=== PATIENT | female | born 1970 | race Caucasian/White ===

== ENCOUNTER 2017-01-14 11:53 | Inpatient (IN) ==
[2017-01-14] MEDS ORDERED: 0.9 % Sodium Chloride 1,000 ML IV ONE (13:17)
--- NOTE | 2017-01-14 13:21 | Emergency Department Note ---
Disposition Clinical Impression: Hyperbilirubinemia, Jaundice, Transaminitis Leukocytosis Qualifiers: Leukocytosis type: unspecified Qualified Code(s): D72.829 - Elevated white blood cell count, unspecified Breast cancer Qualifiers: Breast location: unspecified site of breast Patient sex: female Laterality: left Qualified Code(s): C50.912 - Malignant neoplasm of unspecified site of left female breast Disposition: Admitted As Inpatient Condition: Serious Time of Disposition: 17:51 General Adult HPI - General Chief complaint: ED Abdominal Pain Stated complaint: liver failure, from Dr. Mckinney Time Seen by Provider: 01/14/17 11:55 Source: patient Limitations: no limitations Nursing Notes Reviewed: Yes Vital Signs Reviewed: Yes - History of Present Illness HPI Narrative: 46-year-old female who diagnosis of breast cancer, with positive axillary lymph node for metastatic cancer to the left breast. Presents with yellow skin. Patient states that she has had jaundice and icterus or sclera, for the last few days. She was evaluated in the ED with an abdominal CAT scan that demonstrated a biliary ductal dilation. Had a total bilirubin of 4 at the time on records review. She is supposed to follow up with Dr Rosario, does have a history of Crohn's, and has seen him in the past. Over the weekend for the last 2-3 days she has noticed that her eyes and her skin has been yellow. She denies any pain, denies chest pain abdominal pain dysuria hematuria, but has noticed that her urine has been darker lately as well. Onset (ago): day(s) (5) Radiation: non-radiation Pain Scale: 0 Improves with: nothing Worsens with: nothing Associated symptoms: Reports: weakness. Denies: confusion, chest pain, cough, fever/chills, headaches, nausea/vomiting - Related Data Home Medications Medication Instructions Recorded Confirmed HydrOXYzine Pamoate [Hydroxyzine 25 mg PO TID PRN 01/14/17 01/14/17 Pamoate] InFLIXimab [Remicade] 100 mg IVPB [id number] 01/14/17 01/14/17 PredniSONE [Deltasone] See Taper PO AD 01/14/17 01/14/17 Allergies Allergy/AdvReac Type Severity Reaction Status Date / Time No Known Allergies Allergy Verified 01/14/17 12:57 All systems ED: reviewed and negative except as stated. Constitutional: Reports: weakness. Denies: fever, chills Eyes: Reports: other (eye color change yellowing) ENT ED: Denies: ear pain, throat pain Cardiovascular: Denies: chest pain, palpitations Gastrointestinal: Denies: abdominal pain, nausea, vomiting Genitourinary: Denies: urgency, dysuria Musculoskeletal: Denies: back pain, neck pain Integumentary: Reports: as per HPI, pruritus, other (skin color change) Neurological: Reports: weakness. Denies: headache Hematological/Lymphatic: Denies: easy bleeding Past Medical History - Past Medical History Attestation: Yes The following information was validated with the patient. Source: patient Medical history: Reports: cancer, other Surgical history: Reports: Psychiatric history: Reports: no psych history - Social History Smoking Status: Never smoker Smokeless Tobacco Status: No Alcohol use: Reports: occasionally Drug use: Reports: none Physical Exam Constitutional: Cachectic female appears older than stated age. Vitals within normal limits HEENT: NCAT, sclera icteric Neck: normal inspection, neck is supple, trachea midline Resp: normal chest inspection, CTA bilaterally, no resp distress CV: RRR, no m/g/r GI: normal inspection, Soft, NTND, BS present Back: normal inspection, no tenderness to palpation Neuro: A&O3, no gross motor or sensory deficits bilaterally Skin: Jaundice diffuse - General Limitations: no limitations General appearance: alert, in no apparent distress Course Course Narrative: 46-year-old female with elevated bilirubin, found to be newly jaundiced, we will repeat hepatic panel, reassessed. - Reevaluation(s) Reevaluation #1: Total bilirubin 10, white count elevated, started empirically on Zosyn, consult to Dr. Rosario and Dr. Huber, who will see the patient was counseled, hospitalist admission, concerns for possible metastatic disease, given breast cancer, bili or dilatation, I did also had an ultrasound of the gallbladder for the patient, admitted to hospital service in stable condition at time of ED disposition Time: 17:50 Vital Signs Temperature 97.7 F 01/14/17 12:52 Pulse Rate 59 01/14/17 12:52 Respiratory Rate 16 01/14/17 12:52 Blood Pressure 127/75 01/14/17 12:52 O2 Sat by Pulse Oximetry 99 01/14/17 12:52 Temperature 97.7 F 01/14/17 12:52 Pulse Rate 72 01/14/17 17:00 Respiratory Rate 16 01/14/17 17:39 Blood Pressure 105/48 01/14/17 17:39 O2 Sat by Pulse Oximetry 96 01/14/17 17:00 Oxygen Delivery Oxygen Delivery Room Air Medical Decision Making - MDM Narrative Medical decision making narrative: 46-year-old female with painless jaundice, concern for metastatic disease from the breast, admitted to medicine service with consults with oncology and gastroenterology already called in the emergency department, started empirically on Zosyn IV fluids running, patient stable but serious condition at the time of ED disposition - Medical Records Medical records reviewed: Yes I reviewed the patient's medical records. - Lab Data Lab results reviewed: Yes I reviewed the patient's lab results. Result diagrams: 01/14/17 13:42 01/14/17 13:42 Lab Results 01/14/17 01/14/17 01/14/17 Range/Units 13:08 13:42 13:42 WBC 20.0 H (4.3-11.1) K/mcL RBC 4.40 (3.82-4.97) M/mcL Hgb 12.7 (11.5-15.4) g/dL Hct 37.8 (35.3-44.9) % MCV 85.9 (83.0-100.0) fL MCH 28.9 (28.0-33.3) pg MCHC 33.6 (31.6-35.5) g/dL RDW 16.4 H (11.5-14.5) % Plt Count 251 (140-400) K/mcL MPV 10.9 (9.4-12.4) fL Immature Gran % 1.0 (0-4) % Seg Neutrophils % 83.5 % Lymphocytes % 9.8 % Monocytes % 5.5 % Eosinophils % 0.1 % Basophils % 0.1 % Neutrophils # 16.7 H (1.6-8.9) K/mcL Lymphocytes # 2.0 (0.6-4.6) K/mcL Monocytes # 1.1 (0.0-1.3) K/mcL Eosinophils # 0.0 (0.0-0.6) K/mcL Basophils # 0.0 (0.0-0.2) K/mcL Sodium 138 (136-145) mEq/L Potassium 3.1 L (3.5-4.5) mEq/L Chloride 107 (98-109) mEq/L Carbon Dioxide 24 (19-29) mEq/L BUN 18 (7-20) mg/dL Creatinine 0.75 (0.57-1.11) mg/dL Est GFR ( Amer) > 60 (> 60) Est GFR (Non-Af Amer) > 60 (> 60) BUN/Creatinine Ratio 24 (6-26) Glucose 83 (70-99) mg/dL Calculated Osmolality 287 (280-300) Lactic Acid (0.5-2.2) mmol/L Calcium 9.5 (8.6-10.8) mg/dL Total Bilirubin 10.8 H (0.2-1.2) mg/dL Direct Bilirubin 8.0 H (0.0-0.5) mg/dL Indirect Bilirubin 2.8 H (0.0-1.2) mg/dL AST 278 H (5-34) Units/L ALT 634 H (0-55) Units/L Alkaline Phosphatase 833 H (38-126) Units/L Serum Total Protein 7.2 (6.0-8.3) g/dL Albumin 2.9 L (3.5-5.0) g/dL Globulin 4.3 H (2.4-3.5) g/dL Albumin/Globulin Ratio 0.7 L (1.1-2.2) Lipase 41 (8-78) Units/L Urine Color [place] A (Yellow) Urine Clarity Cloudy A (Clear) Urine pH 6.0 (5.0-8.0) pH Units Ur Specific [place] > 1.030 H (1.010-1.025) Urine Protein 30 H (Neg-Trace) mg/dL Urine Glucose (UA) Normal (Normal) mg/dL Urine Ketones Trace H (Negative) mg/dL Urine Blood Negative (Negative) Urine Nitrite Negative (Negative) Urine Bilirubin Large H (Negative) Urine Urobilinogen Normal (Normal) mg/dL Ur Leukocyte Esterase Small H (Negative) Urine Microscopic RBC 3-5 H (0-3) per hpf Urine Microscopic WBC 0-3 (0-3) per hpf Ur Squamous Epith Cells Moderate H (None-Few) per lpf Urine Bacteria Few (None-Few) per hpf Hyaline Casts None Seen (None-Few) per lpf Ur Culture Indicated? YES A (NO) Acetaminophen (10-30) mcg/mL Hepatitis A IgM Ab (Nonreactive) Hep Bs Antigen (Nonreactive) Hep B Core IgM Ab (Nonreactive) Hepatitis C Ab Screen (Nonreactive) 01/14/17 01/14/17 01/14/17 Range/Units 15:27 15:27 15:27 WBC (4.3-11.1) K/mcL RBC (3.82-4.97) M/mcL Hgb (11.5-15.4) g/dL Hct (35.3-44.9) % MCV (83.0-100.0) fL MCH (28.0-33.3) pg MCHC (31.6-35.5) g/dL RDW (11.5-14.5) % Plt Count (140-400) K/mcL MPV (9.4-12.4) fL Immature Gran % (0-4) % Seg Neutrophils % % Lymphocytes % % Monocytes % % Eosinophils % % Basophils % % Neutrophils # (1.6-8.9) K/mcL Lymphocytes # (0.6-4.6) K/mcL Monocytes # (0.0-1.3) K/mcL Eosinophils # (0.0-0.6) K/mcL Basophils # (0.0-0.2) K/mcL Sodium (136-145) mEq/L Potassium (3.5-4.5) mEq/L Chloride (98-109) mEq/L Carbon Dioxide (19-29) mEq/L BUN (7-20) mg/dL Creatinine (0.57-1.11) mg/dL Est GFR ( Amer) (> 60) Est GFR (Non-Af Amer) (> 60) BUN/Creatinine Ratio (6-26) Glucose (70-99) mg/dL Calculated Osmolality (280-300) Lactic Acid 0.7 (0.5-2.2) mmol/L Calcium (8.6-10.8) mg/dL Total Bilirubin (0.2-1.2) mg/dL Direct Bilirubin (0.0-0.5) mg/dL Indirect Bilirubin (0.0-1.2) mg/dL AST (5-34) Units/L ALT (0-55) Units/L Alkaline Phosphatase (38-126) Units/L Serum Total Protein (6.0-8.3) g/dL Albumin (3.5-5.0) g/dL Globulin (2.4-3.5) g/dL Albumin/Globulin Ratio (1.1-2.2) Lipase (8-78) Units/L Urine Color (Yellow) Urine Clarity (Clear) Urine pH (5.0-8.0) pH Units Ur Specific [place] (1.010-1.025) Urine Protein (Neg-Trace) mg/dL Urine Glucose (UA) (Normal) mg/dL Urine Ketones (Negative) mg/dL Urine Blood (Negative) Urine Nitrite (Negative) Urine Bilirubin (Negative) Urine Urobilinogen (Normal) mg/dL Ur Leukocyte Esterase (Negative) Urine Microscopic RBC (0-3) per hpf Urine Microscopic WBC (0-3) per hpf Ur Squamous Epith Cells (None-Few) per lpf Urine Bacteria (None-Few) per hpf Hyaline Casts (None-Few) per lpf Ur Culture Indicated? (NO) Acetaminophen < 1.0 L (10-30) mcg/mL Hepatitis A IgM Ab Nonreactive (Nonreactive) Hep Bs Antigen Nonreactive (Nonreactive) Hep B Core IgM Ab Nonreactive (Nonreactive) Hepatitis C Ab Screen Nonreactive (Nonreactive) - Radiology Data Radiology results reviewed: Yes I reviewed the patient's radiology results. Chest X-Ray 01/14/17 13:56 IMPRESSION: No acute cardiopulmonary process. D/ / 01/14/2017 15:13:20 Carie Gandhi MD / Ellie De La Garza Interpreting Provider: Carie Gandhi MD Attestation Statement - Attestation Attestation: I examined this patient and my medical decision-making was reviewed with the DIRECTOR OF STUDENT AID/PA/Advanced Practice Nurse/Resident Physician. I agree with the documented findings, disposition and treatment plan as described except to the extent set forth below. Patient emergency department for jaundice. Patient was recently diagnosed with breast cancer and is still awaiting biopsy results. She had elevated LFTs and had an outpatient CT that shows biliary duct dilatation. She was sent in for admission and GI consult. On exam she is jaundiced. Her abdomen is soft. Nontoxic and afebrile. Plan. Admission for GI consultation and oncology consultation. Patient has been discussed with Dr. Rosario and Dr. Mendez's lead setter. Will be admitted to medicine.
[2017-01-14 13:26] LABS: Bilirubin,Urine Large (Negative); Blood,Urine Negative (Negative); Clarity,Urine Cloudy (Clear); Color,Urine Orange (Yellow); Glucose,Urine (UA) Normal (Normal); Ketones,Urine Trace mg/dL (Negative); Leukocyte Esterase,Urine Small (Negative); Nitrite,Urine Negative (Negative); Protein,Urine 30 mg/dL (Neg-Trace); Specific Gravity,Urine > 1.030 (1.010-1.025); Urobilinogen,Urine Normal (Normal)
[2017-01-14 13:29] LABS: Hyaline Casts,Urine None Seen per lpf (None-Few); Squamous Epithelial Cell,Urine Moderate per lpf (None-Few); WBC,Urine 0-3 per hpf (0-3)
[2017-01-14 13:42] LABS: Bacteria,Urine Few per hpf (None-Few)
[2017-01-14 13:48] LABS: Basophils % 0.1 %; Eosinophils % 0.1 %; Hematocrit 37.8 % (35.3-44.9); Hemoglobin 12.7 g/dL (11.5-15.4); Lymphocytes % 9.8 %; Mean Corpuscular HGB Conc 33.6 g/dL (31.6-35.5); Mean Corpuscular Hemoglobin 28.9 pg (28.0-33.3); Mean Corpuscular Volume 85.9 fL (83.0-100.0); Mean Platelet Volume 10.9 fL (9.4-12.4); Monocytes # 1.1 K/mcL (0.0-1.3); Monocytes % 5.5 %; Neutrophils # 16.7 K/mcL (1.6-8.9); Platelet Count 251 K/mcL (140-400); Red Cell Distribution Width 16.4 % (11.5-14.5); Segmented Neutrophils % 83.5 %
[2017-01-14 14:03] LABS: Alanine Aminotransferase 634 Units/L (0-55); Albumin 2.9 g/dL (3.5-5.0); Albumin/Globulin Ratio 0.7 (1.1-2.2); Alkaline Phosphatase 833 Units/L (38-126); Aspartate Amino Transferase 278 Units/L (5-34); BUN/Creatinine Ratio 24 (6-26); Bilirubin,Indirect 2.8 mg/dL (0.0-1.2); Bilirubin,Total 10.8 mg/dL (0.2-1.2); Blood Urea Nitrogen 18 mg/dL (7-20); Calcium 9.5 mg/dL (8.6-10.8); Carbon Dioxide 24 mEq/L (19-29); Chloride 107 mEq/L (98-109); Globulin 4.3 g/dL (2.4-3.5); Glucose 83 mg/dL (70-99); Lipase 41 Units/L (8-78); Osmolality,Calculated 287 (280-300); Potassium 3.1 mEq/L (3.5-4.5); Sodium 138 mEq/L (136-145); Total Protein 7.2 g/dL (6.0-8.3); eGFR For African Americans > 60 (> 60); eGFR For Non-African Americans > 60 (> 60)
[2017-01-14] MEDS ORDERED: Piperacillin/Tazobactam 3.375 GM in D5% in Water (Mini-Bag+) 100 ML IVPB ONE (14:56)
[2017-01-14] MEDS ORDERED: Piperacillin/Tazobactam 3.375 GM in D5% in Water (Mini-Bag+) 100 ML IVPB STA (16:44)
[2017-01-14 17:19] LABS: Hepatitis A Antibody IgM Nonreactive (Nonreactive); Hepatitis B Core IgM Nonreactive (Nonreactive); Hepatitis B Surface Antigen Nonreactive (Nonreactive); Hepatitis C Virus Antibody Nonreactive (Nonreactive)
[2017-01-14] MEDS ORDERED: Naloxone 0.4 MG/ML INJ IVP PRN (18:05)
--- NOTE | 2017-01-14 18:05 | Internal Med History&Physical ---
Date of Encounter: 01/14/17 Time of Encounter: 17:15 Assessment and Plan (1) Cholestasis Current visit: Yes Status: Suspected Observe patient in the hospital overnight. Consult GI for possible ERCP. Patient has possible obstructive jaundice. She is pain-free. There is intrahepatic ductal dilatation as noted from CT done on 01/11/17. Ultrasound of the abdomen done on 01/04/17 did not show any biliary duct dilatation or gallstones. We will repeat ultrasound of the abdomen. (2) Leukocytosis Current visit: Yes Status: Acute Patient has leukocytosis with possible obstructive jaundice. Started on antibiotics. Will continue for now. 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 We will consult oncology for further recommendations. Qualifiers: Breast location: unspecified site of breast Patient sex: female Laterality: left Qualified Code(s): C50.912 - Malignant neoplasm of unspecified site of left female breast (4) Hyperbilirubinemia Current visit: Yes Status: Acute Due to obstructive jaundice. Will check hepatic viral panel. (5) Jaundice Current visit: Yes Status: Acute (6) Transaminitis Current visit: Yes Status: Acute (7) Crohns disease Current visit: Yes Status: Chronic Patient currently not having any flareup symptoms. She was started on a prednisone tapering course as outpatient which we will continue. Qualifiers: Gastrointestinal tract location: unspecified location Digestive disease complication type: without complication Qualified Code(s): K50.90 - Crohn's disease, unspecified, without complications Internal Medicine - H&P: HPI Chief complaint: Jaundice Admitted From: Emergency Dept Plans for Post Hospital Care: Home History of present illness: Ms. Cruz is a 46 year old female With a history of Crohn's disease who presented to the ER today with complaints of worsening jaundice. She had been seen by her primary care provider recently after she first developed these symptoms on of last week. She has been feeling lethargic and fatigued. She had just been diagnosed with breast cancer and was being set up to follow up with [facility]. She underwent a mammogram on Saturday and had return for biopsy on . She was evaluated by her primary care provider and underwent a CT scan of the abdomen and the ultrasound of the abdomen later in the week. These did not show any abnormalities. Patient currently denies any nausea or vomiting diarrhea or hematochezia. She has not had a Crohn's flareup for a few months now. She was previously on Remicade and at that time she was having bad flareups. However in November she did not get her dose of Remicade as she was not feeling good at that time. She has never had any episodes of jaundice like this before. She does not have a history of any hepatitis virus. No other family members are exhibiting similar symptoms. She denies any abdominal pain. She has no previous history of gallbladder disease. She is currently on a prednisone taper. Past Med Surg Social Fam HX - Past Medical History Attestation: Yes The following information was validated with the patient. Medical history: cancer (Left breast invasive ductal carcinoma with lymphatic spread), other Psychiatric history: no psych history - Past Surgical History Surgical History: - Social History Smoking Status: Never smoker Smokeless Tobacco Status: No Alcohol use: occasionally Drug use: none - Additional Family History Additional family history: Reviewed and found to be noncontributory at this time Internal Medicine - H&P: Meds HydrOXYzine Pamoate [Hydroxyzine Pamoate] 25 mg PO TID PRN 01/14/17 [History] InFLIXimab [Remicade] 100 mg IVPB [id number] 01/14/17 [History] PredniSONE [Deltasone] See Taper PO AD 01/14/17 [History] Allergies No Known Allergies Allergy (Verified 01/14/17 12:57) All Systems PM: A 10-system review of systems was performed and is negative for pertinent findings except as documented above in the HPI. - Constitutional Constitutional: no chills, no fever(s), no night sweats - EENT Eyes: no change in vision, no discharge, no pain, no photophobia Ears: no ear discharge, no ear pain, no tinnitus Nose, mouth and throat: no dysphagia, no nasal discharge, no neck pain, no sore throat - Cardiovascular Cardiovascular ROS IM: no chest pain, no diaphoresis, no dyspnea, no lightheadedness, no palpitations, no syncope - Respiratory Respiratory: no cough, no dyspnea, no wheezing, no excessive phlegm production - Gastrointestinal Gastrointestinal: no abdominal pain, no diarrhea, no hematemesis, no hematochezia, no melena, no nausea, no vomiting - Genitourinary Genitourinary: no change in urinary stream, no dysuria, no flank pain, no hematuria - Musculoskeletal Musculoskeletal ROS IM: no numbness, no tingling - Integumentary Integumentary IM: no rash, no unusual bruising - Neurological Neurological ROS: no confusion, no convulsions, no focal weakness, no numbness, no tingling, no tremor(s) - Hematologic/Lymphatic Hematologic/Lymphatic: no easy bruising - Constitutional Vitals: Temp Pulse Resp BP Pulse Ox 97.7 F 72 16 105/48 96 01/14/17 12:52 01/14/17 17:00 01/14/17 17:39 01/14/17 17:39 01/14/17 17:00 General appearance: Present: cooperative, mild distress, A&O X 3, pleasant, answers questions appropriately - Eye Eye exam: Present: EOMI, PERRL, scleral icterus, conjuntiva pink, sclera anicteric - Neck Neck exam general surgery: Present: supple, trachea midline. Absent: lymphadenopathy - Respiratory Respiratory exam: Present: CTAB. Absent: accessory muscle use, rales, rhonchi, wheezes - Cardiovascular Cardiovascular exam: Present: RRR, +S1, +S2. Absent: diastolic murmur, gallop, rubs, systolic murmur - GI/Abdominal GI/Abdominal exam: Present: normal bowel sounds, soft, no peritoneal signs. Absent: distended, tenderness - Extremities Exam Extremities exam: Present: warm, radial pulses palpable and symetrical. Absent : calf tenderness, cyanotic, pedal edema - Neurological Exam Neurological exam: Present: CN II-XII intact, oriented X3, no focal deficits. Absent: facial droop, speech deficit - Skin Skin exam: Present: dry, intact Additional comments: Jaundice present Internal Med - H&P Results - Labs CBC & Chem 7: 01/14/17 13:42 01/14/17 13:42 - Impressions Impressions Chest X-Ray 01/14/17 13:56 IMPRESSION: No acute cardiopulmonary process. D/ / 01/14/2017 15:13:20 Carie Gandhi MD / Ellie De La Garza Interpreting Provider: Carie Gandhi MD - Attending Attestation This document has been at least partially created by [employer] recognition technology by Dr. Allan. Errors in grammar, wording or other phrases may exist. If errors are found after the documentation is signed, they will be addressed individually in the addendum section of this document when appropriate.
[2017-01-14] MEDS ORDERED: hydrOXYzine pamoate 25 MG CAPSULE PO PRN (18:10)
[2017-01-14] MEDS: 0.9 % Sodium Chloride w KCl 20 MEQ/1,000 ML MLS IVC SCH (20:38)
[2017-01-15] MEDS: Ampicillin/Sulbactam 3,000 MG in 0.9 % Sodium Chloride Mini Bag 100 ML IVPB SCH ×5 (00:19→23:51)
[2017-01-15 04:33] LABS: Basophils % 0.3 %; Eosinophils # 0.1 K/mcL (0.0-0.6); Eosinophils % 1.2 %; Hematocrit 33.3 % (35.3-44.9); Hemoglobin 11.3 g/dL (11.5-15.4); Immature Granulocytes % 1.2 % (0-4); Lymphocytes # 2.3 K/mcL (0.6-4.6); Mean Corpuscular HGB Conc 33.9 g/dL (31.6-35.5); Mean Corpuscular Hemoglobin 29.2 pg (28.0-33.3); Mean Platelet Volume 11.8 fL (9.4-12.4); Monocytes # 0.9 K/mcL (0.0-1.3); Monocytes % 7.8 %; Neutrophils # 8.4 K/mcL (1.6-8.9); Platelet Count 222 K/mcL (140-400); Red Blood Count 3.87 M/mcL (3.82-4.97); Red Cell Distribution Width 17.3 % (11.5-14.5); Segmented Neutrophils % 70.5 %
[2017-01-15 04:47] LABS: Alanine Aminotransferase 555 Units/L (0-55); Albumin/Globulin Ratio 0.6 (1.1-2.2); Alkaline Phosphatase 717 Units/L (38-126); Aspartate Amino Transferase 297 Units/L (5-34); BUN/Creatinine Ratio 15 (6-26); Bilirubin,Total 9.3 mg/dL (0.2-1.2); Blood Urea Nitrogen 11 mg/dL (7-20); Carbon Dioxide 19 mEq/L (19-29); Chloride 113 mEq/L (98-109); Globulin 3.6 g/dL (2.4-3.5); Glucose 93 mg/dL (70-99); Osmolality,Calculated 289 (280-300); Potassium 3.6 mEq/L (3.5-4.5); Sodium 140 mEq/L (136-145); Total Protein 5.8 g/dL (6.0-8.3); eGFR For African Americans > 60 (> 60); eGFR For Non-African Americans > 60 (> 60)
[2017-01-15 04:53] LABS: Albumin 2.2 g/dL (3.5-5.0)
[2017-01-15] MEDS: 0.9 % Sodium Chloride w KCl 20 MEQ/1,000 ML MLS IVC SCH ×2 (05:58→20:46)
[2017-01-15] MEDS: *HR* Heparin 5,000 UNIT/ML VIAL SQ SCH ×2 (05:58→17:53)
--- NOTE | 2017-01-15 07:40 | Oncology Inp Consult Note ---
Date of Encounter: 01/15/17 Time of Encounter: 07:40 - Data of Consult Patient: new to practice Consult date: 01/15/17 Requesting Physician: Otoniel Holman DO Primary Care Provider: Chery Mckinney CNP - Consult Narrative Reason for consult: Breast cancer History of present illness: Ms. Cruz is a 46 year old seen in consultation regarding newly diagnosed metastatic breast cancer. She is a patient of Ms. Chery Mckinney CNP. She presented to her PCP with a left-sided breast mass and had a screening mammogram 01/10/17 which confirmed a 3.1 cm central left breast because of that mass with concern about infiltration of the left pectoralis and nipple retraction. Also noted were 2 abnormal-appearing left axillary lymph nodes concerning for involvement with malignancy. She also had areas of punctate microcalcifications in the right breast with notably dense breast and breast MRI was recommended for further evaluation. She had additional imaging of her left breast and ultimately had needle biopsy on 01/11/17 which confirmed a grade 2 invasive ductal carcinoma with additional DCIS component (grade 2, solid pattern). Biopsy of left axillary node also positive for carcinoma. Ancillary studies including hormone receptor and HER-2 testing pending. Patient was scheduled to see my partner Dr. Ramon in the multidisciplinary breast clinic on 01/22/17 but unfortunately has been hospitalized for acute illness after presenting with painless obstructive jaundice. She does have an underlying history of Crohn's disease and has been on treatment with Remicade reportedly for about a year. She is followed by Dr. ramon for her Crohn's disease. On admission, she was noted to have an elevated bilirubin as high as 10.8. She also has markedly elevated transaminases and alkaline phosphatase. Of note is that her bilirubin was 4.4 on 01/10/17 around the time of her breast biopsy. Her recent abdomen CT from 01/11/17 showed moderate intrahepatic biliary dilatation but no definite acute abnormality identified within the abdomen or pelvis. No indication specifically of liver metastasis. Nonspecific sclerotic focus within the left aspect of L3 vertebral body which appears to be stable compared to 2014 and therefore likely benign etiology. Dr. Rosario has been consulted for further evaluation of her abnormal LFT with cholestatic picture. Oncology is consulted re: further evaluation and recommendations regarding her newly diagnosed breast cancer. Patient was seen and examined the bedside. Chart reviewed for details of ongoing care by hospital team which is much appreciated. At time of evaluation, discomfort (is no obvious distress. She is not having any abdominal symptoms and no breast symptoms attributable to her new breast cancer diagnosis. Rest of past medical, surgical, family, social history detailed below and verified with patient today. Review of systems: 12 point review of systems performed with patient and positive findings noted in history of present illness. All other systems are negative: Physical exam: Vital Signs Temp 97.2 F L 01/15/17 07:31 Pulse 76 01/15/17 07:31 Resp 18 01/15/17 07:31 BP 86/65 01/15/17 07:31 Pulse Ox 95 01/15/17 07:31 GENERAL: Alert and oriented, comfortable appearing. Mental Status: Affect appropriate for circumstances HEENT: Sclerae anicteric. No mucositis or thrush. No other oral or pharyngeal lesions or erythema. Skin: No rashes or petechiae. No evidence of skin malignancy Lymph nodes: No cervical, supraclavicular, axillary, or inguinal adenopathy. Breast exam: Skin bruising over her left breast from recent biopsy. Centrally located palpable, nontender lump in left breast. Freely mobile. Right breast unremarkable with no palpable lumps, skin changes or nipple abnormalities. Lungs: Clear to auscultation bilaterally. Clear to percussion bilaterally. Cardiovascular: Regular rate and rhythm. No gallops, murmurs, or rubs. Abdomen: Soft, nontender; No organomegaly or masses palpable. Extremities: No edema. No calf swelling or tenderness. No joint deformity. Neurologic: Alert, normal gait; no focal weakness or sensory abnormalities. Results: Laboratory Last Values WBC 11.9 K/mcL (4.3-11.1) H 01/15/17 04:04 RBC 3.87 M/mcL (3.82-4.97) 01/15/17 04:04 Hgb 11.3 g/dL (11.5-15.4) L 01/15/17 04:04 Hct 33.3 % (35.3-44.9) L 01/15/17 04:04 MCV 86.0 fL (83.0-100.0) 01/15/17 04:04 MCH 29.2 pg (28.0-33.3) 01/15/17 04:04 MCHC 33.9 g/dL (31.6-35.5) 01/15/17 04:04 RDW 17.3 % (11.5-14.5) H 01/15/17 04:04 Plt Count 222 K/mcL (140-400) 01/15/17 04:04 MPV 11.8 fL (9.4-12.4) 01/15/17 04:04 Immature Gran % 1.2 % (0-4) 01/15/17 04:04 Seg Neutrophils % 70.5 % 01/15/17 04:04 Lymphocytes % 19.0 % 01/15/17 04:04 Monocytes % 7.8 % 01/15/17 04:04 Eosinophils % 1.2 % 01/15/17 04:04 Basophils % 0.3 % 01/15/17 04:04 Neutrophils # 8.4 K/mcL (1.6-8.9) 01/15/17 04:04 Lymphocytes # 2.3 K/mcL (0.6-4.6) 01/15/17 04:04 Monocytes # 0.9 K/mcL (0.0-1.3) 01/15/17 04:04 Eosinophils # 0.1 K/mcL (0.0-0.6) 01/15/17 04:04 Basophils # 0.0 K/mcL (0.0-0.2) 01/15/17 04:04 Sodium 140 mEq/L (136-145) 01/15/17 04:04 Potassium 3.6 mEq/L (3.5-4.5) 01/15/17 04:04 Chloride 113 mEq/L (98-109) H 01/15/17 04:04 Carbon Dioxide 19 mEq/L (19-29) 01/15/17 04:04 BUN 11 mg/dL (7-20) 01/15/17 04:04 Creatinine 0.71 mg/dL (0.57-1.11) 01/15/17 04:04 Est GFR ( Amer) > 60 (> 60) 01/15/17 04:04 Est GFR (Non-Af Amer) > 60 (> 60) 01/15/17 04:04 BUN/Creatinine Ratio 15 (6-26) 01/15/17 04:04 Glucose 93 mg/dL (70-99) 01/15/17 04:04 POC Glucose 110 (58-89) H 01/14/17 20:43 Calculated Osmolality 289 (280-300) 01/15/17 04:04 Lactic Acid 0.7 mmol/L (0.5-2.2) 01/14/17 15:27 Calcium 8.0 mg/dL (8.6-10.8) L D 01/15/17 04:04 Total Bilirubin 9.3 mg/dL (0.2-1.2) H 01/15/17 04:04 Direct Bilirubin 8.0 mg/dL (0.0-0.5) H 01/14/17 13:42 Indirect Bilirubin 2.8 mg/dL (0.0-1.2) H 01/14/17 13:42 AST 297 Units/L (5-34) H 01/15/17 04:04 ALT 555 Units/L (0-55) H 01/15/17 04:04 Alkaline Phosphatase 717 Units/L (38-126) H 01/15/17 04:04 Serum Total Protein 5.8 g/dL (6.0-8.3) L 01/15/17 04:04 Albumin 2.2 g/dL (3.5-5.0) L D 01/15/17 04:04 Globulin 3.6 g/dL (2.4-3.5) H 01/15/17 04:04 Albumin/Globulin Ratio 0.6 (1.1-2.2) L 01/15/17 04:04 Lipase 41 Units/L (8-78) 01/14/17 13:42 Urine Color [place] (Yellow) A 01/14/17 13:08 Urine Clarity Cloudy (Clear) A 01/14/17 13:08 Urine pH 6.0 pH Units (5.0-8.0) 01/14/17 13:08 Ur Specific [place] > 1.030 (1.010-1.025) H 01/14/17 13:08 Urine Protein 30 mg/dL (Neg-Trace) H 01/14/17 13:08 Urine Glucose (UA) Normal mg/dL (Normal) 01/14/17 13:08 Urine Ketones Trace mg/dL (Negative) H 01/14/17 13:08 Urine Blood Negative (Negative) 01/14/17 13:08 Urine Nitrite Negative (Negative) 01/14/17 13:08 Urine Bilirubin Large (Negative) H 01/14/17 13:08 Urine Urobilinogen Normal mg/dL (Normal) 01/14/17 13:08 Ur Leukocyte Esterase Small (Negative) H 01/14/17 13:08 Urine Microscopic RBC 3-5 per hpf (0-3) H 01/14/17 13:08 Urine Microscopic WBC 0-3 per hpf (0-3) 01/14/17 13:08 Ur Squamous Epith Cells Moderate per lpf (None-Few) H 01/14/17 13:08 Urine Bacteria Few per hpf (None-Few) 01/14/17 13:08 Hyaline Casts None Seen per lpf (None-Few) 01/14/17 13:08 Ur Culture Indicated? YES (NO) A 01/14/17 13:08 Acetaminophen < 1.0 mcg/mL (10-30) L 01/14/17 15:27 Hepatitis A IgM Ab Nonreactive (Nonreactive) 01/14/17 15:27 Hep Bs Antigen Nonreactive (Nonreactive) 01/14/17 15:27 Hep B Core IgM Ab Nonreactive (Nonreactive) 01/14/17 15:27 Hepatitis C Ab Screen Nonreactive (Nonreactive) 01/14/17 15:27 Radiographic studies: I personally reviewed and interpreted patient's most recent imaging studies dated 01/10-. I discussed the findings with the patient today. Impression/recommendations: Newly diagnosed left-sided breast cancer: Likely T2 N1-stage II breast cancer. She has a potentially curable breast cancer. I had a detailed discussion with the patient today regarding natural history of what appears to be an early-stage breast cancer and we discussed NCCN guidelines for management. There is concern about chest wall involvement and additional areas of suspicious calcification in the right breast and further evaluation with a breast MRI has been recommended. I think this is reasonable and can be completed an outpatient once patient's more pressing, acute issues are address. If prolonged hospitalization is anticipated for whatever reason, we'll recommend to go ahead and obtain breast MRI while in house to expedite her management. Given her positive lymph nodes and consented by multiple lymph node involvement , we will go ahead and obtain a chest CT while in-house for completeness since she really has an abdomen CT that does not show any unequivocal evidence of involvement with breast cancer. She doesn't have any symptoms to suggest bone metastases and no indication for bone scan at this time. May be something to consider on an outpatient basis depending on findings of pending studies. If she is confirmed to have local regionally confined breast cancer, she will be an appropriate candidate for resection. We discussed options for resection including mastectomy versus breast was of a lumpectomy. If she elects for lumpectomy, she will need adjuvant therapy with radiation at a minimum. Depending on operative findings, adjuvant chemotherapy may be indicated. If chemotherapy is indicated, I expect her to tolerate one of several adjuvant chemotherapy regimens for breast cancer recurrence risk reduction. Based on her hormone receptor positive status, she will require adjuvant endocrine therapy with tamoxifen for 5 years at a minimum. She was previously scheduled to see Dr. Ramon in our multidisciplinary breast clinic for evaluation of her newly diagnosed breast cancer. Upon discharge, I'll arrange for a short interval outpatient follow-up for further recommendations regarding her breast cancer. We will also try to get her in separately with surgery and radiation oncology for multidisciplinary evaluation/recommendations. We will also review her case in our multidisciplinary tumor conference for definitive treatment recommendations. Abnormal LFT/cholestasis: I'm not sure if this is related to her underlying Crohn's disease since biliary disease can be long-term sequelae of long-standing Crohn's disease. Fortunately, Dr. Rosario will be evaluating her later today and I look forward to his input. Unless she has intractable hepatobiliary disease/cholestasis, I do not anticipate this to be a major issue for her breast cancer treatment. Anemia: Likely multifactorial and I suspect that maybe contusion from her underlying Crohn's disease. Recommend anemia workup to look for additional contributing factors including hematinic deficiencies etc. Please send a reticulocyte count, ferritin, iron panel, B12, folate, LDH, haptoglobin, thyroid panel including TSH and T4. We'll follow the patient along side you during this hospitalization but please do not hesitate to call regarding interval hematologic questions as they arise. Thank you for your excellent ongoing care for allowing us to see her while in- house. This report was created using voice recognition software and may contain errors. It was signed but not edited to expedite communication. Past Med Surg Social Fam HX - Past Medical History Medical history: cancer, other Psychiatric history: no psych history - Past Surgical History Surgical History: - Social History Smoking Status: Never smoker Smokeless Tobacco Status: No Alcohol use: occasionally Drug use: none - Family History Mother History Unknown: Yes Adopted: [place]: Madie Cruz Family Member Ethnicity: Non- Living Status: Age at : 69 Cause of : Emphysema Hx Family Cardiac Disorders: No Hx Family Respiratory Disorders: Yes Medications and Allergies HydrOXYzine Pamoate [Hydroxyzine Pamoate] 25 mg PO TID PRN 01/14/17 [History] InFLIXimab [Remicade] 100 mg IVPB [id number] 01/14/17 [History] PredniSONE [Deltasone] See Taper PO AD 01/14/17 [History] Allergies No Known Allergies Allergy (Verified 01/14/17 12:57) Oncology - Exam - Constitutional Vitals: Temp Pulse Resp BP Pulse Ox 97.2 F L 76 18 86/65 95 01/15/17 07:31 01/15/17 07:31 01/15/17 07:31 01/15/17 07:31 01/15/17 07:31 Oncology - Results - Labs Labs: Short CBC 01/15/17 Range/Units 04:04 WBC 11.9 H (4.3-11.1) K/mcL Hgb 11.3 L (11.5-15.4) g/dL Hct 33.3 L (35.3-44.9) % Plt Count 222 (140-400) K/mcL Neutrophils # 8.4 (1.6-8.9) K/mcL BMP 01/15/17 04:04 Sodium 140 Potassium 3.6 Chloride 113 H Carbon Dioxide 19 BUN 11 Creatinine 0.71 Glucose 93 Calcium 8.0 L D Liver Function 01/15/17 Range/Units 04:04 Total Bilirubin 9.3 H (0.2-1.2) mg/dL AST 297 H (5-34) Units/L ALT 555 H (0-55) Units/L Alkaline Phosphatase 717 H (38-126) Units/L Albumin 2.2 L D (3.5-5.0) g/dL Consult Discharge Plan - Plan Referrals: Chery Mckinney, INSURANCE RISK SURVEYOR [Primary Care Provider] -
[2017-01-15] MEDS ORDERED: predniSONE 20 MG TABLET PO SCH (09:00)
[2017-01-15] MEDS ORDERED: *HR* Propofol 200 MG/20 ML VIAL IVP ONE (09:17)
[2017-01-15] MEDS ORDERED: *HR* Succinylcholine 200 MG/10 ML VIAL IVP ONE (09:17)
[2017-01-15] MEDS ORDERED: Lidocaine -MPF 2% 5 ML VIAL INFILT ONE (09:17)
[2017-01-15] MEDS ORDERED: Ondansetron 4 MG/2 ML VIAL IVP ONE (09:17)
--- NOTE | 2017-01-15 11:08 | Gastroenterology Consult Note ---
<Ranulfo Almanzar - Last Filed: 01/15/17 11:06> Date of Encounter: 01/15/17 Time of Encounter: 10:00 - Assessment and plan (1) Metastatic breast cancer Current Visit: Yes Status: Acute Assessment and plan: Left breast cancer with mets to left axillary lymph node. (2) Transaminitis Current Visit: Yes Status: Acute Assessment and plan: TB 9.3, AST 297, ALT 555, hepatitis profile negative. CT A/P 01/11/2017 with moderate intrahepatic biliary ductal dilation. Concerned for cholangiocarcinoma. Check Ca 19-9 and CEA. Plan for ERCP with possible stent placement. Will likely need to refer to UC or [facility] for surgical evaluation. (3) Jaundice Current Visit: Yes Status: Acute (4) Crohns disease Current Visit: Yes Status: Chronic Assessment and plan: Pt noncompliant with Crohn's treatment. Last treatment with Remicade was Jul or Aug 2016. Pt cancelled appt in Sep 2016 due to a "sinus infection and fever" . Qualifiers: Gastrointestinal tract location: unspecified location Digestive disease complication type: without complication Qualified Code(s): K50.90 - Crohn's disease, unspecified, without complications - Time Spent With Patient Total time spent is greater than 50% in coordination of care (as documented) at patient's floor/unit and/or counseling patient: GI History of Present Illness - Data of Consult Patient: known to practice within the last 3 years Consult date: 01/15/17 Requesting Physician: Otoniel Holman DO - Consult Narrative Reason for consult: elevated LFT History of present illness: Ms. Cruz is a 46 year old female with PMHx of left breast invasive ductal carcinoma, Crohns disease who presented to the ED with complaints of worsening jaundice. She was seen by her PCP recently when these symptoms developed of last week. CT A/P on 01/11/2017 with moderate intrahepatic biliary ductal dilation. She was recently diagnosed with breast cancer, and is being set up to follow with [facility]. She denies nausea, vomiting, diarrhea , melena, or hematochezia. She has a history of Crohns disease, and did not receive her dose of Remicade in November. Procedures: Colonoscopy 03/01/16 inflammation secondary top Crohn's, biopsies showed chronic active ileitis with ulceration and acute and chronic inflammation in rectum and ascending colon. EGD 03/01/16 mild chronic gastritis, duodenal biopsy showed chronic inflammation. NSAIDs: None Anticoagulation: None Past Med Surg Social Fam HX - Past Medical History Medical history: cancer, other Psychiatric history: no psych history - Past Surgical History Surgical History: - Social History Smoking Status: Never smoker Smokeless Tobacco Status: No Alcohol use: occasionally Drug use: none - Family History Mother History Unknown: Yes Adopted: [place]: Madie Cruz Family Member Ethnicity: Non- Living Status: Age at : 69 Cause of : Emphysema Hx Family Cardiac Disorders: No Hx Family Respiratory Disorders: Yes - Gastrointestinal Gastrointestinal: Present: as per HPI - Constitutional Constitutional: as per HPI - EENT Eyes: as per HPI Ears: Present: as per HPI Nose, mouth and throat: Present: as per HPI - Cardiovascular Cardiovascular ROS: Present: as per HPI - Respiratory Respiratory IM: Present: as per HPI - Genitourinary Genitourinary: Absent: change in color, Urinary frequency - Neurological ROS Neurological GI: Present: as per HPI - Hematologic/Lymphatic Hematologic/Lymphatic pediatric: Present: as per HPI - Musculoskeletal Musculoskeletal ROS GI: Present: as per HPI - Integumentary Integumentary GI: Present: as per HPI - Psychiatric ROS Psychiatric GI: Present: as per HPI - Endocrine Endocrine IM: Present: as per HPI - Constitutional Vitals: Temp Pulse Resp BP Pulse Ox 97.2 F L 76 18 86/65 95 01/15/17 07:31 01/15/17 07:31 01/15/17 07:31 01/15/17 07:31 01/15/17 07:31 General appearance: Present: cooperative, A&O X 3, no acute distress, answers questions appropriately - Head Head exam: Present: atraumatic, normocephalic - Eye Eye exam: Present: scleral icterus - ENT ENT exam: Present: mucous membranes moist - Neck Neck exam general surgery: Present: normal inspection, trachea midline - Respiratory Respiratory exam: Present: CTAB. Absent: rales, rhonchi, wheezes - Cardiovascular Cardiovascular exam: Present: RRR, +S1, +S2 - GI/Abdominal GI/Abdominal exam: Present: soft, no peritoneal signs. Absent: distended, firm , guarding, tenderness - Rectal Rectal exam: Present: deferred - Extremities Exam Extremities exam: Present: warm - Neurological Exam Neurological exam: Present: no focal deficits - Psychiatric Psychiatric exam: Present: normal affect, normal mood - Skin Skin exam: Present: dry, intact, normal color (Jaundiced), warm Results - Labs CBC & Chem 7: 01/15/17 04:04 01/15/17 04:04 Labs: Last Result Calcium 8.0 mg/dL (8.6-10.8) L D 01/15/17 04:04 Entire Visit Hgb 11.3 g/dL (11.5-15.4) L 01/15/17 04:04 Hct 33.3 % (35.3-44.9) L 01/15/17 04:04 Total Bilirubin 9.3 mg/dL (0.2-1.2) H 01/15/17 04:04 AST 297 Units/L (5-34) H 01/15/17 04:04 ALT 555 Units/L (0-55) H 01/15/17 04:04 Lipase 41 Units/L (8-78) 01/14/17 13:42 Acetaminophen < 1.0 mcg/mL (10-30) L 01/14/17 15:27 - Impressions Impressions Gallbladder Ultrasound 01/15/17 09:00 IMPRESSION: Moderate abnormal intrahepatic biliary dilatation with no extrahepatic biliary dilatation. No focal hepatic lesion identified. Moderate biliary sludge. Moderate distension of the gallbladder. No ascites. RECOMMENDATIONS: ERCP with biliary stenting may be of benefit. D/ / Brock Hayden MD / Brock Hayden MD Interpreting Provider: Brock Hayden MD Consult Discharge Plan - Plan Referrals: Chery Mckinney CNP [Primary Care Provider] - Jose Huber MD [Partnered Physician] - 01/24/17 10:10 am ([facility] called 01/15 to set appointment up.) <Monse Rosario - Last Filed: 01/15/17 17:57> Time of Encounter: 12:00 - Time Spent With Patient Total time spent is greater than 50% in coordination of care (as documented) at patient's floor/unit and/or counseling patient: GI History of Present Illness - Data of Consult Requesting Physician: Otoniel Holman DO - Consult Narrative History of present illness: Ms. Cruz is a 46 year old female - Constitutional Vitals: Temp Pulse Resp BP Pulse Ox 98.1 F 64 16 136/84 98 01/15/17 17:39 01/15/17 17:39 01/15/17 17:39 01/15/17 17:39 01/15/17 16:50 Results - Labs CBC & Chem 7: 01/15/17 04:04 01/15/17 04:04 Labs: Last Result Calcium 8.0 mg/dL (8.6-10.8) L D 01/15/17 04:04 Entire Visit Hgb 11.3 g/dL (11.5-15.4) L 01/15/17 04:04 Hct 33.3 % (35.3-44.9) L 01/15/17 04:04 Total Bilirubin 9.3 mg/dL (0.2-1.2) H 01/15/17 04:04 AST 297 Units/L (5-34) H 01/15/17 04:04 ALT 555 Units/L (0-55) H 01/15/17 04:04 Lipase 41 Units/L (8-78) 01/14/17 13:42 Carcinoembryonic Ag 3.7 ng/mL (0-5.0) 01/15/17 09:47 Acetaminophen < 1.0 mcg/mL (10-30) L 01/14/17 15:27 - Impressions Impressions Gallbladder Ultrasound 01/15/17 09:00 IMPRESSION: Moderate abnormal intrahepatic biliary dilatation with no extrahepatic biliary dilatation. No focal hepatic lesion identified. Moderate biliary sludge. Moderate distension of the gallbladder. No ascites. RECOMMENDATIONS: ERCP with biliary stenting may be of benefit. D/ / Brock Hayden MD / Brock Hayden MD Interpreting Provider: Brock Hayden MD - Attending Attestation I examined this patient and my medical decision-making was reviewed with the BABY SITTER/PA/Advanced Practice Nurse/Resident Physician. I agree with the documented findings, disposition and treatment plan as described except to the extent set forth below. Patient's CT scan reviewed with Dr. Vaughan CT scan is concerning for a possible cholangiocarcinoma. He will undergo ERCP with stent placement for her obstructive jaundice and she will then be referred to [facility] to hepatobiliary surgeon for possible resection
--- NOTE | 2017-01-15 14:14 | Anesthesia Evaluation PreOp ---
Date of Encounter: 01/15/17 Time of Encounter: 14:10 - Past History Planned Operation: ERCP Cardiac History: Denies any Significant Hx Pulmonary History: Denies Any Significant HX TANK OFFICER History: Denies Any Significant HX Other Medical History: Other (Crohn's Recently diagnosed Breast Cancer) Anesthesia History: No Prior Anesthetic Complications Alcohol Use: occasionally Drug use: none Medications and Allergies HydrOXYzine Pamoate [Hydroxyzine Pamoate] 25 mg PO TID PRN 01/14/17 [History] InFLIXimab [Remicade] 100 mg IVPB [id number] 01/14/17 [History] PredniSONE [Deltasone] See Taper PO AD 01/14/17 [History] Allergies No Known Allergies Allergy (Verified 01/14/17 12:57) - Meds/Allergy Pre-op Review Medications Reviewed: Yes Allergies Reviewed: Yes Beta Blockers on Current Med List: No Anesthesia Results - Labs 01/15/17 04:04 01/15/17 04:04 Anesthesia Exam O2 Sat Height 1.52 m Weight 47.99 kg Weight 47.99 kg O2 Sat by Pulse Oximetry 97 O2 Sat by Pulse Oximetry 95 O2 Sat by Pulse Oximetry 99 O2 Sat by Pulse Oximetry 98 O2 Sat by Pulse Oximetry 97 O2 Sat by Pulse Oximetry 96 O2 Sat by Pulse Oximetry 98 O2 Sat by Pulse Oximetry 99 O2 Sat by Pulse Oximetry 98 O2 Sat by Pulse Oximetry 99 O2 Sat by Pulse Oximetry 99 Vital Signs Temp Pulse Resp BP Pulse Ox 97.7 F 59 16 127/75 99 01/14/17 12:52 01/14/17 12:52 01/14/17 12:52 01/14/17 12:52 01/14/17 12:52 Height: 5'0 Weight: 105 lbs NPO (# of Hours): MN Pain Scale: 0 - HEENT Pupil (Motor): Pupils equal, EOMI Mallampati: II Teeth: Normal Oral Opening: Greater than 3 - TANK OFFICER LOC: Oriented TANK OFFICER Motor: Normal RUE, Normal LUE, Normal RLE, Normal LLE, Normal Face TANK OFFICER Sensory: Normal: RUE, LUE, RLE, LLE, Face - Cardiac Rhythm: Regular Murmur: None JVD: No Carotid Bruit: No - Pulmonary Breath Sounds: bilateral Clear Respiratory Effort: Symmetrical Anesthesia Assess/Plan ASA Score: 2 Modified [place] Scale for Level of Consciousness: Cooperative, oriented, and tranquil Anesthetic Plan: General Monitoring Plan: Standard Monitors Recovery Plan: PACU (Discussed GA, agrees to proceed)
[2017-01-15] MEDS ORDERED: *HR* FentaNYL (PF) 100 MCG/2 ML VIAL ONE ×2 (14:26→15:28)
[2017-01-15] MEDS ORDERED: *HR* Midazolam HCl 2 MG/2 ML VIAL ONE (14:26)
[2017-01-15] MEDS ORDERED: Indomethacin 50 MG SUPP.RECT RC ONE (16:22)
--- NOTE | 2017-01-15 16:33 | Anesthesia Evaluation Post Op ---
Date of Encounter: 01/15/17 Time of Encounter: 16:40 - Vital Signs Vital Signs: Vital Signs/O2 Sat/Glucose, Most Current Temp Pulse Resp BP Pulse Ox 01/15/17 16:20 97.4 F L 72 18 114/82 98 01/15/17 14:26 61 18 116/75 97 01/15/17 13:51 61 18 116/75 97 - Lungs Lungs: Clear Ascult./Percussion - Airway Airway: Non-obstructed - Cardiovascular Regular Rate - Mental Status Mental Status: Alert & Oriented, Answers Appropriately - Pain Pain Scale: 0 - Nausea Vomiting Nausea Vomiting: Not Present - Hydration Hydration: NPO - Discharge PostOp Status: Transfer Patient to floor
[2017-01-15] MEDS ORDERED: Ketorolac 30 MG/ML VIAL IVP ONE (17:39)
--- NOTE | 2017-01-15 17:40 | Procedure Note ---
Date of procedure: 01/15/17 Pre-op diagnosis: Poss Cholangio CA , PSC Procedure: ERCP; Very tight stricture at bifercation. Duilated, stent placed
--- NOTE | 2017-01-15 19:35 | Internal Med Progress Note ---
Date of Encounter: 01/15/17 Time of Encounter: 17:00 - Assessment and plan (1) Obstructive jaundice Current Visit: Yes Status: Acute Assessment and plan: s/p ERCP today. Stricture was found. Will monitor tonight and recheck labs in AM. (2) Hyperbilirubinemia Current Visit: Yes Status: Acute Assessment and plan: Due to obstruction/stricture. (3) Jaundice Current Visit: Yes Status: Acute Assessment and plan: Due to elevated bilirubin. (4) Transaminitis Current Visit: Yes Status: Acute (5) Metastatic breast cancer Current Visit: Yes Status: Acute Assessment and plan: Per oncology. (6) Crohns disease Current Visit: Yes Status: Chronic Assessment and plan: Chronic disease Qualifiers: Gastrointestinal tract location: unspecified location Digestive disease complication type: without complication Qualified Code(s): K50.90 - Crohn's disease, unspecified, without complications - Subjective Interval history: Ms. Cruz is currently in observation due to obstructive jaundice. She is s/p ERCP today. Ms. Cruz has returned from ERCP. She is still quite somnolent. Denies new issues but has chronic pain. No nausea or vomiting. Received a dose of Toradol with some relief. - Constitutional Vitals: Temp Pulse Resp BP Pulse Ox 98.0 F 64 16 139/80 95 01/15/17 19:12 01/15/17 19:12 01/15/17 19:12 01/15/17 19:12 01/15/17 19:12 General appearance: Present: cooperative, A&O X 3, pleasant, answers questions appropriately - Head Head exam: Present: normocephalic - Eye Eye exam: Present: scleral icterus, conjuntiva pink - ENT ENT exam: Present: mucous membranes dry - Respiratory Respiratory exam: Present: decreased breath sounds. Absent: rhonchi, wheezes - Cardiovascular Cardiovascular exam: Present: RRR, tachycardia - GI/Abdominal GI/Abdominal exam: Present: soft. Absent: mass - Extremities Exam Extremities exam: Present: warm. Absent: pedal edema - Neurological Exam Neurological exam: Present: alert, oriented X3 - Psychiatric Psychiatric exam: Present: normal affect - Skin Additional comments: Jaundiced. Internal Medicine: Result - Labs CBC & Chem 7: 01/15/17 04:04 01/15/17 04:04 Labs: Short CBC 01/15/17 Range/Units 04:04 WBC 11.9 H (4.3-11.1) K/mcL Hgb 11.3 L (11.5-15.4) g/dL Hct 33.3 L (35.3-44.9) % Plt Count 222 (140-400) K/mcL Neutrophils # 8.4 (1.6-8.9) K/mcL BMP 01/15/17 04:04 Sodium 140 Potassium 3.6 Chloride 113 H Carbon Dioxide 19 BUN 11 Creatinine 0.71 Glucose 93 Calcium 8.0 L D Liver Function 01/15/17 Range/Units 04:04 Total Bilirubin 9.3 H (0.2-1.2) mg/dL AST 297 H (5-34) Units/L ALT 555 H (0-55) Units/L Alkaline Phosphatase 717 H (38-126) Units/L Albumin 2.2 L D (3.5-5.0) g/dL - Impressions Impressions Gallbladder Ultrasound 01/15/17 09:00 IMPRESSION: Moderate abnormal intrahepatic biliary dilatation with no extrahepatic biliary dilatation. No focal hepatic lesion identified. Moderate biliary sludge. Moderate distension of the gallbladder. No ascites. RECOMMENDATIONS: ERCP with biliary stenting may be of benefit. D/ / Brock Hayden MD / Brock Hayden MD Interpreting Provider: Brock Hayden MD Consult Discharge Plan - Plan Referrals: Chery Mckinney CNP [Primary Care Provider] - Jose Huber MD [Partnered Physician] - 01/24/17 10:10 am ([facility] called 01/15 to set appointment up.)
[2017-01-15] MEDS: Ondansetron 4 MG/2 ML VIAL IVP PRN (20:33)
[2017-01-16] MEDS: *HR* Heparin 5,000 UNIT/ML VIAL SQ SCH (06:01)
[2017-01-16] MEDS: 0.9 % Sodium Chloride w KCl 20 MEQ/1,000 ML MLS IVC SCH (06:01)
[2017-01-16] MEDS: Ampicillin/Sulbactam 3,000 MG in 0.9 % Sodium Chloride Mini Bag 100 ML IVPB SCH ×3 (06:02→17:04)
[2017-01-16 06:50] LABS: Hematocrit 33.9 % (35.3-44.9); Hemoglobin 11.1 g/dL (11.5-15.4); Mean Corpuscular HGB Conc 32.7 g/dL (31.6-35.5); Mean Corpuscular Hemoglobin 28.1 pg (28.0-33.3); Mean Corpuscular Volume 85.8 fL (83.0-100.0); Mean Platelet Volume 11.8 fL (9.4-12.4); Platelet Count 219 K/mcL (140-400); Red Blood Count 3.95 M/mcL (3.82-4.97)
[2017-01-16 07:10] LABS: Alanine Aminotransferase 575 Units/L (0-55); Albumin 2.2 g/dL (3.5-5.0); Albumin/Globulin Ratio 0.6 (1.1-2.2); Alkaline Phosphatase 744 Units/L (38-126); Aspartate Amino Transferase 279 Units/L (5-34); BUN/Creatinine Ratio 17 (6-26); Bilirubin,Indirect 2.1 mg/dL (0.0-1.2); Bilirubin,Total 8.4 mg/dL (0.2-1.2); Blood Urea Nitrogen 12 mg/dL (7-20); Calcium 7.9 mg/dL (8.6-10.8); Carbon Dioxide 24 mEq/L (19-29); Chloride 106 mEq/L (98-109); Globulin 3.6 g/dL (2.4-3.5); Glucose 140 mg/dL (70-99); Magnesium 1.6 mg/dL (1.6-2.6); Osmolality,Calculated 286 (280-300); Potassium 3.7 mEq/L (3.5-4.5); Sodium 137 mEq/L (136-145); Total Protein 5.8 g/dL (6.0-8.3); eGFR For African Americans > 60 (> 60); eGFR For Non-African Americans > 60 (> 60)
[2017-01-16 07:22] LABS: Bilirubin,Direct 6.3 mg/dL (0.0-0.5)
[2017-01-16] MEDS ORDERED: *HR* OxyCODONE/APAP 5/325 TABLET PO PRN (07:33)
[2017-01-16] MEDS ORDERED: *HR* Morphine 2 MG/ML SYRINGE IVP PRN (11:07)
--- NOTE | 2017-01-16 11:36 | Gastroenterology Progress Note ---
<Ranulfo Almanzar - Last Filed: 01/16/17 11:34> Date of Encounter: 01/16/17 Time of Encounter: 10:15 - Assessment and plan (1) Metastatic breast cancer Current Visit: Yes Status: Acute Assessment and plan: Left breast cancer with mets to left axillary lymph node. (2) Transaminitis Current Visit: Yes Status: Acute Assessment and plan: CT A/P 01/11/2017 with moderate intrahepatic biliary ductal dilation. Concerned for cholangiocarcinoma. Ca 19-9 pending and CEA negative at 3.7. ERCP with very tight stricture at bifercation, dilated and stent placed. Dr. Youssef concerned about free air on fluoroscopy during procedure. Abdominal x-ray this AM shows probable trace pneumoperitoneum under the right hemidiaphragm medially , CBD stent appears in appropriate position, unremarkable bowel gas pattern. TB improved to 8.4 from 9.3, AST 279 from 297, ALT 575 from 555. Continue IV antibiotics and keep NPO. (3) Jaundice Current Visit: Yes Status: Acute (4) Crohns disease Current Visit: Yes Status: Chronic Assessment and plan: Pt noncompliant with Crohn's treatment. Last treatment with Remicade was Jul or Aug 2016. Pt cancelled appt in Sep 2016 due to a "sinus infection and fever" . Qualifiers: Gastrointestinal tract location: unspecified location Digestive disease complication type: without complication Qualified Code(s): K50.90 - Crohn's disease, unspecified, without complications - Time Spent With Patient Total time spent is greater than 50% in coordination of care (as documented) at patient's floor/unit and/or counseling patient: - Subjective Interval history: She is without new complaint at this time. ERCP completed yesterday with stent placement. - Constitutional Vitals: Temp Pulse Resp BP Pulse Ox 97.8 F 63 16 107/67 95 01/16/17 11:03 01/16/17 11:03 01/16/17 11:03 01/16/17 11:03 01/16/17 11:03 General appearance: Present: cooperative, A&O X 3, no acute distress, answers questions appropriately - Head Head exam: Present: atraumatic, normocephalic - Eye Eye exam: Present: normal appearance, sclera anicteric - ENT ENT exam: Present: mucous membranes moist - Neck Neck exam general surgery: Present: normal inspection, trachea midline - Respiratory Respiratory exam: Present: CTAB. Absent: rales, rhonchi - Cardiovascular Cardiovascular exam: Present: RRR, +S1, +S2 - GI/Abdominal GI/Abdominal exam: Present: guarding, soft, tenderness (epigastric), no peritoneal signs. Absent: distended, firm - Rectal Rectal exam: Present: deferred - Extremities Exam Extremities exam: Present: warm - Neurological Exam Neurological exam: Present: no focal deficits - Psychiatric Psychiatric exam: Present: normal affect, normal mood - Skin Skin exam: Present: dry, intact, normal color, warm Results - Labs CBC & Chem 7: 01/16/17 05:35 01/16/17 05:35 Labs: Last Result Calcium 7.9 mg/dL (8.6-10.8) L 01/16/17 05:35 Entire Visit Hgb 11.1 g/dL (11.5-15.4) L 01/16/17 05:35 Hct 33.9 % (35.3-44.9) L 01/16/17 05:35 Total Bilirubin 8.4 mg/dL (0.2-1.2) H 01/16/17 05:35 AST 279 Units/L (5-34) H 01/16/17 05:35 ALT 575 Units/L (0-55) H 01/16/17 05:35 Lipase 41 Units/L (8-78) 01/14/17 13:42 Carcinoembryonic Ag 3.7 ng/mL (0-5.0) 01/15/17 09:47 Acetaminophen < 1.0 mcg/mL (10-30) L 01/14/17 15:27 - Impressions Impressions Cath/Invasive Procedure 01/15/17 00:00 IMPRESSION: There appears to be free air which developed over the course of the procedure. I called and discussed this with Dr. Rosario at 8:32 a.m. on 01/16/2017. A plastic stent is seen placed into the central hepatic duct, extending out into the small bowel. In this region, there is poor filling which could be related to a stricture or mass within the central hepatic duct. D/ / Erwin Youssef MD / Erwin Youssef MD Interpreting Provider: Erwin Youssef MD Chest X-Ray 01/16/17 09:12 IMPRESSION: 1. Probable trace pneumoperitoneum under the right hemidiaphragm medially. 2. Common bile duct stent appears in appropriate position. 3. No acute cardiopulmonary disease. 4. Unremarkable bowel gas pattern. Findings were discussed with GARRET Carrera on 01/16/2017 at 10:20 a.m. D/ / 01/16/2017 10:17:01 Sandy Daniels MD / mahogany Interpreting Provider: Sandy Daniels MD Abdomen X-Ray 01/16/17 09:13 IMPRESSION: 1. Probable trace pneumoperitoneum under the right hemidiaphragm medially. 2. Common bile duct stent appears in appropriate position. 3. No acute cardiopulmonary disease. 4. Unremarkable bowel gas pattern. Findings were discussed with GARRET Carrera on 01/16/2017 at 10:20 a.m. D/ / 01/16/2017 10:17:01 Sandy Daniels MD / mahogany Interpreting Provider: Sandy Daniels MD Consult Discharge Plan - Plan Referrals: Chery Mckinney CNP [Primary Care Provider] - Jose Huber MD [Partnered Physician] - 01/24/17 10:10 am ([facility] called 01/15 to set appointment up.) <Monse Rosario - Last Filed: 01/16/17 14:54> Time of Encounter: 13:00 - Time Spent With Patient Total time spent is greater than 50% in coordination of care (as documented) at patient's floor/unit and/or counseling patient: - Constitutional Vitals: Temp Pulse Resp BP Pulse Ox 97.8 F 63 16 107/67 95 01/16/17 11:03 01/16/17 11:03 01/16/17 11:03 01/16/17 11:03 01/16/17 11:03 Results - Labs CBC & Chem 7: 01/16/17 05:35 01/16/17 05:35 Labs: Last Result Calcium 7.9 mg/dL (8.6-10.8) L 01/16/17 05:35 Entire Visit Hgb 11.1 g/dL (11.5-15.4) L 01/16/17 05:35 Hct 33.9 % (35.3-44.9) L 01/16/17 05:35 Total Bilirubin 8.4 mg/dL (0.2-1.2) H 01/16/17 05:35 AST 279 Units/L (5-34) H 01/16/17 05:35 ALT 575 Units/L (0-55) H 01/16/17 05:35 Lipase 41 Units/L (8-78) 01/14/17 13:42 Carcinoembryonic Ag 3.7 ng/mL (0-5.0) 01/15/17 09:47 Acetaminophen < 1.0 mcg/mL (10-30) L 01/14/17 15:27 - Impressions Impressions Cath/Invasive Procedure 01/15/17 00:00 IMPRESSION: There appears to be free air which developed over the course of the procedure. I called and discussed this with Dr. Rosario at 8:32 a.m. on 01/16/2017. A plastic stent is seen placed into the central hepatic duct, extending out into the small bowel. In this region, there is poor filling which could be related to a stricture or mass within the central hepatic duct. D/ / Erwin Youssef MD / Erwin Youssef MD Interpreting Provider: Erwin Youssef MD Chest X-Ray 01/16/17 09:12 IMPRESSION: 1. Probable trace pneumoperitoneum under the right hemidiaphragm medially. 2. Common bile duct stent appears in appropriate position. 3. No acute cardiopulmonary disease. 4. Unremarkable bowel gas pattern. Findings were discussed with GARRET Carrera on 01/16/2017 at 10:20 a.m. D/ / 01/16/2017 10:17:01 Sandy Daniels MD / mahogany Interpreting Provider: Sandy Daniels MD Abdomen X-Ray 01/16/17 09:13 IMPRESSION: 1. Probable trace pneumoperitoneum under the right hemidiaphragm medially. 2. Common bile duct stent appears in appropriate position. 3. No acute cardiopulmonary disease. 4. Unremarkable bowel gas pattern. Findings were discussed with GARRET Carrera on 01/16/2017 at 10:20 a.m. D/ / 01/16/2017 10:17:01 Sandy Daniels MD / mahogany Interpreting Provider: Sandy Daniels MD - Attending Attestation I examined this patient and my medical decision-making was reviewed with the PROCESS DESIGN CHEMICAL ENGINEER/PA/Advanced Practice Nurse/Resident Physician. I agree with the documented findings, disposition and treatment plan as described except to the extent set forth below. Imaging reviewed with radiology. Imaging from yesterday was concerning for pneumoperitoneum but today imaging are unremarkable. Patient has mild tenderness in the epigastric area. Will continue IV antibiotics and will add IV Flagyl.
[2017-01-16] MEDS: MetroNIDAZOLE 500 MG/100 ML 500 MG/100 ML BAG IVPB SCH (16:26)
--- NOTE | 2017-01-16 16:59 | Internal Med Progress Note ---
<Anthony Pearl - Last Filed: 01/16/17 17:21> Date of Encounter: 01/16/17 Time of Encounter: 16:58 - Assessment and plan (1) Jaundice Current Visit: Yes Status: Acute Assessment and plan: Due to elevated bilirubin. History of primary biliary sclerosis, biliary obstruction. Patient underwent ERCP and stent placement. Total bilirubin 8.4, direct bilirubin 6.3, indirect bilirubin 2.1, AST 279, ALP 575, alkaline phosphatase 744 We will monitor with a.m. CMP (2) Transaminitis Current Visit: Yes Status: Acute Assessment and plan: Total bilirubin 8.4, direct bilirubin 6.3, indirect bilirubin 2.1, AST 279, ALT 575, alkaline phosphatase 744, secondary to very tight stricture at bifurcation of intrahepatic biliary duct. Patient is status post intrahepatic biliary duct dilatation with stent placement. Plan: - Gastroenterology following. - Liver enzymes for trending down. (3) Crohns disease Current Visit: Yes Status: Chronic Assessment and plan: Chronic disease, review of chart demonstrates that patient had been noncompliant with her Crohn's treatment with her last treatment of Remicade in August 2016. -Gastroenterology following. Qualifiers: Gastrointestinal tract location: unspecified location Digestive disease complication type: without complication Qualified Code(s): K50.90 - Crohn's disease, unspecified, without complications (4) Metastatic breast cancer Current Visit: Yes Status: Acute Assessment and plan: Per Oncology documentation: had needle biopsy on 01/11/17 which confirmed a grade 2 invasive ductal carcinoma with additional DCIS component (grade 2, solid pattern). Biopsy of left axillary node also positive for carcinoma. Ancillary studies including hormone receptor and HER-2 testing pending. Oncology following. (5) Biliary stricture Current Visit: Yes Status: Acute Assessment and plan: History of primary biliary sclerosis, biliary obstruction. very tight stricture at bifurcation of intrahepatic biliary duct. Patient is status post intrahepatic biliary duct dilatation with stent placement. There was concerns for postoperative intra-abdominal free air identified on chest x-ray. Repeat abdominal x-ray shows continued suspicion. Plan: - Patient to continue nothing by mouth overnight - Antibiotic coverage includes Unasyn and Flagyl - Continue to monitor patient for symptoms including fever, chills, sweating, abdominal pain, abdominal tenderness or new onset shortness of breath. - Subjective Interval history: Mrs. Cruz 46-year-old female has been seen and evaluated patient bedside this morning. She is alert awake and in no acute distress. She does complain of some right sided rib pain, but says she has had right-sided rib pain that comes and goes for quite some time. This episode is a little more consistent. She denies any nausea, vomiting or diarrhea, abdominal pain, abdominal tenderness, distention, fevers chills or sweating. - Constitutional Vitals: Temp Pulse Resp BP Pulse Ox 97.9 F 70 17 132/80 96 01/16/17 15:06 01/16/17 15:06 01/16/17 15:06 01/16/17 15:06 01/16/17 15:06 General appearance: Present: cooperative, A&O X 3, pleasant, answers questions appropriately - Head Head exam: Present: atraumatic, normocephalic - Eye Eye exam: Present: PERRL, conjuntiva pink, sclera anicteric Pupils: Present: PERRL - ENT ENT exam: Present: mucous membranes moist - Neck Neck exam general surgery: Present: supple, trachea midline. Absent: lymphadenopathy - Respiratory Respiratory exam: Present: CTAB. Absent: accessory muscle use, rales, rhonchi, wheezes - Cardiovascular Cardiovascular exam: Present: RRR, +S1, +S2. Absent: diastolic murmur, gallop, rubs, systolic murmur - GI/Abdominal GI/Abdominal exam: Present: normal bowel sounds, soft, no peritoneal signs. Absent: distended, tenderness - Extremities Exam Extremities exam: Present: warm, radial pulses palpable and symetrical. Absent : calf tenderness, cyanotic, pedal edema - Neurological Exam Neurological exam: Present: alert, CN II-XII intact, oriented X3, no focal deficits. Absent: pronater drift, facial droop, speech deficit - Psychiatric Psychiatric exam: Present: normal affect, normal mood - Skin Skin exam: Present: dry, intact Internal Medicine: Result - Labs CBC & Chem 7: 01/16/17 05:35 01/16/17 05:35 Labs: Short CBC 01/16/17 Range/Units 05:35 WBC 14.9 H (4.3-11.1) K/mcL Hgb 11.1 L (11.5-15.4) g/dL Hct 33.9 L (35.3-44.9) % Plt Count 219 (140-400) K/mcL BMP 01/16/17 05:35 Sodium 137 Potassium 3.7 Chloride 106 Carbon Dioxide 24 BUN 12 Creatinine 0.70 Glucose 140 H Calcium 7.9 L Liver Function 01/16/17 Range/Units 05:35 Total Bilirubin 8.4 H (0.2-1.2) mg/dL Direct Bilirubin 6.3 H (0.0-0.5) mg/dL AST 279 H (5-34) Units/L ALT 575 H (0-55) Units/L Alkaline Phosphatase 744 H (38-126) Units/L Albumin 2.2 L (3.5-5.0) g/dL - Impressions Impressions Cath/Invasive Procedure 01/15/17 00:00 IMPRESSION: There appears to be free air which developed over the course of the procedure. I called and discussed this with Dr. Rosario at 8:32 a.m. on 01/16/2017. A plastic stent is seen placed into the central hepatic duct, extending out into the small bowel. In this region, there is poor filling which could be related to a stricture or mass within the central hepatic duct. D/ / Erwin Youssef MD / Erwin Youssef MD Interpreting Provider: Erwin Youssef MD Chest X-Ray 01/16/17 09:12 IMPRESSION: 1. Probable trace pneumoperitoneum under the right hemidiaphragm medially. 2. Common bile duct stent appears in appropriate position. 3. No acute cardiopulmonary disease. 4. Unremarkable bowel gas pattern. Findings were discussed with GARRET Carrera on 01/16/2017 at 10:20 a.m. D/ / 01/16/2017 10:17:01 Sandy Daniels MD / mahogany Interpreting Provider: Sandy Daniels MD Abdomen X-Ray 01/16/17 09:13 IMPRESSION: 1. Probable trace pneumoperitoneum under the right hemidiaphragm medially. 2. Common bile duct stent appears in appropriate position. 3. No acute cardiopulmonary disease. 4. Unremarkable bowel gas pattern. Findings were discussed with GARRET Carrera on 01/16/2017 at 10:20 a.m. D/ / 01/16/2017 10:17:01 Sandy Daneils MD / mahogany Interpreting Provider: Sandy Daniels MD Consult Discharge Plan - Plan Referrals: Chery Mckinney CNP [Primary Care Provider] - Jose Huber MD [Partnered Physician] - 01/24/17 10:10 am ([facility] called 01/15 to set appointment up.) <Otoniel Holman - Last Filed: 01/16/17 19:18> - Assessment and plan (1) Primary sclerosing cholangitis Current Visit: Yes Status: Acute Assessment and plan: Primary sclerosing cholangitis (2) Obstructive jaundice Current Visit: Yes Status: Acute (3) Hyperbilirubinemia Current Visit: Yes Status: Acute (4) Jaundice Current Visit: Yes Status: Acute (5) Transaminitis Current Visit: Yes Status: Acute (6) Metastatic breast cancer Current Visit: Yes Status: Acute (7) Crohns disease Current Visit: Yes Status: Chronic Qualifiers: Gastrointestinal tract location: unspecified location Digestive disease complication type: without complication Qualified Code(s): K50.90 - Crohn's disease, unspecified, without complications (8) Nausea & vomiting Current Visit: Yes Status: Acute Qualifiers: Vomiting type: bilious vomiting Qualified Code(s): R11.14 - Bilious vomiting - Constitutional Vitals: Temp Pulse Resp BP Pulse Ox 97.9 F 70 17 132/80 96 01/16/17 15:06 01/16/17 15:06 01/16/17 15:06 01/16/17 15:06 01/16/17 15:06 Internal Medicine: Result - Labs CBC & Chem 7: 01/16/17 05:35 01/16/17 05:35 Labs: Short CBC 01/16/17 Range/Units 05:35 WBC 14.9 H (4.3-11.1) K/mcL Hgb 11.1 L (11.5-15.4) g/dL Hct 33.9 L (35.3-44.9) % Plt Count 219 (140-400) K/mcL BMP 01/16/17 05:35 Sodium 137 Potassium 3.7 Chloride 106 Carbon Dioxide 24 BUN 12 Creatinine 0.70 Glucose 140 H Calcium 7.9 L Liver Function 01/16/17 Range/Units 05:35 Total Bilirubin 8.4 H (0.2-1.2) mg/dL Direct Bilirubin 6.3 H (0.0-0.5) mg/dL AST 279 H (5-34) Units/L ALT 575 H (0-55) Units/L Alkaline Phosphatase 744 H (38-126) Units/L Albumin 2.2 L (3.5-5.0) g/dL - Impressions Impressions Cath/Invasive Procedure 01/15/17 00:00 IMPRESSION: There appears to be free air which developed over the course of the procedure. I called and discussed this with Dr. Rosario at 8:32 a.m. on 01/16/2017. A plastic stent is seen placed into the central hepatic duct, extending out into the small bowel. In this region, there is poor filling which could be related to a stricture or mass within the central hepatic duct. D/ / Erwin Youssef MD / Erwin Youssef MD Interpreting Provider: Erwin Youssef MD Chest X-Ray 01/16/17 09:12 IMPRESSION: 1. Probable trace pneumoperitoneum under the right hemidiaphragm medially. 2. Common bile duct stent appears in appropriate position. 3. No acute cardiopulmonary disease. 4. Unremarkable bowel gas pattern. Findings were discussed with GARRET Carrera on 01/16/2017 at 10:20 a.m. D/ / 01/16/2017 10:17:01 Sandy Daniels MD / [email or web address] Interpreting Provider: Sandy Daniels MD Abdomen X-Ray 01/16/17 09:13 IMPRESSION: 1. Probable trace pneumoperitoneum under the right hemidiaphragm medially. 2. Common bile duct stent appears in appropriate position. 3. No acute cardiopulmonary disease. 4. Unremarkable bowel gas pattern. Findings were discussed with GARRET Carrera on 01/16/2017 at 10:20 a.m. D/ / 01/16/2017 10:17:01 Sandy Daniels MD / bcarter Interpreting Provider: Sandy Daniels MD - Attending Attestation I examined this patient and my medical decision-making was reviewed with the Resident Physician on 01/16/17. I agree with the documented findings, disposition and treatment plan as described except to the extent set forth below. Ms. Cruz is currently in observation for acute jaundice due to sclerosing cholangitis. She is s/p stent yesterday by ERCP. Ms Cruz is having some pain and a lot of nausea. There was concern for perforation from ERCP yesterday. She is currently NPO and on IV abx. Exam Alert. Mod distress due to pain Heart reg No wheeze Epigastric discomfort I/P 1. PSC - s/p ERCP and stent 2. Metastatic breast ca 3. Intractable nausea and vomiting Further diagnoses and plan as above.
[2017-01-16] MEDS: Ondansetron 4 MG/2 ML VIAL IVP PRN (17:09)
[2017-01-16] MEDS ORDERED: *HR* Promethazine 25 MG/ML VIAL IVP PRN (18:40)
[2017-01-17] MEDS: MetroNIDAZOLE 500 MG/100 ML 500 MG/100 ML BAG IVPB SCH ×4 (00:27→23:45)
[2017-01-17] MEDS: 0.9 % Sodium Chloride w KCl 20 MEQ/1,000 ML MLS IVC SCH ×2 (00:28→14:37)
[2017-01-17] MEDS: Ampicillin/Sulbactam 3,000 MG in 0.9 % Sodium Chloride Mini Bag 100 ML IVPB SCH ×2 (01:30→05:56)
[2017-01-17] MEDS: *HR* Enoxaparin 40 MG/0.4 ML SYRINGE SQ SCH (05:57)
[2017-01-17 07:32] LABS: Alanine Aminotransferase 364 Units/L (0-55); Albumin 2.1 g/dL (3.5-5.0); Albumin/Globulin Ratio 0.6 (1.1-2.2); Alkaline Phosphatase 671 Units/L (38-126); Aspartate Amino Transferase 78 Units/L (5-34); BUN/Creatinine Ratio 12 (6-26); Bilirubin,Total 7.1 mg/dL (0.2-1.2); Blood Urea Nitrogen 8 mg/dL (7-20); Calcium 8.2 mg/dL (8.6-10.8); Carbon Dioxide 25 mEq/L (19-29); Chloride 103 mEq/L (98-109); Globulin 3.8 g/dL (2.4-3.5); Glucose 130 mg/dL (70-99); Osmolality,Calculated 280 (280-300); Potassium 3.9 mEq/L (3.5-4.5); Sodium 135 mEq/L (136-145); Total Protein 5.9 g/dL (6.0-8.3); eGFR For African Americans > 60 (> 60); eGFR For Non-African Americans > 60 (> 60)
[2017-01-17 07:38] LABS: Basophils % 0.2 %; Eosinophils # 0.2 K/mcL (0.0-0.6); Hematocrit 34.2 % (35.3-44.9); Hemoglobin 11.1 g/dL (11.5-15.4); Immature Granulocytes % 0.8 % (0-4); Lymphocytes # 1.7 K/mcL (0.6-4.6); Lymphocytes % 8.1 %; Mean Corpuscular HGB Conc 32.5 g/dL (31.6-35.5); Mean Corpuscular Hemoglobin 28.6 pg (28.0-33.3); Mean Corpuscular Volume 88.1 fL (83.0-100.0); Monocytes # 0.7 K/mcL (0.0-1.3); Monocytes % 3.3 %; Neutrophils # 18.7 K/mcL (1.6-8.9); Platelet Count 219 K/mcL (140-400); Red Blood Count 3.88 M/mcL (3.82-4.97); Red Cell Distribution Width 17.1 % (11.5-14.5); Segmented Neutrophils % 86.6 %
[2017-01-17] MEDS ORDERED: Magnesium Sulfate 2 GM in D5% in Water 100 ML IVPB ONE (09:28)
[2017-01-17] MEDS ORDERED: Piperacillin/Tazobactam 3.375 GM in D5% in Water (Mini-Bag+) 100 ML IVPB SCH (09:30)
[2017-01-17] MEDS: Piperacillin/Tazobactam 3.375 GM in D5% in Water (Mini-Bag+) 100 ML IVPB SCH ×2 (11:14→17:34)
--- NOTE | 2017-01-17 11:22 | Gastroenterology Progress Note ---
<AlmanzarRanulfo solis Daylin - Last Filed: 01/17/17 11:19> Date of Encounter: 01/17/17 Time of Encounter: 10:00 - Assessment and plan (1) Transaminitis Current Visit: Yes Status: Acute Assessment and plan: CT A/P 01/11/2017 with moderate intrahepatic biliary ductal dilation. Concerned for cholangiocarcinoma. Ca 19-9 pending and CEA negative at 3.7. ERCP with very tight stricture at bifercation, dilated and stent placed. Dr. Youssef concerned about free air on fluoroscopy during procedure. Abdominal x-ray this AM shows probable trace pneumoperitoneum under the right hemidiaphragm medially , CBD stent appears in appropriate position, unremarkable bowel gas pattern. TB improved to 7.1 from 8.4, AST 78 from 279, ALT 364 from 575. WBC increased to 21.6 this AM. Change Unasyn to Zosyn and keep NPO. (2) Crohns disease Current Visit: Yes Status: Chronic Assessment and plan: Pt noncompliant with Crohn's treatment. Last treatment with Remicade was Jul or Aug 2016. Pt cancelled appt in Sep 2016 due to a "sinus infection and fever". Qualifiers: Gastrointestinal tract location: unspecified location Digestive disease complication type: without complication Qualified Code(s): K50.90 - Crohn's disease, unspecified, without complications (3) Metastatic breast cancer Current Visit: Yes Status: Acute Assessment and plan: Left breast cancer with mets to left axillary lymph node. - Time Spent With Patient Total time spent is greater than 50% in coordination of care (as documented) at patient's floor/unit and/or counseling patient: - Subjective Interval history: The patient is resting in bed complaining of nausea. She denies vomiting, diarrhea, abdominal pain, fever, or chills. - Constitutional Vitals: Temp Pulse Resp BP Pulse Ox 98.8 F 73 14 109/72 96 01/17/17 08:21 01/17/17 08:21 01/17/17 08:21 01/17/17 08:21 01/17/17 08:21 General appearance: Present: cooperative, A&O X 3, no acute distress, answers questions appropriately - Head Head exam: Present: atraumatic, normocephalic - Eye Eye exam: Present: normal appearance, sclera anicteric - ENT ENT exam: Present: mucous membranes dry - Neck Neck exam general surgery: Present: normal inspection, trachea midline - Respiratory Respiratory exam: Present: CTAB. Absent: rales, rhonchi - Cardiovascular Cardiovascular exam: Present: RRR, +S1, +S2 - GI/Abdominal GI/Abdominal exam: Present: guarding, soft, tenderness (epigastric), no peritoneal signs. Absent: distended, firm - Rectal Rectal exam: Present: deferred - Extremities Exam Extremities exam: Present: warm - Neurological Exam Neurological exam: Present: no focal deficits - Psychiatric Psychiatric exam: Present: normal affect, normal mood - Skin Skin exam: Present: dry, intact, normal color, warm Results - Labs CBC & Chem 7: 01/17/17 06:39 01/17/17 06:39 Labs: Last Result Calcium 8.2 mg/dL (8.6-10.8) L 01/17/17 06:39 Entire Visit Hgb 11.1 g/dL (11.5-15.4) L 01/17/17 06:39 Hct 34.2 % (35.3-44.9) L 01/17/17 06:39 Total Bilirubin 7.1 mg/dL (0.2-1.2) H 01/17/17 06:39 AST 78 Units/L (5-34) H 01/17/17 06:39 ALT 364 Units/L (0-55) H 01/17/17 06:39 Lipase 41 Units/L (8-78) 01/14/17 13:42 Carcinoembryonic Ag 3.7 ng/mL (0-5.0) 01/15/17 09:47 CA 19-9 Antigen 1726 U/mL (0-37) H 01/15/17 09:47 Acetaminophen < 1.0 mcg/mL (10-30) L 01/14/17 15:27 Consult Discharge Plan - Plan Referrals: Chery Mckinney CNP [Primary Care Provider] - Jose Huber MD [Partnered Physician] - 01/24/17 10:10 am ([facility] called 01/15 to set appointment up.) <Monse Rosario - Last Filed: 01/17/17 17:52> Time of Encounter: 13:00 - Time Spent With Patient Total time spent is greater than 50% in coordination of care (as documented) at patient's floor/unit and/or counseling patient: - Constitutional Vitals: Temp Pulse Resp BP Pulse Ox 99.4 F 86 14 98/65 96 01/17/17 17:02 01/17/17 17:02 01/17/17 17:02 01/17/17 17:02 01/17/17 17:02 Results - Labs CBC & Chem 7: 01/17/17 06:39 01/17/17 06:39 Labs: Last Result Calcium 8.2 mg/dL (8.6-10.8) L 01/17/17 06:39 Entire Visit Hgb 11.1 g/dL (11.5-15.4) L 01/17/17 06:39 Hct 34.2 % (35.3-44.9) L 01/17/17 06:39 Total Bilirubin 7.1 mg/dL (0.2-1.2) H 01/17/17 06:39 AST 78 Units/L (5-34) H 01/17/17 06:39 ALT 364 Units/L (0-55) H 01/17/17 06:39 Lipase 41 Units/L (8-78) 01/14/17 13:42 Carcinoembryonic Ag 3.7 ng/mL (0-5.0) 01/15/17 09:47 CA 19-9 Antigen 1726 U/mL (0-37) H 01/15/17 09:47 Acetaminophen < 1.0 mcg/mL (10-30) L 01/14/17 15:27 - Attending Attestation I examined this patient and my medical decision-making was reviewed with the [employer]/PA/Advanced Practice Nurse/Resident Physician. I agree with the documented findings, disposition and treatment plan as described except to the extent set forth below. Abd pain better. No tanderness. WBC high will cahnge unasyn to zosyn.
[2017-01-17] MEDS ORDERED: D10% in Water 500 ML IVC PRN (11:55)
[2017-01-17] MEDS ORDERED: Lidocaine -MPF 1% 5 ML AMPUL INFILT ONE (12:17)
--- NOTE | 2017-01-17 14:51 | Internal Med Progress Note ---
<Anthony Pearl - Last Filed: 01/17/17 14:49> Date of Encounter: 01/17/17 Time of Encounter: 10:00 - Assessment and plan (1) Jaundice Current Visit: Yes Status: Acute Assessment and plan: Due to elevated bilirubin. History of primary biliary sclerosis, biliary obstruction. Patient underwent ERCP and stent placement. Labs today: Total bilirubin 7.1, AST 78 ALT 364 alk phosphatase 671; labs have slightly improved compared to yesterday. We will monitor with a.m. CMP (2) Transaminitis Current Visit: Yes Status: Acute Assessment and plan: Slight improvement from yesterday, likely secondary to biliary stenting and primary biliary sclerosis. Concern for cholangiocarcinoma. Plan: - Gastroenterology following. - Liver enzymes for trending down. (3) Crohns disease Current Visit: Yes Status: Chronic Assessment and plan: Chronic disease, review of chart demonstrates that patient had been noncompliant with her Crohn's treatment with her last treatment of Remicade in August 2016. -Gastroenterology following. Qualifiers: Gastrointestinal tract location: unspecified location Digestive disease complication type: without complication Qualified Code(s): K50.90 - Crohn's disease, unspecified, without complications (4) Metastatic breast cancer Current Visit: Yes Status: Acute Assessment and plan: Per Oncology documentation: had needle biopsy on 01/11/17 which confirmed a grade 2 invasive ductal carcinoma with additional DCIS component (grade 2, solid pattern). Biopsy of left axillary node also positive for carcinoma. Ancillary studies including hormone receptor and HER-2 testing pending. Oncology following. (5) Biliary stricture Current Visit: Yes Status: Acute Assessment and plan: History of primary biliary sclerosis, biliary obstruction. very tight stricture at bifurcation of intrahepatic biliary duct. Patient is status post intrahepatic biliary duct dilatation with stent placement. There was concerns for postoperative intra-abdominal free air identified on chest x-ray. Repeat abdominal x-ray shows continued suspicion. CA 19: 1726, this is concerning for cholangiocarcinoma. Biopsies taken with pathology pending. 01/17/2017: Vitals stable, Elevated WBC which is concerning with recent intraabdominal free air. Antibiotics adjusted by GI team. Plan: - Patient to continue nothing by mouth overnight - Antibiotic coverage includes Zosyn and Flagyl - Continue to monitor patient for symptoms including fever, chills, sweating, abdominal pain, abdominal tenderness or new onset shortness of breath. - Subjective Interval history: Mrs. Cruz 46-year-old female has been seen and evaluated patient bedside this morning. She is alert awake and in no acute distress. She has subjective fever , tiredness, abdominal tenderness. She denies any nausea, vomiting or diarrhea, abdominal tenderness, distention, chills or sweating. - Constitutional Vitals: Temp Pulse Resp BP Pulse Ox 98.8 F 73 14 109/72 96 01/17/17 08:21 01/17/17 08:21 01/17/17 08:21 01/17/17 08:21 01/17/17 08:21 General appearance: Present: cooperative, A&O X 3, pleasant, answers questions appropriately - Head Head exam: Present: atraumatic, normocephalic - Eye Eye exam: Present: PERRL, conjuntiva pink, sclera anicteric Pupils: Present: PERRL - ENT ENT exam: Present: mucous membranes moist - Neck Neck exam general surgery: Present: supple, trachea midline. Absent: lymphadenopathy - Respiratory Respiratory exam: Present: CTAB. Absent: accessory muscle use, rales, rhonchi, wheezes - Cardiovascular Cardiovascular exam: Present: RRR, +S1, +S2. Absent: diastolic murmur, gallop, rubs, systolic murmur Additional comments: Grade 2/6 systolic ejection murmur. - GI/Abdominal GI/Abdominal exam: Present: normal bowel sounds, soft, no peritoneal signs. Absent: distended, tenderness - Extremities Exam Extremities exam: Present: warm, radial pulses palpable and symetrical. Absent : calf tenderness, cyanotic, pedal edema - Neurological Exam Neurological exam: Present: alert, CN II-XII intact, oriented X3, no focal deficits. Absent: pronater drift, facial droop, speech deficit - Skin Skin exam: Present: dry, intact Internal Medicine: Result - Labs CBC & Chem 7: 01/17/17 06:39 01/17/17 06:39 Labs: Short CBC 01/17/17 Range/Units 06:39 WBC 21.6 H (4.3-11.1) K/mcL Hgb 11.1 L (11.5-15.4) g/dL Hct 34.2 L (35.3-44.9) % Plt Count 219 (140-400) K/mcL Neutrophils # 18.7 H (1.6-8.9) K/mcL BMP 01/17/17 06:39 Sodium 135 L Potassium 3.9 Chloride 103 Carbon Dioxide 25 BUN 8 Creatinine 0.66 Glucose 130 H Calcium 8.2 L Liver Function 01/17/17 Range/Units 06:39 Total Bilirubin 7.1 H (0.2-1.2) mg/dL AST 78 H (5-34) Units/L ALT 364 H (0-55) Units/L Alkaline Phosphatase 671 H (38-126) Units/L Albumin 2.1 L (3.5-5.0) g/dL Consult Discharge Plan - Plan Referrals: Chery Mckinney CNP [Primary Care Provider] - Jose Huber MD [Partnered Physician] - 01/24/17 10:10 am ([facility] Center called 01/15 to set appointment up.) <Otoniel Holman - Last Filed: 01/17/17 17:44> - Assessment and plan (1) Nausea & vomiting Current Visit: Yes Status: Acute Qualifiers: Vomiting type: bilious vomiting Qualified Code(s): R11.14 - Bilious vomiting (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 Current Visit: Yes Status: Acute Assessment and plan: Primary sclerosing cholangitis (4) Obstructive jaundice Current Visit: Yes Status: Acute (5) Hyperbilirubinemia Current Visit: Yes Status: Acute (6) Jaundice Current Visit: Yes Status: Acute (7) Transaminitis Current Visit: Yes Status: Acute (8) Metastatic breast cancer Current Visit: Yes Status: Acute (9) Crohns disease Current Visit: Yes Status: Chronic Qualifiers: Gastrointestinal tract location: unspecified location Digestive disease complication type: without complication Qualified Code(s): K50.90 - Crohn's disease, unspecified, without complications - Constitutional Vitals: Temp Pulse Resp BP Pulse Ox 99.4 F 86 14 98/65 96 01/17/17 17:02 01/17/17 17:02 01/17/17 17:02 01/17/17 17:02 01/17/17 17:02 Internal Medicine: Result - Labs CBC & Chem 7: 01/17/17 06:39 01/17/17 06:39 - Attending Attestation I examined this patient and my medical decision-making was reviewed with the Resident Physician on 01/17/17. I agree with the documented findings, disposition and treatment plan as described except to the extent set forth below. Ms. Cruz is currently admitted for acute cholestatis/jaundice due to sclerosing cholangitis. She is moderate to high risk due to potential for worsening liver disease and infection. Ms. Cruz is resting comfortably at this time (had Phenergan). I spoke at length with her daughter about her current situation and need for PICC and nutrition. We spoke about the probable cholangiocarcinoma and breast cancer ( just told of diagnosis last ). WBC elevated - currently receiving abx for perforation. Exam Arousable Heart reg Lungs clear Abd soft - not tender now I/P 1. PSC s/p stent 2. Breast cancer 3. N/V - discussed with daughter - will get palliative involved Further diagnoses and plan as above.
[2017-01-17] MEDS ORDERED: Clinimix E 5%-15% SOLUTION 2,000 ML with MVI, adult with vitamin K 10 ML IVC SCH (17:00)
[2017-01-17] MEDS: Ondansetron 4 MG/2 ML VIAL IVP PRN (17:45)
[2017-01-17] MEDS ORDERED: Ibuprofen 400 MG TABLET PO ONE (23:16)
[2017-01-18] MEDS: Piperacillin/Tazobactam 3.375 GM in D5% in Water (Mini-Bag+) 100 ML IVPB SCH ×3 (02:31→19:25)
[2017-01-18 03:16] LABS: Basophils % 0.2 %; Eosinophils # 0.3 K/mcL (0.0-0.6); Eosinophils % 1.7 %; Hematocrit 31.5 % (35.3-44.9); Hemoglobin 10.3 g/dL (11.5-15.4); Immature Granulocytes % 0.9 % (0-4); Lymphocytes # 1.6 K/mcL (0.6-4.6); Lymphocytes % 8.6 %; Mean Corpuscular HGB Conc 32.7 g/dL (31.6-35.5); Mean Corpuscular Hemoglobin 29.9 pg (28.0-33.3); Mean Corpuscular Volume 91.6 fL (83.0-100.0); Mean Platelet Volume 11.8 fL (9.4-12.4); Monocytes # 0.9 K/mcL (0.0-1.3); Monocytes % 4.9 %; Neutrophils # 15.7 K/mcL (1.6-8.9); Platelet Count 201 K/mcL (140-400); Red Blood Count 3.44 M/mcL (3.82-4.97); Red Cell Distribution Width 16.2 % (11.5-14.5); Segmented Neutrophils % 83.7 %
[2017-01-18 03:21] LABS: Magnesium 1.9 mg/dL (1.6-2.6)
[2017-01-18 03:23] LABS: Alanine Aminotransferase 261 Units/L (0-55); Albumin 2.1 g/dL (3.5-5.0); Albumin/Globulin Ratio 0.5 (1.1-2.2); Alkaline Phosphatase 600 Units/L (38-126); Aspartate Amino Transferase 45 Units/L (5-34); BUN/Creatinine Ratio 15 (6-26); Bilirubin,Total 6.3 mg/dL (0.2-1.2); Blood Urea Nitrogen 11 mg/dL (7-20); Calcium 8.6 mg/dL (8.6-10.8); Carbon Dioxide 26 mEq/L (19-29); Chloride 104 mEq/L (98-109); Globulin 3.9 g/dL (2.4-3.5); Glucose 130 mg/dL (70-99); Osmolality,Calculated 281 (280-300); Potassium 3.8 mEq/L (3.5-4.5); Sodium 135 mEq/L (136-145); eGFR For African Americans > 60 (> 60); eGFR For Non-African Americans > 60 (> 60)
[2017-01-18] MEDS: *HR* Enoxaparin 40 MG/0.4 ML SYRINGE SQ SCH (06:35)
[2017-01-18] MEDS: MetroNIDAZOLE 500 MG/100 ML 500 MG/100 ML BAG IVPB SCH ×3 (08:10→23:25)
--- NOTE | 2017-01-18 08:51 | Internal Med Progress Note ---
<Anthony Pearl - Last Filed: 01/18/17 13:46> Date of Encounter: 01/18/17 Time of Encounter: 08:50 - Assessment and plan (1) Jaundice Current Visit: Yes Status: Acute Assessment and plan: Due to elevated bilirubin. History of primary biliary sclerosis, biliary obstruction. Patient underwent ERCP and stent placement. Labs today: Total bilirubin 6.3, AST 45, ALT 261, alk phosphatase 600 We will monitor with a.m. CMP (2) Transaminitis Current Visit: Yes Status: Acute Assessment and plan: Slow improvements, likely secondary to biliary stenting and primary biliary sclerosis. Concern for cholangiocarcinoma. Plan: - Gastroenterology following. - Liver enzymes for trending down. (3) Crohns disease Current Visit: Yes Status: Chronic Assessment and plan: Chronic disease, review of chart demonstrates that patient had been noncompliant with her Crohn's treatment with her last treatment of Remicade in August 2016. -Gastroenterology following. Qualifiers: Gastrointestinal tract location: unspecified location Digestive disease complication type: without complication Qualified Code(s): K50.90 - Crohn's disease, unspecified, without complications (4) Metastatic breast cancer Current Visit: Yes Status: Acute Assessment and plan: Per Oncology documentation: had needle biopsy on 01/11/17 which confirmed a grade 2 invasive ductal carcinoma with additional DCIS component (grade 2, solid pattern). Biopsy of left axillary node also positive for carcinoma. Ancillary studies including hormone receptor and HER-2 testing pending. Oncology following. Patient undergo breast MRI with contrast for evaluation (5) Biliary stricture Current Visit: Yes Status: Acute Assessment and plan: History of primary biliary sclerosis, biliary obstruction. very tight stricture at bifurcation of intrahepatic biliary duct. Patient is status post intrahepatic biliary duct dilatation with stent placement. There was concerns for postoperative intra-abdominal free air identified on chest x-ray. Repeat abdominal x-ray shows continued suspicion. CA 19: 1726, this is concerning for cholangiocarcinoma. Biopsies taken with pathology pending. 01/17/2017: Vitals stable, Elevated WBC which is concerning with recent intraabdominal free air. Antibiotics adjusted by GI team. 01/18/2017: Transaminitis continues to be slowly improving but not by much. Patient likely not a candidate for liver transplant given her current medical status. Patient was met with palliative care this morning. Plan: - Patient starting transitional diet with clear liquids. - Antibiotic coverage includes Zosyn and Flagyl - Continue to monitor patient for symptoms including fever, chills, sweating, abdominal pain, abdominal tenderness or new onset shortness of breath. - Subjective Interval history: Mrs. Cruz 46-year-old female has been seen and evaluated patient bedside this morning. She is alert awake and in no acute distress. She denies any nausea, vomiting or diarrhea, abdominal tenderness, distention, chills or sweating. She was just told that she may not be a candidate for liver transplant given her current medical state. She does appear to be depressed which is understandable. She has family at bedside. - Constitutional Vitals: Temp Pulse Resp BP Pulse Ox 98.6 F 62 16 114/70 97 01/18/17 07:55 01/18/17 07:55 01/18/17 07:55 01/18/17 07:55 01/18/17 07:55 General appearance: Present: cooperative, A&O X 3, pleasant, answers questions appropriately - Head Head exam: Present: atraumatic, normocephalic - Eye Eye exam: Present: PERRL, scleral icterus, conjuntiva pink Pupils: Present: PERRL - ENT ENT exam: Present: mucous membranes moist - Neck Neck exam general surgery: Present: supple, trachea midline. Absent: lymphadenopathy - Respiratory Respiratory exam: Present: CTAB. Absent: accessory muscle use, rales, rhonchi, wheezes - Cardiovascular Cardiovascular exam: Present: RRR, +S1, +S2. Absent: diastolic murmur, gallop, rubs, systolic murmur Additional comments: grade 2-6 systolic ejection murmur. - GI/Abdominal GI/Abdominal exam: Present: normal bowel sounds, soft, no peritoneal signs. Absent: distended, tenderness - Extremities Exam Extremities exam: Present: warm, radial pulses palpable and symetrical. Absent : calf tenderness, cyanotic, pedal edema - Neurological Exam Neurological exam: Present: CN II-XII intact, oriented X3, no focal deficits. Absent: pronater drift, facial droop, speech deficit - Skin Skin exam: Present: dry, intact Internal Medicine: Result - Labs CBC & Chem 7: 01/18/17 02:46 01/18/17 02:46 Labs: Short CBC 01/18/17 Range/Units 02:46 WBC 18.7 H (4.3-11.1) K/mcL Hgb 10.3 L (11.5-15.4) g/dL Hct 31.5 L (35.3-44.9) % Plt Count 201 (140-400) K/mcL Neutrophils # 15.7 H (1.6-8.9) K/mcL BMP 01/18/17 02:46 Sodium 135 L Potassium 3.8 Chloride 104 Carbon Dioxide 26 BUN 11 Creatinine 0.71 Glucose 130 H Calcium 8.6 Liver Function 01/18/17 Range/Units 02:46 Total Bilirubin 6.3 H (0.2-1.2) mg/dL AST 45 H (5-34) Units/L ALT 261 H (0-55) Units/L Alkaline Phosphatase 600 H (38-126) Units/L Albumin 2.1 L (3.5-5.0) g/dL Consult Discharge Plan - Plan Referrals: Chery Mckinney CNP [Primary Care Provider] - 01/29/17 1:15 pm Jose Huber MD [Partnered Physician] - 01/24/17 10:10 am ([facility] Center called 01/15 to set appointment up.) <Otoniel Holman A - Last Filed: 01/18/17 16:26> - Assessment and plan (1) Nausea & vomiting Current Visit: Yes Status: Acute Qualifiers: Vomiting type: bilious vomiting Qualified Code(s): R11.14 - Bilious vomiting (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 Current Visit: Yes Status: Acute (4) Obstructive jaundice Current Visit: Yes Status: Acute (5) Hyperbilirubinemia Current Visit: Yes Status: Acute (6) Jaundice Current Visit: Yes Status: Acute (7) Transaminitis Current Visit: Yes Status: Acute (8) Metastatic breast cancer Current Visit: Yes Status: Acute (9) Crohns disease Current Visit: Yes Status: Chronic Qualifiers: Gastrointestinal tract location: unspecified location Digestive disease complication type: without complication Qualified Code(s): K50.90 - Crohn's disease, unspecified, without complications - Constitutional Vitals: Temp Pulse Resp BP Pulse Ox 98.1 F 71 16 115/74 100 01/18/17 15:48 01/18/17 15:48 01/18/17 15:48 01/18/17 15:48 01/18/17 15:48 Internal Medicine: Result - Labs CBC & Chem 7: 01/18/17 02:46 01/18/17 02:46 Labs: Short CBC 01/18/17 Range/Units 02:46 WBC 18.7 H (4.3-11.1) K/mcL Hgb 10.3 L (11.5-15.4) g/dL Hct 31.5 L (35.3-44.9) % Plt Count 201 (140-400) K/mcL Neutrophils # 15.7 H (1.6-8.9) K/mcL BMP 01/18/17 02:46 Sodium 135 L Potassium 3.8 Chloride 104 Carbon Dioxide 26 BUN 11 Creatinine 0.71 Glucose 130 H Calcium 8.6 Liver Function 01/18/17 Range/Units 02:46 Total Bilirubin 6.3 H (0.2-1.2) mg/dL AST 45 H (5-34) Units/L ALT 261 H (0-55) Units/L Alkaline Phosphatase 600 H (38-126) Units/L Albumin 2.1 L (3.5-5.0) g/dL - Attending Attestation I examined this patient and my medical decision-making was reviewed with the Resident Physician on 01/18/17. I agree with the documented findings, disposition and treatment plan as described except to the extent set forth below. Ms. Cruz is currently admitted for jaundice related to primary sclerosing cholangitis. She remains moderate to high risk due to potential for worsening overall clinical status. Ms. Cruz is very sad due to hearing about her situation - cannot have liver transplant due to breast cancer. Ultimately will need to go to [facility] for opinion. WBC improving. Pain up and down. Nausea OK. Diet started along with TPN. Exam Alert. Comfortable Heart not tachy No wheeze Abd soft I/P 1. Jaundice 2. PSC Further diagnoses and plan as above.
--- NOTE | 2017-01-18 10:54 | Palliative - Consult Note ---
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 Patient is status post biliary stent. May utilize morphine 2 mg IV every 4 hours as needed. Caution with oral pain medications as the patient has nausea, and does not tolerate medications on an empty stomach. Diet is advancing to clear liquids as tolerated. Continue to monitor. Once able to tolerate advanced diet and oral medications, recommend transitioning to oral pain control with [place] 5/325mg every 6-8 hours as needed. Adjust accordingly. Qualifiers: Abdominal location: generalized Qualified Code(s): R10.84 - Generalized abdominal pain (2) Breast cancer Current Visit: Yes Status: Acute Assessment and plan: Oncology following. Qualifiers: Breast location: unspecified site of breast Patient sex: female Laterality: left Qualified Code(s): C50.912 - Malignant neoplasm of unspecified site of left female breast (3) Jaundice Current Visit: Yes Status: Acute Assessment and plan: May utilize hydroxyzine pamoate as needed for itching. Patient reports improvement in symptoms since admission. (4) Primary sclerosing cholangitis Current Visit: Yes Status: Acute Assessment and plan: Management per gastroenterology (5) Nausea & vomiting Current Visit: Yes Status: Acute Assessment and plan: May utilize Zofran 4 mg every 8 hours as needed for nausea, with Phenergan be used if symptoms do not improve with Zofran. Will avoid scheduling antiemetics at this time due to liver impairment. The patient reports resolution of symptoms, and is now taking in ice chips. Diet was advanced as tolerated. Nausea has improved from yesterday. She used one dose of Zofran and one dose of phenergan yesterday. This morning, she was tolerating sips of water and ice chips. Continue to monitor. Qualifiers: Vomiting type: bilious vomiting Qualified Code(s): R11.14 - Bilious vomiting (6) Goals of care, counseling/discussion Current Visit: Yes Status: Acute Assessment and plan: Goals of care discussion with the patient in the presence of her daughter, Pham. Ms. Cruz did complete a healthcare power of family law attorney naming her friend, Sonia Veras as her primary agent, and her friend Umm Rivera [phone] as her first alternate. Ms. Cruz is interested in seeking further evaluation from her oncologist and hepatic specialists. I was present during the conversation with gatroenterology. Support provided to the patient and her daughter. Curriculum Counselor support in room. The palliative care team will continue to follow. Palliative-CN HPI - Data of Consult Requesting Physician: Otoniel Holman DO Primary Care Provider: Chery Mckinney CNP - Consult Narrative Palliative Care/Comfort Measures: Palliative care Reason for consult: Symptom management History of present illness: Ms. Cruz is a 46 year old female presenting to [facility] with worsening jaundice. Ms. Cruz initially presented to her primary care provider with symptoms of itching. Initial workup revealed elevated liver enzymes and bilirubin. Ms. Cruz became progressively more jaundiced and further care in the emergency department. She was admitted from the emergency department for cholestasis and obstructive jaundice. Gastroenterology was consulted and did an ERCP and placed a biliary stent. There is also a concern for cholangiocarcinoma given her history of primary sclerosing cholangitis. Ms. Cruz was also recently diagnosed with left sided breast CA. Outpatient work-up was in the beginning stages. The palliative care team was consulted to assist with goals of care planning and symptom management. Ms. Cruz lives in her home with a friend. She is employed with the [employer]. She does have a Sabian[employer] background. Her daughter is present in her room. CC: Otoniel Holman DO Past Med Surg Social Fam HX - Past Medical History Medical history: cancer (Left-sided breast cancer), other (Crohn's disease, uterine fibroids, anemia) Psychiatric history: no psych history - Past Surgical History Surgical History: - Social History Smoking Status: Never smoker Smokeless Tobacco Status: No Alcohol use: occasionally Drug use: none Occupational status: employed Current living situation: Home - Independent Activity Level: Independent ambulation - Family History Mother History Unknown: Yes Adopted: Noank: Madie Cruz Family Member Ethnicity: Non- Living Status: Age at : 69 Cause of : Emphysema Hx Family Cardiac Disorders: No Hx Family Respiratory Disorders: Yes Medications and Allergies HydrOXYzine Pamoate [Hydroxyzine Pamoate] 25 mg PO TID PRN 01/14/17 [History] InFLIXimab [Remicade] 100 mg IVPB [id number] 01/14/17 [History] PredniSONE [Deltasone] See Taper PO AD 01/14/17 [History] Allergies No Known Allergies Allergy (Verified 01/14/17 12:57) - Constitutional Constitutional ROS PAL: decreased appetite, fever(s) - EENT Eyes: no change in vision Ears: no decreased hearing Ears, nose, mouth, throat: dry mouth, no sore throat - Cardiovascular Cardiovascular ROS: no chest pain, no dyspnea on exertion, no irregular heart rhythm, no leg edema, no palpitations, no radiating pain - Respiratory Respiratory: no cough, no dyspnea, no wheezing, no chest congestion - Gastrointestinal Gastrointestinal: abdominal pain, nausea, no change in stool character, no constipation, no diarrhea, no vomiting - Genitourinary Palliative ROS female: no difficulty voiding, no dysuria, no urinary frequency - Musculoskeletal Musculoskeletal ROS IM: back pain - Integumentary ROS Integumentary: pruritus, jaundice - Neurological Neurological ROS: no confusion, no focal weakness, no lack of coordination, no paresthesias, no weakness - Psychiatric Psychiatric general PM: anxiety Palliative Care-Exam - Constitutional Vitals: Temp Pulse Resp BP Pulse Ox 98.6 F 62 16 114/70 97 01/18/17 07:55 01/18/17 07:55 01/18/17 07:55 01/18/17 07:55 01/18/17 07:55 General appearance: Present: cooperative, thin - Head Head Exam: Present: atraumatic - Eye Eye exam: Present: EOMI Pupils: Present: PERRL - ENT ENT exam: Present: mucous membranes dry - Respiratory Respiratory exam: Present: CTAB. Absent: accessory muscle use, respiratory distress - Cardiovascular Cardiovascular exam: Present: RRR - GI/Abdominal Exam GI/Abdominal exam: Present: normal bowel sounds, soft. Absent: guarding, rigid , tenderness - Neurological Exam Neurological exam: Present: alert, oriented X3, no focal deficits, strengths equal and symetr throughout - Psychiatric Psychiatric exam: Present: flat affect. Absent: agitated, anxious - Skin Skin exam: Present: dry, warm Additional comments: jaundice Internal Medicine - CN: Reslt - Labs CBC & Chem 7: 01/18/17 02:46 01/18/17 02:46 Labs: Short CBC 01/18/17 Range/Units 02:46 WBC 18.7 H (4.3-11.1) K/mcL Hgb 10.3 L (11.5-15.4) g/dL Hct 31.5 L (35.3-44.9) % Plt Count 201 (140-400) K/mcL Neutrophils # 15.7 H (1.6-8.9) K/mcL BMP 01/18/17 02:46 Sodium 135 L Potassium 3.8 Chloride 104 Carbon Dioxide 26 BUN 11 Creatinine 0.71 Glucose 130 H Calcium 8.6 Liver Function 01/18/17 Range/Units 02:46 Total Bilirubin 6.3 H (0.2-1.2) mg/dL AST 45 H (5-34) Units/L ALT 261 H (0-55) Units/L Alkaline Phosphatase 600 H (38-126) Units/L Albumin 2.1 L (3.5-5.0) g/dL Consult Discharge Plan - Plan Referrals: Chery Mckinney CNP [Primary Care Provider] - 01/29/17 1:15 pm Jose Huber MD [Partnered Physician] - 01/24/17 10:10 am (Cancer Center called 01/15 to set appointment up.) Palliative Quality Palliative Quality: Screen for Code Status: Yes, Screen for Goals of Care: Yes, Screen for Pain: Yes, If Pain Regimen Started, Initiate Bowel Regimen: Yes, Screen for Nausea/Vomitting: Yes
--- NOTE | 2017-01-18 11:19 | Gastroenterology Progress Note ---
<Ranulfo Almanzar - Last Filed: 01/18/17 11:17> Date of Encounter: 01/18/17 Time of Encounter: 09:55 - Assessment and plan (1) Transaminitis Current Visit: Yes Status: Acute Assessment and plan: CT A/P 01/11/2017 with moderate intrahepatic biliary ductal dilation. Concerned for cholangiocarcinoma. Ca 19-9 1726 and CEA negative at 3.7. ERCP with very tight stricture at bifercation, dilated and stent placed. CBD brushing with atypical cells. Dr. Youssef concerned about free air on fluoroscopy during procedure. Abdominal x-ray this AM shows probable trace pneumoperitoneum under the right hemidiaphragm medially, CBD stent appears in appropriate position, unremarkable bowel gas pattern. TB improved to 6.3 from7.1, AST 45 from 78, ALT 261 from 364. WBC decreased to 18.7 from 21.6. Continue Zosyn. Start clear liquid diet. Refer to [facility] as outpatient for evaluation. (2) Primary sclerosing cholangitis Current Visit: Yes Status: Acute (3) Crohns disease Current Visit: Yes Status: Chronic Assessment and plan: Pt noncompliant with Crohn's treatment. Last treatment with Remicade was Jul or Aug 2016. Pt cancelled appt in Sep 2016 due to a "sinus infection and fever". Qualifiers: Gastrointestinal tract location: unspecified location Digestive disease complication type: without complication Qualified Code(s): K50.90 - Crohn's disease, unspecified, without complications (4) Metastatic breast cancer Current Visit: Yes Status: Acute Assessment and plan: Left breast cancer with mets to left axillary lymph node. - Time Spent With Patient Total time spent is greater than 50% in coordination of care (as documented) at patient's floor/unit and/or counseling patient: - Subjective Interval history: She is resting in bed and is tearful this AM. No nausea, vomiting, or abdominal tenderness. - Constitutional Vitals: Temp Pulse Resp BP Pulse Ox 98.6 F 62 16 114/70 97 01/18/17 07:55 01/18/17 07:55 01/18/17 07:55 01/18/17 07:55 01/18/17 07:55 General appearance: Present: cooperative, A&O X 3, no acute distress, answers questions appropriately - Head Head exam: Present: atraumatic, normocephalic - Eye Eye exam: Present: scleral icterus - ENT ENT exam: Present: mucous membranes dry - Neck Neck exam general surgery: Present: normal inspection, trachea midline - Respiratory Respiratory exam: Present: CTAB. Absent: rales, rhonchi - Cardiovascular Cardiovascular exam: Present: RRR, +S1, +S2 - GI/Abdominal GI/Abdominal exam: Present: soft, no peritoneal signs. Absent: distended, firm , guarding, tenderness - Rectal Rectal exam: Present: deferred - Extremities Exam Extremities exam: Present: warm - Neurological Exam Neurological exam: Present: no focal deficits - Psychiatric Psychiatric exam: Present: normal affect, normal mood - Skin Skin exam: Present: dry, intact, warm. Absent: normal color (Jaundice) Results - Labs CBC & Chem 7: 01/18/17 02:46 01/18/17 02:46 Labs: Last Result Calcium 8.6 mg/dL (8.6-10.8) 01/18/17 02:46 Triglycerides 72 mg/dL (< 150) 01/18/17 02:46 Entire Visit Hgb 10.3 g/dL (11.5-15.4) L 01/18/17 02:46 Hct 31.5 % (35.3-44.9) L 01/18/17 02:46 Total Bilirubin 6.3 mg/dL (0.2-1.2) H 01/18/17 02:46 AST 45 Units/L (5-34) H 01/18/17 02:46 ALT 261 Units/L (0-55) H 01/18/17 02:46 Lipase 41 Units/L (8-78) 01/14/17 13:42 Carcinoembryonic Ag 3.7 ng/mL (0-5.0) 01/15/17 09:47 CA 19-9 Antigen 1726 U/mL (0-37) H 01/15/17 09:47 Acetaminophen < 1.0 mcg/mL (10-30) L 01/14/17 15:27 Consult Discharge Plan - Plan Referrals: Chery Mckinney CNP [Primary Care Provider] - Jose Huber MD [Partnered Physician] - 01/24/17 10:10 am (Cancer Center called 01/15 to set appointment up.) <Monse Rosario - Last Filed: 01/18/17 12:43> - Time Spent With Patient Total time spent is greater than 50% in coordination of care (as documented) at patient's floor/unit and/or counseling patient: - Constitutional Vitals: Temp Pulse Resp BP Pulse Ox 97.6 F 66 16 116/68 98 01/18/17 11:20 01/18/17 11:20 01/18/17 11:20 01/18/17 11:20 01/18/17 11:20 Results - Labs CBC & Chem 7: 01/18/17 02:46 01/18/17 02:46 Labs: Last Result Calcium 8.6 mg/dL (8.6-10.8) 01/18/17 02:46 Triglycerides 72 mg/dL (< 150) 01/18/17 02:46 Entire Visit Hgb 10.3 g/dL (11.5-15.4) L 01/18/17 02:46 Hct 31.5 % (35.3-44.9) L 01/18/17 02:46 Total Bilirubin 6.3 mg/dL (0.2-1.2) H 01/18/17 02:46 AST 45 Units/L (5-34) H 01/18/17 02:46 ALT 261 Units/L (0-55) H 01/18/17 02:46 Lipase 41 Units/L (8-78) 01/14/17 13:42 Carcinoembryonic Ag 3.7 ng/mL (0-5.0) 01/15/17 09:47 CA 19-9 Antigen 1726 U/mL (0-37) H 01/15/17 09:47 Acetaminophen < 1.0 mcg/mL (10-30) L 01/14/17 15:27 - Attending Attestation I examined this patient and my medical decision-making was reviewed with the BAG END SEWER/PA/Advanced Practice Nurse/Resident Physician. I agree with the documented findings, disposition and treatment plan as described except to the extent set forth below. Patient seen at the bedside abdominal is benign no tenderness. White count is down to 18,000. Patient case was discussed with Dr. Gaston porras, director hepatology at . Due to recent diagnosis of breast cancer patient is currently not taking a candidate for liver transplant for possible cholangiocarcinoma in this patient with underlying PSC. Her LFTs are improving. She will be referred to [facility] as an outpatient.
[2017-01-18] MEDS ORDERED: Clinimix E 5%-15% SOLUTION 2,000 ML with MVI, adult with vitamin K 10 ML IVC SCH (17:00)
[2017-01-19] MEDS: Piperacillin/Tazobactam 3.375 GM in D5% in Water (Mini-Bag+) 100 ML IVPB SCH ×3 (02:53→17:17)
[2017-01-19 05:13] LABS: Basophils % 0.2 %; Eosinophils # 0.5 K/mcL (0.0-0.6); Eosinophils % 3.9 %; Hematocrit 27.6 % (35.3-44.9); Hemoglobin 9.1 g/dL (11.5-15.4); Lymphocytes # 1.6 K/mcL (0.6-4.6); Lymphocytes % 12.7 %; Mean Corpuscular Hemoglobin 30.1 pg (28.0-33.3); Mean Corpuscular Volume 91.4 fL (83.0-100.0); Mean Platelet Volume 11.5 fL (9.4-12.4); Monocytes % 8.1 %; Neutrophils # 9.4 K/mcL (1.6-8.9); Platelet Count 190 K/mcL (140-400); Red Blood Count 3.02 M/mcL (3.82-4.97); Red Cell Distribution Width 15.4 % (11.5-14.5); Segmented Neutrophils % 74.1 %
[2017-01-19 05:29] LABS: Alanine Aminotransferase 175 Units/L (0-55); Albumin/Globulin Ratio 0.5 (1.1-2.2); Alkaline Phosphatase 490 Units/L (38-126); Aspartate Amino Transferase 36 Units/L (5-34); BUN/Creatinine Ratio 20 (6-26); Bilirubin,Total 4.2 mg/dL (0.2-1.2); Blood Urea Nitrogen 13 mg/dL (7-20); Calcium 8.3 mg/dL (8.6-10.8); Carbon Dioxide 25 mEq/L (19-29); Chloride 106 mEq/L (98-109); Globulin 3.8 g/dL (2.4-3.5); Glucose 165 mg/dL (70-99); Magnesium 1.7 mg/dL (1.6-2.6); Osmolality,Calculated 284 (280-300); Potassium 3.9 mEq/L (3.5-4.5); Sodium 135 mEq/L (136-145); Total Protein 5.8 g/dL (6.0-8.3); eGFR For African Americans > 60 (> 60); eGFR For Non-African Americans > 60 (> 60)
[2017-01-19] MEDS: *HR* Enoxaparin 40 MG/0.4 ML SYRINGE SQ SCH (07:22)
[2017-01-19] MEDS: MetroNIDAZOLE 500 MG/100 ML 500 MG/100 ML BAG IVPB SCH ×3 (09:02→23:56)
--- NOTE | 2017-01-19 11:57 | Palliative Progress Note ---
Date of Encounter: 01/19/17 Time of Encounter: 11:00 - Assessment and plan (1) Abdominal pain Current Visit: No Status: Acute Assessment and plan: Patient denies abdominal pain. Reports ambulated to BR without problems. Denies dysuria or constipation. States passing some flatus. Medications reviewed and requested no morphine for pain. Reports tolerated pancakes for breakfast if she has no issues with food will transition to po [place] tomorrow. Qualifiers: Abdominal location: generalized Qualified Code(s): R10.84 - Generalized abdominal pain (2) Nausea & vomiting Current Visit: No Status: Acute Assessment and plan: Resolving, no zofran or phenergan in past 24 hrs. Resports no vomiting and diet has been advanced to solids. Will follow closely. TPN still infusing and per GI note will likely continue after DC. Qualifiers: Vomiting type: bilious vomiting Qualified Code(s): R11.14 - Bilious vomiting (3) Jaundice Current Visit: Yes Status: Acute Assessment and plan: Resolving, denies itching or discomfort. Has Hydroxine Pamoate as needed. (4) Metastatic breast cancer Current Visit: Yes Status: Acute (5) Primary sclerosing cholangitis Current Visit: Yes Status: Acute - Time Spent With Patient Total time spent is greater than 50% in coordination of care (as documented) at patient's floor/unit and/or counseling patient: 25 - 35 minutes - Subjective Interval history: Patient sitting up in bed, denies any issues or complaints. Medical record reviewed and medications discussed. - Constitutional Vitals: Abnormal lab results WBC 12.7 K/mcL (4.3-11.1) H 01/19/17 05:00 RBC 3.02 M/mcL (3.82-4.97) L 01/19/17 05:00 Hgb 9.1 g/dL (11.5-15.4) L 01/19/17 05:00 Hct 27.6 % (35.3-44.9) L 01/19/17 05:00 RDW 15.4 % (11.5-14.5) H 01/19/17 05:00 Neutrophils # 9.4 K/mcL (1.6-8.9) H 01/19/17 05:00 Sodium 135 mEq/L (136-145) L 01/19/17 05:00 Glucose 165 mg/dL (70-99) H 01/19/17 05:00 POC Glucose 178 (58-89) H 01/19/17 07:50 Calcium 8.3 mg/dL (8.6-10.8) L 01/19/17 05:00 Total Bilirubin 4.2 mg/dL (0.2-1.2) H 01/19/17 05:00 Direct Bilirubin 6.3 mg/dL (0.0-0.5) H 01/16/17 05:35 Indirect Bilirubin 2.1 mg/dL (0.0-1.2) H 01/16/17 05:35 AST 36 Units/L (5-34) H 01/19/17 05:00 ALT 175 Units/L (0-55) H 01/19/17 05:00 Alkaline Phosphatase 490 Units/L (38-126) H 01/19/17 05:00 Serum Total Protein 5.8 g/dL (6.0-8.3) L 01/19/17 05:00 Albumin 2.0 g/dL (3.5-5.0) L 01/19/17 05:00 Globulin 3.8 g/dL (2.4-3.5) H 01/19/17 05:00 Albumin/Globulin Ratio 0.5 (1.1-2.2) L 01/19/17 05:00 Prealbumin 12.0 mg/dL (16.0-38.0) L 01/18/17 02:46 CA 19-9 Antigen 1726 U/mL (0-37) H 01/15/17 09:47 Urine Color [place] (Yellow) A 01/14/17 13:08 Urine Clarity Cloudy (Clear) A 01/14/17 13:08 Ur Specific [place] > 1.030 (1.010-1.025) H 01/14/17 13:08 Urine Protein 30 mg/dL (Neg-Trace) H 01/14/17 13:08 Urine Ketones Trace mg/dL (Negative) H 01/14/17 13:08 Urine Bilirubin Large (Negative) H 01/14/17 13:08 Ur Leukocyte Esterase Small (Negative) H 01/14/17 13:08 Urine Microscopic RBC 3-5 per hpf (0-3) H 01/14/17 13:08 Ur Squamous Epith Cells Moderate per lpf (None-Few) H 01/14/17 13:08 Ur Culture Indicated? YES (NO) A 01/14/17 13:08 Acetaminophen < 1.0 mcg/mL (10-30) L 01/14/17 15:27 - Head Head exam: Present: atraumatic, normal inspection - Eye Eye exam: Present: PERRL Pupils: Present: PERRL - ENT ENT exam: Present: mucous membranes moist - Neck Neck exam: Present: full ROM - Respiratory Respiratory exam: Present: CTAB - Cardiovascular Cardiovascular exam: Present: RRR, +S1, +S2 - GI/Abdominal GI/Abdominal exam: Present: normal bowel sounds, soft - Rectal Rectal exam: Present: deferred - Extremities Exam Extremities exam: Present: full ROM - Back Exam Back exam: Present: full ROM - Neurological Exam Neurological exam: Present: alert, CN II-XII intact, oriented X3 - Psychiatric Psychiatric exam: Present: normal affect - Skin Skin exam: Present: warm (slight jaundice) Palliative Quality Palliative Quality: Screen for Code Status: Yes, Screen for Goals of Care: Yes, Screen for Pain: Yes, If Pain Regimen Started, Initiate Bowel Regimen: Yes, Screen for Nausea/Vomitting: Yes - Labs CBC & Chem 7: 01/19/17 05:00 01/19/17 05:00 Labs: Laboratory Results - last 24 hr 01/17/17 01/17/17 01/18/17 19:53 23:00 04:00 WBC RBC Hgb Hct MCV MCH MCHC RDW Plt Count MPV Immature Gran % Seg Neutrophils % Lymphocytes % Monocytes % Eosinophils % Basophils % Neutrophils # Lymphocytes # Monocytes # Eosinophils # Basophils # Sodium Potassium Chloride Carbon Dioxide BUN Creatinine Est GFR ( Amer) Est GFR (Non-Af Amer) BUN/Creatinine Ratio Glucose POC Glucose 149 H 126 H 138 H Calculated Osmolality Calcium Phosphorus Magnesium Total Bilirubin AST ALT Alkaline Phosphatase Serum Total Protein Albumin Globulin Albumin/Globulin Ratio 01/18/17 01/18/17 01/18/17 07:27 11:06 15:48 WBC RBC Hgb Hct MCV MCH MCHC RDW Plt Count MPV Immature Gran % Seg Neutrophils % Lymphocytes % Monocytes % Eosinophils % Basophils % Neutrophils # Lymphocytes # Monocytes # Eosinophils # Basophils # Sodium Potassium Chloride Carbon Dioxide BUN Creatinine Est GFR ( Amer) Est GFR (Non-Af Amer) BUN/Creatinine Ratio Glucose POC Glucose 164 H 140 H 80 Calculated Osmolality Calcium Phosphorus Magnesium Total Bilirubin AST ALT Alkaline Phosphatase Serum Total Protein Albumin Globulin Albumin/Globulin Ratio 01/18/17 01/19/17 01/19/17 23:42 05:00 05:00 WBC 12.7 H RBC 3.02 L Hgb 9.1 L Hct 27.6 L MCV 91.4 MCH 30.1 MCHC 33.0 RDW 15.4 H Plt Count 190 MPV 11.5 Immature Gran % 1.0 Seg Neutrophils % 74.1 Lymphocytes % 12.7 Monocytes % 8.1 Eosinophils % 3.9 Basophils % 0.2 Neutrophils # 9.4 H Lymphocytes # 1.6 Monocytes # 1.0 Eosinophils # 0.5 Basophils # 0.0 Sodium 135 L Potassium 3.9 Chloride 106 Carbon Dioxide 25 BUN 13 Creatinine 0.65 Est GFR ( Amer) > 60 Est GFR (Non-Af Amer) > 60 BUN/Creatinine Ratio 20 Glucose 165 H POC Glucose 147 H Calculated Osmolality 284 Calcium 8.3 L Phosphorus 3.0 Magnesium 1.7 Total Bilirubin 4.2 H AST 36 H ALT 175 H Alkaline Phosphatase 490 H Serum Total Protein 5.8 L Albumin 2.0 L Globulin 3.8 H Albumin/Globulin Ratio 0.5 L 01/19/17 01/19/17 05:08 07:50 WBC RBC Hgb Hct MCV MCH MCHC RDW Plt Count MPV Immature Gran % Seg Neutrophils % Lymphocytes % Monocytes % Eosinophils % Basophils % Neutrophils # Lymphocytes # Monocytes # Eosinophils # Basophils # Sodium Potassium Chloride Carbon Dioxide BUN Creatinine Est GFR ( Amer) Est GFR (Non-Af Amer) BUN/Creatinine Ratio Glucose POC Glucose 166 H 178 H Calculated Osmolality Calcium Phosphorus Magnesium Total Bilirubin AST ALT Alkaline Phosphatase Serum Total Protein Albumin Globulin Albumin/Globulin Ratio - Impressions Impressions Breast MRI 01/18/17 11:20 IMPRESSION: 1. Spiculated enhancing mass within the central and posterior left breast measuring 3.5 x 3.0 x 2.3 cm is consistent with recently diagnosed malignancy. The mass involves the pectoralis muscle. Several enlarged axillary lymph nodes are consistent with biopsy proven metastatic disease. 2. A 5 mm enhancing mass in the upper outer quadrant of the right breast demonstrates benign characteristics and could represent an intramammary lymph node or fibroadenoma. Second-look ultrasound could be performed for further evaluation if desired. BIRADS: BIRADS - CATEGORY 6 Known biopsy proven malignancy. Further management per Surgery and Oncology. OVERALL ASSESSMENT - KNOWN BIOPSY PROVEN MALIGNANCY. D/ / 01/18/2017 16:32:24 Warner Oseguera MD / Ellie De La Garza Interpreting Provider: Warner Oseguera MD Consult Discharge Plan - Plan Referrals: Chery Mckinney CNP [Primary Care Provider] - 01/29/17 1:15 pm Jose Huber MD [Partnered Physician] - 01/24/17 10:10 am (Cancer Center called 01/15 to set appointment up.)
--- NOTE | 2017-01-19 13:53 | Internal Med Progress Note ---
Date of Encounter: 01/19/17 Time of Encounter: 10:00 - Assessment and plan (1) Nausea & vomiting Current Visit: No Status: Resolved Assessment and plan: Nausea and vomiting seem to be improving. She is hungry and will increase her diet today. 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 Outpatient follow up. (3) Primary sclerosing cholangitis Current Visit: Yes Status: Acute Assessment and plan: Primary sclerosing cholangitis s/p stent. Bilirubin improving. (4) Obstructive jaundice Current Visit: Yes Status: Acute Assessment and plan: Improving after stent placement. (5) Hyperbilirubinemia Current Visit: Yes Status: Acute Assessment and plan: Due to obstruction/stricture. Improving. (6) Jaundice Current Visit: Yes Status: Acute Assessment and plan: Improving after stent placement. Continue supportive care. (7) Transaminitis Current Visit: Yes Status: Acute Assessment and plan: Slow improvements, likely secondary to biliary stenting and primary biliary sclerosis. Concern for cholangiocarcinoma. Plan: - Gastroenterology following. - Liver enzymes for trending down. (8) Metastatic breast cancer Current Visit: Yes Status: Acute Assessment and plan: Per Oncology documentation: had needle biopsy on 01/11/17 which confirmed a grade 2 invasive ductal carcinoma with additional DCIS component (grade 2, solid pattern). Biopsy of left axillary node also positive for carcinoma. Ancillary studies including hormone receptor and HER-2 testing pending. MRI completed. Will arrange follow up at discharge. (9) Crohns disease Current Visit: Yes Status: Chronic Assessment and plan: Chronic disease, review of chart demonstrates that patient had been noncompliant with her Crohn's treatment with her last treatment of Remicade in August 2016. -Gastroenterology following. Qualifiers: Gastrointestinal tract location: unspecified location Digestive disease complication type: without complication Qualified Code(s): K50.90 - Crohn's disease, unspecified, without complications - Subjective Interval history: Ms. Cruz is currently admitted for obstructive jaundice due to PSC and presumed cholangiocarcinoma. She is moderate to high risk due to potential of worsening liver status. She is still on TPN for nutrition. Ms. Cruz is feeling hungry. She wants pancakes. No fever or chills. Pain and nausea are fairly controlled. No diarrhea noted. She has been talking with palliative care as well. - Constitutional Vitals: Temp Pulse Resp BP Pulse Ox 97.8 F 78 18 115/71 98 01/19/17 11:54 01/19/17 11:54 01/19/17 11:54 01/19/17 11:54 01/19/17 11:54 General appearance: Present: cooperative, A&O X 3, pleasant, answers questions appropriately - Head Head exam: Present: normocephalic - Eye Eye exam: Present: EOMI, conjuntiva pink - ENT ENT exam: Present: mucous membranes dry - Respiratory Respiratory exam: Present: decreased breath sounds, CTAB - Cardiovascular Cardiovascular exam: Present: RRR. Absent: systolic murmur, tachycardia - GI/Abdominal GI/Abdominal exam: Present: soft. Absent: tenderness - Extremities Exam Extremities exam: Present: warm. Absent: pedal edema - Neurological Exam Neurological exam: Present: alert, oriented X3, no focal deficits - Psychiatric Psychiatric exam: Present: depressed - Skin Additional comments: Jaundice noted. Internal Medicine: Result - Labs CBC & Chem 7: 01/19/17 05:00 01/19/17 05:00 Labs: Short CBC 01/19/17 Range/Units 05:00 WBC 12.7 H (4.3-11.1) K/mcL Hgb 9.1 L (11.5-15.4) g/dL Hct 27.6 L (35.3-44.9) % Plt Count 190 (140-400) K/mcL Neutrophils # 9.4 H (1.6-8.9) K/mcL BMP 01/19/17 05:00 Sodium 135 L Potassium 3.9 Chloride 106 Carbon Dioxide 25 BUN 13 Creatinine 0.65 Glucose 165 H Calcium 8.3 L Liver Function 01/19/17 Range/Units 05:00 Total Bilirubin 4.2 H (0.2-1.2) mg/dL AST 36 H (5-34) Units/L ALT 175 H (0-55) Units/L Alkaline Phosphatase 490 H (38-126) Units/L Albumin 2.0 L (3.5-5.0) g/dL - Impressions Impressions Breast MRI 01/18/17 11:20 IMPRESSION: 1. Spiculated enhancing mass within the central and posterior left breast measuring 3.5 x 3.0 x 2.3 cm is consistent with recently diagnosed malignancy. The mass involves the pectoralis muscle. Several enlarged axillary lymph nodes are consistent with biopsy proven metastatic disease. 2. A 5 mm enhancing mass in the upper outer quadrant of the right breast demonstrates benign characteristics and could represent an intramammary lymph node or fibroadenoma. Second-look ultrasound could be performed for further evaluation if desired. BIRADS: BIRADS - CATEGORY 6 Known biopsy proven malignancy. Further management per Surgery and Oncology. OVERALL ASSESSMENT - KNOWN BIOPSY PROVEN MALIGNANCY. D/ / 01/18/2017 16:32:24 Warner Oseguera MD / Ellie De La Garza Interpreting Provider: Warner Oseguera MD Consult Discharge Plan - Plan Referrals: Chery Mckinney CNP [Primary Care Provider] - 01/29/17 1:15 pm Jose Huber MD [Partnered Physician] - 01/24/17 10:10 am ([facility] Center called 01/15 to set appointment up.)
[2017-01-19] MEDS ORDERED: *HR* Dextrose 50 % in Water (Syg) 50 ML SYRINGE IVP PRN (16:33)
[2017-01-19] MEDS ORDERED: D5% in Water 1,000 ML IVC PRN (16:33)
[2017-01-19] MEDS ORDERED: Dextrose Gel 15 GM PO PRN ×2 (16:33)
[2017-01-19] MEDS ORDERED: Clinimix E 5%-15% SOLUTION 2,000 ML with MVI, adult with vitamin K 10 ML IVC SCH ×2 (17:00→17:45)
[2017-01-19] MEDS: Insulin LISPRO 300 UNITS/3 ML VIAL SQ SCH (17:18)
[2017-01-19] MEDS ORDERED: Insulin LISPRO 300 UNITS/3 ML VIAL SQ SCH (21:00)
[2017-01-19] MEDS: *HR* Morphine 2 MG/ML SYRINGE IVP PRN (22:36)
[2017-01-20] MEDS: Piperacillin/Tazobactam 3.375 GM in D5% in Water (Mini-Bag+) 100 ML IVPB SCH ×2 (02:41→11:28)
[2017-01-20] MEDS: *HR* Morphine 2 MG/ML SYRINGE IVP PRN (04:28)
[2017-01-20 05:08] LABS: Magnesium 1.7 mg/dL (1.6-2.6); Phosphorous 2.8 mg/dL (2.3-4.7)
[2017-01-20] MEDS: *HR* Enoxaparin 40 MG/0.4 ML SYRINGE SQ SCH (05:11)
[2017-01-20 08:25] VITALS: BP 131/69
[2017-01-20] MEDS ORDERED: *HR* OxyCODONE/APAP 5/325 TABLET PO PRN (09:04)
--- NOTE | 2017-01-20 09:07 | Palliative Progress Note ---
Date of Encounter: 01/20/17 Time of Encounter: 08:30 - Assessment and plan (1) Abdominal pain Current Visit: Yes Status: Acute Assessment and plan: Patient reports slight abdominal cramping. Reports ambulated to BR without problems. Denies dysuria or constipation. States passing some flatus. Medications reviewed and requested morphine this AM cramping abdominal 5/10 pain. Reports tolerated de paz for breakfast if she has no issues with food will transition to po percocet as patient reports that this makes her less nauseated than [place]. Qualifiers: Abdominal location: generalized Qualified Code(s): R10.84 - Generalized abdominal pain (2) Nausea & vomiting Current Visit: No Status: Resolved Assessment and plan: Resolving, no zofran or phenergan in past 24 hrs. Reports no vomiting and diet has been advanced to solids. Will follow closely. TPN still infusing. Qualifiers: Vomiting type: bilious vomiting Qualified Code(s): R11.14 - Bilious vomiting (3) Jaundice Current Visit: Yes Status: Acute Assessment and plan: Resolving, denies itching or discomfort. Has Hydroxine Pamoate as needed. (4) Metastatic breast cancer Current Visit: Yes Status: Acute Assessment and plan: per Oncology (5) Primary sclerosing cholangitis Current Visit: Yes Status: Acute - Time Spent With Patient Total time spent is greater than 50% in coordination of care (as documented) at patient's floor/unit and/or counseling patient: less than 15 minutes - Subjective Interval history: Patient sitting up in bed, denies any issues or complaints. Medical record reviewed and medications discussed. Reports feeling much better and tolerating food well. Reports no nausea or vomiting. - Constitutional Vitals: Abnormal lab results WBC 12.7 K/mcL (4.3-11.1) H 01/19/17 05:00 RBC 3.02 M/mcL (3.82-4.97) L 01/19/17 05:00 Hgb 9.1 g/dL (11.5-15.4) L 01/19/17 05:00 Hct 27.6 % (35.3-44.9) L 01/19/17 05:00 RDW 15.4 % (11.5-14.5) H 01/19/17 05:00 Neutrophils # 9.4 K/mcL (1.6-8.9) H 01/19/17 05:00 Sodium 135 mEq/L (136-145) L 01/19/17 05:00 Glucose 165 mg/dL (70-99) H 01/19/17 05:00 POC Glucose 242 (58-89) H 01/20/17 04:46 Calcium 8.3 mg/dL (8.6-10.8) L 01/19/17 05:00 Total Bilirubin 4.2 mg/dL (0.2-1.2) H 01/19/17 05:00 Direct Bilirubin 6.3 mg/dL (0.0-0.5) H 01/16/17 05:35 Indirect Bilirubin 2.1 mg/dL (0.0-1.2) H 01/16/17 05:35 AST 36 Units/L (5-34) H 01/19/17 05:00 ALT 175 Units/L (0-55) H 01/19/17 05:00 Alkaline Phosphatase 490 Units/L (38-126) H 01/19/17 05:00 Serum Total Protein 5.8 g/dL (6.0-8.3) L 01/19/17 05:00 Albumin 2.0 g/dL (3.5-5.0) L 01/19/17 05:00 Globulin 3.8 g/dL (2.4-3.5) H 01/19/17 05:00 Albumin/Globulin Ratio 0.5 (1.1-2.2) L 01/19/17 05:00 Prealbumin 12.0 mg/dL (16.0-38.0) L 01/18/17 02:46 CA 19-9 Antigen 1726 U/mL (0-37) H 01/15/17 09:47 Urine Color [place] (Yellow) A 01/14/17 13:08 Urine Clarity Cloudy (Clear) A 01/14/17 13:08 Ur Specific [place] > 1.030 (1.010-1.025) H 01/14/17 13:08 Urine Protein 30 mg/dL (Neg-Trace) H 01/14/17 13:08 Urine Ketones Trace mg/dL (Negative) H 01/14/17 13:08 Urine Bilirubin Large (Negative) H 01/14/17 13:08 Ur Leukocyte Esterase Small (Negative) H 01/14/17 13:08 Urine Microscopic RBC 3-5 per hpf (0-3) H 01/14/17 13:08 Ur Squamous Epith Cells Moderate per lpf (None-Few) H 01/14/17 13:08 Ur Culture Indicated? YES (NO) A 01/14/17 13:08 Acetaminophen < 1.0 mcg/mL (10-30) L 01/14/17 15:27 - Head Head exam: Present: atraumatic, normal inspection, normocephalic - Eye Eye exam: Present: PERRL Pupils: Present: PERRL - ENT ENT exam: Present: mucous membranes moist - Neck Neck exam: Present: full ROM - Respiratory Respiratory exam: Present: CTAB - Cardiovascular Cardiovascular exam: Present: RRR, +S1, +S2 - GI/Abdominal GI/Abdominal exam: Present: normal bowel sounds (Voids per BR. Up ambulated to BR), soft, tenderness - Extremities Exam Extremities exam: Present: full ROM - Back Exam Back exam: Present: full ROM - Neurological Exam Neurological exam: Present: alert, CN II-XII intact, oriented X3 - Psychiatric Psychiatric exam: Present: normal affect - Skin Skin exam: Present: warm (Jaundice resolving, slightly yellowish skin) Palliative Quality Palliative Quality: Screen for Code Status: Yes, Screen for Goals of Care: Yes, Screen for Pain: Yes, If Pain Regimen Started, Initiate Bowel Regimen: Yes, Screen for Nausea/Vomitting: Yes - Labs CBC & Chem 7: 01/19/17 05:00 01/19/17 05:00 Labs: Laboratory Results - last 24 hr 01/19/17 01/19/17 01/20/17 16:10 20:36 00:38 POC Glucose 259 H 186 H 223 H Phosphorus Magnesium 01/20/17 01/20/17 04:20 04:46 POC Glucose 242 H Phosphorus 2.8 Magnesium 1.7 Consult Discharge Plan - Plan Referrals: Chery Mckinney CNP [Primary Care Provider] - 01/29/17 1:15 pm Jose Huber MD [Partnered Physician] - 01/24/17 10:10 am (Cancer Center called 01/15 to set appointment up.)
[2017-01-20] MEDS: MetroNIDAZOLE 500 MG/100 ML 500 MG/100 ML BAG IVPB SCH (09:38)
[2017-01-20] MEDS: Insulin LISPRO 300 UNITS/3 ML VIAL SQ SCH ×2 (09:38→13:19)
--- NOTE | 2017-01-20 12:18 | Discharge Summary ---
Date of Encounter: 01/20/17 Time of Encounter: 09:00 - Discharge Diagnosis (1) Nausea & vomiting Priority: Primary Status: Resolved Qualifiers: Vomiting type: bilious vomiting Qualified Code(s): R11.14 - Bilious vomiting (2) Cholangiocarcinoma Priority: Primary Status: Suspected (3) Primary sclerosing cholangitis Priority: Primary Status: Acute (4) Obstructive jaundice Priority: Primary Status: Acute (5) Hyperbilirubinemia Priority: Secondary Status: Acute (6) Jaundice Priority: Secondary Status: Acute (7) Transaminitis Priority: Secondary Status: Acute (8) Metastatic breast cancer Priority: Secondary Status: Acute (9) Crohns disease Priority: Secondary Status: Chronic Qualifiers: Gastrointestinal tract location: unspecified location Digestive disease complication type: without complication Qualified Code(s): K50.90 - Crohn's disease, unspecified, without complications - Discharge Medications Prescriptions: Ondansetron ODT [Zofran ODT] 4 mg SL Q6HR PRN #30 tab.rapdis PRN Reason: Nausea And Vomiting OxyCODONE/APAP 5/325 [Percocet 5/325 MG] 1 each PO Q6HR PRN #30 tablet PRN Reason: Pain Amoxicillin/Clavulanate [Augmentin] 875 mg PO BIDWM #20 tablet Home Medications: HydrOXYzine Pamoate [Hydroxyzine Pamoate] 25 mg PO TID PRN 01/14/17 [History] InFLIXimab [Remicade] 100 mg IVPB [id number] 01/14/17 [History] Amoxicillin/Clavulanate [Augmentin] 875 mg PO BIDWM #20 tablet 01/20/17 [Rx] Ondansetron ODT [Zofran ODT] 4 mg SL Q6HR PRN #30 tab.rapdis 01/20/17 [Rx] OxyCODONE/APAP 5/325 [Percocet 5/325 MG] 1 each PO Q6HR PRN #30 tablet 01/20/17 [Rx] Allergies/Adverse Reactions: Allergies No Known Allergies Allergy (Verified 01/14/17 12:57) Procedures/tests Complete & Pending: Procedures Performed prior 72 hours Category Date Time Status MR breast BI wo/w con [MR] Routine MRI 01/18/17 11:20 Completed Date of admission: 01/17/17 15:46 Primary care physician: Chery Mckinney CNP Consults: Dr. Monse Rosario Discharging clinician: Otoniel Holman Anticipated date of discharge: 01/20/17 - Patient Status Disposition: Home, Self-Care Condition: Fair Functional capacity at discharge: independent ambulation Overall status at discharge: patient is progressing back to baseline - Discharge Instructions Follow Up With: Chery Mckinney CNP [Primary Care Provider] - 01/29/17 1:15 pm Jose Huber MD [Partnered Physician] - 01/24/17 10:10 am (Cancer Center called 01/15 to set appointment up.) Additional Instructions: Please call Dr. Rosario's office in the morning for further plan regarding liver and appointment with [facility]. - Diet and Activity Activity: increase activity as tolerated Diet: advance to your usual diet Hospital course: Ms. Cruz is a 46 year old female with recent diagnosis of breast cancer (last week, no treatment yet) presented to ED with worsening jaundice. She did have some fatigue and lethargy. She was found to have cholestasis and subsequently admitted for further evaluation and treatment. Ms. Cruz was placed in observation on [facility]. She was treated for pain and nausea initially. She went to ERCP and was found to have sclerosis in her bile ducts consistent with PSC (Hx of Crohns). Brushings done and some atypical cells noted. CA 19-9 elevated as well consistent with presumptive diagnosis of cholangiocarcinoma. Following the ERCP there was concern for small perforation (free air noted). She was made NPO and TPN started. IV abx were started as well. Her WBC increased so Flagyl was added. She gradually had improvement in her symptoms and WBC decreased. She was started on clear liquid diet and advanced to regular. Pain and nausea were improving. She was also seen by Palliative service. On 01/20 she was feeling well. She was tolerating a regular diet and was afebrile. At that time she was discharged home for outpatient follow up. - Time Spent with Patient Total time spent providing and/or coordinating discharge services: 42min - Constitutional Vitals: Temp Pulse Resp BP Pulse Ox 97.8 F 70 16 131/69 99 01/20/17 08:10 01/20/17 08:10 01/20/17 08:10 01/20/17 08:10 01/20/17 08:10 General appearance: Present: cooperative, A&O X 3, pleasant, answers questions appropriately - Head Head exam: Present: normocephalic - Eye Eye exam: Present: conjuntiva pink - ENT ENT exam: Present: mucous membranes moist - Respiratory Respiratory exam: Present: decreased breath sounds, CTAB - Cardiovascular Cardiovascular exam: Present: RRR. Absent: systolic murmur, tachycardia - GI/Abdominal GI/Abdominal exam: Present: soft. Absent: tenderness - Extremities Exam Extremities exam: Present: warm. Absent: pedal edema - Neurological Exam Neurological exam: Present: alert, oriented X3, no focal deficits - Skin Skin exam: Present: warm. Absent: rash
[2017-01-20] MEDS ORDERED: FLU VACC QS2016-17 36MOS UP/PF 0.5 ML SYRINGE IM ONE (13:27)
[2017-01-20] MEDS ORDERED: Clinimix E 5%-15% SOLUTION 2,000 ML with MVI, adult with vitamin K 10 ML IVC SCH (17:00)
== END 2017-01-20 14:27 | disposition home or self-care (01) | DRG 444 ==
LOC: EMEROO 11:53 → 2ANU 11:53
PROVIDERS: ADMIT Internal Medicine; ATTEND Internal Medicine

== ENCOUNTER 2017-02-05 09:17 | Observation (INO) ==
[2017-02-05] MEDS ORDERED: 0.9 % Sodium Chloride 500 ML ONE ×2 (10:05→13:52)
[2017-02-05 10:27] LABS: Prothrombin Time 10.2 Seconds (9.4-12.1)
--- NOTE | 2017-02-05 11:59 | History & Physical Report ---
Date of Encounter: 02/05/17 Time of Encounter: 12:00 24 Hour HP Update - Instructions Instructions: If the History and Physical is less than 30 days old and was completed prior to A.M. admission and or procedure and has NOT been updated on calendar day of procedure please complete this update prior to performing procedure. - Update Patient reports changes in Medical Condition: No Changes in examination, assessment, or condition: No Changes in Medication: No Preop tests/diagnostics Reviewed: Yes Pre-Op MRSA Screen: Negative Surgery Remains Indicated: Yes Consent for Planned Operative Procedure(s) Verified: Yes - Pre-Operative Checklist Preoperative Checklist Indicated: Yes Prophylactic Antibiotic Ordered: Yes Is VTE Prophylaxis Indicated?: NO
--- NOTE | 2017-02-05 12:00 | Pre-Sedation Evaluation ---
Pre-sedation evaluation - Pre-sedation checklist Date of procedure: 02/05/17 Procedure: cholangiogram Recent Vitals: Last Vital Signs Temp 97.6 F 02/05/17 09:59 Resp 16 02/05/17 09:59 BP 125/68 02/05/17 09:59 H&P (including ROS) documented in medical record: Yes Previous reaction to sedatives/anesthetics: Yes; explain in comment Dietary Status: NPO after Midnight Airway Assessment: Patient can open mouth completely, TMJ function normal, Micrognathia (under-bite, receding chin) absent, Neck with adequate range of motion Dentition: No loose teeth or bridges Possible difficult airway: No ASA Classification *see protocol: CLASS II-Mild systemic disease Plan of Care: Pt appropriate candidate for procedure/moderate/conscious sedation , Risks/benefits of procedure/sedation discussed w/ patient/family
[2017-02-05] MEDS ORDERED: Piperacillin/Tazobactam 3.375 GM in D5% in Water (Mini-Bag+) 100 ML IVPB ONE (12:06)
[2017-02-05] MEDS ORDERED: 0.9 % Sodium Chloride 1,000 ML ONE (12:21)
[2017-02-05] MEDS: *HR* Midazolam HCl 2 MG/2 ML VIAL IV PRN ×4 (12:34→13:53)
[2017-02-05] MEDS: *HR* FentaNYL (PF) 100 MCG/2 ML VIAL IV PRN ×8 (12:34→13:52)
[2017-02-05] MEDS ORDERED: Heparin 1,000 UNITS/500 mL NS 500 ML ONE (13:29)
[2017-02-05] MEDS ORDERED: Ondansetron 4 MG/2 ML VIAL IVP ONE (13:38)
[2017-02-05] MEDS ORDERED: Ondansetron 4 MG/2 ML VIAL ONE (13:39)
--- NOTE | 2017-02-05 14:11 | IR Procedure Note ---
Date of procedure: 02/05/17 Consent Obtained: Written consent Timeout: Correct patient and procedure verified, Correct site verified, Time out performed, Skin prep completed Indications: Cholangiocarcinoma Procedure Performed: PTC, Biliary biopsy, Biliary dilation, biliary drainageX2 Site/Technique: Rt hepatic lobe. Results/Findings: Multiple isolated biliary systems, typical [place] tumor Estimated blood loss (cc): 10 Complications: None; Tolerated procedure well Post Procedure Treatment Plan: Admit for observation
[2017-02-05] MEDS ORDERED: Ondansetron 4 MG/2 ML VIAL IVP SCH ×2 (15:13→17:00)
[2017-02-05] MEDS: *HR* Morphine 2 MG/ML SYRINGE IVP PRN ×2 (15:19→19:30)
--- NOTE | 2017-02-05 16:30 | Internal Med History&Physical ---
Date of Encounter: 02/05/17 Time of Encounter: 16:26 Assessment and Plan (1) Breast cancer Current visit: No Status: Acute as planned by oncology. Qualifiers: Breast location: unspecified site of breast Patient sex: female Laterality: left Qualified Code(s): C50.912 - Malignant neoplasm of unspecified site of left female breast (2) Cholangiocarcinoma Current visit: No Status: Suspected will follow with Dr. Chaves as OP for further management. s/p PTC, Biliary biopsy, Biliary dilation, biliary drainageX2 today with IR. will repeat labs tomm monring, if stable tomm may be dc. will keep IV analegesics for pain and IV Zofran for nausea with IVF (3) Goals of care, counseling/discussion Current visit: No Status: Acute Internal Medicine - H&P: HPI Chief complaint: post procedure for observation Admitted From: Home Plans for Post Hospital Care: Home History of present illness: Ms. Cruz is a 46 year old female with recent diagnosis of breast cancer with con comitant possible cholangiocarcinoma. she was seen by DR. Huber and has been referred to Dr. Chaves for further management She was admitted recently for jaundice, underwent ERCP and was found to have sclerosis in her bile ducts consistent with PSC (Hx of Crohns). Brushings done and some atypical cells noted but no malignancy. CA 19-9 elevated as well consistent with presumptive diagnosis of cholangiocarcinoma. At that time she was discharged home for outpatient follow up and she was seen by DR. Huber recently who referred to DR. Chaves given concerns for possible concomitant cholangiocarcinoma. she has not been started on any chemotherapy yet and today she underwent PTC, Biliary biopsy, Biliary dilation, biliary drainageX2 with IR. SHE was seen at the bedside, she still appears drowsy but is c/o pain that is generalized. she says she is nauseous too and has thrown up once after the procedure once. she was admitted for observation tonight as she just had the procedure today. she will f/u with DR. chaves as OP for further management. Past Med Surg Social Fam HX - Past Medical History Medical history: cancer, other Psychiatric history: no psych history - Past Surgical History Surgical History: - Social History Smoking Status: Never smoker Smokeless Tobacco Status: No Alcohol use: occasionally Drug use: none - Family History Mother Adopted: No Family Member Ethnicity: Non- Living Status: Hx Family Cardiac Disorders: No Hx Family Respiratory Disorders: Yes Internal Medicine - H&P: Meds InFLIXimab [Remicade] 100 mg IVPB [id number] 01/14/17 [History] Amoxicillin/Clavulanate [Augmentin] 875 mg PO BIDWM #20 tablet 01/20/17 [Rx] Ondansetron ODT [Zofran ODT] 4 mg SL Q6HR PRN #30 tab.rapdis 01/20/17 [Rx] OxyCODONE/APAP 5/325 [Percocet 5/325 MG] 1 each PO Q6HR PRN #30 tablet 01/20/17 [Rx] Ketorolac [Toradol] 10 mg PO Q6HR #60 tablet 01/22/17 [Rx] Omeprazole [PriLOSEC] 20 mg PO BIDAC #30 cap 01/22/17 [Rx] Allergies No Known Allergies Allergy (Verified 01/22/17 14:12) ROS unobtainable: due to mental status All Systems PM: A 10-system review of systems was performed and is negative for pertinent findings except as documented above in the HPI. - Constitutional Vitals: Temp Pulse Resp BP Pulse Ox 97.4 F L 68 14 139/86 100 02/05/17 14:30 02/05/17 16:00 02/05/17 16:00 02/05/17 16:00 02/05/17 16:00 General appearance: Present: mild distress, A&O X 3 Exam: nekc- supple chest- b/l clear, no added sounds CVS-s1 and s2, no m/r/g abd-soft, non tender, bs are present, has a biliary drain on the right upper side of her abdomen. ext- no edema - VTE Reasons for not Prescribing Prophylaxis: Treatment not Indicated - Low risk for VTE
[2017-02-05] MEDS ORDERED: Naloxone 0.4 MG/ML INJ IVP PRN (16:49)
[2017-02-05] MEDS: Pantoprazole 40 MG VIAL IVP SCH (17:38)
[2017-02-06] MEDS: *HR* Morphine 2 MG/ML SYRINGE IVP PRN ×2 (03:12→07:17)
[2017-02-06] MEDS: Ondansetron 4 MG/2 ML VIAL IVP PRN ×2 (03:19→07:17)
[2017-02-06 04:37] LABS: Basophils # 0.1 K/mcL (0.0-0.2); Basophils % 0.4 %; Eosinophils % 0.2 %; Hematocrit 33.5 % (35.3-44.9); Hemoglobin 10.6 g/dL (11.5-15.4); Immature Granulocytes % 0.4 % (0-4); Lymphocytes # 1.2 K/mcL (0.6-4.6); Lymphocytes % 9.1 %; Mean Corpuscular HGB Conc 31.6 g/dL (31.6-35.5); Mean Corpuscular Hemoglobin 31.2 pg (28.0-33.3); Mean Corpuscular Volume 98.5 fL (83.0-100.0); Monocytes # 1.1 K/mcL (0.0-1.3); Monocytes % 8.1 %; Platelet Count 304 K/mcL (140-400); Red Cell Distribution Width 13.2 % (11.5-14.5); Segmented Neutrophils % 81.8 %
[2017-02-06 04:41] LABS: Prothrombin Time 11.1 Seconds (9.4-12.1)
[2017-02-06 04:59] LABS: Alanine Aminotransferase 527 Units/L (0-55); Albumin 2.4 g/dL (3.5-5.0); Albumin/Globulin Ratio 0.6 (1.1-2.2); Alkaline Phosphatase 733 Units/L (38-126); Aspartate Amino Transferase 447 Units/L (5-34); BUN/Creatinine Ratio 11 (6-26); Bilirubin,Direct 5.3 mg/dL (0.0-0.5); Bilirubin,Indirect 1.6 mg/dL (0.0-1.2); Bilirubin,Total 6.9 mg/dL (0.2-1.2); Blood Urea Nitrogen 8 mg/dL (7-20); Calcium 9.2 mg/dL (8.6-10.8); Carbon Dioxide 21 mEq/L (19-29); Chloride 102 mEq/L (98-109); Globulin 4.2 g/dL (2.4-3.5); Glucose 109 mg/dL (70-99); Magnesium 1.3 mg/dL (1.6-2.6); Osmolality,Calculated 277 (280-300); Phosphorous 3.5 mg/dL (2.3-4.7); Potassium 3.6 mEq/L (3.5-4.5); Total Protein 6.6 g/dL (6.0-8.3); eGFR For African Americans > 60 (> 60); eGFR For Non-African Americans > 60 (> 60)
[2017-02-06 05:09] LABS: Sodium 134 mEq/L (136-145)
[2017-02-06] MEDS: Pantoprazole 40 MG VIAL IVP SCH ×2 (05:58→17:43)
[2017-02-06] MEDS ORDERED: *HR* Enoxaparin 30 MG/0.3 ML SYRINGE SQ SCH (06:00)
--- NOTE | 2017-02-06 17:47 | Internal Med Progress Note ---
Date of Encounter: 02/06/17 Time of Encounter: 11:00 - Assessment and plan (1) DVT prophylaxis Current Visit: Yes Status: Acute Assessment and plan: Lovenox subcutaneously (2) Breast cancer Current Visit: No Status: Acute Assessment and plan: Patient is following oncologist as outpatient. On Tamoxifen. Qualifiers: Breast location: unspecified site of breast Patient sex: female Laterality: left Qualified Code(s): C50.912 - Malignant neoplasm of unspecified site of left female breast (3) Obstructive jaundice Current Visit: No Status: Acute Assessment and plan: S/P biliary biopsy and drainage. (4) Cholangiocarcinoma Current Visit: No Status: Suspected Assessment and plan: S/P biliary biopsy and drainage. Continue close monitoring. - Time Spent With Patient 25 - 35 minutes - Subjective Interval history: Patient is a 46-year-old female admitted for observation after IR procedure of biliary biopsy and drainage. Her past medical history is significant for breast cancer and jaundice which is suspected cholangiocarcinoma. Patient was seen and examined. She is a generally weak. Complain pain on the drainage area. Vital signs stable. Hemoglobin stable. Discussed with IR doctor, will continue monitor patient for one more day for better pain control. - Constitutional Vitals: Temp Pulse Resp BP Pulse Ox 97.8 F 73 16 130/79 100 02/06/17 14:59 02/06/17 14:59 02/06/17 14:59 02/06/17 14:59 02/06/17 14:59 General appearance: Present: cachectic, mild distress, A&O X 3, no acute distress, answers questions appropriately - Head Head exam: Present: atraumatic, normocephalic - Eye Eye exam: Present: PERRL, conjuntiva pink, sclera anicteric Pupils: Present: PERRL - Neck Neck exam general surgery: Present: supple, trachea midline. Absent: lymphadenopathy - Respiratory Respiratory exam: Present: CTAB. Absent: accessory muscle use, rales, rhonchi, wheezes - Cardiovascular Cardiovascular exam: Present: RRR, +S1, +S2. Absent: diastolic murmur, gallop, rubs, systolic murmur - GI/Abdominal GI/Abdominal exam: Present: normal bowel sounds, soft, no peritoneal signs. Absent: distended, tenderness - Extremities Exam Extremities exam: Present: warm, radial pulses palpable and symetrical. Absent : calf tenderness, cyanotic, pedal edema - Neurological Exam Neurological exam: Present: CN II-XII intact, oriented X3, no focal deficits. Absent: pronater drift, facial droop, speech deficit - Skin Skin exam: Present: dry, intact Internal Medicine: Result - Labs CBC & Chem 7: 02/06/17 04:10 02/06/17 04:10 Labs: Short CBC 02/06/17 Range/Units 04:10 WBC 13.5 H (4.3-11.1) K/mcL Hgb 10.6 L (11.5-15.4) g/dL Hct 33.5 L (35.3-44.9) % Plt Count 304 (140-400) K/mcL Neutrophils # 11.0 H (1.6-8.9) K/mcL BMP 02/06/17 04:10 Sodium 134 L Potassium 3.6 Chloride 102 Carbon Dioxide 21 BUN 8 Creatinine 0.71 Glucose 109 H Calcium 9.2 Liver Function 02/06/17 Range/Units 04:10 Total Bilirubin 6.9 H (0.2-1.2) mg/dL Direct Bilirubin 5.3 H (0.0-0.5) mg/dL AST 447 H (5-34) Units/L ALT 527 H (0-55) Units/L Alkaline Phosphatase 733 H (38-126) Units/L Albumin 2.4 L (3.5-5.0) g/dL - ABG Interpretation ABG results: PT/INR, D-dimer PT 11.1 Seconds (9.4-12.1) 02/06/17 04:10 - VTE Reasons for not Prescribing Prophylaxis: Treatment not Indicated - Low risk for VTE Consult Discharge Plan - Plan Referrals: Chery Mckinney, PRODUCER [Primary Care Provider] -
[2017-02-07] MEDS: *HR* Morphine 2 MG/ML SYRINGE IVP PRN (01:42)
[2017-02-07] MEDS: *HR* Enoxaparin 40 MG/0.4 ML SYRINGE SQ SCH (04:43)
[2017-02-07 04:47] LABS: Basophils # 0.1 K/mcL (0.0-0.2); Basophils % 0.4 %; Eosinophils # 0.2 K/mcL (0.0-0.6); Eosinophils % 1.4 %; Hematocrit 32.3 % (35.3-44.9); Hemoglobin 10.2 g/dL (11.5-15.4); Immature Granulocytes % 0.5 % (0-4); Lymphocytes # 1.3 K/mcL (0.6-4.6); Lymphocytes % 10.5 %; Mean Corpuscular HGB Conc 31.6 g/dL (31.6-35.5); Mean Corpuscular Hemoglobin 31.5 pg (28.0-33.3); Mean Corpuscular Volume 99.7 fL (83.0-100.0); Mean Platelet Volume 11.6 fL (9.4-12.4); Monocytes # 1.4 K/mcL (0.0-1.3); Monocytes % 10.9 %; Neutrophils # 9.7 K/mcL (1.6-8.9); Platelet Count 263 K/mcL (140-400); Red Blood Count 3.24 M/mcL (3.82-4.97); Red Cell Distribution Width 12.9 % (11.5-14.5); Segmented Neutrophils % 76.3 %
[2017-02-07] MEDS: Pantoprazole 40 MG VIAL IVP SCH ×2 (04:49→20:57)
[2017-02-07 04:56] LABS: Alanine Aminotransferase 478 Units/L (0-55); Albumin 2.2 g/dL (3.5-5.0); Albumin/Globulin Ratio 0.5 (1.1-2.2); Alkaline Phosphatase 612 Units/L (38-126); Aspartate Amino Transferase 277 Units/L (5-34); BUN/Creatinine Ratio 16 (6-26); Bilirubin,Total 5.2 mg/dL (0.2-1.2); Blood Urea Nitrogen 13 mg/dL (7-20); Calcium 8.8 mg/dL (8.6-10.8); Carbon Dioxide 22 mEq/L (19-29); Chloride 102 mEq/L (98-109); Globulin 4.2 g/dL (2.4-3.5); Glucose 129 mg/dL (70-99); Osmolality,Calculated 282 (280-300); Potassium 3.3 mEq/L (3.5-4.5); Sodium 135 mEq/L (136-145); Total Protein 6.4 g/dL (6.0-8.3); eGFR For African Americans > 60 (> 60); eGFR For Non-African Americans > 60 (> 60)
--- NOTE | 2017-02-07 19:08 | Internal Med Progress Note ---
Date of Encounter: 02/07/17 Time of Encounter: 10:00 - Assessment and plan (1) DVT prophylaxis Current Visit: Yes Status: Acute Assessment and plan: Lovenox subcutaneously (2) Breast cancer Current Visit: No Status: Acute Assessment and plan: Patient is following oncologist as outpatient. On Tamoxifen. Qualifiers: Breast location: unspecified site of breast Patient sex: female Laterality: left Qualified Code(s): C50.912 - Malignant neoplasm of unspecified site of left female breast (3) Obstructive jaundice Current Visit: No Status: Acute Assessment and plan: S/P biliary biopsy and drainage. (4) Cholangiocarcinoma Current Visit: No Status: Suspected Assessment and plan: S/P biliary biopsy and drainage. Continue close monitoring. - Time Spent With Patient 25 - 35 minutes - Subjective Interval history: Patient is a 46-year-old female admitted for observation after IR procedure of biliary biopsy and drainage. Her past medical history is significant for breast cancer and jaundice which is suspected cholangiocarcinoma. Patient was seen and examined. She is a generally weak. Complain pain on the drainage area but improved. Vital signs stable. Hemoglobin stable. PT/OT suggest rehab discharge. D/W pt, she would like to go home and said her family will stay with her and help her all the time. Consider d/c home with home health. - Constitutional Vitals: Temp Pulse Resp BP Pulse Ox 97.9 F 85 16 106/67 98 02/07/17 15:49 02/07/17 15:49 02/07/17 15:49 02/07/17 15:49 02/07/17 15:49 General appearance: Present: cachectic, mild distress, A&O X 3, no acute distress, answers questions appropriately - Head Head exam: Present: atraumatic, normocephalic - Eye Eye exam: Present: PERRL, conjuntiva pink, sclera anicteric Pupils: Present: PERRL - Neck Neck exam general surgery: Present: supple, trachea midline. Absent: lymphadenopathy - Respiratory Respiratory exam: Present: CTAB. Absent: accessory muscle use, rales, rhonchi, wheezes - Cardiovascular Cardiovascular exam: Present: RRR, +S1, +S2. Absent: diastolic murmur, gallop, rubs, systolic murmur - GI/Abdominal GI/Abdominal exam: Present: normal bowel sounds, soft, no peritoneal signs. Absent: distended, tenderness - Extremities Exam Extremities exam: Present: warm, radial pulses palpable and symetrical. Absent : calf tenderness, cyanotic, pedal edema - Neurological Exam Neurological exam: Present: CN II-XII intact, oriented X3, no focal deficits. Absent: pronater drift, facial droop, speech deficit - Skin Skin exam: Present: dry, intact Internal Medicine: Result - Labs CBC & Chem 7: 02/07/17 03:20 02/07/17 03:20 Labs: Short CBC 02/07/17 Range/Units 03:20 WBC 12.7 H (4.3-11.1) K/mcL Hgb 10.2 L (11.5-15.4) g/dL Hct 32.3 L (35.3-44.9) % Plt Count 263 (140-400) K/mcL Neutrophils # 9.7 H (1.6-8.9) K/mcL BMP 02/07/17 03:20 Sodium 135 L Potassium 3.3 L Chloride 102 Carbon Dioxide 22 BUN 13 Creatinine 0.80 Glucose 129 H Calcium 8.8 Liver Function 02/07/17 Range/Units 03:20 Total Bilirubin 5.2 H (0.2-1.2) mg/dL AST 277 H (5-34) Units/L ALT 478 H (0-55) Units/L Alkaline Phosphatase 612 H (38-126) Units/L Albumin 2.2 L (3.5-5.0) g/dL - ABG Interpretation ABG results: PT/INR, D-dimer PT 11.1 Seconds (9.4-12.1) 02/06/17 04:10 - VTE Reasons for not Prescribing Prophylaxis: Treatment not Indicated - Low risk for VTE Consult Discharge Plan - Plan Referrals: Chery Mckinney CNP [Primary Care Provider] - 02/14/17 3:40 pm
[2017-02-07] MEDS: *HR* OxyCODONE Immed Rel 5 MG TABLET PO PRN (22:32)
[2017-02-08] MEDS: *HR* Enoxaparin 40 MG/0.4 ML SYRINGE SQ SCH (03:18)
[2017-02-08 05:37] LABS: Basophils # 0.1 K/mcL (0.0-0.2); Basophils % 0.4 %; Eosinophils # 0.2 K/mcL (0.0-0.6); Eosinophils % 1.4 %; Hematocrit 32.5 % (35.3-44.9); Immature Granulocytes % 0.7 % (0-4); Lymphocytes # 1.5 K/mcL (0.6-4.6); Mean Corpuscular HGB Conc 30.8 g/dL (31.6-35.5); Mean Corpuscular Hemoglobin 31.2 pg (28.0-33.3); Mean Corpuscular Volume 101.2 fL (83.0-100.0); Mean Platelet Volume 11.5 fL (9.4-12.4); Monocytes # 1.3 K/mcL (0.0-1.3); Monocytes % 9.4 %; Neutrophils # 10.8 K/mcL (1.6-8.9); Platelet Count 251 K/mcL (140-400); Red Blood Count 3.21 M/mcL (3.82-4.97); Red Cell Distribution Width 12.5 % (11.5-14.5); Segmented Neutrophils % 77.1 %
[2017-02-08 05:58] LABS: Alanine Aminotransferase 322 Units/L (0-55); Albumin 2.1 g/dL (3.5-5.0); Albumin/Globulin Ratio 0.5 (1.1-2.2); Alkaline Phosphatase 501 Units/L (38-126); Aspartate Amino Transferase 103 Units/L (5-34); BUN/Creatinine Ratio 19 (6-26); Blood Urea Nitrogen 13 mg/dL (7-20); Calcium 9.3 mg/dL (8.6-10.8); Carbon Dioxide 23 mEq/L (19-29); Chloride 105 mEq/L (98-109); Globulin 4.4 g/dL (2.4-3.5); Glucose 79 mg/dL (70-99); Osmolality,Calculated 281 (280-300); Potassium 4.3 mEq/L (3.5-4.5); Sodium 136 mEq/L (136-145); Total Protein 6.5 g/dL (6.0-8.3); eGFR For African Americans > 60 (> 60); eGFR For Non-African Americans > 60 (> 60)
[2017-02-08 05:59] LABS: Bilirubin,Total 4.8 mg/dL (0.2-1.2)
[2017-02-08] MEDS: *HR* OxyCODONE Immed Rel 5 MG TABLET PO PRN (07:31)
[2017-02-08] MEDS ORDERED: Pantoprazole 40 MG VIAL IVP SCH (09:00)
--- NOTE | 2017-02-08 10:12 | Discharge Summary ---
Date of Encounter: 02/08/17 Time of Encounter: 10:00 - Discharge Diagnosis (1) DVT prophylaxis Priority: Secondary Status: Acute (2) Breast cancer Priority: Secondary Status: Acute Qualifiers: Breast location: unspecified site of breast Patient sex: female Laterality: left Qualified Code(s): C50.912 - Malignant neoplasm of unspecified site of left female breast (3) Obstructive jaundice Priority: Primary Status: Acute (4) Cholangiocarcinoma Priority: Primary Status: Suspected - Discharge Medications Prescriptions: OxyCODONE/APAP 5/325 [Percocet 5/325 MG] 1 tab PO Q6HR PRN #14 tablet PRN Reason: Pain Home Medications: Ondansetron ODT [Zofran ODT] 4 mg SL Q6HR PRN #30 tab.rapdis 01/20/17 [Rx] Ketorolac [Toradol] 10 mg PO Q6HR #60 tablet 01/22/17 [Rx] Omeprazole [PriLOSEC] 20 mg PO BIDAC #30 cap 01/22/17 [Rx] Tamoxifen Citrate 20 mg PO DAILY 02/07/17 [History] OxyCODONE/APAP 5/325 [Percocet 5/325 MG] 1 tab PO Q6HR PRN #14 tablet 02/08/17 [ Rx] Allergies/Adverse Reactions: Allergies No Known Allergies Allergy (Verified 01/22/17 14:12) Date of admission: 02/06/17 18:26 Primary care physician: Chery Mckinney CNP Consults: 02/06/17 15:03 Consult to Carpenter/Labor [CONS] Routine Reason for SW Consult: Possible need for HH 02/06/17 15:04 Consult to Occupational Therapy [CONS] Routine Comment: Evaluate, develop and implement POC Consult to Physical Therapy [CONS] Routine Comment: Evaluate, develop and implement POC Discharging clinician: Aline Jackman Anticipated date of discharge: 02/08/17 - Patient Status Disposition: Home Health Service Condition: Fair Functional capacity at discharge: independent ambulation Overall status at discharge: patient is progressing back to baseline - Discharge Instructions Follow Up With: Chery Mckinney CNP [Primary Care Provider] - 02/14/17 3:40 pm - Diet and Activity Activity: as per physical therapy Diet: regular diet Interval History: Ms. Cruz is a 46 year old female with recent diagnosis of breast cancer with con comitant possible cholangiocarcinoma. she was seen by DR. Huber and has been referred to Dr. Chaves for further management She was admitted recently for jaundice, underwent ERCP and was found to have sclerosis in her bile ducts consistent with PSC (Hx of Crohns). Brushings done and some atypical cells noted but no malignancy. CA 19-9 elevated as well consistent with presumptive diagnosis of cholangiocarcinoma. At that time she was discharged home for outpatient follow up and she was seen by DR. Huber recently who referred to DR. Chaves given concerns for possible concomitant cholangiocarcinoma. she has not been started on any chemotherapy yet and today she underwent PTC, Biliary biopsy, Biliary dilation, biliary drainageX2 with IR. SHE was seen at the bedside, she still appears drowsy but is c/o pain that is generalized. she says she is nauseous too and has thrown up once after the procedure once. she was admitted for observation tonight as she just had the procedure today. she will f/u with DR. chaves as OP for further management. Hospital course: Ms. Cruz is a 46 year old female admitted for obstructive jaundice and status post biliary biopsy/drainage. Patient was placed on pain medication and close monitoring. Her vital signs are stable, hemoglobin level stable, no obvious signs of bleeding. Pain is getting less. Patient has mild but stable leukocytosis, no fever, no tachycardia or tachypnea, no cough, no urinary symptoms. No signs of infection. Patient's liver function and a bilirubin level has improved after drainage. Patient will follow-up with oncology Dr. Chaves for further management as outpatient. Patient will be discharged home with home health. Saw and examined the patient today. She is awake alert, oriented 3. Pain is much less. Vitals are stable. Stable to discharge home with pain medication. Home health arranged by manager social. - Time Spent with Patient Total time spent providing and/or coordinating discharge services: 25min Less than 30 minutes - Constitutional Vitals: Temp Pulse Resp BP Pulse Ox 98.6 F 74 14 108/70 98 02/08/17 07:03 02/08/17 07:03 02/08/17 07:03 02/08/17 07:03 02/08/17 07:03 General appearance: Present: cachectic, mild distress, A&O X 3, no acute distress, answers questions appropriately - Head Head exam: Present: atraumatic, normocephalic - Eye Eye exam: Present: PERRL, conjuntiva pink, sclera anicteric Pupils: Present: PERRL - Neck Neck exam general surgery: Present: supple, trachea midline. Absent: lymphadenopathy - Respiratory Respiratory exam: Present: CTAB. Absent: accessory muscle use, rales, rhonchi, wheezes - Cardiovascular Cardiovascular exam: Present: RRR, +S1, +S2. Absent: diastolic murmur, gallop, rubs, systolic murmur - GI/Abdominal GI/Abdominal exam: Present: normal bowel sounds, soft, no peritoneal signs. Absent: distended, tenderness - Extremities Exam Extremities exam: Present: warm, radial pulses palpable and symetrical. Absent : calf tenderness, cyanotic, pedal edema - Neurological Exam Neurological exam: Present: CN II-XII intact, oriented X3, no focal deficits. Absent: pronater drift, facial droop, speech deficit - Skin Skin exam: Present: dry, intact - VTE Reasons for not Prescribing Prophylaxis: Treatment not Indicated - Low risk for VTE
--- NOTE | 2017-02-08 10:20 | Physician Discharge Referral ---
Home Health/Hosp Referral Info Transfer to: Home Health Provider in Charge Post Discharge: PCP - Diagnosis (1) DVT prophylaxis Priority: Secondary Status: Acute (2) Breast cancer Priority: Secondary Status: Acute (3) Obstructive jaundice Priority: Primary Status: Acute (4) Cholangiocarcinoma Priority: Primary Status: Suspected - Respiratory Orders Smoking Cessation: Smoking cessation has been advised. For more information, call the [place] Tobacco Quit Line at 1-996-BHFV-NOW. - Diet/Nutrition Diet/Nutrition Orders: Regular - Services Needed Following services are medically necessary services: Nursing, Home Health Aide, Physical Therapy, Occupational Therapy - Transfer Medications Prescriptions: OxyCODONE/APAP 5/325 [Percocet 5/325 MG] 1 tab PO Q6HR PRN #14 tablet PRN Reason: Pain Home Medications: Ondansetron ODT [Zofran ODT] 4 mg SL Q6HR PRN #30 tab.rapdis 01/20/17 [Rx] Ketorolac [Toradol] 10 mg PO Q6HR #60 tablet 01/22/17 [Rx] Omeprazole [PriLOSEC] 20 mg PO BIDAC #30 cap 01/22/17 [Rx] Tamoxifen Citrate 20 mg PO DAILY 02/07/17 [History] OxyCODONE/APAP 5/325 [Percocet 5/325 MG] 1 tab PO Q6HR PRN #14 tablet 02/08/17 [ Rx] Allergies/Adverse Reactions: Allergies No Known Allergies Allergy (Verified 01/22/17 14:12) Certification: Further, I certify that my clinical findings support that this patient is homebound (i.e. absences from home require considerable and taxing effort and are for medical reasons or hindu services or infrequently or short duration when for other reasons) because: Homebound Reason: Patient requires assistance of a person or device to safely leave home Attestation: My signature below is to certify that this patient is under my care and that I, or nurse practitioner, or a physician's yard assistant working with me, has a face-to -face encounter with this patient.
[2017-02-08 11:11] VITALS: BP 96/65
== END 2017-02-08 17:02 | disposition home health service (06) | DRG 435 ==
LOC: SUATTDRO → INTRAD 09:17 → 3BNU 09:17 → INTRAD 09:27 → 3BNU 14:18 → INTRAD 02-06 18:23 → 3BNU 02-06 18:26 → SUATTDRO 02-06 18:26 → INTRAD 02-06 18:27 → UNDODISIN 02-08 14:00
PROVIDERS: ADMIT Internal Medicine Endocrinology, Diabetes & Metabolism; ATTEND Radiology Vascular & Interventional Radiology

== ENCOUNTER 2017-02-17 16:41 | Inpatient (IN) ==
--- NOTE | 2017-02-17 17:03 | Emergency Department Note ---
Disposition Clinical Impression: ISIDORO (acute kidney injury), Hepatic cancer Breast cancer Qualifiers: Breast location: unspecified site of breast Patient sex: female Laterality: unspecified laterality Qualified Code(s): C50.919 - Malignant neoplasm of unspecified site of unspecified female breast Disposition: Still a Patient Condition: Good Forms: Work/School Release, ED Satisfaction Letter Time of Disposition: 18:43 General Adult HPI - General Chief complaint: ED General Medical Stated complaint: Weakness, illness Time Seen by Provider: 02/17/17 16:45 Source: patient, EMS Limitations: no limitations Nursing Notes Reviewed: Yes Vital Signs Reviewed: Yes - History of Present Illness HPI Narrative: Recent diagnosis of breast cancer and liver cancer. Recent placement of biliary drains. Over the past 3 days increasing and generalized weakness. To the extent that she is feeling like she is going to pass out every time she stands up. Denies shortness of breath or chest pain. Does state she have right upper quadrant pain near the drains. Reports nausea and one episode of vomiting daily. No diarrhea. Decreased urination to 1 time a day. Denies any fevers or chills. Pain Scale: 8 - Related Data Home Medications Medication Instructions Recorded Confirmed Tamoxifen Citrate 20 mg PO DAILY 02/07/17 02/07/17 Previous Rx's Medication Instructions Recorded Ondansetron ODT [Zofran ODT] 4 mg SL Q6HR PRN #30 tab.rapdis 01/20/17 Ketorolac [Toradol] 10 mg PO Q6HR #60 tablet 01/22/17 Omeprazole [PriLOSEC] 20 mg PO BIDAC #30 cap 01/22/17 OxyCODONE/APAP 5/325 [Percocet 1 tab PO Q6HR PRN #14 tablet 02/08/17 5/325 MG] Allergies Allergy/AdvReac Type Severity Reaction Status Date / Time No Known Allergies Allergy Verified 01/22/17 14:12 All systems ED: reviewed and negative except as stated. Constitutional: Reports: weakness. Denies: fever, chills Cardiovascular: Denies: chest pain, palpitations, syncope Respiratory: Denies: cough, dyspnea Gastrointestinal: Reports: abdominal pain (Right upper quadrant around biliary drains.), nausea, vomiting. Denies: diarrhea, hematemesis, melena, hematochezia Genitourinary: Reports: frequency (Decrease to 1 time a day.). Denies: urgency , dysuria Musculoskeletal: Denies: back pain, neck pain Integumentary: Denies: rash Neurological: Reports: weakness (Generalized. Getting worse over the past 3 days.). Denies: headache Past Medical History - Past Medical History Attestation: Yes The following information was validated with the patient. Medical history: Reports: cancer, other Surgical history: Reports: Psychiatric history: Reports: no psych history - Social History Smoking Status: Never smoker Smokeless Tobacco Status: No Alcohol use: Reports: occasionally Drug use: Reports: none Physical Exam - General Limitations: no limitations General appearance: alert, in no apparent distress - Head Head exam: atraumatic, normocephalic - Eye Eye exam: Present: normal appearance, PERRL, EOMI, scleral icterus - ENT ENT exam: normal exam, normal oropharynx, mucous membranes dry - Neck Neck exam: Present: normal inspection, full ROM, trachea midline - Chest Chest inspection: Present: normal inspection, symmetric chest wall rise. Absent : tenderness - Respiratory Respiratory exam: Present: normal lung sounds bilaterally. Absent: respiratory distress - Cardiovascular Cardiovascular exam: Present: regular rate, normal rhythm, normal heart sounds - Abdominal Exam Abdominal exam: Present: soft, tenderness (Diffusely.), other (Biliary drains actively draining a clear green fluid. There is drainage around the site of insertion. This is a clear color is greenish tinged. Does not appear purulent. No signs of skin infection to the site.). Absent: rigidity, organomegaly - Extremities Exam Extremities exam: Present: normal inspection, full ROM. Absent: tenderness, pedal edema - Back Exam Back exam: Present: normal inspection, full ROM. Absent: tenderness - Neurological Exam Neurological exam: Present: alert, oriented X3 - Psychiatric Psychiatric exam: Present: normal affect, normal mood - Skin Skin exam: Present: warm, dry, intact, normal color. Absent: rash Course Course Narrative: Patient presenting to the emergency department via EMS. She has a recent diagnosis of breast cancer as well as liver cancer. She has had a recent surgery of his stent placement occluded she now has biliary drains coming out of her right upper quadrant. Over the past 3 days she has been increasingly weak and feels like she is going to pass out every time she stands up. She states 2 nights ago she was living in a recliner and noticed that her drain started leaking severely around where they are inserted in her abdomen. She states ever since then she does not feel like they have been working appropriately. She does complain of nausea. She states she vomits about 1 time a day. She has a decreased fluid intake as well as food intake. She states she has been trying to eat small amounts of food frequently. She appears very tired she is talking to me. She is jaundiced. Her sclerae are jaundiced. She does not appear in respiratory distress. She states that she is comfortable when she is sitting perfectly still however every time she moves she has right upper quadrant pain. We have offered her pain medication and she is refusing that at this time. She is requesting nausea medication. We will give her fluid as well as some nausea medication she is here. We will also get basic labs. Her drains are draining a greenish clear fluid. There does appear to be a moderate amount of leakage from around where the drains are placed in her right upper quadrant. Through several 2 x 2's that are under a Tegaderm. The area does not appear to be erythematous or indurated around these areas. We will contact Dr. Balbuena and discussed the patient with him. She also has a decreased urination. She states she urinates one time a day as well as defecates 1 time a day. - Reevaluation(s) Reevaluation #1: Patient has a ISIDORO. She also has increased white count. We will bring patient in for the new BRENT and increased white blood cell count. Hospitalist is requesting a CT before admission. We have ordered this. Time: 18:42 Vital Signs Temperature 97.3 F L 02/17/17 16:43 Pulse Rate 89 02/17/17 16:43 Respiratory Rate 16 02/17/17 16:43 Blood Pressure 110/77 02/17/17 16:43 O2 Sat by Pulse Oximetry 100 02/17/17 16:43 Temperature 97.3 F L 02/17/17 16:43 Pulse Rate 81 02/17/17 18:08 Respiratory Rate 16 02/17/17 18:08 Blood Pressure 107/79 02/17/17 18:08 O2 Sat by Pulse Oximetry 100 02/17/17 18:08 Oxygen Delivery Oxygen Delivery Room Air Medical Decision Making - Medical Records Medical records reviewed: Yes I reviewed the patient's medical records. - Lab Data Lab results reviewed: Yes I reviewed the patient's lab results. Result diagrams: 02/17/17 17:47 02/17/17 17:19 Lab Results 02/17/17 02/17/17 02/17/17 Range/Units 17:19 17:19 17:19 WBC (4.3-11.1) K/mcL RBC (3.82-4.97) M/mcL Hgb (11.5-15.4) g/dL Hct (35.3-44.9) % MCV (83.0-100.0) fL MCH (28.0-33.3) pg MCHC (31.6-35.5) g/dL RDW (11.5-14.5) % Plt Count (140-400) K/mcL MPV (9.4-12.4) fL Immature Gran % (0-4) % Seg Neutrophils % % Lymphocytes % % Monocytes % % Eosinophils % % Basophils % % Neutrophils # (1.6-8.9) K/mcL Lymphocytes # (0.6-4.6) K/mcL Monocytes # (0.0-1.3) K/mcL Eosinophils # (0.0-0.6) K/mcL Basophils # (0.0-0.2) K/mcL Immature Plt Fraction (1.1-6.1) % Sodium 130 L (136-145) mEq/L Potassium 3.6 (3.5-4.5) mEq/L Chloride 99 (98-109) mEq/L Carbon Dioxide 18 L (19-29) mEq/L BUN 61 H (7-20) mg/dL Creatinine 2.70 H (0.57-1.11) mg/dL Est GFR ( Amer) 23 L (> 60) Est GFR (Non-Af Amer) 19 L (> 60) BUN/Creatinine Ratio 23 (6-26) Glucose 107 H (70-99) mg/dL Calculated Osmolality 288 (280-300) Lactic Acid 0.9 (0.5-2.2) mmol/L Calcium 9.4 (8.6-10.8) mg/dL Total Bilirubin 2.6 H (0.2-1.2) mg/dL Direct Bilirubin 2.1 H (0.0-0.5) mg/dL Indirect Bilirubin 0.5 (0.0-1.2) mg/dL AST 20 (5-34) Units/L ALT 32 (0-55) Units/L Alkaline Phosphatase 416 H (38-126) Units/L Serum Total Protein 8.6 H (6.0-8.3) g/dL Albumin 2.2 L (3.5-5.0) g/dL Globulin 6.4 H (2.4-3.5) g/dL Albumin/Globulin Ratio 0.3 L (1.1-2.2) Amylase 31 (25-125) Units/L Lipase 24 (8-78) Units/L Specimen Rejected MCV Delta 02/17/ Range/Units 17:47 WBC 24.6 H (4.3-11.1) K/mcL RBC 3.77 L (3.82-4.97) M/mcL Hgb 11.3 L (11.5-15.4) g/dL Hct 34.4 L (35.3-44.9) % MCV 91.2 D (83.0-100.0) fL MCH 30.0 (28.0-33.3) pg MCHC 32.8 (31.6-35.5) g/dL RDW 14.2 (11.5-14.5) % Plt Count 685 H (140-400) K/mcL MPV 9.8 (9.4-12.4) fL Immature Gran % 5.0 H (0-4) % Seg Neutrophils % 77.8 % Lymphocytes % 8.8 % Monocytes % 6.8 % Eosinophils % 0.9 % Basophils % 0.7 % Neutrophils # 19.1 H (1.6-8.9) K/mcL Lymphocytes # 2.2 (0.6-4.6) K/mcL Monocytes # 1.7 H (0.0-1.3) K/mcL Eosinophils # 0.2 (0.0-0.6) K/mcL Basophils # 0.2 (0.0-0.2) K/mcL Immature Plt Fraction 4.4 (1.1-6.1) % Sodium (136-145) mEq/L Potassium (3.5-4.5) mEq/L Chloride (98-109) mEq/L Carbon Dioxide (19-29) mEq/L BUN (7-20) mg/dL Creatinine (0.57-1.11) mg/dL Est GFR ( Amer) (> 60) Est GFR (Non-Af Amer) (> 60) BUN/Creatinine Ratio (6-26) Glucose (70-99) mg/dL Calculated Osmolality (280-300) Lactic Acid (0.5-2.2) mmol/L Calcium (8.6-10.8) mg/dL Total Bilirubin (0.2-1.2) mg/dL Direct Bilirubin (0.0-0.5) mg/dL Indirect Bilirubin (0.0-1.2) mg/dL AST (5-34) Units/L ALT (0-55) Units/L Alkaline Phosphatase (38-126) Units/L Serum Total Protein (6.0-8.3) g/dL Albumin (3.5-5.0) g/dL Globulin (2.4-3.5) g/dL Albumin/Globulin Ratio (1.1-2.2) Amylase (25-125) Units/L Lipase (8-78) Units/L Specimen Rejected S.Adam.AMaría Elena. - Natalio Background: Presenting Complaint (Generalized weakness. Biliary drainage from around the site of insertion.), Relevant PMH, Meds, & Allergies (Patient has liver cancer as well as breast cancer. Is supposed to start chemotherapy tomorrow. Generalized weakness nausea. Does have one episode of vomiting daily. Says decreased by mouth intake.) Assessment: Vital Signs (Have been stable while here.), Course and respsone to treatment (Has received pain medication and nausea medication. Is not requesting any further.) Recommendation: Recommendation based on pending studies, treatments, or consults (CT scan pending. Admission for ISIDORO, increased WBCs, generalized weakness.) S.B.A.RJaylin Report Given to: Pernell Lance Repor Time: 18:45
[2017-02-17] MEDS: 0.9 % Sodium Chloride 500 ML IVC ONE (17:08)
[2017-02-17] MEDS: Ondansetron 4 MG/2 ML VIAL IVP ONE (17:08)
--- NOTE | 2017-02-17 17:16 | Emergency Department Note ---
START Narrative - START START: I examined this patient and my medical decision-making was reviewed with the QUALITY CONTROL LAB TECH/PA/Advanced Practice Nurse/Resident Physician. I agree with the documented findings, disposition and treatment plan as described except to the extent set forth below. ED attending note: Patient seen with emergency medicine resident Dr. Noland. Please see a copy of his note for details of the H&P, evaluation, management and disposition of this patient. We independently had [id number] contact with the patient Briefly: 46-year-old female recently diagnosed in December with breast and liver cancer had a biliary stent placed percutaneously by IR 1 week ago Elizabeth. Gets sick her [facility] [place] [facility] [place] [facility] [place] [facility] [place] is in fact starting chemotherapy tomorrow. [facility] patient and because she is concerned about possible inflammation or infection at the percutaneous stent. Patient feeling a little weaker than usual. (Progress, disposition pending
[2017-02-17] MEDS ORDERED: *HR* HYDROmorphone (PF) 1 MG/ML SYRINGE IVP ONE ×2 (17:27→23:25)
[2017-02-17] MEDS ORDERED: Ondansetron 4 MG/2 ML VIAL IVP ONE (17:27)
[2017-02-17 17:41] LABS: Albumin 2.2 g/dL (3.5-5.0); Albumin/Globulin Ratio 0.3 (1.1-2.2); Bilirubin,Direct 2.1 mg/dL (0.0-0.5); Bilirubin,Indirect 0.5 mg/dL (0.0-1.2); Bilirubin,Total 2.6 mg/dL (0.2-1.2); Calcium 9.4 mg/dL (8.6-10.8); Globulin 6.4 g/dL (2.4-3.5); Potassium 3.6 mEq/L (3.5-4.5); Total Protein 8.6 g/dL (6.0-8.3)
[2017-02-17 17:53] LABS: Basophils # 0.2 K/mcL (0.0-0.2); Basophils % 0.7 %; Eosinophils # 0.2 K/mcL (0.0-0.6); Eosinophils % 0.9 %; Hematocrit 34.4 % (35.3-44.9); Hemoglobin 11.3 g/dL (11.5-15.4); Immature Platelets 4.4 % (1.1-6.1); Lymphocytes # 2.2 K/mcL (0.6-4.6); Lymphocytes % 8.8 %; Mean Corpuscular HGB Conc 32.8 g/dL (31.6-35.5); Mean Corpuscular Volume 91.2 fL (83.0-100.0); Mean Platelet Volume 9.8 fL (9.4-12.4); Monocytes # 1.7 K/mcL (0.0-1.3); Monocytes % 6.8 %; Neutrophils # 19.1 K/mcL (1.6-8.9); Platelet Count 685 K/mcL (140-400); Red Blood Count 3.77 M/mcL (3.82-4.97); Red Cell Distribution Width 14.2 % (11.5-14.5); Segmented Neutrophils % 77.8 %
[2017-02-17] MEDS ORDERED: 0.9 % Sodium Chloride 500 ML IVC ONE (18:13)
[2017-02-17] MEDS ORDERED: MetroNIDAZOLE 500 MG/100 ML 500 MG/100 ML BAG IVPB ONE (19:41)
--- NOTE | 2017-02-17 19:46 | Emergency Department Note ---
Disposition Clinical Impression: ISIDORO (acute kidney injury), Abdominal fluid collection Breast cancer Qualifiers: Breast location: unspecified site of breast Patient sex: female Laterality: unspecified laterality Qualified Code(s): C50.919 - Malignant neoplasm of unspecified site of unspecified female breast Hepatic cancer Qualifiers: Liver malignancy type: unspecified liver malignancy Qualified Code(s): C22.9 - Malignant neoplasm of liver, not specified as primary or secondary Disposition: Admitted As Inpatient Condition: Good General Adult HPI - General Chief complaint: ED General Medical Stated complaint: Weakness, illness Time Seen by Provider: 02/17/17 16:45 Source: patient, EMS Limitations: no limitations - History of Present Illness HPI Narrative: This is a continuation of prior documentation. Please refer to Dr. Noland documentation for complete history and physical. Pain Scale: 1 - Related Data Home Medications Medication Instructions Recorded Confirmed Tamoxifen Citrate 20 mg PO DAILY 02/07/17 02/18/17 Dexamethasone [Decadron] 4 mg PO DAILY 02/18/17 02/18/17 Lidocaine/Prilocaine CREAM [Emla] 1 appl TP AD 02/18/17 02/18/17 Morphine Sulfate 15 mg PO DAILY 02/18/17 02/18/17 Naproxen [Naprosyn] 500 mg PO BID 02/18/17 02/18/17 Pantoprazole Sodium 20 mg PO DAILY 02/18/17 02/18/17 Prochlorperazine Maleate 10 mg PO Q6HR 02/18/17 02/18/17 [Compazine] Previous Rx's Medication Instructions Recorded Ondansetron ODT [Zofran ODT] 4 mg SL Q6HR PRN #30 tab.rapdis 01/20/17 Ketorolac [Toradol] 10 mg PO Q6HR #60 tablet 01/22/17 Omeprazole [PriLOSEC] 20 mg PO BIDAC #30 cap 01/22/17 OxyCODONE/APAP 5/325 [Percocet 1 tab PO Q6HR PRN #14 tablet 02/08/17 5/325 MG] Allergies Allergy/AdvReac Type Severity Reaction Status Date / Time No Known Allergies Allergy Verified 01/22/17 14:12 Constitutional: Reports: weakness. Denies: fever, chills Cardiovascular: Denies: chest pain, palpitations, syncope Respiratory: Denies: cough, dyspnea Gastrointestinal: Reports: abdominal pain (Right upper quadrant around biliary drains.), nausea, vomiting. Denies: diarrhea, hematemesis, melena, hematochezia Genitourinary: Reports: frequency (Decrease to 1 time a day.). Denies: urgency , dysuria Musculoskeletal: Denies: back pain, neck pain Integumentary: Denies: rash Neurological: Reports: weakness (Generalized. Getting worse over the past 3 days.). Denies: headache Past Medical History - Past Medical History Medical history: Reports: cancer, other Surgical history: Reports: Psychiatric history: Reports: no psych history - Social History Smoking Status: Never smoker Smokeless Tobacco Status: No Alcohol use: Reports: occasionally Drug use: Reports: none Physical Exam - General Limitations: no limitations General appearance: alert, in no apparent distress Course - Reevaluation(s) Reevaluation #1: Patient seen and examined. Patient's history was verified at bedside. Patient' s been having generalized weakness as well as concerns for leakage of her biliary percutaneous tubes. Patient had a workup including labs, IV fluid hydration, antiemetics. Patient had a CT of the pelvis shows a fluid collection with a slightly different attenuation than water concerning for complex fluid versus a biloma. Patient also has a elevated white count. Patient's lactate is normal. Time: 19:44 - Consultations Consultation #1: Spoke with hospitalist regarding the patient's findings. Patient will be admitted to hospital service for further evaluation monitoring. Patient was started on antibiotics in the emergency department as well as blood cultures. Time: 19:45 Vital Signs Temperature 97.3 F L 02/17/17 16:43 Pulse Rate 89 02/17/17 16:43 Respiratory Rate 16 02/17/17 16:43 Blood Pressure 110/77 02/17/17 16:43 O2 Sat by Pulse Oximetry 100 02/17/17 16:43 Temperature 98.7 F 02/20/17 19:24 Pulse Rate 79 02/20/17 19:24 Respiratory Rate 18 02/20/17 19:24 Blood Pressure 100/65 02/20/17 19:24 O2 Sat by Pulse Oximetry 98 02/20/17 19:24 Oxygen Delivery Oxygen Delivery Room Air Medical Decision Making - MDM Narrative Medical decision making narrative: Patient presents for evaluation of generalized weakness and concerns for percutaneous biliary drain leakage. Patient had percutaneous biliary drain placed 2 weeks ago by IR. Patient also had decreased by mouth intake as well as nausea and vomiting. Patient was treated with IV fluid hydration and antiemetics. Patient had labs which showed leukocytosis. Patient's afebrile here. Patient had a CT of the abdomen pelvis which shows a fluid collection. This fluid collection will need to be further evaluated. Patient was started on antibiotics in the emergency department for concerns of infection. Patient has new acute kidney injury likely prerenal as she is having decreased by mouth intake. Patient received IV fluid hydration in the emergency department. This information was discussed with the patient at bedside. - Lab Data Lab results reviewed: Yes I reviewed the patient's lab results. Result diagrams: 02/20/17 04:07 02/20/17 04:07 Lab Results 02/17/17 02/17/17 02/17/17 Range/Units 17:19 17:19 17:19 WBC (4.3-11.1) K/mcL RBC (3.82-4.97) M/mcL Hgb (11.5-15.4) g/dL Hct (35.3-44.9) % MCV (83.0-100.0) fL MCH (28.0-33.3) pg MCHC (31.6-35.5) g/dL RDW (11.5-14.5) % Plt Count (140-400) K/mcL MPV (9.4-12.4) fL Immature Gran % (0-4) % Seg Neutrophils % % Lymphocytes % % Monocytes % % Eosinophils % % Basophils % % Neutrophils # (1.6-8.9) K/mcL Lymphocytes # (0.6-4.6) K/mcL Monocytes # (0.0-1.3) K/mcL Eosinophils # (0.0-0.6) K/mcL Basophils # (0.0-0.2) K/mcL Immature Plt Fraction (1.1-6.1) % Sodium 130 L (136-145) mEq/L Potassium 3.6 (3.5-4.5) mEq/L Chloride 99 (98-109) mEq/L Carbon Dioxide 18 L (19-29) mEq/L BUN 61 H (7-20) mg/dL Creatinine 2.70 H (0.57-1.11) mg/dL Est GFR ( Amer) 23 L (> 60) Est GFR (Non-Af Amer) 19 L (> 60) BUN/Creatinine Ratio 23 (6-26) Glucose 107 H (70-99) mg/dL Calculated Osmolality 288 (280-300) Lactic Acid 0.9 (0.5-2.2) mmol/L Calcium 9.4 (8.6-10.8) mg/dL Total Bilirubin 2.6 H (0.2-1.2) mg/dL Direct Bilirubin 2.1 H (0.0-0.5) mg/dL Indirect Bilirubin 0.5 (0.0-1.2) mg/dL AST 20 (5-34) Units/L ALT 32 (0-55) Units/L Alkaline Phosphatase 416 H (38-126) Units/L Serum Total Protein 8.6 H (6.0-8.3) g/dL Albumin 2.2 L (3.5-5.0) g/dL Globulin 6.4 H (2.4-3.5) g/dL Albumin/Globulin Ratio 0.3 L (1.1-2.2) Amylase 31 (25-125) Units/L Lipase 24 (8-78) Units/L Urine Color (Yellow) Urine Clarity (Clear) Urine pH (5.0-8.0) pH Units Ur Specific Marshall (1.010-1.025) Urine Protein (Neg-Trace) mg/dL Urine Glucose (UA) (Normal) mg/dL Urine Ketones (Negative) mg/dL Urine Blood (Negative) Urine Nitrite (Negative) Urine Bilirubin (Negative) Urine Urobilinogen (Normal) mg/dL Ur Leukocyte Esterase (Negative) Urine Microscopic RBC (0-3) per hpf Urine Microscopic WBC (0-3) per hpf Ur Squamous Epith Cells (None-Few) per lpf Urine Bacteria (None-Few) per hpf Hyaline Casts (None-Few) per lpf Ur Culture Indicated? (NO) Specimen Rejected MCV Delta 02/17/17 02/17/17 Range/Units 17:47 20:05 WBC 24.6 H (4.3-11.1) K/mcL RBC 3.77 L (3.82-4.97) M/mcL Hgb 11.3 L (11.5-15.4) g/dL Hct 34.4 L (35.3-44.9) % MCV 91.2 D (83.0-100.0) fL MCH 30.0 (28.0-33.3) pg MCHC 32.8 (31.6-35.5) g/dL RDW 14.2 (11.5-14.5) % Plt Count 685 H (140-400) K/mcL MPV 9.8 (9.4-12.4) fL Immature Gran % 5.0 H (0-4) % Seg Neutrophils % 77.8 % Lymphocytes % 8.8 % Monocytes % 6.8 % Eosinophils % 0.9 % Basophils % 0.7 % Neutrophils # 19.1 H (1.6-8.9) K/mcL Lymphocytes # 2.2 (0.6-4.6) K/mcL Monocytes # 1.7 H (0.0-1.3) K/mcL Eosinophils # 0.2 (0.0-0.6) K/mcL Basophils # 0.2 (0.0-0.2) K/mcL Immature Plt Fraction 4.4 (1.1-6.1) % Sodium (136-145) mEq/L Potassium (3.5-4.5) mEq/L Chloride (98-109) mEq/L Carbon Dioxide (19-29) mEq/L BUN (7-20) mg/dL Creatinine (0.57-1.11) mg/dL Est GFR ( Amer) (> 60) Est GFR (Non-Af Amer) (> 60) BUN/Creatinine Ratio (6-26) Glucose (70-99) mg/dL Calculated Osmolality (280-300) Lactic Acid (0.5-2.2) mmol/L Calcium (8.6-10.8) mg/dL Total Bilirubin (0.2-1.2) mg/dL Direct Bilirubin (0.0-0.5) mg/dL Indirect Bilirubin (0.0-1.2) mg/dL AST (5-34) Units/L ALT (0-55) Units/L Alkaline Phosphatase (38-126) Units/L Serum Total Protein (6.0-8.3) g/dL Albumin (3.5-5.0) g/dL Globulin (2.4-3.5) g/dL Albumin/Globulin Ratio (1.1-2.2) Amylase (25-125) Units/L Lipase (8-78) Units/L Urine Color Yellow (Yellow) Urine Clarity Slightly Cloudy A (Clear) Urine pH 6.0 (5.0-8.0) pH Units Ur Specific Marshall >= 1.030 H (1.010-1.025) Urine Protein 100 H (Neg-Trace) mg/dL Urine Glucose (UA) Normal (Normal) mg/dL Urine Ketones Negative (Negative) mg/dL Urine Blood Moderate H (Negative) Urine Nitrite Negative (Negative) Urine Bilirubin Small H (Negative) Urine Urobilinogen Normal (Normal) mg/dL Ur Leukocyte Esterase Small H (Negative) Urine Microscopic RBC 0-3 (0-3) per hpf Urine Microscopic WBC 3-5 H (0-3) per hpf Ur Squamous Epith Cells Few (None-Few) per lpf Urine Bacteria Many H (None-Few) per hpf Hyaline Casts None Seen (None-Few) per lpf Ur Culture Indicated? YES A (NO) Specimen Rejected - Radiology Data Radiology results reviewed: Yes I reviewed the patient's radiology results. Abdomen/Pelvis CT 02/17/17 18:23 IMPRESSION: Interval placement of biliary drains. Improvement in intrahepatic biliary dilatation. New 2.6 x 4.6 cm region within the peripheral aspect of the liver near the junction of the right and left hepatic lobes which is slightly above water attenuation. Findings may represent a mildly complex fluid collection or biloma. D/ / Parvin Duran MD / Parvin Duran MD Interpreting Provider: Parvin Duran MD S.Mary - [email or web address] Situation: Demographics Background: Presenting Complaint Assessment: Vital Signs, Course and respsone to treatment, Exam Concerns, Patient/Family Expectation Recommendation: Barrier(s) to disposition, Recommendation based on pending studies, treatments, or consults S.B.A.RJaylin Report Given to: Dr. Lynette Lance Repor Time: 19:46 Attestation Statement - Attestation Attestation: I examined this patient and my medical decision-making was reviewed with the WOOD FLOOR REFINISHER/PA/Advanced Practice Nurse/Resident Physician. I agree with the documented findings, disposition and treatment plan as described except to the extent set forth below. 46 yo female presents with concerns of generalized weakness and abdominal pain s /p percutaneous biliary drainage. Received in signout pending CT results and dispo. CT shows new fluid collection concerning for possible bilious collection vs abscess vs hematoma. Pt will be admitted to the hospital for further care and observation.
[2017-02-17 20:15] LABS: Bilirubin,Urine Small (Negative); Blood,Urine Moderate (Negative); Clarity,Urine Slightly Cloudy (Clear); Color,Urine Yellow (Yellow); Glucose,Urine (UA) Normal (Normal); Ketones,Urine Negative (Negative); Leukocyte Esterase,Urine Small (Negative); Nitrite,Urine Negative (Negative); Protein,Urine 100 mg/dL (Neg-Trace); Specific Gravity,Urine >= 1.030 (1.010-1.025); Urobilinogen,Urine Normal (Normal)
[2017-02-17 20:26] LABS: Bacteria,Urine Many per hpf (None-Few); Hyaline Casts,Urine None Seen per lpf (None-Few); Squamous Epithelial Cell,Urine Few per lpf (None-Few)
[2017-02-17 20:27] LABS: RBC,Urine 0-3 per hpf (0-3)
[2017-02-17] MEDS ORDERED: *HR* Promethazine 25 MG/ML VIAL IVP ONE (20:55)
[2017-02-17] MEDS ORDERED: Acetaminophen 325 MG TABLET PO PRN (21:27)
[2017-02-17] MEDS ORDERED: Naloxone 0.4 MG/ML INJ IVP PRN (21:27)
[2017-02-17] MEDS ORDERED: 0.9 % Sodium Chloride 1,000 ML IVC SCH (21:30)
--- NOTE | 2017-02-17 21:30 | Internal Med History&Physical ---
Date of Encounter: 02/17/17 Time of Encounter: 21:30 Assessment and Plan (1) ISIDORO (acute kidney injury) Current visit: Yes Status: Acute Likely due to intake, nausea and vomiting. Pt has orthostatic symptoms. Treat with IV fluids and monitor renal function. Avoid nephrotoxics (2) Leukocytosis Current visit: Yes Status: Acute Pt is afebrile. Uncertain, if the leucocytosis is related to infection versus malignancy. White cell count is increased compared to her baseline. Blood cultures were sent and patient received empiric antibiotics. I have reviewed the CT scan and the pt has distended gall bladder - need to exclude cholecystitis. will Monitor WBC count. Qualifiers: Leukocytosis type: unspecified Qualified Code(s): D72.829 - Elevated white blood cell count, unspecified (3) Hyperbilirubinemia Current visit: Yes Status: Chronic Improving. Pt has biliary drain in place (4) Obstructive jaundice Current visit: Yes Status: Chronic Biliary drains in place. Bilirubin is downtrending (5) Cholangiocarcinoma Current visit: Yes Status: Suspected (6) Nausea & vomiting Current visit: Yes Status: Acute Pt has distended gall bladder - will need to exclude acalculus cholecystitis. Symptomatic treatment of nausea and vomiting Qualifiers: Vomiting type: unspecified Vomiting Intractability: non-intractable Qualified Code(s): R11.2 - Nausea with vomiting, unspecified (7) Biloma Current visit: Yes Status: Acute Will need GI consult / consult IR. Will obtain US scan (8) Abdominal pain Current visit: Yes Status: Acute At the insertion site of the biliary drain. symptomatic treatment Qualifiers: Abdominal location: right upper quadrant Qualified Code(s): R10.11 - Right upper quadrant pain Internal Medicine - H&P: HPI Chief complaint: Generalized weakness; Abdominal pain Admitted From: Emergency Dept Plans for Post Hospital Care: Home History of present illness: Ms. 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 She is status post ERCP; s/p PTC, Biliary biopsy, Biliary dilation, biliary drainageX2 with IR on 02/05/17. A few days ago she noticed that her drain started leaking at the insertion site, along with pain at the insertion site (moderate to severe pain, sharp, no radiation; worse on movement) . Over the past 3 days increasing and generalized weakness, feels like she is going to pass out every time she stands up. She has nausea and occasional vomiting with decreased oral intake. Today she noticed decreased urine output and is more concentrated. She reports about 10 pound weight loss since the diagnosis of cancer. Denies diarrhea, dysuria, hematuria, rectal bleeding, cough , expectoration, shortness of breath, chest pain, fevers or chills. She was evaluated in the emergency department and was noted to have leukocytosis , white cell count of 24.6; creatinine 2.7, bilirubin 2.6. She was given ceftriaxone and Flagyl. CT scan of abdomen and pelvis was done which reported suspicion for bilioma. She is admitted to the hospitalist service for further workup and management. Past Med Surg Social Fam HX - Past Medical History Medical history: cancer, other Psychiatric history: no psych history - Past Surgical History Surgical History: - Social History Smoking Status: Never smoker Smokeless Tobacco Status: No Alcohol use: occasionally Drug use: none - Family History Mother Adopted: No Family Member Ethnicity: Non- Living Status: Hx Family Cardiac Disorders: No Hx Family Respiratory Disorders: Yes Internal Medicine - H&P: Meds Ondansetron ODT [Zofran ODT] 4 mg SL Q6HR PRN #30 tab.rapdis 01/20/17 [Rx] Ketorolac [Toradol] 10 mg PO Q6HR #60 tablet 01/22/17 [Rx] Omeprazole [PriLOSEC] 20 mg PO BIDAC #30 cap 01/22/17 [Rx] Tamoxifen Citrate 20 mg PO DAILY 02/07/17 [History] OxyCODONE/APAP 5/325 [Percocet 5/325 MG] 1 tab PO Q6HR PRN #14 tablet 02/08/17 [ Rx] Allergies No Known Allergies Allergy (Verified 01/22/17 14:12) All Systems PM: A 10-system review of systems was performed and is negative for pertinent findings except as documented above in the HPI. - Constitutional Vitals: Temp Pulse Resp BP Pulse Ox 97.6 F 86 16 107/71 98 02/17/17 21:18 02/17/17 21:27 02/17/17 21:27 02/17/17 21:27 02/17/17 21:27 Exam: General: in mild distress at the time of my evaluation HEENT: Oral mucosa is moist. scleral icterus present Neck: No obvious neck swellings Lungs: Clear to auscultation Cardiac: Regular rate and rhythm. systolic murmur present Abdomen: There is biliary drain in the right infra axillary area, draining bile. Leak at the insertion site and dressing in place. Erythema of the skin. Bowel sounds present Genitourinary: No king catheter Neurological: Alert and oriented. No gross localizing deficits Psych: Not aggressive or agitated Extremities: no significant leg edema Skin: No generalized rash Internal Med - H&P Results - Labs CBC & Chem 7: 02/17/17 17:47 02/17/17 17:19 Labs: Urine 02/17/17 Range/Units 20:05 Urine Color Yellow (Yellow) Urine Clarity Slightly Cloudy A (Clear) Urine pH 6.0 (5.0-8.0) pH Units Ur Specific [place] >= 1.030 H (1.010-1.025) Urine Protein 100 H (Neg-Trace) mg/dL Urine Glucose (UA) Normal (Normal) mg/dL - Impressions ITS Impressions Abdomen/Pelvis CT 02/17/17 18:23 IMPRESSION: Interval placement of biliary drains. Improvement in intrahepatic biliary dilatation. New 2.6 x 4.6 cm region within the peripheral aspect of the liver near the junction of the right and left hepatic lobes which is slightly above water attenuation. Findings may represent a mildly complex fluid collection or biloma. D/ / Parvin Duran MD / Parvin Duran MD Interpreting Provider: Parvin Duran MD
[2017-02-17] MEDS: *HR* HYDROmorphone (PF) 1 MG/ML SYRINGE IVP PRN (23:44)
[2017-02-18] MEDS: Ondansetron 4 MG/2 ML VIAL IVP ONE (00:31)
[2017-02-18] MEDS: 0.9 % Sodium Chloride 500 ML IVC ONE (00:31)
[2017-02-18] MEDS: *HR* HYDROmorphone (PF) 1 MG/ML SYRINGE IVP PRN ×5 (03:10→22:15)
[2017-02-18] MEDS: Ondansetron 4 MG/2 ML VIAL IVP PRN (03:17)
[2017-02-18] MEDS: *HR* Morphine 2 MG/ML SYRINGE IVP PRN (05:22)
[2017-02-18 05:32] LABS: Hematocrit 30.1 % (35.3-44.9); Hemoglobin 9.9 g/dL (11.5-15.4); Mean Corpuscular HGB Conc 32.9 g/dL (31.6-35.5); Mean Corpuscular Hemoglobin 30.8 pg (28.0-33.3); Mean Corpuscular Volume 93.8 fL (83.0-100.0); Mean Platelet Volume 10.5 fL (9.4-12.4); Platelet Count 611 K/mcL (140-400); Red Blood Count 3.21 M/mcL (3.82-4.97); Red Cell Distribution Width 14.1 % (11.5-14.5)
[2017-02-18 05:40] LABS: Albumin/Globulin Ratio 0.4 (1.1-2.2); Bilirubin,Total 2.1 mg/dL (0.2-1.2); Calcium 8.6 mg/dL (8.6-10.8); Globulin 4.9 g/dL (2.4-3.5); Magnesium 1.9 mg/dL (1.6-2.6); Potassium 3.6 mEq/L (3.5-4.5)
[2017-02-18 05:45] LABS: Albumin 1.8 g/dL (3.5-5.0); Total Protein 6.7 g/dL (6.0-8.3)
[2017-02-18 07:05] LABS: Lymphocytes # 2.6 K/mcL (0.6-4.6); Monocytes # 1.1 K/mcL (0.0-1.3); Neutrophils # 22.6 K/mcL (1.6-8.9); Platelet Estimate Increased (Normal)
[2017-02-18 07:06] LABS: Hypochromasia Present (Not Present)
[2017-02-18] MEDS ORDERED: *HR* Morphine Sulfate SR (12 HR) 15 MG TABLET.ER PO SCH ×2 (11:15→16:15)
[2017-02-18] MEDS: Ringers Solution, Lactated 1,000 ML IVC SCH (11:31)
--- NOTE | 2017-02-18 13:59 | Internal Med Progress Note ---
<Kurt Pompa - Last Filed: 02/18/17 17:28> Date of Encounter: 02/18/17 Time of Encounter: 08:30 - Assessment and plan (1) Leukocytosis Current Visit: Yes Status: Acute Assessment and plan: -Patient is currently afebrile. -Patient's WBC count has increased today to 26.3 compared to 24.6 yesterday. -The etiology of this leukocytosis is still in question. -It could be secondary to her UTI. Concern for possible infection/ abscess with complex fluid collection and reports of purulent drainage from site. - blood cultures pending. -Right upper quadrant ultrasound performed today which show the followin) lentiform fluid collection adjacent to the right hepatic lobe which may represent a liquefied subcapsular hematoma or biloma 2) distended gallbladder with sludge 3) bile duct stent noted 4) 3.4 cm mass in the right hepatic lobe concerning for metastatic disease in this patient with reported breast malignancy and cholangiocarcinoma, vs. biloma, hematoma, or abscess. -We are still awaiting GI opinion. IR consulted to assess fluid collection and drain. Qualifiers: Leukocytosis type: unspecified Qualified Code(s): D72.829 - Elevated white blood cell count, unspecified (2) Urinary tract infection Current Visit: Yes Status: Acute Assessment and plan: -Patient appears to have a urinary tract infection with many urine bacteria noted on UA and small urine leukocyte esterase with an elevated urine specific gravity. Patient's urine culture grew > 100,000 gram-negative rods. She was started on Zosyn for possibly intraabdominal infection. This should more than cover a UTI. Qualifiers: Qualified Code(s): N39.0 - Urinary tract infection, site not specified (3) ISIDORO (acute kidney injury) Current Visit: Yes Status: Acute Assessment and plan: -Patient presented with an elevated creatinine at 2.70, and elevated BUN at 61 and estimated GFR 19. Dehydrated on initial presentation. -Today's lab showed improvement in her acute kidney injury with a creatinine of 1.79, a BUNs of 47 and an estimated GFR of 31. -We will continue fluids (lactated Ringer's) at 100 mls per hour -Avoid nephrotoxins -adjust medications as needed. (4) Hyperbilirubinemia Current Visit: Yes Status: Chronic Assessment and plan: -Patient had an elevated total bilirubin at 2.6 with a direct bilirubin of 2.1 at presentation. -Today patient's total bilirubin is down trending at 2.1. (5) Obstructive jaundice Current Visit: Yes Status: Chronic Assessment and plan: -Patient underwent biliary biopsy, biliary dilation, and biliary drainage 2 with interventional radiology on 02/05/2017. Patient presented with an elevated total bilirubin at 2.6 with an elevated direct bilirubin at 2.1. -Today's labs which show a downtrending total bilirubin at 2.1. -Additionally her alkaline phosphatase was elevated upon presentation at 416 has decreased today to 323 drains appear to be draining well on exam. Additionally Tbilirubin has been trending down since placement of the billiary drains. Gallbladder appears distended on CT. IR and GI consulted. (6) Breast cancer Current Visit: Yes Status: Acute Assessment and plan: -Patient currently has stage II invasive ductal carcinoma currently being followed at the [facility] with Dr. Balbuena. 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 -Was apparently supposed to undergo her first round of chemotherapy today. -Will hold off on any chemotherapy at this time as she is acutely ill. Will have her see Dr. Carpenter after Discharge for planning on when to initiate chemotherapy. Qualifiers: Breast location: unspecified site of breast Patient sex: female Laterality: unspecified laterality Qualified Code(s): C50.919 - Malignant neoplasm of unspecified site of unspecified female breast (7) Cholangiocarcinoma Current Visit: Yes Status: Suspected Assessment and plan: -Patient underwent biliary biopsy, biliary dilation, and biliary drainage 2 with interventional radiology on 02/05/2017. -Pathology reveales atypical ductal cells suspicious for adenocarcenoma. -Is currently under the care of Dr. Balbuena at the [facility] for this diagnosis and her breast cancer diagnosis. (8) Biloma Current Visit: Yes Status: Suspected Assessment and plan: -On abdominal CT scan performed on 02/17/2017, there is a new 2.6 x 4.6 cm region within the peripheral aspect of the liver near the junction of the right and left hepatic lobes which is slightly above water attenuation. These findings may represent a mildly complex fluid collection or the Biloma. GI and IR consulted. We appreciate their input. (9) Abdominal pain Current Visit: No Status: Acute Assessment and plan: -Patient does admit to right sided abdominal pain at the location of the percutaneous biliary drain. -This could be secondary to her primary cholangiocarcinoma, biloma/liquefied subcapsular hematoma as noted above. continue PRN dilauded. We will add some MS contin for long acting analgesia. Continue to monitor closely. Qualifiers: Abdominal location: generalized Qualified Code(s): R10.84 - Generalized abdominal pain (10) Anemia Current Visit: Yes Status: Chronic Assessment and plan: -Chronic -Patient appears to have a normochromic normocytic anemia since December 2016. -Hematinics from December 2016 which show a normal serum iron level, normal percent saturation and an elevated ferritin at 835 -This appears to be a normocytic anemia in the setting of recurrent breast cancer and a potential diagnosis of primary cholangiocarcinoma. Qualifiers: Anemia type: unspecified type Qualified Code(s): D64.9 - Anemia, unspecified (11) Hypoalbuminemia Current Visit: Yes Status: Acute Assessment and plan: -Patient is hypoalbuminemic at 1.8 today -This is in the setting of a potential diagnosis of primary cholangiocarcinoma. -Additionally the patient admits to a decreased oral intake secondary to her symptoms over the past week. -Patient also has history of chrons but dose not appear to be in a flair (12) Thrombocytosis Current Visit: Yes Status: Acute Assessment and plan: -Patient has a thrombocytosis at 611 today. -This is most likely an acute phase reactant in the setting of a urinary tract infection, possible intraabdominal infection? recent breast cancer diagnosis and potential diagnosis of primary cholangiocarcinoma. (13) Crohns disease Current Visit: No Status: Chronic Assessment and plan: -Patient does have a history of Crohn's disease. Was previously on Remicade. Not currently in a flair. Having 1 lose bowel movements per day. Will hold as she is acutely ill. GI consulted and we Appreciate input from GI. Qualifiers: Gastrointestinal tract location: unspecified location Digestive disease complication type: without complication Qualified Code(s): K50.90 - Crohn's disease, unspecified, without complications (14) DVT prophylaxis Current Visit: No Status: Acute Assessment and plan: -Patient currently has intermittent pneumatic devices ordered. -No systemic anticoagulation was started this morning in preparation for potential procedures. (15) Neutrophilia Current Visit: Yes Status: Acute (16) Metabolic acidosis Current Visit: Yes Status: Acute (17) Elevated alkaline phosphatase level Current Visit: Yes Status: Acute (18) Malignant neoplasms of independent (primary) multiple sites Current Visit: Yes Status: Acute - Subjective Interval history: Patient seen and examined at bedside this morning. Patient does admit to nausea without vomiting, weakness, and generalized fatigue this morning. Patient denies any diarrhea, constipation or any urinary complaints at this time. She denies any other issues at this time and all questions were answered. - Constitutional Vitals: Temp Pulse Resp BP Pulse Ox 97.3 F L 75 14 102/61 100 02/18/17 10:42 02/18/17 10:42 02/18/17 10:42 02/18/17 10:42 02/18/17 10:42 General appearance: Present: cachectic, mild distress, A&O X 3 - Head Head exam: Present: atraumatic, normal inspection, normocephalic - Eye Eye exam: Present: EOMI, PERRL, sclera anicteric - ENT ENT exam: Present: mucous membranes dry - Neck Neck exam general surgery: Present: normal inspection, trachea midline. Absent : lymphadenopathy, tenderness, thyromegaly - Respiratory Respiratory exam: Present: CTAB. Absent: accessory muscle use, chest wall tenderness, rhonchi, stridor, wheezes - Cardiovascular Cardiovascular exam: Present: RRR, +S1, +S2, systolic murmur (2/4 noted most predominately over the tricuspid area). Absent: diastolic murmur, JVD - GI/Abdominal GI/Abdominal exam: Present: guarding (Mild, intentional ), normal bowel sounds, no peritoneal signs. Absent: distended, rebound Additional comments: Percutaneous biliary drains noted. Fluid in the bag appears normal with an miya color. Patient does admit to some tenderness at the drainage site upon palpation. well dressed and clean insertion site. previous dressing was inspected by me and appears to be somewhat purulent. - Extremities Exam Extremities exam: Present: warm, radial pulses palpable and symetrical. Absent : calf tenderness, cyanotic, pedal edema - Skin Skin exam: Present: dry, intact Internal Medicine: Result - Labs CBC & Chem 7: 02/18/17 03:20 02/18/17 03:20 Labs: Short CBC 02/18/17 Range/Units 03:20 WBC 26.3 H (4.3-11.1) K/mcL Hgb 9.9 L (11.5-15.4) g/dL Hct 30.1 L (35.3-44.9) % Plt Count 611 H (140-400) K/mcL Neutrophils # 22.6 H (1.6-8.9) K/mcL BMP 02/18/17 03:20 Sodium 137 D Potassium 3.6 Chloride 109 Carbon Dioxide 17 L BUN 47 H D Creatinine 1.79 H Glucose 79 Calcium 8.6 Liver Function 02/18/17 Range/Units 03:20 Total Bilirubin 2.1 H (0.2-1.2) mg/dL AST 18 (5-34) Units/L ALT 27 (0-55) Units/L Alkaline Phosphatase 323 H (38-126) Units/L Albumin 1.8 L (3.5-5.0) g/dL - Impressions Impressions Gallbladder Ultrasound 02/18/17 09:30 IMPRESSION: 1. Lentiform fluid collection adjacent to the right hepatic lobe may represent a liquified subcapsular hematoma or biloma 2. Distended gallbladder with sludge 3. Common bile duct stent noted 4. 3.4 cm mass in the right hepatic lobe concerning for metastatic disease in this patient with reported breast malignancy D/ / Justice Hall MD / Justice Hall MD Interpreting Provider: Justice Hall MD Consult Discharge Plan - Plan Referrals: Chery Mckinney, M[employer] TECHNICIAN [Primary Care Provider] - <Caryln Bhatt E - Last Filed: 02/18/17 17:57> Date of Encounter: 02/18/17 - Constitutional Vitals: Temp Pulse Resp BP Pulse Ox 97.7 F 84 18 91/59 98 02/18/17 15:03 02/18/17 15:03 02/18/17 15:03 02/18/17 15:03 02/18/17 15:03 Internal Medicine: Result - Labs CBC & Chem 7: 02/18/17 03:20 02/18/17 03:20 Labs: Short CBC 02/18/17 Range/Units 03:20 WBC 26.3 H (4.3-11.1) K/mcL Hgb 9.9 L (11.5-15.4) g/dL Hct 30.1 L (35.3-44.9) % Plt Count 611 H (140-400) K/mcL Neutrophils # 22.6 H (1.6-8.9) K/mcL BMP 02/18/17 03:20 Sodium 137 D Potassium 3.6 Chloride 109 Carbon Dioxide 17 L BUN 47 H D Creatinine 1.79 H Glucose 79 Calcium 8.6 Liver Function 02/18/17 Range/Units 03:20 Total Bilirubin 2.1 H (0.2-1.2) mg/dL AST 18 (5-34) Units/L ALT 27 (0-55) Units/L Alkaline Phosphatase 323 H (38-126) Units/L Albumin 1.8 L (3.5-5.0) g/dL - Impressions Impressions Gallbladder Ultrasound 02/18/17 09:30 IMPRESSION: 1. Lentiform fluid collection adjacent to the right hepatic lobe may represent a liquified subcapsular hematoma or biloma 2. Distended gallbladder with sludge 3. Common bile duct stent noted 4. 3.4 cm mass in the right hepatic lobe concerning for metastatic disease in this patient with reported breast malignancy D/ / Justice Hall MD / Justice Hall MD Interpreting Provider: Justice Hall MD - Attending Attestation I examined this patient and reviewed laboratory, imaging and all diagnostic data. My medical decision-making was reviewed with Dr Pompa - Resident Physician. I agree with the documented findings, disposition and treatment plan as described above
--- NOTE | 2017-02-18 14:07 | Event Note ---
Date of Encounter: 02/18/17 Time of Encounter: 10:[address] Rosario to discuss biloma with Dr. Vaughan, who completed PTC on . Full consult tomorrow.
[2017-02-18] MEDS: Piperacillin/Tazobactam 3.375 GM in D5% in Water (Mini-Bag+) 100 ML IVPB SCH (16:37)
[2017-02-18] MEDS: *HR* Morphine Sulfate SR (12 HR) 15 MG TABLET.ER PO SCH (20:54)
[2017-02-19] MEDS: Ringers Solution, Lactated 1,000 ML IVC SCH ×2 (01:09→11:27)
[2017-02-19] MEDS: Piperacillin/Tazobactam 3.375 GM in D5% in Water (Mini-Bag+) 100 ML IVPB SCH ×3 (01:10→16:54)
[2017-02-19] MEDS: *HR* Morphine 2 MG/ML SYRINGE IVP PRN ×5 (01:12→21:45)
[2017-02-19] MEDS: *HR* Morphine Sulfate SR (12 HR) 15 MG TABLET.ER PO SCH ×3 (03:37→19:53)
[2017-02-19 04:21] LABS: Basophils # 0.1 K/mcL (0.0-0.2); Basophils % 0.3 %; Eosinophils # 0.3 K/mcL (0.0-0.6); Eosinophils % 1.2 %; Hematocrit 26.5 % (35.3-44.9); Hemoglobin 8.5 g/dL (11.5-15.4); Immature Granulocytes % 3.4 % (0-4); Lymphocytes % 9.5 %; Mean Corpuscular HGB Conc 32.1 g/dL (31.6-35.5); Mean Corpuscular Hemoglobin 30.1 pg (28.0-33.3); Monocytes # 1.4 K/mcL (0.0-1.3); Monocytes % 6.8 %; Neutrophils # 16.7 K/mcL (1.6-8.9); Platelet Count 413 K/mcL (140-400); Red Blood Count 2.82 M/mcL (3.82-4.97); Segmented Neutrophils % 78.8 %
[2017-02-19 04:30] LABS: INR 1.7; Prothrombin Time 18.1 Seconds (9.4-12.1)
[2017-02-19 04:41] LABS: Albumin/Globulin Ratio 0.3 (1.1-2.2); Bilirubin,Direct 1.4 mg/dL (0.0-0.5); Bilirubin,Indirect 0.4 mg/dL (0.0-1.2); Bilirubin,Total 1.8 mg/dL (0.2-1.2); Calcium 8.6 mg/dL (8.6-10.8); Globulin 4.3 g/dL (2.4-3.5); Potassium 3.7 mEq/L (3.5-4.5); Total Protein 5.8 g/dL (6.0-8.3)
[2017-02-19 04:42] LABS: Albumin 1.5 g/dL (3.5-5.0)
[2017-02-19] MEDS ORDERED: *HR* Phytonadione 5 MG TABLET PO ONE (09:34)
[2017-02-19] MEDS ORDERED: 0.9 % Sodium Chloride 500 ML IVC ONE (09:34)
--- NOTE | 2017-02-19 11:30 | Palliative - Consult Note ---
Date of Encounter: 02/19/17 Time of Encounter: 11:00 - Assessment and Plan (1) Cancer associated pain Current Visit: Yes Status: Acute Assessment and plan: Reviewed pain medication and management. Will continue with CONTIN 15mg every 8 hours for long acting coverage. D/C hydromorphone. Broaden the dose of morphine to include 2mg IV for moderate pain rated 4-7, and 4mg for severe pain rated 8-10. Will attempt to control pain with morphine only as this will be her home medication upon discharge. Follow pain control and anticipate transition to oral medications tomorrow. Discussed case with clinical pharmacist, primary team, and primary nurse. Discussed a plan of care with primary nurse. (2) Weight loss Current Visit: Yes Status: Acute Assessment and plan: Consult dietitian. (3) Therapeutic opioid induced constipation Current Visit: Yes Status: Acute Assessment and plan: Ms. Cruz has a history of Crohns disease and continues to have at least one loose BM per day. Will hold on starting bowel regimen at this time and continue to monitor. 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 (6) Abdominal pain Current Visit: No Status: Acute Assessment and plan: as above. Qualifiers: Abdominal location: generalized Qualified Code(s): R10.84 - Generalized abdominal pain (7) Malignant neoplasms of independent (primary) multiple sites Current Visit: Yes Status: Acute Assessment and plan: Follows with oncology (Dr. Kruse) at [facility] with plans to start chemotherapy this week. Will follow up as an outpatient. (8) Goals of care, counseling/discussion Current Visit: Yes Status: Acute Assessment and plan: Advanced directives complete and on file. Home health to resume upon discharge. manager of allied health services following. Palliative-CN HPI - Data of Consult Patient: known to practice within the last 3 years Consult date: 02/19/17 Requesting Physician: Satya Leo MD Primary Care Provider: Chery Mckinney CNP - Consult Narrative Palliative Care/Comfort Measures: Palliative care Reason for consult: Symptom Management History of present illness: Ms. Cruz is a 46 year old female known to the palliative care team. She has a history of Crohns disease and was on Remicade. In December, she was diagnosed with a left sided invasive ductal carcinoma. Prior to completing the initial work-up for the breast CA, she developed jaundice and elevated liver enzymes and was admitted to the hospital. 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 Since then she has had multiple hospitalizations for biliary drains and cancer work-up. She is following with Dr. Kruse ( oncology) at [facility] for treatment and was scheduled to start chemotherapy later this week. She presented to the emergency department due to weakness and dehydration. Her pain medications (Percocet) causes nausea, and she has had a poor appetite as it is. Initial evaluation revealed a leukocytosis and acute kidney injury. She was admitted to the hospital for further treatment. GI has been consulted to assist with care and is consulting with interventional radiology for management of biliary stents. She is also being treated for a UTI. The palliative care team was consulted to assist with symptom management. Ms. Cruz currently rates her pain 2/10, but it can quickly escalate to a 8-9/ 10. Pain is located in the right flank area and RUQ. Pain is described as a aching pain that can be sharp. She was using percocet prior to admission, but it did not improve her pain much. She was started on MS Contin during this admission and has been able to tolerate. For breakthrough pain, she has been taking Morphine 2mg IV Q2 hours (total of 2 doses in the past 24 hours), and hydromorphone (total of 4 doses in the past 24 hours). She reports pain improvement with both, but more rapid improvement with hydromorphone. Ms. Cruz denies nausea and has been tolerating oral intake. CC: Satya Leo MD Past Med Surg Social Fam HX - Past Medical History Attestation: Yes The following information was validated with the patient. Source: patient, old records reviewed Medical history: cancer (cholangiocarcinoma, breast CA ), other (crohns disease , uterine fibroids, anemia) Psychiatric history: no psych history - Past Surgical History Surgical History: , other (multiple biliary stents placed) - Social History Smoking Status: Never smoker Smokeless Tobacco Status: No Alcohol use: occasionally Drug use: none Occupational status: employed (employed by the city) Current living situation: Home - Independent (home health follows ) Activity Level: Independent ambulation Recent Out of Country Travel Within the Last 8 Weeks: No Exposure or Possible Exposure to Illness During Travel: No Additional social history: Advanced directives completed including living will and healthcare POA. On file. - Family History Mother History Unknown: Yes Adopted: [place]: Madie Cruz Age: 69 Family Member Ethnicity: Non- Living Status: Age at : 69 Cause of : COPD Hx Family Cardiac Disorders: No Hx Family Respiratory Disorders: Yes Hx Family Cancer: Yes (CERVICAL) Hx Family GI Disorders: No Hx Family Genitourinary Disorders: No Hx Family Endocrine Disorder: No Hx Family Musculoskeletal Disorders: No Hx Family Neuromuscular Disorders: No Hx Family Neurologic Disorders: No Hx Family HEENT Disorders: No Hx Family Autoimmune Disorders: No Hx Family Reproductive Disorders: No Hx Family Psychosocial Disorders: No Hx Family Medical Disorders: No Medications and Allergies Ondansetron ODT [Zofran ODT] 4 mg SL Q6HR PRN #30 tab.rapdis 01/20/17 [Rx] Ketorolac [Toradol] 10 mg PO Q6HR #60 tablet 01/22/17 [Rx] Omeprazole [PriLOSEC] 20 mg PO BIDAC #30 cap 01/22/17 [Rx] Tamoxifen Citrate 20 mg PO DAILY 02/07/17 [History] OxyCODONE/APAP 5/325 [Percocet 5/325 MG] 1 tab PO Q6HR PRN #14 tablet 02/08/17 [ Rx] Dexamethasone [Decadron] 4 mg PO DAILY 02/18/17 [History] Lidocaine/Prilocaine CREAM [Emla] 1 appl TP AD 02/18/17 [History] Morphine Sulfate 15 mg PO DAILY 02/18/17 [History] Naproxen [Naprosyn] 500 mg PO BID 02/18/17 [History] Pantoprazole Sodium 20 mg PO DAILY 02/18/17 [History] Prochlorperazine Maleate [Compazine] 10 mg PO Q6HR 02/18/17 [History] Allergies No Known Allergies Allergy (Verified 01/22/17 14:12) - Constitutional Constitutional ROS PAL: decreased appetite, weight loss (10# over the past 2 months. ) - EENT Eyes: no change in vision Ears: no decreased hearing Ears, nose, mouth, throat: no dysphagia, no mouth pain, no sore throat - Cardiovascular Cardiovascular ROS: no chest pain, no chest pain at rest, no chest pain with activity, no irregular heart rhythm, no orthopnea, no palpitations - Respiratory Respiratory: no cough, no dyspnea on exertion, no wheezing - Gastrointestinal Gastrointestinal: abdominal pain, loose stools, nausea, no change in bowel habits, no change in stool character Additional comments: abdominal pain as per HPI - Genitourinary Palliative ROS female: no difficulty voiding, no dysuria - Musculoskeletal Musculoskeletal ROS IM: muscle weakness - Integumentary ROS Integumentary: no unusual bruising, no wounds, no jaundice (resolved) - Neurological Neurological ROS: no abnormal gait, no confusion, no focal weakness, no paresthesias, no weakness - Psychiatric Psychiatric general PM: anxiety, depression, no hopelessness, no suicidal ideation Palliative Care-Exam - Constitutional Vitals: Temp Pulse Resp BP Pulse Ox 97.5 F L 81 15 92/62 98 02/19/17 08:30 02/19/17 08:30 02/19/17 08:30 02/19/17 08:30 02/19/17 08:30 General appearance: Present: thin Exam: 46 year old female appearing stated age, biliary stents x2 in place and draining. - Head Head Exam: Present: atraumatic - Eye Eye exam: Present: EOMI, PERRL - ENT ENT exam: Present: mucous membranes moist - Respiratory Respiratory exam: Present: CTAB. Absent: accessory muscle use, respiratory distress, wheezes, tachypnea - Cardiovascular Cardiovascular exam: Present: RRR - GI/Abdominal Exam GI/Abdominal exam: Present: soft, tenderness (RUQ with palpation). Absent: distended, guarding additional comments: Biliary drain in place. - Expanded GI/Abdominal Exam GI/Abdominal exam: Absent: ascites - Additional comments: voiding - Neurological Exam Neurological exam: Present: alert, normal gait, oriented X3, no focal deficits, strengths equal and symetr throughout - Psychiatric Psychiatric exam: Present: flat affect. Absent: agitated, anxious - Skin Skin exam: Present: dry, warm Internal Medicine - CN: Reslt - Labs CBC & Chem 7: 02/19/17 03:56 02/19/17 03:56 Labs: Short CBC 02/19/17 Range/Units 03:56 WBC 21.2 H (4.3-11.1) K/mcL Hgb 8.5 L (11.5-15.4) g/dL Hct 26.5 L (35.3-44.9) % Plt Count 413 H (140-400) K/mcL Neutrophils # 16.7 H (1.6-8.9) K/mcL BMP 02/19/17 03:56 Sodium 137 Potassium 3.7 Chloride 111 H Carbon Dioxide 19 BUN 25 H D Creatinine 1.31 H Glucose 94 Calcium 8.6 Liver Function 02/19/17 Range/Units 03:56 Total Bilirubin 1.8 H (0.2-1.2) mg/dL Direct Bilirubin 1.4 H (0.0-0.5) mg/dL AST 26 (5-34) Units/L ALT 22 (0-55) Units/L Alkaline Phosphatase 242 H (38-126) Units/L Albumin 1.5 L (3.5-5.0) g/dL - ABG Interpretation ABG results: PT/INR, D-dimer PT 18.1 Seconds (9.4-12.1) H 02/19/17 03:56 - Impressions Impressions Gallbladder Ultrasound 02/18/17 09:30 IMPRESSION: 1. Lentiform fluid collection adjacent to the right hepatic lobe may represent a liquified subcapsular hematoma or biloma 2. Distended gallbladder with sludge 3. Common bile duct stent noted 4. 3.4 cm mass in the right hepatic lobe concerning for metastatic disease in this patient with reported breast malignancy D/ / Justice Hall MD / Justice Hall MD Interpreting Provider: Justice Hall MD Consult Discharge Plan - Plan Referrals: Chery Mckinney CNP [Primary Care Provider] - Palliative Quality Palliative Quality: Screen for Code Status: Yes, Screen for Goals of Care: Yes, Screen for Pain: Yes, If Pain Regimen Started, Initiate Bowel Regimen: Yes, Screen for Nausea/Vomitting: Yes
--- NOTE | 2017-02-19 12:11 | Gastroenterology Consult Note ---
<Ranulfo Almanzar - Last Filed: 02/19/17 12:09> Date of Encounter: 02/19/17 Time of Encounter: 10:30 - Assessment and plan (1) Biloma Current Visit: Yes Status: Suspected Assessment and plan: CT A/P which reported suspicion for biloma or fluid collection. Dr. Rosario reviewed images with Dr. Vaughan who completed the PTC on 02/05/2017. Will hold on any invasive procedures at this time. LFTs improving. Continue to monitor hepatic panel. (2) Hyperbilirubinemia Current Visit: Yes Status: Chronic Assessment and plan: Secondary to cholangiocarcinoma. Improving. Continue to monitor her hepatic panel. (3) Cholangiocarcinoma Current Visit: Yes Status: Suspected Assessment and plan: Patient underwent biliary biopsy, biliary dilation, and biliary drainage 2 with IR on 02/05/2017. Pathology reveals atypical ductal cells suspicious for adenocarcinoma. Patient follows with Dr. Balbuena. Continue to monitor her hepatic panel (4) Metastatic breast cancer Current Visit: No Status: Acute (5) Crohns disease Current Visit: No Status: Chronic Assessment and plan: Last treatment with Remicade was Jul or Aug 2016. Qualifiers: Gastrointestinal tract location: unspecified location Digestive disease complication type: without complication Qualified Code(s): K50.90 - Crohn's disease, unspecified, without complications - Time Spent With Patient Total time spent is greater than 50% in coordination of care (as documented) at patient's floor/unit and/or counseling patient: GI History of Present Illness - Data of Consult Patient: known to practice within the last 3 years Consult date: 02/19/17 Requesting Physician: Satya Leo MD - Consult Narrative Reason for consult: biloma History of present illness: Ms. Cruz is a 46 year old female with PMHx of left breast invastive ductal carcinoma, Crohn's disease She is status post ERCP; s/p PTC, Biliary biopsy, Biliary dilation, biliary drainage with IR on 02/05/17. A few days ago she noticed that her drain started leaking at the insertion site, along with pain at the insertion site (moderate to severe pain, sharp, no radiation; worse on movement). Over the past 3 days increasing and generalized weakness, feels like she is going to pass out every time she stands up. She has nausea and occasional vomiting with decreased oral intake. Denies diarrhea, dysuria, hematuria, rectal bleeding, cough, expectoration, shortness of breath, chest pain, fevers or chills. She was evaluated in the ED and was noted to have WBC of 24.6; creatinine 2.7, bilirubin 2.6. She was given ceftriaxone and Flagyl. CT A/P which reported suspicion for biloma. Procedures: ERCP 01/15/2017 with very tight stricture at bifercation concerning for cholangiocarcinoma, dilated and stent placed. Colonoscopy 03/01/2016 inflammation secondary top Crohn's, biopsies showed chronic active ileitis with ulceration and acute and chronic inflammation in rectum and ascending colon. EGD 03/01/2016 mild chronic gastritis, duodenal biopsy showed chronic inflammation. NSAIDs: None Anticoagulation: None Past Med Surg Social Fam HX - Past Medical History Medical history: cancer (cholangiocarcinoma, breast CA ), other (crohns disease , uterine fibroids, anemia) Psychiatric history: no psych history - Past Surgical History Surgical History: , other (multiple biliary stents placed) - Social History Smoking Status: Never smoker Smokeless Tobacco Status: No Alcohol use: occasionally Drug use: none - Family History Mother History Unknown: Yes Adopted: [place]: Madie Cruz Age: 69 Family Member Ethnicity: Non- Living Status: Age at : 69 Cause of : COPD Hx Family Cardiac Disorders: No Hx Family Respiratory Disorders: Yes Hx Family Cancer: Yes (CERVICAL) Hx Family GI Disorders: No Hx Family Genitourinary Disorders: No Hx Family Endocrine Disorder: No Hx Family Musculoskeletal Disorders: No Hx Family Neuromuscular Disorders: No Hx Family Neurologic Disorders: No Hx Family HEENT Disorders: No Hx Family Autoimmune Disorders: No Hx Family Reproductive Disorders: No Hx Family Psychosocial Disorders: No Hx Family Medical Disorders: No - Gastrointestinal Gastrointestinal: Present: as per HPI - Constitutional Constitutional: as per HPI - EENT Eyes: as per HPI Ears: Present: as per HPI Nose, mouth and throat: Present: as per HPI - Cardiovascular Cardiovascular ROS: Present: as per HPI - Respiratory Respiratory IM: Present: as per HPI - Genitourinary Genitourinary: Absent: change in color, Urinary frequency - Neurological ROS Neurological GI: Present: as per HPI - Hematologic/Lymphatic Hematologic/Lymphatic pediatric: Present: as per HPI - Musculoskeletal Musculoskeletal ROS GI: Present: as per HPI - Integumentary Integumentary GI: Present: as per HPI - Psychiatric ROS Psychiatric GI: Present: as per HPI - Endocrine Endocrine IM: Present: as per HPI - Constitutional Vitals: Temp Pulse Resp BP Pulse Ox 97.5 F L 81 15 92/62 98 02/19/17 08:30 02/19/17 08:30 02/19/17 08:30 02/19/17 08:30 02/19/17 08:30 General appearance: Present: cooperative, A&O X 3, no acute distress, answers questions appropriately - Head Head exam: Present: atraumatic, normocephalic - Eye Eye exam: Present: normal appearance, sclera anicteric - ENT ENT exam: Present: mucous membranes dry - Neck Neck exam general surgery: Present: normal inspection, trachea midline - Respiratory Respiratory exam: Present: CTAB. Absent: rales, rhonchi, wheezes - Cardiovascular Cardiovascular exam: Present: RRR, +S1, +S2 - GI/Abdominal GI/Abdominal exam: Present: soft, tenderness (RUQ), no peritoneal signs. Absent : distended, firm, guarding Additional comments: 2 biliary drains with miya drainage noted. - Rectal Rectal exam: Present: deferred - Extremities Exam Extremities exam: Present: warm - Neurological Exam Neurological exam: Present: no focal deficits - Psychiatric Psychiatric exam: Present: normal affect, normal mood - Skin Skin exam: Present: dry, intact, normal color, warm Results - Labs CBC & Chem 7: 02/19/17 03:56 02/19/17 03:56 Labs: Last Result Calcium 8.6 mg/dL (8.6-10.8) 02/19/17 03:56 Entire Visit Hgb 8.5 g/dL (11.5-15.4) L 02/19/17 03:56 Hct 26.5 % (35.3-44.9) L 02/19/17 03:56 PT 18.1 Seconds (9.4-12.1) H 02/19/17 03:56 Total Bilirubin 1.8 mg/dL (0.2-1.2) H 02/19/17 03:56 AST 26 Units/L (5-34) 02/19/17 03:56 ALT 22 Units/L (0-55) 02/19/17 03:56 Amylase 31 Units/L (25-125) 02/17/17 17:19 Lipase 24 Units/L (8-78) 02/17/17 17:19 - ABG ABG results: PT/INR, D-dimer PT 18.1 Seconds (9.4-12.1) H 02/19/17 03:56 Consult Discharge Plan - Plan Referrals: Chery Mckinney, [employer] OPERATOR [Primary Care Provider] - <MarleneRoxieMonse - Last Filed: 02/19/17 17:02> Date of Encounter: 02/19/17 Time of Encounter: 12:00 - Time Spent With Patient Total time spent is greater than 50% in coordination of care (as documented) at patient's floor/unit and/or counseling patient: GI History of Present Illness - Data of Consult Requesting Physician: Satya Leo MD - Consult Narrative History of present illness: Ms. Cruz is a 46 year old female - Constitutional Vitals: Temp Pulse Resp BP Pulse Ox 98.1 F 80 15 92/58 98 02/19/17 12:24 02/19/17 12:24 02/19/17 08:30 02/19/17 12:24 02/19/17 12:24 Results - Labs CBC & Chem 7: 02/19/17 03:56 02/19/17 03:56 Labs: Last Result Calcium 8.6 mg/dL (8.6-10.8) 02/19/17 03:56 Entire Visit Hgb 8.5 g/dL (11.5-15.4) L 02/19/17 03:56 Hct 26.5 % (35.3-44.9) L 02/19/17 03:56 PT 18.1 Seconds (9.4-12.1) H 02/19/17 03:56 Total Bilirubin 1.8 mg/dL (0.2-1.2) H 02/19/17 03:56 AST 26 Units/L (5-34) 02/19/17 03:56 ALT 22 Units/L (0-55) 02/19/17 03:56 Amylase 31 Units/L (25-125) 02/17/17 17:19 Lipase 24 Units/L (8-78) 02/17/17 17:19 - ABG ABG results: PT/INR, D-dimer PT 18.1 Seconds (9.4-12.1) H 02/19/17 03:56 - Attending Attestation I examined this patient and my medical decision-making was reviewed with the CHIEF SCIENTIST/PA/Advanced Practice Nurse/Resident Physician. I agree with the documented findings, disposition and treatment plan as described except to the extent set forth below. management of liver biloma vs focal bleeding per IR
--- NOTE | 2017-02-19 13:15 | Internal Med Progress Note ---
<Kurt Pompa - Last Filed: 02/19/17 15:07> Date of Encounter: 02/19/17 Time of Encounter: 09:20 - Assessment and plan (1) Leukocytosis Current Visit: Yes Status: Acute Assessment and plan: -Patient remains afebrile. -Patient's WBC count has decreased today to 21.2 -The etiology of this leukocytosis is still in question. -It could be secondary to her UTI. However she is asymtpomatic. This could represent asymptomatic bacteruria. -Urine culutues were positive for Klebsiella pnuemoniae, sensitive to Zosyn - There remains concern for possible infection/ abscess with complex fluid collection and reports of purulent drainage from site. Drainage from site today was malodorous - Blood cultures to date were negative x2 -Discussed case today with Dr. Vaughan and the concerns for possible intrabdominal infection. Will make NPO at midnight for possible drainage with IR tomorrow. Appreciate IR and GI input. Qualifiers: Leukocytosis type: unspecified Qualified Code(s): D72.829 - Elevated white blood cell count, unspecified (2) Urinary tract infection Current Visit: Yes Status: Acute Assessment and plan: -Patient appears to have a urinary tract infection with many urine bacteria noted on UA and small urine leukocyte esterase with an elevated urine specific gravity. However she is asymptomatic and this could represent asymptomatic bacteruria. -Patient's urine culture grew > 100,000 gram-negative rods. - Culture was positive for Klebsiella pnuemonia, sensitive to Zosyn - We will keep her on Zosyn for possible intraabdominal infection. (3) ISIDORO (acute kidney injury) Current Visit: Yes Status: Acute Assessment and plan: -Patient presented with an elevated creatinine at 2.70, and elevated BUN at 61 and estimated GFR 19. Dehydrated on initial presentation. -Continued improvement with the following labs this morning: Creatinine: 1.31 BUN: 25 GFR: 44 -We will continue LR at 100mls/hr at this time. -Avoid nephrotoxins - Continue to adjust medications as needed. continue to asses volume status. (4) Hyperbilirubinemia Current Visit: Yes Status: Chronic Assessment and plan: -Patient had an elevated total bilirubin at 2.6 with a direct bilirubin of 2.1 at presentation. -Continued improvement with a total bilirubin at 1.8 and direct bilirubin at 1.4 (5) Obstructive jaundice Current Visit: Yes Status: Chronic Assessment and plan: -Patient underwent biliary biopsy, biliary dilation, and biliary drainage 2 with interventional radiology on 02/05/2017. Patient presented with an elevated total bilirubin at 2.6 with an elevated direct bilirubin at 2.1. -Continued improvement with a total bilirubin at 1.8 and direct bilirubin at 1.4 - Alk phos continues to improve at a level of 242 today -Drains appear to be draining well on exam. Additionally Total bilirubin has been trending down since placement of the billiary drains. - Gallbladder appears distended on CT. - Gallbladder U/S reveal the followin) Lentiform fluid collection adjacent tot he right hepatic lobe may represent a liquified subcapsular hematoma or biloma 2) Distended gallbladder with sludge 3) Common bile duct stent noted 4) 3.4 cm mass in the right hepatic lobe concerning for metastatic disease in the this patient with breast malignancy and primary cholangiocarcinoma. (6) Breast cancer Current Visit: Yes Status: Acute Assessment and plan: -Patient currently has stage II invasive ductal carcinoma currently being followed at the [facility] with Dr. Balbuena. 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 -Was apparently supposed to undergo her first round of chemotherapy yesterday. -Will hold off on any chemotherapy at this time as she is acutely ill. Will have her see Dr. Carpenter after Discharge for planning on when to initiate chemotherapy. Qualifiers: Breast location: unspecified site of breast Patient sex: female Laterality: unspecified laterality Qualified Code(s): C50.919 - Malignant neoplasm of unspecified site of unspecified female breast (7) Cholangiocarcinoma Current Visit: Yes Status: Suspected Assessment and plan: -Patient underwent biliary biopsy, biliary dilation, and biliary drainage 2 with interventional radiology on 02/05/2017. -Pathology reveals atypical ductal cells suspicious for adenocarcinoma. -Is currently under the care of Dr. Carpenter at the [facility] for this diagnosis and her breast and GI cancer diagnosis. (8) Biloma Current Visit: Yes Status: Suspected Assessment and plan: -On abdominal CT scan performed on 02/17/2017, there is a new 2.6 x 4.6 cm region within the peripheral aspect of the liver near the junction of the right and left hepatic lobes which is slightly above water attenuation. -These findings may represent a mildly complex fluid collection or the Biloma. -We will continue to monitor hepatic panel. Appreciate GIs input. - Discussed case today with Dr. Vaughan and the concerns for possible infection. Will make NPO at midnight for possible drainage and culture with IR tomorrow. Thank you for your assistance. (9) Abdominal pain Current Visit: No Status: Acute Assessment and plan: -Patient does admit to right sided abdominal pain at the location of the percutaneous biliary drain. - As noted in the HPI, patient states that the MS Contin helps her pain, but still admits to spikes of breakthrough pain. -This could be secondary to her primary cholangiocarcinoma, biloma/liquefied subcapsular hematoma as noted above. - Palliative was consulted for their input regarding pain medications. - Palliative recommends the following: - continuation with MS contin 15mg q8hr for long acting coverage - D/C hydromorphone - Broaden dose of morphine to include 2mg IV for moderate pain rated 4-7 and 4mg for severe pain rated 8-10. - Will attempt to control pain with morphine only as this will be her home medication upon discharge. - Anticipate transition to oral medications tomorrow. - Thank you for your assistance. Qualifiers: Abdominal location: generalized Qualified Code(s): R10.84 - Generalized abdominal pain (10) Anemia Current Visit: Yes Status: Chronic Assessment and plan: - acute on Chronic -Patient appears to have a normochromic normocytic anemia since December 2016. -Hematinics from December 2016 which show a normal serum iron level, normal percent saturation and an elevated ferritin at 835 -This appears to be a normocytic anemia in the setting of recurrent breast cancer and a potential diagnosis of primary cholangiocarcinoma. - Patient continues to have a downtrending hemoglobin and hematocrit. - Labs today Hb: 8.5 and Hct: 26.5 -asymptomatic - This could be dilutional as she has received a large amount of IV fluids. There is concern for possible hematoma of the liver as there is a fluid collection. Currently she is asymptomatic and clinically is not actively hemoorhaging. We will correct her INR to prevent further bleeding if in fact this is a Hematoma. Additionally she will have a procedure in the AM as well. We will recheck INR in the AM and give additional Vitamin K if still > 1.5. - Will continue to monitor Qualifiers: Anemia type: unspecified type Qualified Code(s): D64.9 - Anemia, unspecified (11) Hypoalbuminemia Current Visit: Yes Status: Acute Assessment and plan: -Patient remains hypoalbuminemic at 1.5 today -This is in the setting of a potential diagnosis of primary cholangiocarcinoma. -Additionally the patient admits to a decreased oral intake secondary to her symptoms over the past week. -Patient also has history of chrons but dose not appear to be in a flair. However she likely has baseline malnutrition. Check prealbumin. Consult General Manager Food. (12) Thrombocytosis Current Visit: Yes Status: Acute Assessment and plan: -Patient continues to have a thrombocytosis at 413 today, down from 611 yesterday. -I still believe this to be an acute phase reaction in the setting of a urinary tract infection, possible intraabdominal infection?, recent breast cancer diagnosis and potential diagnosis of primary cholangiocarcinoma. - We will continue to monitor (13) Crohns disease Current Visit: No Status: Chronic Assessment and plan: -Patient does have a history of Crohn's disease. - Was previously on Remicade. - Not currently in a flair. - Having 1 lose bowel movements per day. - Will hold Remincade as she is acutely ill. - GI following. Thank you for your assistance. Qualifiers: Gastrointestinal tract location: unspecified location Digestive disease complication type: without complication Qualified Code(s): K50.90 - Crohn's disease, unspecified, without complications (14) Neutrophilia Current Visit: Yes Status: Acute Assessment and plan: - Downtrending today at 16.7 compared to 22.6 yesterday. - In the setting of primary breast cancer, primary cholangiocarnioma, UTI and ? possible intrabdominal infection. (15) Metabolic acidosis Current Visit: Yes Status: Acute Assessment and plan: - Seems to have resolved with CO2 at 19. - Will continue LR at 100mls/hr (16) Elevated alkaline phosphatase level Current Visit: Yes Status: Acute Assessment and plan: - Downtrending at 242 today, compared to 323 yesterday - In the setting of obstructive jaundice secondary to primary cholagniocarcinoma. - Will continue to monitor. (17) Malignant neoplasms of independent (primary) multiple sites Current Visit: Yes Status: Acute (18) Coagulopathy Current Visit: Yes Status: Acute Assessment and plan: - This is most likely secondary to a Vitamin K deficiency secondary to her liver pathology and subsequent obstructive jaundice. - replace vitamin K. Recheck INR in AM. (19) DVT prophylaxis Current Visit: No Status: Acute Assessment and plan: -Patient currently has intermittent pneumatic devices ordered. -No systemic anticoagulation was started this morning in preparation for potential procedures tomorrow.Will make NPO tonight at midnight. - Subjective Interval history: Patient seen and examined at bedside this morning. Patient states that she is in a "horrible situation" this morning in regards to her pain medication. She states that the long acting pain medication (MS contin) works well, but she does admit to "spikes" of pain that occur and are really only controlled with hydromorphone. Overall though, she states that she feels better and did not feel as weak last night when nursing staff helped her get up and go to the bathroom. She denies any nausea, vomitting, fever, chills, chest pain, or dyspnea - Constitutional Vitals: Temp Pulse Resp BP Pulse Ox 98.1 F 80 15 92/58 98 02/19/17 12:24 02/19/17 12:24 02/19/17 08:30 02/19/17 12:24 02/19/17 12:24 General appearance: Present: cachectic, mild distress, A&O X 3 - Head Head exam: Present: atraumatic, normal inspection, normocephalic - ENT ENT exam: Present: normal exam - Respiratory Respiratory exam: Present: CTAB. Absent: accessory muscle use, rales, rhonchi, stridor, wheezes - Cardiovascular Cardiovascular exam: Present: RRR, +S1, +S2, systolic murmur (2/6, most prominent over the tricuspid area). Absent: bradycardia, diastolic murmur, JVD , rubs, tachycardia - GI/Abdominal GI/Abdominal exam: Present: normal bowel sounds, soft. Absent: distended, firm , guarding Additional comments: Percutanous biliary drains noted on the right side of her abdomen. Fluid in the bag appears normal with an miya color. Patient does admit to some tenderness at the drainage site upon palpation. This morning there was malodorous drainage from the drainage site, concerning for possible infection. Internal Medicine: Result - Labs CBC & Chem 7: 02/19/17 03:56 02/19/17 03:56 Labs: Short CBC 02/19/17 Range/Units 03:56 WBC 21.2 H (4.3-11.1) K/mcL Hgb 8.5 L (11.5-15.4) g/dL Hct 26.5 L (35.3-44.9) % Plt Count 413 H (140-400) K/mcL Neutrophils # 16.7 H (1.6-8.9) K/mcL BMP 02/19/17 03:56 Sodium 137 Potassium 3.7 Chloride 111 H Carbon Dioxide 19 BUN 25 H D Creatinine 1.31 H Glucose 94 Calcium 8.6 Liver Function 02/19/17 Range/Units 03:56 Total Bilirubin 1.8 H (0.2-1.2) mg/dL Direct Bilirubin 1.4 H (0.0-0.5) mg/dL AST 26 (5-34) Units/L ALT 22 (0-55) Units/L Alkaline Phosphatase 242 H (38-126) Units/L Albumin 1.5 L (3.5-5.0) g/dL - ABG Interpretation ABG results: PT/INR, D-dimer PT 18.1 Seconds (9.4-12.1) H 02/19/17 03:56 Consult Discharge Plan - Plan Referrals: Chery Mckinney, [employer] [Primary Care Provider] - <Satya Leo - Last Filed: 02/19/17 17:32> Date of Encounter: 02/19/17 - Constitutional Vitals: Temp Pulse Resp BP Pulse Ox 98.1 F 80 15 92/58 98 02/19/17 12:24 02/19/17 12:24 02/19/17 08:30 02/19/17 12:24 02/19/17 12:24 Internal Medicine: Result - Labs CBC & Chem 7: 02/19/17 03:56 02/19/17 03:56 Labs: Short CBC 02/19/17 Range/Units 03:56 WBC 21.2 H (4.3-11.1) K/mcL Hgb 8.5 L (11.5-15.4) g/dL Hct 26.5 L (35.3-44.9) % Plt Count 413 H (140-400) K/mcL Neutrophils # 16.7 H (1.6-8.9) K/mcL BMP 02/19/17 03:56 Sodium 137 Potassium 3.7 Chloride 111 H Carbon Dioxide 19 BUN 25 H D Creatinine 1.31 H Glucose 94 Calcium 8.6 Liver Function 02/19/17 Range/Units 03:56 Total Bilirubin 1.8 H (0.2-1.2) mg/dL Direct Bilirubin 1.4 H (0.0-0.5) mg/dL AST 26 (5-34) Units/L ALT 22 (0-55) Units/L Alkaline Phosphatase 242 H (38-126) Units/L Albumin 1.5 L (3.5-5.0) g/dL - ABG Interpretation ABG results: PT/INR, D-dimer PT 18.1 Seconds (9.4-12.1) H 02/19/17 03:56 - Attending Attestation I examined this patient and my medical decision-making was reviewed with the Resident Physician, Dr Mathis. I agree with the documented findings, disposition and treatment plan as described except to the extent set forth below. Patient reports severe abdominal pain. On examination she appeared in moderate distress due to pain. Heart is regular S1-S2. Abdomen is diffusely tender to palpation no rebound tenderness. Her dressing over the right upper quadrant shows some infiltration with bile leaking around the drain tube. Plan: Continue with IV antibiotic. Discussed plan with GI. We will consult interventional radiology to reassess for possible need for draining her subhepatic fluid collection. Monitor clinically. Follow-up white blood cell count in the morning. Follow-up cultures
[2017-02-20] MEDS: Piperacillin/Tazobactam 3.375 GM in D5% in Water (Mini-Bag+) 100 ML IVPB SCH ×3 (00:51→15:46)
[2017-02-20] MEDS: *HR* Morphine 2 MG/ML SYRINGE IVP PRN ×6 (02:13→23:03)
[2017-02-20 04:23] LABS: Basophils # 0.1 K/mcL (0.0-0.2); Basophils % 0.3 %; Eosinophils # 0.4 K/mcL (0.0-0.6); Eosinophils % 1.7 %; Hematocrit 27.3 % (35.3-44.9); Hemoglobin 8.9 g/dL (11.5-15.4); Immature Granulocytes % 2.2 % (0-4); Lymphocytes # 1.7 K/mcL (0.6-4.6); Lymphocytes % 7.3 %; Mean Corpuscular HGB Conc 32.6 g/dL (31.6-35.5); Mean Corpuscular Hemoglobin 30.1 pg (28.0-33.3); Mean Corpuscular Volume 92.2 fL (83.0-100.0); Mean Platelet Volume 9.8 fL (9.4-12.4); Monocytes # 1.3 K/mcL (0.0-1.3); Monocytes % 5.4 %; Neutrophils # 19.8 K/mcL (1.6-8.9); Platelet Count 430 K/mcL (140-400); Red Blood Count 2.96 M/mcL (3.82-4.97); Red Cell Distribution Width 14.1 % (11.5-14.5); Segmented Neutrophils % 83.1 %
[2017-02-20 04:25] LABS: INR 1.6; Prothrombin Time 17.6 Seconds (9.4-12.1)
[2017-02-20 04:54] LABS: Alanine Aminotransferase 21 Units/L (0-55); Albumin/Globulin Ratio 0.3 (1.1-2.2); Alkaline Phosphatase 215 Units/L (38-126); Aspartate Amino Transferase 20 Units/L (5-34); BUN/Creatinine Ratio 12 (6-26); Bilirubin,Total 1.9 mg/dL (0.2-1.2); Calcium 8.9 mg/dL (8.6-10.8); Carbon Dioxide 23 mEq/L (19-29); Chloride 108 mEq/L (98-109); Globulin 4.5 g/dL (2.4-3.5); Glucose 91 mg/dL (70-99); Magnesium 1.2 mg/dL (1.6-2.6); Osmolality,Calculated 285 (280-300); Potassium 3.6 mEq/L (3.5-4.5); Sodium 138 mEq/L (136-145); eGFR For African Americans > 60 (> 60); eGFR For Non-African Americans > 60 (> 60)
[2017-02-20 04:55] LABS: Albumin 1.5 g/dL (3.5-5.0); Blood Urea Nitrogen 12 mg/dL (7-20)
[2017-02-20] MEDS: *HR* Morphine Sulfate SR (12 HR) 15 MG TABLET.ER PO SCH ×3 (05:01→21:17)
[2017-02-20] MEDS ORDERED: *HR* Phytonadione 10 MG/ML AMPUL SQ ONE (08:11)
[2017-02-20] MEDS ORDERED: Magnesium Sulfate 2 GM in D5% in Water 100 ML IVPB ONE (08:12)
--- NOTE | 2017-02-20 09:16 | Palliative Progress Note ---
<Luis M Jackman - Last Filed: 02/20/17 09:14> Date of Encounter: 02/20/17 Time of Encounter: 09:14 - Assessment and plan (1) Cancer associated pain Current Visit: Yes Status: Acute Assessment and plan: Her pain has been about the same as yesterday when her pain regimen was changed She is scheduled to get probable liver abscess drainage today, will keep pain regimen the same for now Per RN, she has been requesting her IV PRN pain medication twice this morning so far (2) Malignant neoplasms of independent (primary) multiple sites Current Visit: Yes Status: Acute Assessment and plan: Patient sees Dr. Carpenter in [facility] as outpatient GI has been consulted for her cholangiocarcinoma - Time Spent With Patient Total time spent is greater than 50% in coordination of care (as documented) at patient's floor/unit and/or counseling patient: - Subjective Interval history: Pt seen and examined. She states her right abdominal pain is about the same as yesterday when her pain regimen was changed, and it is made worse with movement. She did have a small meal last night and did have a bowel movement without diarrhea yesterday. Denies chest pain, shortness of breath, vomiting but does have mild nausea. - Constitutional Vitals: Abnormal lab results WBC 23.8 K/mcL (4.3-11.1) H 02/20/17 04:07 RBC 2.96 M/mcL (3.82-4.97) L 02/20/17 04:07 Hgb 8.9 g/dL (11.5-15.4) L 02/20/17 04:07 Hct 27.3 % (35.3-44.9) L 02/20/17 04:07 Plt Count 430 K/mcL (140-400) H 02/20/17 04:07 Neutrophils # 19.8 K/mcL (1.6-8.9) H 02/20/17 04:07 Platelet Estimate Increased (Normal) H 02/18/17 03:20 Hypochromasia Present (Not Present) A 02/18/17 03:20 PT 17.6 Seconds (9.4-12.1) H 02/20/17 04:07 Magnesium 1.2 mg/dL (1.6-2.6) L 02/20/17 04:07 Total Bilirubin 1.9 mg/dL (0.2-1.2) H 02/20/17 04:07 Direct Bilirubin 1.4 mg/dL (0.0-0.5) H 02/19/17 03:56 Alkaline Phosphatase 215 Units/L (38-126) H 02/20/17 04:07 Albumin 1.5 g/dL (3.5-5.0) L 02/20/17 04:07 Globulin 4.5 g/dL (2.4-3.5) H 02/20/17 04:07 Albumin/Globulin Ratio 0.3 (1.1-2.2) L 02/20/17 04:07 Prealbumin 9.0 mg/dL (16.0-38.0) L 02/20/17 04:07 Urine Clarity Slightly Cloudy (Clear) A 02/17/17 20:05 Ur Specific [place] >= 1.030 (1.010-1.025) H 02/17/17 20:05 Urine Protein 100 mg/dL (Neg-Trace) H 02/17/17 20:05 Urine Blood Moderate (Negative) H 02/17/17 20:05 Urine Bilirubin Small (Negative) H 02/17/17 20:05 Ur Leukocyte Esterase Small (Negative) H 02/17/17 20:05 Urine Microscopic WBC 3-5 per hpf (0-3) H 02/17/17 20:05 Urine Bacteria Many per hpf (None-Few) H 02/17/17 20:05 Ur Culture Indicated? YES (NO) A 02/17/17 20:05 General appearance: Present: cooperative, no acute distress - Head Head exam: Present: atraumatic, normal inspection, normocephalic - Eye Eye exam: Present: EOMI, PERRL, sclera anicteric - Respiratory Respiratory exam: Present: CTAB - Cardiovascular Cardiovascular exam: Present: RRR, +S1, +S2, systolic murmur - GI/Abdominal GI/Abdominal exam: Present: normal bowel sounds, soft, tenderness (RUQ) Additional comments: percutaneous biliary drainage in place; site looks CDI - Extremities Exam Extremities exam: Absent: pedal edema, tenderness - Neurological Exam Neurological exam: Present: alert, CN II-XII intact, no focal deficits. Absent : facial droop, speech deficit Palliative Quality Palliative Quality: Screen for Code Status: Yes, Screen for Goals of Care: Yes, Screen for Pain: Yes, If Pain Regimen Started, Initiate Bowel Regimen: Yes, Screen for Nausea/Vomitting: Yes - Labs CBC & Chem 7: 02/20/17 04:07 02/20/17 04:07 Labs: Laboratory Results - last 24 hr 02/20/17 02/20/17 02/20/17 04:07 04:07 04:07 WBC 23.8 H RBC 2.96 L Hgb 8.9 L Hct 27.3 L MCV 92.2 MCH 30.1 MCHC 32.6 RDW 14.1 Plt Count 430 H MPV 9.8 Immature Gran % 2.2 Seg Neutrophils % 83.1 Lymphocytes % 7.3 Monocytes % 5.4 Eosinophils % 1.7 Basophils % 0.3 Neutrophils # 19.8 H Lymphocytes # 1.7 Monocytes # 1.3 Eosinophils # 0.4 Basophils # 0.1 PT 17.6 H INR 1.6 Sodium 138 Potassium 3.6 Chloride 108 Carbon Dioxide 23 BUN 12 D Creatinine 0.98 Est GFR ( Amer) > 60 Est GFR (Non-Af Amer) > 60 BUN/Creatinine Ratio 12 Glucose 91 Calculated Osmolality 285 Calcium 8.9 Magnesium 1.2 L Total Bilirubin 1.9 H AST 20 ALT 21 Alkaline Phosphatase 215 H Serum Total Protein 6.0 Albumin 1.5 L Globulin 4.5 H Albumin/Globulin Ratio 0.3 L Prealbumin 02/20/17 04:07 WBC RBC Hgb Hct MCV MCH MCHC RDW Plt Count MPV Immature Gran % Seg Neutrophils % Lymphocytes % Monocytes % Eosinophils % Basophils % Neutrophils # Lymphocytes # Monocytes # Eosinophils # Basophils # PT INR Sodium Potassium Chloride Carbon Dioxide BUN Creatinine Est GFR ( Amer) Est GFR (Non-Af Amer) BUN/Creatinine Ratio Glucose Calculated Osmolality Calcium Magnesium Total Bilirubin AST ALT Alkaline Phosphatase Serum Total Protein Albumin Globulin Albumin/Globulin Ratio Prealbumin 9.0 L - ABG Interpretation ABG results: PT/INR, D-dimer PT 17.6 Seconds (9.4-12.1) H 02/20/17 04:07 Consult Discharge Plan - Plan Referrals: Chery Mckinney, [employer]GER [Primary Care Provider] - <Genaro Ortiz - Last Filed: 02/20/17 09:51> Date of Encounter: 02/20/17 - Time Spent With Patient Total time spent is greater than 50% in coordination of care (as documented) at patient's floor/unit and/or counseling patient: - Constitutional Vitals: Abnormal lab results WBC 23.8 K/mcL (4.3-11.1) H 02/20/17 04:07 RBC 2.96 M/mcL (3.82-4.97) L 02/20/17 04:07 Hgb 8.9 g/dL (11.5-15.4) L 02/20/17 04:07 Hct 27.3 % (35.3-44.9) L 02/20/17 04:07 Plt Count 430 K/mcL (140-400) H 02/20/17 04:07 Neutrophils # 19.8 K/mcL (1.6-8.9) H 02/20/17 04:07 Platelet Estimate Increased (Normal) H 02/18/17 03:20 Hypochromasia Present (Not Present) A 02/18/17 03:20 PT 17.6 Seconds (9.4-12.1) H 02/20/17 04:07 Magnesium 1.2 mg/dL (1.6-2.6) L 02/20/17 04:07 Total Bilirubin 1.9 mg/dL (0.2-1.2) H 02/20/17 04:07 Direct Bilirubin 1.4 mg/dL (0.0-0.5) H 02/19/17 03:56 Alkaline Phosphatase 215 Units/L (38-126) H 02/20/17 04:07 Albumin 1.5 g/dL (3.5-5.0) L 02/20/17 04:07 Globulin 4.5 g/dL (2.4-3.5) H 02/20/17 04:07 Albumin/Globulin Ratio 0.3 (1.1-2.2) L 02/20/17 04:07 Prealbumin 9.0 mg/dL (16.0-38.0) L 02/20/17 04:07 Urine Clarity Slightly Cloudy (Clear) A 02/17/17 20:05 Ur Specific [place] >= 1.030 (1.010-1.025) H 02/17/17 20:05 Urine Protein 100 mg/dL (Neg-Trace) H 02/17/17 20:05 Urine Blood Moderate (Negative) H 02/17/17 20:05 Urine Bilirubin Small (Negative) H 02/17/17 20:05 Ur Leukocyte Esterase Small (Negative) H 02/17/17 20:05 Urine Microscopic WBC 3-5 per hpf (0-3) H 02/17/17 20:05 Urine Bacteria Many per hpf (None-Few) H 02/17/17 20:05 Ur Culture Indicated? YES (NO) A 02/17/17 20:05 - Attending Attestation I examined this patient and my medical decision-making was reviewed with the Resident Physician. I agree with the documented findings, disposition and treatment plan as described except to the extent set forth below. - Labs CBC & Chem 7: 02/20/17 04:07 02/20/17 04:07 Labs: Laboratory Results - last 24 hr 02/20/17 02/20/17 02/20/17 04:07 04:07 04:07 WBC 23.8 H RBC 2.96 L Hgb 8.9 L Hct 27.3 L MCV 92.2 MCH 30.1 MCHC 32.6 RDW 14.1 Plt Count 430 H MPV 9.8 Immature Gran % 2.2 Seg Neutrophils % 83.1 Lymphocytes % 7.3 Monocytes % 5.4 Eosinophils % 1.7 Basophils % 0.3 Neutrophils # 19.8 H Lymphocytes # 1.7 Monocytes # 1.3 Eosinophils # 0.4 Basophils # 0.1 PT 17.6 H INR 1.6 Sodium 138 Potassium 3.6 Chloride 108 Carbon Dioxide 23 BUN 12 D Creatinine 0.98 Est GFR ( Amer) > 60 Est GFR (Non-Af Amer) > 60 BUN/Creatinine Ratio 12 Glucose 91 Calculated Osmolality 285 Calcium 8.9 Magnesium 1.2 L Total Bilirubin 1.9 H AST 20 ALT 21 Alkaline Phosphatase 215 H Serum Total Protein 6.0 Albumin 1.5 L Globulin 4.5 H Albumin/Globulin Ratio 0.3 L Prealbumin 02/20/17 04:07 WBC RBC Hgb Hct MCV MCH MCHC RDW Plt Count MPV Immature Gran % Seg Neutrophils % Lymphocytes % Monocytes % Eosinophils % Basophils % Neutrophils # Lymphocytes # Monocytes # Eosinophils # Basophils # PT INR Sodium Potassium Chloride Carbon Dioxide BUN Creatinine Est GFR ( Amer) Est GFR (Non-Af Amer) BUN/Creatinine Ratio Glucose Calculated Osmolality Calcium Magnesium Total Bilirubin AST ALT Alkaline Phosphatase Serum Total Protein Albumin Globulin Albumin/Globulin Ratio Prealbumin 9.0 L - ABG Interpretation ABG results: PT/INR, D-dimer PT 17.6 Seconds (9.4-12.1) H 02/20/17 04:07
[2017-02-20] MEDS: Ondansetron 4 MG/2 ML VIAL IVP PRN (10:19)
[2017-02-20] MEDS ORDERED: *HR* FentaNYL (PF) 100 MCG/2 ML VIAL IV PRN (14:30)
[2017-02-20] MEDS ORDERED: *HR* Midazolam HCl 2 MG/2 ML VIAL IVP PRN (14:30)
--- NOTE | 2017-02-20 14:31 | Pre-Sedation Evaluation ---
Pre-sedation evaluation - Pre-sedation checklist Date of procedure: 02/20/17 Procedure: abcess drain Recent Vitals: Last Vital Signs Temp 97.6 F 02/20/17 11:55 Pulse 79 02/20/17 14:26 Resp 20 02/20/17 14:26 BP 93/52 02/20/17 14:26 Pulse Ox 97 02/20/17 14:26 H&P (including ROS) documented in medical record: Yes Previous reaction to sedatives/anesthetics: No Dietary Status: NPO after Midnight Airway Assessment: Patient can open mouth completely, TMJ function normal, Micrognathia (under-bite, receding chin) absent, Neck with adequate range of motion Dentition: full dentition Possible difficult airway: No ASA Classification *see protocol: CLASS II-Mild systemic disease Plan of Care: Pt appropriate candidate for procedure/moderate/conscious sedation , Risks/benefits of procedure/sedation discussed w/ patient/family
[2017-02-20] MEDS ORDERED: 0.9 % Sodium Chloride 500 ML ONE (14:41)
--- NOTE | 2017-02-20 15:26 | IR Procedure Note ---
Date of procedure: 02/20/17 Consent Obtained: Written consent Timeout: Correct patient and procedure verified, Correct site verified, Time out performed, Skin prep completed Indications: abscess Procedure Performed: drainage Site/Technique: rt liver lobe Results/Findings: removed 30cc pus from around right lobe of liver. Estimated blood loss (cc): 0 Complications: None; Tolerated procedure well Post Procedure Treatment Plan: suction drainage
--- NOTE | 2017-02-20 15:46 | Internal Med Progress Note ---
<Kurt Pompa - Last Filed: 02/20/17 15:41> Date of Encounter: 02/20/17 Time of Encounter: 11:45 - Assessment and plan (1) Leukocytosis Current Visit: Yes Status: Acute Assessment and plan: -Patient remains afebrile. -Patient's WBC count has increased today to 23.8 -The etiology of this leukocytosis is still in question. However I strongly suspect infectious. -I doubt that this is from a UTI. She is asymtpomatic. This likely represents asymptomatic bacteruria. -Urine cultures were positive for Klebsiella pneumonia, sensitive to Zosyn - Patient was kept NPO at midnight. INR 1.6 this AM. I did give her some SQ Vitamin K this AM. She will have a drainage of the fluid collection today. - Qualifiers: Leukocytosis type: unspecified Qualified Code(s): D72.829 - Elevated white blood cell count, unspecified (2) ISIDORO (acute kidney injury) Current Visit: Yes Status: Acute Assessment and plan: -prerenal from dehydration. resolved. (3) Hyperbilirubinemia Current Visit: Yes Status: Chronic Assessment and plan: trending down. Near normal range today. (4) Obstructive jaundice Current Visit: Yes Status: Chronic Assessment and plan: -trending down. Near normal range today. Drains are draining well. 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 with Dr. Balbuena. 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 -Was apparently supposed to undergo her first round of chemotherapy yesterday. -Will hold off on any chemotherapy at this time as she is acutely ill. Will have her see Dr. Carpenter after Discharge for planning on when to initiate chemotherapy. 02/20/19 Discused with Pharmacy. Patient had actually started on Tamoxifen previously. We will continue. Qualifiers: Breast location: unspecified site of breast Patient sex: female Laterality: unspecified laterality Qualified Code(s): C50.919 - Malignant neoplasm of unspecified site of unspecified female breast (6) Cholangiocarcinoma Current Visit: Yes Status: Suspected Assessment and plan: -Patient underwent biliary biopsy, biliary dilation, and biliary drainage 2 with interventional radiology on 02/05/2017. -Pathology reveals atypical ductal cells suspicious for adenocarcinoma. -Is currently under the care of Dr. Carpenter at the [facility] for this diagnosis and her breast and GI cancer diagnosis. (7) Biloma Current Visit: Yes Status: Suspected Assessment and plan: -On abdominal CT scan performed on 02/17/2017, there is a new 2.6 x 4.6 cm region within the peripheral aspect of the liver near the junction of the right and left hepatic lobes which is slightly above water attenuation. -These findings may represent a mildly complex fluid collection or the Biloma. -We will continue to monitor hepatic panel. Appreciate GIs input. - Discussed case today with Dr. Vaughan and the concerns for possible infection. Will make NPO at midnight for possible drainage and culture with IR tomorrow. Thank you for your assistance. She will have IR drainage of fluid collection today. I suspect this is infections. continue Zosyn. (8) Abdominal pain Current Visit: No Status: Acute Assessment and plan: better controlled today. Likely from a combination of cancer, drains, and fluid collection may be stretching capsule. Appreciate input from palliative. I suspect she will have some relief with drainage of this fluid. Qualifiers: Abdominal location: generalized Qualified Code(s): R10.84 - Generalized abdominal pain (9) Anemia Current Visit: Yes Status: Chronic Assessment and plan: -stable. Qualifiers: Anemia type: unspecified type Qualified Code(s): D64.9 - Anemia, unspecified (10) Hypoalbuminemia Current Visit: Yes Status: Acute Assessment and plan: pre albumin 9.0. Appreciate Avionics Electronics Technician recommendations. Continue magic cup TID and resume diet when Able. (11) Thrombocytosis Current Visit: Yes Status: Acute Assessment and plan: likley reactive Trending down. (12) Crohns disease Current Visit: No Status: Chronic Assessment and plan: -Patient does have a history of Crohn's disease. - Was previously on Remicade. - Not currently in a flair. - Will hold Remincade as she is acutely ill. - GI following. Thank you for your assistance. Qualifiers: Gastrointestinal tract location: unspecified location Digestive disease complication type: without complication Qualified Code(s): K50.90 - Crohn's disease, unspecified, without complications (13) Neutrophilia Current Visit: Yes Status: Acute (14) Metabolic acidosis Current Visit: Yes Status: Resolved Assessment and plan: - Seems to have resolved with CO2 at 19. - Will continue LR at 100mls/hr (15) Elevated alkaline phosphatase level Current Visit: Yes Status: Acute Assessment and plan: - Downtrending at 242 today, compared to 323 yesterday - In the setting of obstructive jaundice secondary to primary cholagniocarcinoma. - Will continue to monitor. (16) Malignant neoplasms of independent (primary) multiple sites Current Visit: Yes Status: Acute (17) Coagulopathy Current Visit: Yes Status: Acute Assessment and plan: Will give Vitamin K (18) DVT prophylaxis Current Visit: No Status: Acute Assessment and plan: Patient had EPCDs ordered. Not currently wearing. will add SQ heparin if fluid collection is not a hematoma. - Subjective Interval history: No major events overnight. Patient states that she is feeling better. She states that her pain is under better control. She only has severe pain when she is moved. She denies any dyspnea. She has no other complaints or concerns at this time. - Constitutional Vitals: Temp Pulse Resp BP Pulse Ox 97.6 F 78 12 96/60 100 02/20/17 11:55 02/20/17 14:57 02/20/17 14:57 02/20/17 14:57 02/20/17 14:57 General appearance: Present: cachectic, mild distress, A&O X 3 Exam: frail apearing - Head Head exam: Present: atraumatic, normal inspection, normocephalic - Eye Eye exam: Present: PERRL, conjuntiva pink, sclera anicteric Pupils: Present: PERRL - ENT ENT exam: Present: mucous membranes moist - Neck Neck exam general surgery: Present: supple, trachea midline. Absent: lymphadenopathy - Respiratory Respiratory exam: Present: CTAB. Absent: accessory muscle use, rales, rhonchi, wheezes - Cardiovascular Cardiovascular exam: Present: RRR, +S1, +S2, systolic murmur (over tricuspid area). Absent: diastolic murmur, gallop, rubs - GI/Abdominal GI/Abdominal exam: Present: normal bowel sounds, soft, tenderness (RUQ), no peritoneal signs. Absent: distended Additional comments: drains are tact. Radha fluid in the collection bags. the dressing has some shadowing . appears purulent. - Extremities Exam Extremities exam: Present: warm, radial pulses palpable and symetrical. Absent : calf tenderness, cyanotic, pedal edema - Skin Skin exam: Present: dry, intact Internal Medicine: Result - Labs CBC & Chem 7: 02/20/17 04:07 02/20/17 04:07 Labs: Short CBC 02/20/17 Range/Units 04:07 WBC 23.8 H (4.3-11.1) K/mcL Hgb 8.9 L (11.5-15.4) g/dL Hct 27.3 L (35.3-44.9) % Plt Count 430 H (140-400) K/mcL Neutrophils # 19.8 H (1.6-8.9) K/mcL BMP 02/20/17 04:07 Sodium 138 Potassium 3.6 Chloride 108 Carbon Dioxide 23 BUN 12 D Creatinine 0.98 Glucose 91 Calcium 8.9 Liver Function 02/20/17 Range/Units 04:07 Total Bilirubin 1.9 H (0.2-1.2) mg/dL AST 20 (5-34) Units/L ALT 21 (0-55) Units/L Alkaline Phosphatase 215 H (38-126) Units/L Albumin 1.5 L (3.5-5.0) g/dL - ABG Interpretation ABG results: PT/INR, D-dimer PT 17.6 Seconds (9.4-12.1) H 02/20/17 04:07 - Impressions Impressions Liver Abscess Drainage CT 02/20/17 00:00 IMPRESSION: Successful CT-guided liver abscess drainage. D/ / 02/20/2017 15:36:08 Iesha Vaughan MD / chas Interpreting Provider: Iesha Vaughan MD Consult Discharge Plan - Plan Referrals: Chery Mckinney, PRODUCT MARKETING SPECIALIST [Primary Care Provider] - <Satya Leo - Last Filed: 02/20/17 18:12> Date of Encounter: 02/20/17 - Constitutional Vitals: Temp Pulse Resp BP Pulse Ox 98.3 F 77 16 105/66 100 02/20/17 15:45 02/20/17 15:45 02/20/17 15:45 02/20/17 15:45 02/20/17 14:57 Internal Medicine: Result - Labs CBC & Chem 7: 02/20/17 04:07 02/20/17 04:07 Labs: Short CBC 02/20/17 Range/Units 04:07 WBC 23.8 H (4.3-11.1) K/mcL Hgb 8.9 L (11.5-15.4) g/dL Hct 27.3 L (35.3-44.9) % Plt Count 430 H (140-400) K/mcL Neutrophils # 19.8 H (1.6-8.9) K/mcL BMP 02/20/17 04:07 Sodium 138 Potassium 3.6 Chloride 108 Carbon Dioxide 23 BUN 12 D Creatinine 0.98 Glucose 91 Calcium 8.9 Liver Function 02/20/17 Range/Units 04:07 Total Bilirubin 1.9 H (0.2-1.2) mg/dL AST 20 (5-34) Units/L ALT 21 (0-55) Units/L Alkaline Phosphatase 215 H (38-126) Units/L Albumin 1.5 L (3.5-5.0) g/dL - ABG Interpretation ABG results: PT/INR, D-dimer PT 17.6 Seconds (9.4-12.1) H 02/20/17 04:07 - Impressions Impressions Liver Abscess Drainage CT 02/20/17 00:00 IMPRESSION: Successful CT-guided liver abscess drainage. D/ / 02/20/2017 15:36:08 Iesha Vaughan MD / chas Interpreting Provider: Iesha Vaughan MD - Attending Attestation I examined this patient and my medical decision-making was reviewed with the Resident Physician, Dr. Pompa. I agree with the documented findings, disposition and treatment plan as described except to the extent set forth below. Patient reports improvement in abdominal pain over the last 24 hours. Controlled with IV Dilaudid. She is in no acute distress. Heart is regular S1 and S2 abdomen is soft tender to palpation right upper quadrant with no peritoneal signs. We will continue with IV Zosyn. Follow up with IR regarding drainage of of her liver collection. Monitor clinically. Follow-up white blood cell count trend. She has high risk for mortality and complications due to systemic infection and treatment with IV controlled substances for pain.
[2017-02-20] MEDS: *HR* Heparin 5,000 UNIT/ML VIAL SQ SCH (17:16)
[2017-02-20] MEDS: TAMOXIFEN CITRATE 20 MG PO SCH (17:18)
[2017-02-21] MEDS: Piperacillin/Tazobactam 3.375 GM in D5% in Water (Mini-Bag+) 100 ML IVPB SCH ×3 (00:23→17:45)
[2017-02-21] MEDS: *HR* Morphine 2 MG/ML SYRINGE IVP PRN ×3 (01:07→09:21)
[2017-02-21 04:44] LABS: Basophils # 0.1 K/mcL (0.0-0.2); Basophils % 0.3 %; Eosinophils # 0.9 K/mcL (0.0-0.6); Eosinophils % 4.2 %; Hematocrit 27.7 % (35.3-44.9); Immature Granulocytes % 1.4 % (0-4); Lymphocytes # 2.3 K/mcL (0.6-4.6); Lymphocytes % 10.7 %; Mean Corpuscular HGB Conc 32.5 g/dL (31.6-35.5); Mean Corpuscular Volume 92.3 fL (83.0-100.0); Mean Platelet Volume 9.7 fL (9.4-12.4); Monocytes # 1.1 K/mcL (0.0-1.3); Monocytes % 5.4 %; Neutrophils # 16.5 K/mcL (1.6-8.9); Platelet Count 455 K/mcL (140-400); Red Cell Distribution Width 13.8 % (11.5-14.5)
[2017-02-21] MEDS: *HR* Morphine Sulfate SR (12 HR) 15 MG TABLET.ER PO SCH (04:49)
[2017-02-21 04:55] LABS: Bilirubin,Direct 1.4 mg/dL (0.0-0.5); Bilirubin,Indirect 0.4 mg/dL (0.0-1.2); Bilirubin,Total 1.8 mg/dL (0.2-1.2)
[2017-02-21 04:56] LABS: Alanine Aminotransferase 20 Units/L (0-55); Albumin/Globulin Ratio 0.3 (1.1-2.2); Alkaline Phosphatase 210 Units/L (38-126); Aspartate Amino Transferase 19 Units/L (5-34); BUN/Creatinine Ratio 12 (6-26); Bilirubin,Total 1.8 mg/dL (0.2-1.2); Blood Urea Nitrogen 10 mg/dL (7-20); Calcium 8.6 mg/dL (8.6-10.8); Carbon Dioxide 27 mEq/L (19-29); Chloride 105 mEq/L (98-109); Globulin 4.6 g/dL (2.4-3.5); Glucose 121 mg/dL (70-99); Magnesium 1.6 mg/dL (1.6-2.6); Osmolality,Calculated 288 (280-300); Potassium 3.7 mEq/L (3.5-4.5); Sodium 139 mEq/L (136-145); Total Protein 6.2 g/dL (6.0-8.3); eGFR For African Americans > 60 (> 60); eGFR For Non-African Americans > 60 (> 60)
[2017-02-21 04:57] LABS: Albumin 1.6 g/dL (3.5-5.0)
[2017-02-21] MEDS: *HR* Heparin 5,000 UNIT/ML VIAL SQ SCH ×2 (09:20→17:46)
[2017-02-21] MEDS: TAMOXIFEN CITRATE 20 MG PO SCH ×2 (09:33→21:00)
[2017-02-21] MEDS ORDERED: *HR* Morphine Sulfate SR (12 HR) 15 MG TABLET.ER PO ONE (09:36)
[2017-02-21] MEDS ORDERED: *HR* Morphine Immed Rel 30 MG TABLET PO PRN (09:37)
[2017-02-21] MEDS ORDERED: Morphine Oral CONC 5 MG/0.25 ML ORAL.SYG PO PRN ×2 (09:42→09:48)
--- NOTE | 2017-02-21 09:48 | Palliative Progress Note ---
Date of Encounter: 02/21/17 Time of Encounter: 09:45 - Assessment and plan (1) Cancer associated pain Current Visit: Yes Status: Acute Assessment and plan: Patient continues to report abdominal/flank pain despite current pain medications. Will increase total MS CONTIN dose to 60mg per day (additional 15mg this am and then change to 30mg BID). Discussed case with pharmacist. Transition IV medications to oral for breakthrough pain. Dose range 10-15mg oral morphine every 2 hours as needed. (2) Weight loss Current Visit: Yes Status: Acute Assessment and plan: Dietitian following. Ensure Supplements BID. (3) Therapeutic opioid induced constipation Current Visit: Yes Status: Acute Assessment and plan: Patient continues to have at least one BM per day. Continue to monitor. (4) Nausea & vomiting Current Visit: Yes Status: Acute Assessment and plan: No further nausea/vomiting. Zofran PRN. Percocet likely contributing to nausea /vomiting prior to admission accompanied with likely infection (leukocytosis). Continue to follow. Qualifiers: Vomiting type: unspecified Vomiting Intractability: non-intractable Qualified Code(s): R11.2 - Nausea with vomiting, unspecified (5) Cholangiocarcinoma Current Visit: Yes Status: Suspected (6) Abdominal pain Current Visit: No Status: Acute Assessment and plan: Medication adjustments as above. Qualifiers: Abdominal location: generalized Qualified Code(s): R10.84 - Generalized abdominal pain (7) Malignant neoplasms of independent (primary) multiple sites Current Visit: Yes Status: Acute (8) Goals of care, counseling/discussion Current Visit: Yes Status: Acute Assessment and plan: Goals of care established. manager managed backup services following for discharge needs. Will resume home health upon discharge. Patient will follow-up with Dr. Carpenter as an outpatient. - Time Spent With Patient Total time spent is greater than 50% in coordination of care (as documented) at patient's floor/unit and/or counseling patient: - Subjective Interval history: Ms. Cruz is lying in bed. Alert and oriented. She continues to report right sided abdominal (RUQ)/flank pain rated anywhere from a 4-8 on average. She reports "spikes" in pain with activity and at rest. She is tolerating morphine well without nausea. Her appetite has been poor since Saturday, but she is taking in supplements. Bowels are moving at least once a day and described as loose. - Constitutional Vitals: Abnormal lab results WBC 21.1 K/mcL (4.3-11.1) H 02/21/17 04:15 RBC 3.00 M/mcL (3.82-4.97) L 02/21/17 04:15 Hgb 9.0 g/dL (11.5-15.4) L 02/21/17 04:15 Hct 27.7 % (35.3-44.9) L 02/21/17 04:15 Plt Count 455 K/mcL (140-400) H 02/21/17 04:15 Neutrophils # 16.5 K/mcL (1.6-8.9) H 02/21/17 04:15 Eosinophils # 0.9 K/mcL (0.0-0.6) H 02/21/17 04:15 Platelet Estimate Increased (Normal) H 02/18/17 03:20 Hypochromasia Present (Not Present) A 02/18/17 03:20 PT 17.6 Seconds (9.4-12.1) H 02/20/17 04:07 Glucose 121 mg/dL (70-99) H 02/21/17 04:15 Total Bilirubin 1.8 mg/dL (0.2-1.2) H 02/21/17 04:15 Direct Bilirubin 1.4 mg/dL (0.0-0.5) H 02/21/17 04:15 Alkaline Phosphatase 210 Units/L (38-126) H 02/21/17 04:15 Albumin 1.6 g/dL (3.5-5.0) L 02/21/17 04:15 Globulin 4.6 g/dL (2.4-3.5) H 02/21/17 04:15 Albumin/Globulin Ratio 0.3 (1.1-2.2) L 02/21/17 04:15 Prealbumin 9.0 mg/dL (16.0-38.0) L 02/20/17 04:07 Urine Clarity Slightly Cloudy (Clear) A 02/17/17 20:05 Ur Specific Lucile >= 1.030 (1.010-1.025) H 02/17/17 20:05 Urine Protein 100 mg/dL (Neg-Trace) H 02/17/17 20:05 Urine Blood Moderate (Negative) H 02/17/17 20:05 Urine Bilirubin Small (Negative) H 02/17/17 20:05 Ur Leukocyte Esterase Small (Negative) H 02/17/17 20:05 Urine Microscopic WBC 3-5 per hpf (0-3) H 02/17/17 20:05 Urine Bacteria Many per hpf (None-Few) H 02/17/17 20:05 Ur Culture Indicated? YES (NO) A 02/17/17 20:05 General appearance: Present: cooperative, no acute distress Exam: 46 year old female, thin, alert/oriented, cooperative and interactive. - Eye Eye exam: Present: EOMI, PERRL - ENT ENT exam: Present: mucous membranes moist - Respiratory Respiratory exam: Present: CTAB. Absent: accessory muscle use, decreased breath sounds, respiratory distress - Cardiovascular Cardiovascular exam: Present: RRR, systolic murmur. Absent: irregular rhythm - GI/Abdominal GI/Abdominal exam: Present: normal bowel sounds, soft, tenderness (to RUQ with palpation) - Extremities Exam Extremities exam: Present: normal inspection - Neurological Exam Neurological exam: Present: alert, oriented X3, no focal deficits, strengths equal and symetr throughout - Psychiatric Psychiatric exam: Present: flat affect. Absent: agitated, anxious - Skin Skin exam: Present: dry, normal color, warm Palliative Quality Palliative Quality: Screen for Code Status: Yes, Screen for Goals of Care: Yes, Screen for Pain: Yes, If Pain Regimen Started, Initiate Bowel Regimen: Yes, Screen for Nausea/Vomitting: Yes - Labs CBC & Chem 7: 02/21/17 04:15 02/21/17 04:15 Labs: Laboratory Results - last 24 hr 02/21/17 02/21/17 02/21/17 04:15 04:15 04:15 WBC 21.1 H RBC 3.00 L Hgb 9.0 L Hct 27.7 L MCV 92.3 MCH 30.0 MCHC 32.5 RDW 13.8 Plt Count 455 H MPV 9.7 Immature Gran % 1.4 Seg Neutrophils % 78.0 Lymphocytes % 10.7 Monocytes % 5.4 Eosinophils % 4.2 Basophils % 0.3 Neutrophils # 16.5 H Lymphocytes # 2.3 Monocytes # 1.1 Eosinophils # 0.9 H Basophils # 0.1 Sodium 139 Potassium 3.7 Chloride 105 Carbon Dioxide 27 BUN 10 Creatinine 0.86 Est GFR ( Amer) > 60 Est GFR (Non-Af Amer) > 60 BUN/Creatinine Ratio 12 Glucose 121 H Calculated Osmolality 288 Calcium 8.6 Magnesium 1.6 Total Bilirubin 1.8 H 1.8 H Direct Bilirubin 1.4 H Indirect Bilirubin 0.4 AST 19 ALT 20 Alkaline Phosphatase 210 H Serum Total Protein 6.2 Albumin 1.6 L Globulin 4.6 H Albumin/Globulin Ratio 0.3 L - Impressions Impressions Liver Abscess Drainage CT 02/20/17 00:00 IMPRESSION: Successful CT-guided liver abscess drainage. D/ / 02/20/2017 15:36:08 Iesha Vaughan MD / chas Interpreting Provider: Iesha Vaughan MD - ABG Interpretation ABG results: PT/INR, D-dimer PT 17.6 Seconds (9.4-12.1) H 02/20/17 04:07 Consult Discharge Plan - Plan Referrals: Chery Mckinney, SUPERVISOR SPECIAL EDUCATION [Primary Care Provider] -
--- NOTE | 2017-02-21 13:48 | Internal Med Progress Note ---
<Kurt Pompa - Last Filed: 02/21/17 16:26> Date of Encounter: 02/21/17 Time of Encounter: 13:41 - Assessment and plan (1) Pyogenic liver abscess Current Visit: Yes Status: Acute Assessment and plan: Patient had drainage of fluid collection yesterday by IR. Preliminary cultures have grown GNR. Gram stain also had few GPCs. I discussed with microbiology. Preliminarily this looks like an alpha strep so possibly Pneumococcus or Viridans. She is also growing GNR. This is a polymicrobial infection. The ALEC is draining well with serosanguinous fluid. She will need IV antibiotics. for a duration of 4-6 weeks. However may need long depending on clinical course. Will continue her on Zosyn. Can adjust one we have speciation and sensitivities. May also need exchange of biliary drains. On CT appears to me that tubing may have gone through the fluid collection. Discussed with Dr. Rosario. Will likely need exchange next week after she has been on antibiotics for a few days. IR has left for the day so will plan to call them tomorrow. she will need a PICC line. Will place consult tomorrow and can place if blood cultures from 02/20/17 show no growth to date. (2) Leukocytosis Current Visit: Yes Status: Acute Assessment and plan: trending down. as stated above. Qualifiers: Leukocytosis type: unspecified Qualified Code(s): D72.829 - Elevated white blood cell count, unspecified (3) ISIDORO (acute kidney injury) Current Visit: Yes Status: Acute Assessment and plan: -prerenal from dehydration. resolved. (4) Hyperbilirubinemia Current Visit: Yes Status: Chronic Assessment and plan: trending down. Near normal range today. (5) Obstructive jaundice Current Visit: Yes Status: Chronic Assessment and plan: -trending down. Near normal range Drains are draining well. 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 Balbuena. 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 -Was apparently supposed to undergo her first round of chemotherapy yesterday. -Will hold off on any chemotherapy at this time as she is acutely ill. Will have her see Dr. Carpenter after Discharge for planning on when to initiate chemotherapy. 02/20/19 Discused with Pharmacy. Patient had actually started on Tamoxifen previously. We will continue. Qualifiers: Breast location: unspecified site of breast Patient sex: female Laterality: unspecified laterality Qualified Code(s): C50.919 - Malignant neoplasm of unspecified site of unspecified female breast (7) Cholangiocarcinoma Current Visit: Yes Status: Suspected Assessment and plan: -Patient underwent biliary biopsy, biliary dilation, and biliary drainage 2 with interventional radiology on 02/05/2017. -Pathology reveals atypical ductal cells suspicious for adenocarcinoma. -Is currently under the care of Dr. Carpenter at the [facility] for this diagnosis and her breast and GI cancer diagnosis. I will attempt to discuss wit her to help coordinate her care. (8) Abdominal pain Current Visit: No Status: Acute Assessment and plan: improving better controlled appreciate palliative Qualifiers: Abdominal location: generalized Qualified Code(s): R10.84 - Generalized abdominal pain (9) Anemia Current Visit: Yes Status: Chronic Assessment and plan: -stable. Qualifiers: Anemia type: unspecified type Qualified Code(s): D64.9 - Anemia, unspecified (10) Hypoalbuminemia Current Visit: Yes Status: Acute Assessment and plan: pre albumin 9.0. Appreciate Religious Educator recommendations. Continue magic cup TID and resume diet when Able. (11) Thrombocytosis Current Visit: Yes Status: Acute Assessment and plan: likely reactive continue to monitor.. (12) Crohns disease Current Visit: No Status: Chronic Assessment and plan: -Patient does have a history of Crohn's disease. - Was previously on Remicade. - Not currently in a flair. - Will hold Remincade as she is acutely ill. - GI following. Thank you for your assistance. Qualifiers: Gastrointestinal tract location: unspecified location Digestive disease complication type: without complication Qualified Code(s): K50.90 - Crohn's disease, unspecified, without complications (13) Neutrophilia Current Visit: Yes Status: Acute Assessment and plan: - Downtrending (14) Metabolic acidosis Current Visit: Yes Status: Resolved Assessment and plan: resolved (15) Elevated alkaline phosphatase level Current Visit: Yes Status: Acute Assessment and plan: - Downtrending - In the setting of obstructive jaundice secondary to primary cholagniocarcinoma. - Will continue to monitor. (16) Malignant neoplasms of independent (primary) multiple sites Current Visit: Yes Status: Acute (17) Coagulopathy Current Visit: Yes Status: Acute Assessment and plan: mild vitamin K given (18) DVT prophylaxis Current Visit: No Status: Acute Assessment and plan: Patient had EPCDs ordered. She is currently wearing them continue SQ heparin - Subjective Interval history: No Major events overnight. The patient states that her pain is better. She dose have some from the ALEC. She denies any chest pain, dyspnea. She states that her abdominal pain has lessoned. She states that the palliative team is doing a "very good job" with her symptom control. She reports normal bowel and bladder habits. no further complaints or concerns at this time. - Constitutional Vitals: Temp Pulse Resp BP Pulse Ox 98.9 F 95 19 95/67 95 02/21/17 11:28 02/21/17 11:28 02/21/17 11:28 02/21/17 11:28 02/21/17 11:28 General appearance: Present: cachectic, mild distress, A&O X 3 - Head Head exam: Present: atraumatic, normal inspection, normocephalic - Eye Eye exam: Present: PERRL, conjuntiva pink, sclera anicteric Pupils: Present: PERRL - ENT ENT exam: Present: mucous membranes moist, normal exam - Neck Neck exam general surgery: Present: supple, trachea midline. Absent: lymphadenopathy - Respiratory Respiratory exam: Present: CTAB. Absent: accessory muscle use, rales, rhonchi, wheezes - Cardiovascular Cardiovascular exam: Present: RRR, +S1, +S2. Absent: diastolic murmur, gallop, rubs, systolic murmur - GI/Abdominal Additional comments: The abdomen is nondisteded. she has 3 drains. 2 of which have miya colored fluid. The other drain is a ALEC and is filled with Serosanguinous fluid. The abdomen is nondistended. Bowel sounds are positive in all quadrants. - Extremities Exam Extremities exam: Present: warm, radial pulses palpable and symetrical. Absent : calf tenderness, cyanotic, pedal edema - Skin Skin exam: Present: dry, intact Internal Medicine: Result - Labs CBC & Chem 7: 02/21/17 04:15 02/21/17 04:15 Labs: Short CBC 02/21/17 Range/Units 04:15 WBC 21.1 H (4.3-11.1) K/mcL Hgb 9.0 L (11.5-15.4) g/dL Hct 27.7 L (35.3-44.9) % Plt Count 455 H (140-400) K/mcL Neutrophils # 16.5 H (1.6-8.9) K/mcL BMP 02/21/17 04:15 Sodium 139 Potassium 3.7 Chloride 105 Carbon Dioxide 27 BUN 10 Creatinine 0.86 Glucose 121 H Calcium 8.6 Liver Function 02/21/17 02/21/17 Range/Units 04:15 04:15 Total Bilirubin 1.8 H 1.8 H (0.2-1.2) mg/dL Direct Bilirubin 1.4 H (0.0-0.5) mg/dL AST 19 (5-34) Units/L ALT 20 (0-55) Units/L Alkaline Phosphatase 210 H (38-126) Units/L Albumin 1.6 L (3.5-5.0) g/dL - ABG Interpretation ABG results: PT/INR, D-dimer PT 17.6 Seconds (9.4-12.1) H 02/20/17 04:07 - Impressions Impressions Liver Abscess Drainage CT 02/20/17 00:00 IMPRESSION: Successful CT-guided liver abscess drainage. D/ / 02/20/2017 15:36:08 Iesha Vaughan MD / chas Interpreting Provider: Iesha Vaughan MD Consult Discharge Plan - Plan Referrals: Chery Mckinney, VLADIMIR [Primary Care Provider] - <Satya Leo - Last Filed: 02/21/17 17:17> Date of Encounter: 02/21/17 - Constitutional Vitals: Temp Pulse Resp BP Pulse Ox 98.1 F 107 18 110/71 98 02/21/17 15:05 02/21/17 15:05 02/21/17 15:05 02/21/17 15:05 02/21/17 15:05 Internal Medicine: Result - Labs CBC & Chem 7: 02/21/17 04:15 02/21/17 04:15 Labs: Short CBC 02/21/17 Range/Units 04:15 WBC 21.1 H (4.3-11.1) K/mcL Hgb 9.0 L (11.5-15.4) g/dL Hct 27.7 L (35.3-44.9) % Plt Count 455 H (140-400) K/mcL Neutrophils # 16.5 H (1.6-8.9) K/mcL BMP 02/21/17 04:15 Sodium 139 Potassium 3.7 Chloride 105 Carbon Dioxide 27 BUN 10 Creatinine 0.86 Glucose 121 H Calcium 8.6 Liver Function 02/21/17 02/21/17 Range/Units 04:15 04:15 Total Bilirubin 1.8 H 1.8 H (0.2-1.2) mg/dL Direct Bilirubin 1.4 H (0.0-0.5) mg/dL AST 19 (5-34) Units/L ALT 20 (0-55) Units/L Alkaline Phosphatase 210 H (38-126) Units/L Albumin 1.6 L (3.5-5.0) g/dL - ABG Interpretation ABG results: PT/INR, D-dimer PT 17.6 Seconds (9.4-12.1) H 02/20/17 04:07 - Attending Attestation I examined this patient and my medical decision-making was reviewed with Dr. Pompa, Resident Physician. I agree with the documented findings, disposition and treatment plan as described except to the extent set forth below. Patient is ill-appearing and pale, no acute distress. Heart regular S1-S2. Abdomen soft tender with 2 drain tubes as and ALEC drain noted in the right upper quadrant. Plan: Continue IV antibiotics. Follow-up with oncology. Monitor temperature curve and WBC trend. Pain control with oral morphine IR and extended release.
[2017-02-21] MEDS: *HR* Morphine Soln 10 MG/5 ML UDC PO PRN ×2 (18:47→22:43)
[2017-02-21] MEDS: Ondansetron 4 MG/2 ML VIAL IVP PRN (20:54)
[2017-02-21] MEDS: *HR* Morphine Sulfate SR (12 HR) 30 MG TABLET.ER PO SCH (20:54)
[2017-02-22] MEDS: Piperacillin/Tazobactam 3.375 GM in D5% in Water (Mini-Bag+) 100 ML IVPB SCH ×3 (00:13→17:26)
[2017-02-22] MEDS: *HR* Morphine Soln 10 MG/5 ML UDC PO PRN ×6 (00:48→23:16)
[2017-02-22 04:36] LABS: Basophils # 0.1 K/mcL (0.0-0.2); Basophils % 0.3 %; Eosinophils # 0.7 K/mcL (0.0-0.6); Eosinophils % 4.6 %; Hematocrit 27.8 % (35.3-44.9); Hemoglobin 8.9 g/dL (11.5-15.4); Immature Granulocytes % 0.9 % (0-4); Lymphocytes # 1.8 K/mcL (0.6-4.6); Lymphocytes % 11.1 %; Mean Corpuscular Hemoglobin 29.4 pg (28.0-33.3); Mean Corpuscular Volume 91.7 fL (83.0-100.0); Mean Platelet Volume 9.6 fL (9.4-12.4); Monocytes # 1.1 K/mcL (0.0-1.3); Monocytes % 6.8 %; Neutrophils # 12.4 K/mcL (1.6-8.9); Platelet Count 397 K/mcL (140-400); Red Blood Count 3.03 M/mcL (3.82-4.97); Red Cell Distribution Width 13.8 % (11.5-14.5); Segmented Neutrophils % 76.3 %
[2017-02-22 04:51] LABS: BUN/Creatinine Ratio 7 (6-26); Blood Urea Nitrogen 6 mg/dL (7-20); Calcium 8.8 mg/dL (8.6-10.8); Carbon Dioxide 29 mEq/L (19-29); Chloride 100 mEq/L (98-109); Glucose 109 mg/dL (70-99); Osmolality,Calculated 284 (280-300); Potassium 3.1 mEq/L (3.5-4.5); Sodium 138 mEq/L (136-145); eGFR For African Americans > 60 (> 60); eGFR For Non-African Americans > 60 (> 60)
[2017-02-22 05:31] LABS: C-Reactive Protein 113 mg/L (Less than 5)
[2017-02-22] MEDS: *HR* Morphine Sulfate SR (12 HR) 30 MG TABLET.ER PO SCH ×2 (05:52→17:26)
[2017-02-22] MEDS: *HR* Heparin 5,000 UNIT/ML VIAL SQ SCH ×2 (05:53→17:25)
[2017-02-22] MEDS: Ondansetron 4 MG/2 ML VIAL IVP PRN ×2 (08:15→20:45)
[2017-02-22] MEDS ORDERED: Potassium Chloride Elixir 20 MEQ/15 ML UDC PO SCH (09:00)
--- NOTE | 2017-02-22 09:55 | Palliative Progress Note ---
Date of Encounter: 02/22/17 Time of Encounter: 09:53 - Assessment and plan (1) Cancer associated pain Current Visit: Yes Status: Acute Assessment and plan: Patient continues to report abdominal/flank pain despite current pain medications. Will increase total MS CONTIN dose to 60mg per day (additional 15mg this am and then change to 30mg BID). Transitioned IV medications to oral for breakthrough pain yesterday. Dose range 10-15mg oral morphine every 2 hours as needed, but Ms. Cruz felt that the 15mg dose was causing her to be too drowsy. Will change dose range to 5mg oral morphine for breakthrough pain rated 3-6, and 10mg oral morphine for breakthrough pain rated 7-10. Discussed case with pharmacist. (2) Weight loss Current Visit: Yes Status: Acute Assessment and plan: Dietitian following. Ensure Supplements BID and beneprotein. (3) Therapeutic opioid induced constipation Current Visit: Yes Status: Acute Assessment and plan: Patient continues to have at least one BM per day. Continue to monitor. (4) Nausea & vomiting Current Visit: Yes Status: Acute Assessment and plan: Nausea with small amount of emesis this morning related to oral potassium supplement. Zofran PRN. Discussed alternative options for potassium supplementation with hospitalist. Qualifiers: Vomiting type: unspecified Vomiting Intractability: non-intractable Qualified Code(s): R11.2 - Nausea with vomiting, unspecified (5) Cholangiocarcinoma Current Visit: Yes Status: Suspected (6) Abdominal pain Current Visit: No Status: Acute Qualifiers: Abdominal location: generalized Qualified Code(s): R10.84 - Generalized abdominal pain (7) Malignant neoplasms of independent (primary) multiple sites Current Visit: Yes Status: Acute (8) Goals of care, counseling/discussion Current Visit: Yes Status: Acute Assessment and plan: Goals of care established. building services engineer following for discharge needs. Will resume home health upon discharge. Patient will follow-up with Dr. Carpenter as an outpatient. - Time Spent With Patient Total time spent is greater than 50% in coordination of care (as documented) at patient's floor/unit and/or counseling patient: - Subjective Interval history: Ms. Cruz is lying in bed. Alert and oriented. She continues to report right sided abdominal (RUQ)/flank pain rated anywhere from a 4-6 on average. She reports "spikes" in pain with activity and at rest, but they have improved since yesterday. She is tolerating morphine well without nausea. Her appetite has been poor since Saturday, but she is taking in supplements. Bowels are moving at least once a day and described as loose. - Constitutional Vitals: Abnormal lab results WBC 16.3 K/mcL (4.3-11.1) H 02/22/17 04:07 RBC 3.03 M/mcL (3.82-4.97) L 02/22/17 04:07 Hgb 8.9 g/dL (11.5-15.4) L 02/22/17 04:07 Hct 27.8 % (35.3-44.9) L 02/22/17 04:07 Neutrophils # 12.4 K/mcL (1.6-8.9) H 02/22/17 04:07 Eosinophils # 0.7 K/mcL (0.0-0.6) H 02/22/17 04:07 Platelet Estimate Increased (Normal) H 02/18/17 03:20 Hypochromasia Present (Not Present) A 02/18/17 03:20 PT 17.6 Seconds (9.4-12.1) H 02/20/17 04:07 Potassium 3.1 mEq/L (3.5-4.5) L 02/22/17 04:07 BUN 6 mg/dL (7-20) L 02/22/17 04:07 Glucose 109 mg/dL (70-99) H 02/22/17 04:07 Total Bilirubin 1.8 mg/dL (0.2-1.2) H 02/21/17 04:15 Direct Bilirubin 1.4 mg/dL (0.0-0.5) H 02/21/17 04:15 Alkaline Phosphatase 210 Units/L (38-126) H 02/21/17 04:15 C-Reactive Protein 113 mg/L (Less than 5) H 02/22/17 04:07 Albumin 1.6 g/dL (3.5-5.0) L 02/21/17 04:15 Globulin 4.6 g/dL (2.4-3.5) H 02/21/17 04:15 Albumin/Globulin Ratio 0.3 (1.1-2.2) L 02/21/17 04:15 Prealbumin 9.0 mg/dL (16.0-38.0) L 02/20/17 04:07 Urine Clarity Slightly Cloudy (Clear) A 02/17/17 20:05 Ur Specific [place] >= 1.030 (1.010-1.025) H 02/17/17 20:05 Urine Protein 100 mg/dL (Neg-Trace) H 02/17/17 20:05 Urine Blood Moderate (Negative) H 02/17/17 20:05 Urine Bilirubin Small (Negative) H 02/17/17 20:05 Ur Leukocyte Esterase Small (Negative) H 02/17/17 20:05 Urine Microscopic WBC 3-5 per hpf (0-3) H 02/17/17 20:05 Urine Bacteria Many per hpf (None-Few) H 02/17/17 20:05 Ur Culture Indicated? YES (NO) A 02/17/17 20:05 General appearance: Present: cooperative, no acute distress - ENT ENT exam: Present: mucous membranes dry - Respiratory Respiratory exam: Present: CTAB. Absent: accessory muscle use, respiratory distress, rhonchi, wheezes, tachypnea - Cardiovascular Cardiovascular exam: Present: RRR, systolic murmur - GI/Abdominal GI/Abdominal exam: Present: soft, tenderness (RUQ mild tenderness) Additional comments: biliary drains intact to RUQ/flank area with green bile drainage, ALEC drain intact with serosanguinous drainage. - Extremities Exam Extremities exam: Present: normal inspection. Absent: pedal edema - Neurological Exam Neurological exam: Present: alert, oriented X3, no focal deficits, strengths equal and symetr throughout - Skin Skin exam: Present: dry, normal color, warm Palliative Quality Palliative Quality: Screen for Code Status: Yes, Screen for Goals of Care: Yes, Screen for Pain: Yes, If Pain Regimen Started, Initiate Bowel Regimen: Yes, Screen for Nausea/Vomitting: Yes - Labs CBC & Chem 7: 02/22/17 04:07 02/22/17 04:07 Labs: Laboratory Results - last 24 hr 02/22/17 02/22/17 04:07 04:07 WBC 16.3 H RBC 3.03 L Hgb 8.9 L Hct 27.8 L MCV 91.7 MCH 29.4 MCHC 32.0 RDW 13.8 Plt Count 397 MPV 9.6 Immature Gran % 0.9 Seg Neutrophils % 76.3 Lymphocytes % 11.1 Monocytes % 6.8 Eosinophils % 4.6 Basophils % 0.3 Neutrophils # 12.4 H Lymphocytes # 1.8 Monocytes # 1.1 Eosinophils # 0.7 H Basophils # 0.1 Sodium 138 Potassium 3.1 L Chloride 100 Carbon Dioxide 29 BUN 6 L Creatinine 0.91 Est GFR ( Amer) > 60 Est GFR (Non-Af Amer) > 60 BUN/Creatinine Ratio 7 Glucose 109 H Calculated Osmolality 284 Calcium 8.8 C-Reactive Protein 113 H - ABG Interpretation ABG results: PT/INR, D-dimer PT 17.6 Seconds (9.4-12.1) H 02/20/17 04:07 Consult Discharge Plan - Plan Referrals: Chery Mckinney, FINANCIAL REPORT SERVICE SALES AGENT [Primary Care Provider] -
--- NOTE | 2017-02-22 17:05 | Internal Med Progress Note ---
<Kurt Pompa - Last Filed: 02/22/17 17:00> Date of Encounter: 02/22/17 Time of Encounter: 10:20 - Assessment and plan (1) Pyogenic liver abscess Current Visit: Yes Status: Acute Assessment and plan: Patient had drainage of fluid collection 02/20/17 by IR. Cultures have grom Dixon sensitive Klebsiella Pneumonia and GPC ( speciation pending) The ALEC is draining well with serosanguinous fluid. She will need IV antibiotics. for a duration of 4-6 weeks. However may need long depending on clinical course. Will continue her on Zosyn. Can adjust one we have speciation and sensitivities. I believe she will need exchange of her biliary drains. I discussed with GI. Will plan on exchange next week after she has had IV antibiotics. this will be in attempt to prevent re seeding the new drain. We will discuss with IR. She has a powerglide in place for IV access. (2) Leukocytosis Current Visit: Yes Status: Acute Assessment and plan: trending down. as stated above. Qualifiers: Leukocytosis type: unspecified Qualified Code(s): D72.829 - Elevated white blood cell count, unspecified (3) ISIDORO (acute kidney injury) Current Visit: Yes Status: Acute Assessment and plan: -prerenal from dehydration. resolved. (4) Hyperbilirubinemia Current Visit: Yes Status: Chronic Assessment and plan: trending down. Near normal range today. (5) Obstructive jaundice Current Visit: Yes Status: Chronic Assessment and plan: -trending down. Near normal range Drains are draining well. (6) Breast cancer Current Visit: Yes Status: Acute Assessment and plan: -Patient currently has stage II invasive ductal carcinoma currently being followed at the [facility] with Dr. Balbuena. 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 -Was apparently supposed to undergo her first round of chemotherapy yesterday. -Will hold off on any chemotherapy at this time as she is acutely ill. Will have her see Dr. Carpenter after Discharge for planning on when to initiate chemotherapy. 02/20/19 Discused with Pharmacy. Patient had actually started on Tamoxifen previously. We will continue. Qualifiers: Breast location: unspecified site of breast Patient sex: female Laterality: unspecified laterality Qualified Code(s): C50.919 - Malignant neoplasm of unspecified site of unspecified female breast (7) Cholangiocarcinoma Current Visit: Yes Status: Suspected Assessment and plan: -Patient underwent biliary biopsy, biliary dilation, and biliary drainage 2 with interventional radiology on 02/05/2017. -Pathology reveals atypical ductal cells suspicious for adenocarcinoma. -Is currently under the care of Dr. Carpenter at the [facility] for this diagnosis and her breast and GI cancer diagnosis. I will attempt to discuss wit her to help coordinate her care. (8) Abdominal pain Current Visit: No Status: Acute Assessment and plan: improving better controlled appreciate palliative Qualifiers: Abdominal location: generalized Qualified Code(s): R10.84 - Generalized abdominal pain (9) Anemia Current Visit: Yes Status: Chronic Assessment and plan: -stable. Normocytic. check hematinics. Qualifiers: Anemia type: unspecified type Qualified Code(s): D64.9 - Anemia, unspecified (10) Hypoalbuminemia Current Visit: Yes Status: Acute Assessment and plan: pre albumin 9.0. Appreciate Telephone Coin Box Collector recommendations. Continue magic cup TID and resume diet when Able. (11) Thrombocytosis Current Visit: Yes Status: Resolved (12) Crohns disease Current Visit: No Status: Chronic Assessment and plan: -Patient does have a history of Crohn's disease. - Was previously on Remicade. - Not currently in a flair. - Will hold Remincade as she is acutely ill. - GI following. Thank you for your assistance. Qualifiers: Gastrointestinal tract location: unspecified location Digestive disease complication type: without complication Qualified Code(s): K50.90 - Crohn's disease, unspecified, without complications (13) Neutrophilia Current Visit: Yes Status: Acute Assessment and plan: - Downtrending (14) Metabolic acidosis Current Visit: Yes Status: Resolved Assessment and plan: resolved (15) Elevated alkaline phosphatase level Current Visit: Yes Status: Acute Assessment and plan: - Downtrending - In the setting of obstructive jaundice secondary to primary cholagniocarcinoma. - Will continue to monitor. (16) Malignant neoplasms of independent (primary) multiple sites Current Visit: Yes Status: Acute (17) DVT prophylaxis Current Visit: No Status: Acute Assessment and plan: Patient had EPCDs ordered. She is currently wearing them continue SQ heparin - Subjective Interval history: No Major events overnight. The patient states that her pain is better. She dose have some from the ALEC. She denies any chest pain, dyspnea. She denies any chest pain. She states that her abdominal pain has lessoned. With her symptom control. She reports normal bowel and bladder habits. no further complaints or concerns at this time. - Constitutional Vitals: Temp Pulse Resp BP Pulse Ox 98.2 F 66 16 110/72 94 02/22/17 15:09 02/22/17 15:09 02/22/17 15:09 02/22/17 15:09 02/22/17 15:09 General appearance: Present: cachectic, mild distress, A&O X 3 - Head Head exam: Present: atraumatic, normal inspection, normocephalic - Eye Eye exam: Present: PERRL, conjuntiva pink, sclera anicteric Pupils: Present: PERRL - ENT ENT exam: Present: mucous membranes moist - Neck Neck exam general surgery: Present: supple, trachea midline. Absent: lymphadenopathy - Respiratory Respiratory exam: Present: CTAB. Absent: accessory muscle use, rales, rhonchi, wheezes - Cardiovascular Cardiovascular exam: Present: RRR, +S1, +S2. Absent: diastolic murmur, gallop, rubs, systolic murmur Additional comments: The abdomen is non distended. She has three drains present. 2 have miya fluid. The ALEC has serosanguinous fluid. The abdomen is soft and nontender. - GI/Abdominal GI/Abdominal exam: Absent: distended Additional comments: The abdomen is non distended. She has three drains present. 2 have miya fluid. The ALEC has serosanguinous fluid. The abdomen is soft and nontender. - Extremities Exam Extremities exam: Present: warm, radial pulses palpable and symetrical. Absent : calf tenderness, cyanotic, pedal edema - Skin Skin exam: Present: dry, intact Internal Medicine: Result - Labs CBC & Chem 7: 02/22/17 04:07 02/22/17 04:07 Labs: Short CBC 02/22/17 Range/Units 04:07 WBC 16.3 H (4.3-11.1) K/mcL Hgb 8.9 L (11.5-15.4) g/dL Hct 27.8 L (35.3-44.9) % Plt Count 397 (140-400) K/mcL Neutrophils # 12.4 H (1.6-8.9) K/mcL [facility] 02/22/17 04:07 Sodium 138 Potassium 3.1 L Chloride 100 Carbon Dioxide 29 BUN 6 L Creatinine 0.91 Glucose 109 H Calcium 8.8 - ABG Interpretation ABG results: PT/INR, D-dimer PT 17.6 Seconds (9.4-12.1) H 02/20/17 04:07 - VTE Documentation of Mechanical Device: Intermittent pneumatic compression device Consult Discharge Plan - Plan Referrals: Chery Mckinney, CONE TENDER [Primary Care Provider] - <Satya Leo - Last Filed: 02/22/17 20:21> Date of Encounter: 02/22/17 - Constitutional Vitals: Temp Pulse Resp BP Pulse Ox 98.2 F 66 16 110/72 94 02/22/17 15:09 02/22/17 15:09 02/22/17 15:09 02/22/17 15:09 02/22/17 15:09 Internal Medicine: Result - Labs CBC & Chem 7: 02/22/17 04:07 02/22/17 04:07 Labs: Short CBC 02/22/17 Range/Units 04:07 WBC 16.3 H (4.3-11.1) K/mcL Hgb 8.9 L (11.5-15.4) g/dL Hct 27.8 L (35.3-44.9) % Plt Count 397 (140-400) K/mcL Neutrophils # 12.4 H (1.6-8.9) K/mcL [facility] 02/22/17 04:07 Sodium 138 Potassium 3.1 L Chloride 100 Carbon Dioxide 29 BUN 6 L Creatinine 0.91 Glucose 109 H Calcium 8.8 - ABG Interpretation ABG results: PT/INR, D-dimer PT 17.6 Seconds (9.4-12.1) H 02/20/17 04:07 - Attending Attestation I examined this patient and my medical decision-making was reviewed with the Resident Physician, Dr. Pompa. I agree with the documented findings, disposition and treatment plan as described except to the extent set forth below. Patient reports right upper quadrant pain improved with oral morphine. Continue broad spectrum IV antibiotic coverage. Follow up final culture and sensitivities and de-escalate accordingly.
[2017-02-22] MEDS: TAMOXIFEN CITRATE 20 MG PO SCH (20:51)
[2017-02-23] MEDS: Piperacillin/Tazobactam 3.375 GM in D5% in Water (Mini-Bag+) 100 ML IVPB SCH ×2 (00:19→08:33)
[2017-02-23] MEDS: *HR* Morphine Soln 10 MG/5 ML UDC PO PRN ×7 (01:27→23:04)
[2017-02-23] MEDS: *HR* Heparin 5,000 UNIT/ML VIAL SQ SCH ×2 (05:53→18:27)
[2017-02-23] MEDS: *HR* Morphine Sulfate SR (12 HR) 30 MG TABLET.ER PO SCH ×2 (05:53→18:28)
[2017-02-23] MEDS ORDERED: Magnesium Sulfate 2 GM in D5% in Water 100 ML IVPB ONE (08:03)
[2017-02-23 08:52] LABS: Basophils % 0.3 %; Eosinophils # 0.6 K/mcL (0.0-0.6); Hematocrit 28.1 % (35.3-44.9); Hemoglobin 9.1 g/dL (11.5-15.4); Immature Granulocytes % 0.8 % (0-4); Lymphocytes # 2.3 K/mcL (0.6-4.6); Lymphocytes % 15.4 %; Mean Corpuscular HGB Conc 32.4 g/dL (31.6-35.5); Mean Corpuscular Hemoglobin 29.4 pg (28.0-33.3); Mean Corpuscular Volume 90.6 fL (83.0-100.0); Mean Platelet Volume 9.4 fL (9.4-12.4); Monocytes % 6.8 %; Neutrophils # 10.6 K/mcL (1.6-8.9); Platelet Count 430 K/mcL (140-400); Red Cell Distribution Width 13.8 % (11.5-14.5); Segmented Neutrophils % 72.7 %
[2017-02-23 09:04] LABS: BUN/Creatinine Ratio 5 (6-26); Blood Urea Nitrogen 4 mg/dL (7-20); Calcium 9.1 mg/dL (8.6-10.8); Carbon Dioxide 31 mEq/L (19-29); Chloride 100 mEq/L (98-109); Glucose 92 mg/dL (70-99); Osmolality,Calculated 285 (280-300); Potassium 3.6 mEq/L (3.5-4.5); Sodium 139 mEq/L (136-145); eGFR For African Americans > 60 (> 60); eGFR For Non-African Americans > 60 (> 60)
--- NOTE | 2017-02-23 10:24 | Palliative Progress Note ---
Date of Encounter: 02/23/17 Time of Encounter: 09:00 - Assessment and plan (1) Cancer associated pain Current Visit: No Status: Acute Assessment and plan: Patient reports abdominal pain comes and goes. Reports that MS Contin increase has helped. Patient requested 2 doses on BTP morphine over past 24 hrs. Continue to assess. (2) Constipation due to pain medication Current Visit: No Status: Acute Assessment and plan: Patient with increase in pain medication for comfort. Will add PRN Dulcolox ro regimen. Last BM was yesterday 02/22/17. Will monitor I&O. (3) Nausea & vomiting Current Visit: Yes Status: Acute Assessment and plan: Patient reports nausea without emesis last PM. Zofran taken x 2 in past 24 hrs and has helped. Continue Zofran PRN. Provided lemon [place] soda for dry mouth. Qualifiers: Vomiting type: unspecified Vomiting Intractability: non-intractable Qualified Code(s): R11.2 - Nausea with vomiting, unspecified (4) Goals of care, counseling/discussion Current Visit: Yes Status: Acute Assessment and plan: Discussed discharge plan for early next week and a plan for 4-6 of home antibiotics once all cultures are reported. Patient desires a hospital bed and SS notes indicate plan is in place for HH and bed. Patient has power glide IV access in place for therapy. Verbalized understanding and she is reluctant to stay here through the weekend but understands the need to do so. (5) Breast cancer Current Visit: Yes Status: Acute Assessment and plan: Managed per Dr. 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 Awakens easy. Patient desires to go home. Explained goal is to get all culture results and plan for 4 -6 weeks IV antibiotics. She verbalized understanding. Denies N/V or abdominal pain. Chart reviewed. - Constitutional Vitals: Abnormal lab results WBC 14.6 K/mcL (4.3-11.1) H 02/23/17 08:28 RBC 3.10 M/mcL (3.82-4.97) L 02/23/17 08:28 Hgb 9.1 g/dL (11.5-15.4) L 02/23/17 08:28 Hct 28.1 % (35.3-44.9) L 02/23/17 08:28 Plt Count 430 K/mcL (140-400) H 02/23/17 08:28 Neutrophils # 10.6 K/mcL (1.6-8.9) H 02/23/17 08:28 Platelet Estimate Increased (Normal) H 02/18/17 03:20 Hypochromasia Present (Not Present) A 02/18/17 03:20 PT 17.6 Seconds (9.4-12.1) H 02/20/17 04:07 Carbon Dioxide 31 mEq/L (19-29) H 02/23/17 08:28 BUN 4 mg/dL (7-20) L 02/23/17 08:28 BUN/Creatinine Ratio 5 (6-26) L 02/23/17 08:28 Magnesium 1.2 mg/dL (1.6-2.6) L 02/23/17 04:10 Total Bilirubin 1.8 mg/dL (0.2-1.2) H 02/21/17 04:15 Direct Bilirubin 1.4 mg/dL (0.0-0.5) H 02/21/17 04:15 Alkaline Phosphatase 210 Units/L (38-126) H 02/21/17 04:15 C-Reactive Protein 113 mg/L (Less than 5) H 02/22/17 04:07 Albumin 1.6 g/dL (3.5-5.0) L 02/21/17 04:15 Globulin 4.6 g/dL (2.4-3.5) H 02/21/17 04:15 Albumin/Globulin Ratio 0.3 (1.1-2.2) L 02/21/17 04:15 Prealbumin 9.0 mg/dL (16.0-38.0) L 02/20/17 04:07 Urine Clarity Slightly Cloudy (Clear) A 02/17/17 20:05 Ur Specific [place] >= 1.030 (1.010-1.025) H 02/17/17 20:05 Urine Protein 100 mg/dL (Neg-Trace) H 02/17/17 20:05 Urine Blood Moderate (Negative) H 02/17/17 20:05 Urine Bilirubin Small (Negative) H 02/17/17 20:05 Ur Leukocyte Esterase Small (Negative) H 02/17/17 20:05 Urine Microscopic WBC 3-5 per hpf (0-3) H 02/17/17 20:05 Urine Bacteria Many per hpf (None-Few) H 02/17/17 20:05 Ur Culture Indicated? YES (NO) A 02/17/17 20:05 General appearance: Present: no acute distress - Head Head exam: Present: atraumatic, normal inspection - Eye Eye exam: Present: PERRL Pupils: Present: PERRL - ENT ENT exam: Present: mucous membranes moist - Neck Neck exam: Present: full ROM - Respiratory Respiratory exam: Present: decreased breath sounds - Expanded Respiratory Exam Location: decreased breath sounds: Left, Right, Lower (instructed to CDB hourly) - Cardiovascular Cardiovascular exam: Present: RRR, +S1, +S2 - Expanded Cardiovascular Exam Peripheral pulses: 1+: Posterior Tibialis (L), Posterior Tibialis (R), 2+: Carotid (L) PM, Carotid (R) PM, Radial (L), Radial (R), Femoral (L) PM, Femoral (R) PM, Dorsalis Pedis (L) PM, Dorsalis Pedis (R) PM - GI/Abdominal GI/Abdominal exam: Present: normal bowel sounds, soft (ALEC drain with small amount bloody drainage, 2 bile drain bags with moderate amount of green bile. ) - Rectal Rectal exam: Present: deferred - Extremities Exam Extremities exam: Present: full ROM, normal capillary refill (EPCDs placed on bilateral legs. Instructed to do ROM hourly. ) - Back Exam Back exam: Present: full ROM - Neurological Exam Neurological exam: Present: alert, CN II-XII intact, oriented X3 - Psychiatric Psychiatric exam: Present: normal affect - Skin Skin exam: Present: pallor, warm Palliative Quality Palliative Quality: Screen for Code Status: Yes, Screen for Goals of Care: Yes, Screen for Pain: Yes, If Pain Regimen Started, Initiate Bowel Regimen: Yes, Screen for Nausea/Vomitting: Yes - Labs CBC & Chem 7: 02/23/17 08:28 02/23/17 08:28 Labs: Laboratory Results - last 24 hr 02/23/17 02/23/17 02/23/17 04:10 08:28 08:28 WBC 14.6 H RBC 3.10 L Hgb 9.1 L Hct 28.1 L MCV 90.6 MCH 29.4 MCHC 32.4 RDW 13.8 Plt Count 430 H MPV 9.4 Immature Gran % 0.8 Seg Neutrophils % 72.7 Lymphocytes % 15.4 Monocytes % 6.8 Eosinophils % 4.0 Basophils % 0.3 Neutrophils # 10.6 H Lymphocytes # 2.3 Monocytes # 1.0 Eosinophils # 0.6 Basophils # 0.0 Sodium 139 Potassium 3.6 Chloride 100 Carbon Dioxide 31 H BUN 4 L Creatinine 0.86 Est GFR ( Amer) > 60 Est GFR (Non-Af Amer) > 60 BUN/Creatinine Ratio 5 L Glucose 92 Calculated Osmolality 285 Calcium 9.1 Magnesium 1.2 L - ABG Interpretation ABG results: PT/INR, D-dimer PT 17.6 Seconds (9.4-12.1) H 02/20/17 04:07 Consult Discharge Plan - Plan Referrals: Chery Mckinney, RESEARCH GEOLOGIST [Primary Care Provider] -
[2017-02-23] MEDS: Ondansetron 4 MG/2 ML VIAL IVP PRN (12:56)
--- NOTE | 2017-02-23 17:57 | Internal Med Progress Note ---
<Kurt Pompa - Last Filed: 02/23/17 17:54> Date of Encounter: 02/23/17 Time of Encounter: 13:05 - Assessment and plan (1) Pyogenic liver abscess Current Visit: Yes Status: Acute Assessment and plan: Patient had drainage of fluid collection 02/20/17 by IR. Cultures have [place] sensitive Klebsiella Pneumonia and strep viridans resistant to erythromycin and azithromycin. The ALEC is draining well with serosanguinous fluid. She will need IV antibiotics. for a duration of 4-6 weeks. However may need long depending on clinical course. We will narrow the spectrum of her antibiotics. We will put her on Rocephin. She will need exchange of the drainage tubes. If she is still neuro Saturday we will see if we can have this done before discharge. We will discuss with interventional radiology. If not we will need to set her up as an outpatient to have this done. She has a powerglide in place for IV access. She will need weekly monitoring of her CBC BMP and also would recommend monitoring CRP for efficacy treatment. (2) Leukocytosis Current Visit: Yes Status: Acute Assessment and plan: trending down. as stated above. Qualifiers: Leukocytosis type: unspecified Qualified Code(s): D72.829 - Elevated white blood cell count, unspecified (3) ISIDORO (acute kidney injury) Current Visit: Yes Status: Acute Assessment and plan: -prerenal from dehydration. resolved. (4) Hyperbilirubinemia Current Visit: Yes Status: Chronic Assessment and plan: trending down. Near normal range today. (5) Obstructive jaundice Current Visit: Yes Status: Chronic Assessment and plan: -trending down. Near normal range Drains are draining well. 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 Balbuena. 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 -Was apparently supposed to undergo her first round of chemotherapy yesterday. -Will hold off on any chemotherapy at this time as she is acutely ill. Will have her see Dr. Carpenter after Discharge for planning on when to initiate chemotherapy. 02/20/19 Discused with Pharmacy. Patient had actually started on Tamoxifen previously. We will continue. Qualifiers: Breast location: unspecified site of breast Patient sex: female Laterality: unspecified laterality Qualified Code(s): C50.919 - Malignant neoplasm of unspecified site of unspecified female breast (7) Cholangiocarcinoma Current Visit: Yes Status: Suspected Assessment and plan: -Patient underwent biliary biopsy, biliary dilation, and biliary drainage 2 with interventional radiology on 02/05/2017. -Pathology reveals atypical ductal cells suspicious for adenocarcinoma. -Is currently under the care of Dr. Carpenter at the [facility] for this diagnosis and her breast and GI cancer diagnosis. I will attempt to discuss wit her to help coordinate her care. (8) Abdominal pain Current Visit: No Status: Acute Assessment and plan: improving better controlled appreciate palliative Qualifiers: Abdominal location: generalized Qualified Code(s): R10.84 - Generalized abdominal pain (9) Anemia Current Visit: Yes Status: Chronic Assessment and plan: -stable. Normocytic. hematinics pending. Qualifiers: Anemia type: unspecified type Qualified Code(s): D64.9 - Anemia, unspecified (10) Hypoalbuminemia Current Visit: Yes Status: Acute Assessment and plan: pre albumin 9.0. Appreciate Health Care Specialist recommendations. Continue magic cup TID and resume diet when Able. (11) Thrombocytosis Current Visit: Yes Status: Resolved Assessment and plan: likely reactive continue to monitor.. (12) Crohns disease Current Visit: No Status: Chronic Assessment and plan: -Patient does have a history of Crohn's disease. - Was previously on Remicade. - Not currently in a flair. - Will hold Remincade as she is acutely ill. - GI following. Thank you for your assistance. Qualifiers: Gastrointestinal tract location: unspecified location Digestive disease complication type: without complication Qualified Code(s): K50.90 - Crohn's disease, unspecified, without complications (13) Neutrophilia Current Visit: Yes Status: Acute Assessment and plan: - Downtrending (14) Metabolic acidosis Current Visit: Yes Status: Resolved Assessment and plan: resolved (15) Elevated alkaline phosphatase level Current Visit: Yes Status: Acute Assessment and plan: - Downtrending - In the setting of obstructive jaundice secondary to primary cholagniocarcinoma. - Will continue to monitor. (16) Malignant neoplasms of independent (primary) multiple sites Current Visit: Yes Status: Acute (17) DVT prophylaxis Current Visit: No Status: Acute Assessment and plan: Patient had EPCDs ordered. She is currently wearing them continue SQ heparin (18) Constipation Current Visit: Yes Status: Acute Assessment and plan: likely from Morphine appreciate palliative starting her on dulcolax. Will continue to follow. - Subjective Interval history: Events overnight. Today the patient states that she is feeling much better. She does have pain that comes and goes from her right upper quadrant and from the site of her drains. She denies any dyspnea cough wheeze chest pain, any other pain or discomfort. She does admit to some constipation. She denies any dysuria. She states that she feels that her feet are a little swollen. She has no further complaints or concerns at this time. - Constitutional Vitals: Temp Pulse Resp BP Pulse Ox 97.8 F 72 17 115/70 95 02/23/17 15:49 02/23/17 15:49 02/23/17 15:49 02/23/17 15:49 02/23/17 15:49 Exam: Gen.: This is a very pleasant well-developed well-nourished 46-year-old female who is alert and orientated to person place time and situation. Vitamin appears to comfortable no acute distress at this time. Head: That is normocephalic and atraumatic. EENT: Anicteric sclera, pupils equally round react light and accommodation. Normal external appearance of the ears nose and eyes. Moist mucous membranes. Dentition intact. The uvula tongue and trachea are all midline. There is no cervical submandibular or supraclavicular lymphadenopathy palpable on exam. Without masses or thyromegaly. Heart: The heart has a regular rate and rhythm without murmurs rubs or gallops. Lungs: Clear to auscultation bilaterally. Normal effort of breathing. Abdomen: The abdomen is nondistended: There are 3 drains coming from the right upper quadrant. One is a Baljeet-Torres and has serosanguineous drainage approximately 10 mL. The other 2 are biliary drains and have an miya fluid in the collecting bags. The abdomen is soft, mild tenderness in the right upper quadrant. No guarding throughout the entirety of the exam. Bowel sounds are positive in all 4 quadrants. Musculoskeletal: Grossly normal for age no gross deformities noted. Extremities: There is no clubbing, cyanosis or edema. Specifically there is no pedal edema. Integument: Is no rashes or lesions. Internal Medicine: Result - Labs CBC & Chem 7: 02/23/17 08:28 02/23/17 08:28 Labs: Short CBC 02/23/17 Range/Units 08:28 WBC 14.6 H (4.3-11.1) K/mcL Hgb 9.1 L (11.5-15.4) g/dL Hct 28.1 L (35.3-44.9) % Plt Count 430 H (140-400) K/mcL Neutrophils # 10.6 H (1.6-8.9) K/mcL BMP 02/23/17 08:28 Sodium 139 Potassium 3.6 Chloride 100 Carbon Dioxide 31 H BUN 4 L Creatinine 0.86 Glucose 92 Calcium 9.1 - ABG Interpretation ABG results: PT/INR, D-dimer PT 17.6 Seconds (9.4-12.1) H 02/20/17 04:07 - VTE Documentation of Mechanical Device: Intermittent pneumatic compression device Consult Discharge Plan - Plan Referrals: Chery Mckinney, SHREDDED FILLER MACHINE WRAPPER LAYER [Primary Care Provider] - <Satya Leo - Last Filed: 02/23/17 18:37> Date of Encounter: 02/23/17 - Constitutional Vitals: Temp Pulse Resp BP Pulse Ox 97.8 F 72 17 115/70 95 02/23/17 15:49 02/23/17 15:49 02/23/17 15:49 02/23/17 15:49 02/23/17 15:49 Internal Medicine: Result - Labs CBC & Chem 7: 02/23/17 08:28 02/23/17 08:28 Labs: Short CBC 02/23/17 Range/Units 08:28 WBC 14.6 H (4.3-11.1) K/mcL Hgb 9.1 L (11.5-15.4) g/dL Hct 28.1 L (35.3-44.9) % Plt Count 430 H (140-400) K/mcL Neutrophils # 10.6 H (1.6-8.9) K/mcL BMP 02/23/17 08:28 Sodium 139 Potassium 3.6 Chloride 100 Carbon Dioxide 31 H BUN 4 L Creatinine 0.86 Glucose 92 Calcium 9.1 - ABG Interpretation ABG results: PT/INR, D-dimer PT 17.6 Seconds (9.4-12.1) H 02/20/17 04:07 - Attending Attestation I examined this patient and my medical decision-making was reviewed with the Resident Physician, Dr. Pompa. I agree with the documented findings, disposition and treatment plan as described except to the extent set forth below. Narrow antibiotic therapy with ceftriaxone. Pain control with oral morphine. Follow-up with social work for home infusion arrangements. Monitor white blood cell count and LFTs.
[2017-02-23] MEDS: TAMOXIFEN CITRATE 20 MG PO SCH (20:57)
[2017-02-24] MEDS: *HR* Morphine Soln 10 MG/5 ML UDC PO PRN ×6 (01:34→21:05)
[2017-02-24 04:12] LABS: Basophils # 0.1 K/mcL (0.0-0.2); Basophils % 0.5 %; Eosinophils # 0.5 K/mcL (0.0-0.6); Eosinophils % 3.4 %; Hematocrit 25.8 % (35.3-44.9); Hemoglobin 8.5 g/dL (11.5-15.4); Immature Granulocytes % 0.6 % (0-4); Immature Reticulocyte % 16.5 % (11.0-38.0); Lymphocytes # 2.3 K/mcL (0.6-4.6); Lymphocytes % 17.7 %; Mean Corpuscular HGB Conc 32.9 g/dL (31.6-35.5); Mean Corpuscular Hemoglobin 29.6 pg (28.0-33.3); Mean Corpuscular Volume 89.9 fL (83.0-100.0); Mean Platelet Volume 9.6 fL (9.4-12.4); Monocytes # 0.9 K/mcL (0.0-1.3); Monocytes % 6.7 %; Neutrophils # 9.4 K/mcL (1.6-8.9); Platelet Count 382 K/mcL (140-400); Red Blood Count 2.87 M/mcL (3.82-4.97); Red Cell Distribution Width 13.6 % (11.5-14.5); Retculocyte # 0.05 M/mcL (0.05-0.10); Reticulocyte % 1.6 % (1.6-2.8); Segmented Neutrophils % 71.1 %
[2017-02-24 04:25] LABS: % Iron Saturation 28 % (15-50); Iron 38 mcg/dL (50-170); Transferrin 96 mg/dL (180-382)
[2017-02-24 04:27] LABS: Alanine Aminotransferase 21 Units/L (0-55); Albumin/Globulin Ratio 0.4 (1.1-2.2); Alkaline Phosphatase 188 Units/L (38-126); Aspartate Amino Transferase 23 Units/L (5-34); BUN/Creatinine Ratio 6 (6-26); Bilirubin,Total 1.6 mg/dL (0.2-1.2); Blood Urea Nitrogen 6 mg/dL (7-20); Calcium 8.8 mg/dL (8.6-10.8); Carbon Dioxide 31 mEq/L (19-29); Chloride 99 mEq/L (98-109); Globulin 4.7 g/dL (2.4-3.5); Glucose 100 mg/dL (70-99); Magnesium 1.8 mg/dL (1.6-2.6); Osmolality,Calculated 284 (280-300); Potassium 3.4 mEq/L (3.5-4.5); Sodium 138 mEq/L (136-145); Total Protein 6.5 g/dL (6.0-8.3); eGFR For African Americans > 60 (> 60); eGFR For Non-African Americans 57 (> 60)
[2017-02-24 04:35] LABS: Albumin 1.8 g/dL (3.5-5.0)
[2017-02-24 04:47] LABS: Ferritin 630 ng/ml (5-204)
[2017-02-24 05:01] LABS: Folate 7.3 ng/mL (7.0-31.4)
[2017-02-24] MEDS: *HR* Heparin 5,000 UNIT/ML VIAL SQ SCH ×2 (07:05→17:33)
[2017-02-24] MEDS: *HR* Morphine Sulfate SR (12 HR) 30 MG TABLET.ER PO SCH ×2 (07:06→17:33)
--- NOTE | 2017-02-24 12:19 | Palliative Progress Note ---
Date of Encounter: 02/24/17 Time of Encounter: 11:30 - Assessment and plan (1) Cancer associated pain Current Visit: No Status: Acute Assessment and plan: Patient reports abdominal pain comes and goes. Reports that MS Contin increase has helped. Patient requested 7 doses on BTP 10 morphine over past 24 hrs. Continue to assess. (2) Constipation due to pain medication Current Visit: No Status: Acute Assessment and plan: Patient with increase in pain medication for comfort. Will add PRN Dulcolox ro regimen. Last BM was 02/22/17. Will monitor I&O. (3) Nausea & vomiting Current Visit: Yes Status: Acute Assessment and plan: Zofran taken x 1 in past 24 hrs and has helped. Continue Zofran PRN. Provided lemon [place] soda for dry mouth. Qualifiers: Vomiting type: unspecified Vomiting Intractability: non-intractable Qualified Code(s): R11.2 - Nausea with vomiting, unspecified (4) Goals of care, counseling/discussion Current Visit: Yes Status: Acute Assessment and plan: Discussed discharge plan for early next week and a plan for 4-6 of home antibiotics once all cultures are reported. Patient desires a hospital bed and SS notes indicate plan is in place for HH and bed. Patient has power glide IV access in place for therapy. Verbalized understanding and she is reluctant to stay here through the weekend but understands the need to do so. (5) Breast cancer Current Visit: Yes Status: Acute Assessment and plan: Managed per Dr. Chaves at [facility] Qualifiers: Breast location: unspecified site of breast Patient sex: female Laterality: unspecified laterality Qualified Code(s): C50.919 - Malignant neoplasm of unspecified site of unspecified female breast (6) Crohns disease Current Visit: No Status: Chronic Assessment and plan: Stable Qualifiers: Gastrointestinal tract location: unspecified location Digestive disease complication type: without complication Qualified Code(s): K50.90 - Crohn's disease, unspecified, without complications (7) Cholangiocarcinoma Current Visit: Yes Status: Suspected - Time Spent With Patient Total time spent is greater than 50% in coordination of care (as documented) at patient's floor/unit and/or counseling patient: - Subjective Interval history: In bed, sleeping. Awakens easy. Patient still desires to go home. Explained goal is to get all culture results and plan for 4 -6 weeks IV antibiotics. She verbalized understanding. Denies N/V or abdominal pain. Chart reviewed. - Constitutional Vitals: Abnormal lab results WBC 13.2 K/mcL (4.3-11.1) H 02/24/17 04:00 RBC 2.87 M/mcL (3.82-4.97) L 02/24/17 04:00 Hgb 8.5 g/dL (11.5-15.4) L 02/24/17 04:00 Hct 25.8 % (35.3-44.9) L 02/24/17 04:00 Neutrophils # 9.4 K/mcL (1.6-8.9) H 02/24/17 04:00 Platelet Estimate Increased (Normal) H 02/18/17 03:20 Hypochromasia Present (Not Present) A 02/18/17 03:20 PT 17.6 Seconds (9.4-12.1) H 02/20/17 04:07 Potassium 3.4 mEq/L (3.5-4.5) L 02/24/17 04:00 Carbon Dioxide 31 mEq/L (19-29) H 02/24/17 04:00 BUN 6 mg/dL (7-20) L 02/24/17 04:00 Est GFR (Non-Af Amer) 57 (> 60) L 02/24/17 04:00 Glucose 100 mg/dL (70-99) H 02/24/17 04:00 Iron 38 mcg/dL (50-170) L 02/24/17 04:00 Transferrin 96 mg/dL (180-382) L 02/24/17 04:00 Ferritin 630 ng/ml (5-204) H 02/24/17 04:00 Total Bilirubin 1.6 mg/dL (0.2-1.2) H 02/24/17 04:00 Direct Bilirubin 1.4 mg/dL (0.0-0.5) H 02/21/17 04:15 Alkaline Phosphatase 188 Units/L (38-126) H 02/24/17 04:00 C-Reactive Protein 113 mg/L (Less than 5) H 02/22/17 04:07 Albumin 1.8 g/dL (3.5-5.0) L 02/24/17 04:00 Globulin 4.7 g/dL (2.4-3.5) H 02/24/17 04:00 Albumin/Globulin Ratio 0.4 (1.1-2.2) L 02/24/17 04:00 Prealbumin 9.0 mg/dL (16.0-38.0) L 02/20/17 04:07 Vitamin B12 1251 pg/mL (213-816) H 02/24/17 04:00 Urine Clarity Slightly Cloudy (Clear) A 02/17/17 20:05 Ur Specific [place] >= 1.030 (1.010-1.025) H 02/17/17 20:05 Urine Protein 100 mg/dL (Neg-Trace) H 02/17/17 20:05 Urine Blood Moderate (Negative) H 02/17/17 20:05 Urine Bilirubin Small (Negative) H 02/17/17 20:05 Ur Leukocyte Esterase Small (Negative) H 02/17/17 20:05 Urine Microscopic WBC 3-5 per hpf (0-3) H 02/17/17 20:05 Urine Bacteria Many per hpf (None-Few) H 02/17/17 20:05 Ur Culture Indicated? YES (NO) A 02/17/17 20:05 - Head Head exam: Present: atraumatic, normal inspection - Eye Eye exam: Present: PERRL Pupils: Present: PERRL - ENT ENT exam: Present: mucous membranes moist - Neck Neck exam: Present: full ROM - Respiratory Respiratory exam: Present: CTAB - Cardiovascular Cardiovascular exam: Present: RRR, +S1, +S2 - GI/Abdominal GI/Abdominal exam: Present: normal bowel sounds, soft (ALEC drain with seroussangious drainage, Bile bags x 2 - green bile) - Rectal Rectal exam: Present: deferred - Extremities Exam Extremities exam: Present: full ROM - Back Exam Back exam: Present: full ROM - Neurological Exam Neurological exam: Present: alert, CN II-XII intact, oriented X3 (sleepy at times) - Psychiatric Psychiatric exam: Present: normal affect - Skin Skin exam: Present: pallor, warm Palliative Quality Palliative Quality: Screen for Code Status: Yes, Screen for Goals of Care: Yes, Screen for Pain: Yes, If Pain Regimen Started, Initiate Bowel Regimen: Yes, Screen for Nausea/Vomitting: Yes - Labs CBC & Chem 7: 02/24/17 04:00 02/24/17 04:00 Labs: Laboratory Results - last 24 hr 02/24/17 02/24/17 02/24/17 04:00 04:00 04:00 WBC RBC Hgb Hct MCV MCH MCHC RDW Plt Count MPV Reticulocyte # 0.05 Immature Gran % Seg Neutrophils % Lymphocytes % Monocytes % Eosinophils % Basophils % Neutrophils # Lymphocytes # Monocytes # Eosinophils # Basophils # Percent Retic 1.6 Immature Retic Fraction 16.5 Retic Hgb Equivalent 31.1 Sodium Potassium Chloride Carbon Dioxide BUN Creatinine Est GFR ( Amer) Est GFR (Non-Af Amer) BUN/Creatinine Ratio Glucose Calculated Osmolality Calcium Magnesium Iron 38 L % Saturation 28 Transferrin 96 L Ferritin 630 H Total Bilirubin AST ALT Alkaline Phosphatase Serum Total Protein Albumin Globulin Albumin/Globulin Ratio Vitamin B12 1251 H Folate 7.3 02/24/17 02/24/17 04:00 04:00 WBC 13.2 H RBC 2.87 L Hgb 8.5 L Hct 25.8 L MCV 89.9 MCH 29.6 MCHC 32.9 RDW 13.6 Plt Count 382 MPV 9.6 Reticulocyte # Immature Gran % 0.6 Seg Neutrophils % 71.1 Lymphocytes % 17.7 Monocytes % 6.7 Eosinophils % 3.4 Basophils % 0.5 Neutrophils # 9.4 H Lymphocytes # 2.3 Monocytes # 0.9 Eosinophils # 0.5 Basophils # 0.1 Percent Retic Immature Retic Fraction Retic Hgb Equivalent Sodium 138 Potassium 3.4 L Chloride 99 Carbon Dioxide 31 H BUN 6 L Creatinine 1.04 Est GFR ( Amer) > 60 Est GFR (Non-Af Amer) 57 L BUN/Creatinine Ratio 6 Glucose 100 H Calculated Osmolality 284 Calcium 8.8 Magnesium 1.8 Iron % Saturation Transferrin Ferritin Total Bilirubin 1.6 H AST 23 ALT 21 Alkaline Phosphatase 188 H Serum Total Protein 6.5 Albumin 1.8 L Globulin 4.7 H Albumin/Globulin Ratio 0.4 L Vitamin B12 Folate - ABG Interpretation ABG results: PT/INR, D-dimer PT 17.6 Seconds (9.4-12.1) H 02/20/17 04:07 Consult Discharge Plan - Plan Referrals: Chery Mckinney, MASTER BREWER [Primary Care Provider] -
--- NOTE | 2017-02-24 15:06 | Internal Med Progress Note ---
<Kurt Pompa - Last Filed: 02/24/17 15:04> Date of Encounter: 02/24/17 Time of Encounter: 10:45 - Assessment and plan (1) Pyogenic liver abscess Current Visit: Yes Status: Acute Assessment and plan: Patient had drainage of fluid collection 02/20/17 by IR. Cultures have grown Dixon sensitive Klebsiella Pneumonia and strep viridans resistant to erythromycin and azithromycin. Drainage from ALEC is minimal. She will need IV antibiotics. for a duration of 4-6 weeks. However may need long depending on clinical course. first day should be after drain is removed. I did call Rad [address] Vaughan today. He is senior sales consultant from 10 pm to 7am. I will call him in the morning to discuss possibly exchanging the tubes and possibly Discontinuing the ALEC. She has a powerglide in place for IV access. She will need weekly monitoring of her CBC BMP and also would recommend monitoring CRP for efficacy treatment. (2) Leukocytosis Current Visit: Yes Status: Acute Assessment and plan: trending down. as stated above. Qualifiers: Leukocytosis type: unspecified Qualified Code(s): D72.829 - Elevated white blood cell count, unspecified (3) ISIDORO (acute kidney injury) Current Visit: Yes Status: Acute Assessment and plan: -prerenal from dehydration. resolved. (4) Hyperbilirubinemia Current Visit: Yes Status: Chronic Assessment and plan: trending down. Near normal range today. (5) Obstructive jaundice Current Visit: Yes Status: Chronic Assessment and plan: -trending down. Near normal range Drains are draining well. 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 Balbuena. 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 -Was apparently supposed to undergo her first round of chemotherapy yesterday. -Will hold off on any chemotherapy at this time as she is acutely ill. Will have her see Dr. Carpenter after Discharge for planning on when to initiate chemotherapy. 02/20/19 Discused with Pharmacy. Patient had actually started on Tamoxifen previously. We will continue. Qualifiers: Breast location: unspecified site of breast Patient sex: female Laterality: unspecified laterality Qualified Code(s): C50.919 - Malignant neoplasm of unspecified site of unspecified female breast (7) Cholangiocarcinoma Current Visit: Yes Status: Suspected Assessment and plan: -Patient underwent biliary biopsy, biliary dilation, and biliary drainage 2 with interventional radiology on 02/05/2017. -Pathology reveals atypical ductal cells suspicious for adenocarcinoma. -Is currently under the care of Dr. Carpenter at the [facility] for this diagnosis and her breast and GI cancer diagnosis. I will attempt to discuss wit her to help coordinate her care. (8) Abdominal pain Current Visit: No Status: Acute Assessment and plan: improving better controlled appreciate palliative Qualifiers: Abdominal location: generalized Qualified Code(s): R10.84 - Generalized abdominal pain (9) Anemia Current Visit: Yes Status: Chronic Assessment and plan: -stable. Normocytic. Hematinics normal. Likely anemia of chronic disease. Qualifiers: Anemia type: unspecified type Qualified Code(s): D64.9 - Anemia, unspecified (10) Hypoalbuminemia Current Visit: Yes Status: Acute Assessment and plan: pre albumin 9.0. Appreciate Bereavement Counselor recommendations. Continue magic cup TID and resume diet when Able. (11) Thrombocytosis Current Visit: Yes Status: Resolved Assessment and plan: resolved (12) Crohns disease Current Visit: No Status: Chronic Assessment and plan: -Patient does have a history of Crohn's disease. - Was previously on Remicade. - Not currently in a flair. - Will hold Remincade as she is acutely ill. - GI following. Thank you for your assistance. Qualifiers: Gastrointestinal tract location: unspecified location Digestive disease complication type: without complication Qualified Code(s): K50.90 - Crohn's disease, unspecified, without complications (13) Neutrophilia Current Visit: Yes Status: Acute Assessment and plan: - Downtrending (14) Metabolic acidosis Current Visit: Yes Status: Resolved Assessment and plan: resolved (15) Elevated alkaline phosphatase level Current Visit: Yes Status: Acute Assessment and plan: - Downtrending - In the setting of obstructive jaundice secondary to primary cholagniocarcinoma. - Will continue to monitor. (16) Malignant neoplasms of independent (primary) multiple sites Current Visit: Yes Status: Acute (17) DVT prophylaxis Current Visit: No Status: Acute Assessment and plan: Patient had EPCDs ordered. She is currently wearing them continue SQ heparin (18) Constipation Current Visit: Yes Status: Acute Assessment and plan: resolved - Subjective Interval history: Patient states she is doing well today. She states that she is feeling much better. She states that she feels good enough to go home tomorrow. She has no further complaints or concerns at this time. - Constitutional Vitals: Temp Pulse Resp BP Pulse Ox 97.3 F L 77 18 98/64 96 02/24/17 14:31 02/24/17 14:31 02/24/17 14:31 02/24/17 14:31 02/24/17 14:31 General appearance: Present: cachectic, mild distress, A&O X 3 - Head Head exam: Present: atraumatic, normal inspection, normocephalic - Eye Eye exam: Present: PERRL, conjuntiva pink, sclera anicteric Pupils: Present: PERRL - Neck Neck exam general surgery: Present: supple, trachea midline. Absent: lymphadenopathy - Respiratory Respiratory exam: Present: CTAB. Absent: accessory muscle use, rales, rhonchi, wheezes - Cardiovascular Cardiovascular exam: Present: RRR, +S1, +S2. Absent: diastolic murmur, gallop, rubs, systolic murmur - GI/Abdominal GI/Abdominal exam: Present: normal bowel sounds, soft, no peritoneal signs. Absent: distended, tenderness Additional comments: ALEC is empty. I stripped the tubing and there a re no clots. Other [address] miya fluid. Clean and well dressed. nondistended. Mild RUQ pain No guarding. - Extremities Exam Extremities exam: Present: warm, radial pulses palpable and symetrical. Absent : calf tenderness, cyanotic, pedal edema - Skin Skin exam: Present: dry, intact Internal Medicine: Result - Labs CBC & Chem 7: 02/24/17 04:00 02/24/17 04:00 Labs: Short CBC 02/24/17 Range/Units 04:00 WBC 13.2 H (4.3-11.1) K/mcL Hgb 8.5 L (11.5-15.4) g/dL Hct 25.8 L (35.3-44.9) % Plt Count 382 (140-400) K/mcL Neutrophils # 9.4 H (1.6-8.9) K/mcL BMP 02/24/17 04:00 Sodium 138 Potassium 3.4 L Chloride 99 Carbon Dioxide 31 H BUN 6 L Creatinine 1.04 Glucose 100 H Calcium 8.8 Liver Function 02/24/17 Range/Units 04:00 Total Bilirubin 1.6 H (0.2-1.2) mg/dL AST 23 (5-34) Units/L ALT 21 (0-55) Units/L Alkaline Phosphatase 188 H (38-126) Units/L Albumin 1.8 L (3.5-5.0) g/dL - ABG Interpretation ABG results: PT/INR, D-dimer PT 17.6 Seconds (9.4-12.1) H 02/20/17 04:07 - VTE Documentation of Mechanical Device: Intermittent pneumatic compression device Consult Discharge Plan - Plan Referrals: Chery Mckinney, ACIDITY TESTER [Primary Care Provider] - <Satya Leo - Last Filed: 02/24/17 17:20> Date of Encounter: 02/24/17 - Constitutional Vitals: Temp Pulse Resp BP Pulse Ox 97.3 F L 77 18 98/64 96 02/24/17 14:31 02/24/17 14:31 02/24/17 14:31 02/24/17 14:31 02/24/17 14:31 Internal Medicine: Result - Labs CBC & Chem 7: 02/24/17 04:00 02/24/17 04:00 Labs: Short CBC 02/24/17 Range/Units 04:00 WBC 13.2 H (4.3-11.1) K/mcL Hgb 8.5 L (11.5-15.4) g/dL Hct 25.8 L (35.3-44.9) % Plt Count 382 (140-400) K/mcL Neutrophils # 9.4 H (1.6-8.9) K/mcL BMP 02/24/17 04:00 Sodium 138 Potassium 3.4 L Chloride 99 Carbon Dioxide 31 H BUN 6 L Creatinine 1.04 Glucose 100 H Calcium 8.8 Liver Function 02/24/17 Range/Units 04:00 Total Bilirubin 1.6 H (0.2-1.2) mg/dL AST 23 (5-34) Units/L ALT 21 (0-55) Units/L Alkaline Phosphatase 188 H (38-126) Units/L Albumin 1.8 L (3.5-5.0) g/dL - ABG Interpretation ABG results: PT/INR, D-dimer PT 17.6 Seconds (9.4-12.1) H 02/20/17 04:07 - Attending Attestation I examined this patient and my medical decision-making was reviewed with the Resident Physician, Dr. Pompa. I agree with the documented findings, disposition and treatment plan as described except to the extent set forth below. Abdominal pain is well-controlled with oral morphine. On exam she is in no acute distress. Conjunctiva anicteric. Heart regular rate and rhythm S1-S2. Abdomen soft mildly tender to palpation in the right upper quadrant. Plan continue with ceftriaxone. Plan for home IV antibiotics. Discuss with IR to exchange biliary drain tube.
[2017-02-24] MEDS: TAMOXIFEN CITRATE 20 MG PO SCH (21:06)
[2017-02-25] MEDS: *HR* Morphine Soln 10 MG/5 ML UDC PO PRN ×4 (00:52→15:38)
[2017-02-25 04:14] LABS: Basophils # 0.1 K/mcL (0.0-0.2); Basophils % 0.7 %; Eosinophils # 0.6 K/mcL (0.0-0.6); Hematocrit 30.2 % (35.3-44.9); Hemoglobin 9.8 g/dL (11.5-15.4); Immature Granulocytes % 0.6 % (0-4); Lymphocytes # 2.9 K/mcL (0.6-4.6); Lymphocytes % 19.6 %; Mean Corpuscular HGB Conc 32.5 g/dL (31.6-35.5); Mean Corpuscular Hemoglobin 29.8 pg (28.0-33.3); Mean Corpuscular Volume 91.8 fL (83.0-100.0); Mean Platelet Volume 9.8 fL (9.4-12.4); Monocytes % 6.8 %; Platelet Count 479 K/mcL (140-400); Red Blood Count 3.29 M/mcL (3.82-4.97); Segmented Neutrophils % 68.3 %
[2017-02-25 04:26] LABS: BUN/Creatinine Ratio 9 (6-26); Blood Urea Nitrogen 8 mg/dL (7-20); Calcium 9.1 mg/dL (8.6-10.8); Carbon Dioxide 27 mEq/L (19-29); Chloride 102 mEq/L (98-109); Glucose 90 mg/dL (70-99); Magnesium 1.9 mg/dL (1.6-2.6); Osmolality,Calculated 284 (280-300); Potassium 4.6 mEq/L (3.5-4.5); Sodium 138 mEq/L (136-145); eGFR For African Americans > 60 (> 60); eGFR For Non-African Americans > 60 (> 60)
[2017-02-25] MEDS: *HR* Heparin 5,000 UNIT/ML VIAL SQ SCH ×2 (06:20→17:39)
[2017-02-25] MEDS: *HR* Morphine Sulfate SR (12 HR) 30 MG TABLET.ER PO SCH ×2 (06:20→17:38)
--- NOTE | 2017-02-25 09:01 | Palliative Progress Note ---
<Luis M Jackman - Last Filed: 02/25/17 09:02> Date of Encounter: 02/25/17 Time of Encounter: 08:51 - Assessment and plan (1) Cancer associated pain Current Visit: No Status: Acute Assessment and plan: Her pain has been adequately controlled on current PO medication and she has not needed frequent BTP Morphine Primary team will speak to IR about drainage today Plan to go home with HH and hospital bed; social work consulted (2) Malignant neoplasms of independent (primary) multiple sites Current Visit: Yes Status: Acute Assessment and plan: Patient sees Dr. Carpenter in [facility] as outpatient GI has been consulted for her cholangiocarcinoma - Time Spent With Patient Total time spent is greater than 50% in coordination of care (as documented) at patient's floor/unit and/or counseling patient: - Subjective Interval history: Pt seen and examined. She states her right abdominal pain is about the same as yesterday and it is made worse with movement. She states that pain is managed at current dosage and is balanced at a tolerable amount of sedation. She did have a loose bowel movement last night, which she reports as her normal. Denies chest pain, shortness of breath, mild nausea with an episode of vomiting yesterday. - Constitutional Vitals: Abnormal lab results WBC 14.6 K/mcL (4.3-11.1) H 02/25/17 04:00 RBC 3.29 M/mcL (3.82-4.97) L 02/25/17 04:00 Hgb 9.8 g/dL (11.5-15.4) L 02/25/17 04:00 Hct 30.2 % (35.3-44.9) L 02/25/17 04:00 Plt Count 479 K/mcL (140-400) H 02/25/17 04:00 Neutrophils # 10.0 K/mcL (1.6-8.9) H 02/25/17 04:00 Platelet Estimate Increased (Normal) H 02/18/17 03:20 Hypochromasia Present (Not Present) A 02/18/17 03:20 PT 17.6 Seconds (9.4-12.1) H 02/20/17 04:07 Potassium 4.6 mEq/L (3.5-4.5) H D 02/25/17 04:00 Iron 38 mcg/dL (50-170) L 02/24/17 04:00 Transferrin 96 mg/dL (180-382) L 02/24/17 04:00 Ferritin 630 ng/ml (5-204) H 02/24/17 04:00 Total Bilirubin 1.6 mg/dL (0.2-1.2) H 02/24/17 04:00 Direct Bilirubin 1.4 mg/dL (0.0-0.5) H 02/21/17 04:15 Alkaline Phosphatase 188 Units/L (38-126) H 02/24/17 04:00 C-Reactive Protein 46 mg/L (Less than 5) H 02/25/17 04:00 Albumin 1.8 g/dL (3.5-5.0) L 02/24/17 04:00 Globulin 4.7 g/dL (2.4-3.5) H 02/24/17 04:00 Albumin/Globulin Ratio 0.4 (1.1-2.2) L 02/24/17 04:00 Prealbumin 9.0 mg/dL (16.0-38.0) L 02/20/17 04:07 Vitamin B12 1251 pg/mL (213-816) H 02/24/17 04:00 Urine Clarity Slightly Cloudy (Clear) A 02/17/17 20:05 Ur Specific [place] >= 1.030 (1.010-1.025) H 02/17/17 20:05 Urine Protein 100 mg/dL (Neg-Trace) H 02/17/17 20:05 Urine Blood Moderate (Negative) H 02/17/17 20:05 Urine Bilirubin Small (Negative) H 02/17/17 20:05 Ur Leukocyte Esterase Small (Negative) H 02/17/17 20:05 Urine Microscopic WBC 3-5 per hpf (0-3) H 02/17/17 20:05 Urine Bacteria Many per hpf (None-Few) H 02/17/17 20:05 Ur Culture Indicated? YES (NO) A 02/17/17 20:05 General appearance: Present: cooperative, thin - Head Head exam: Present: atraumatic, normal inspection, normocephalic - Eye Eye exam: Present: EOMI, sclera anicteric - Respiratory Respiratory exam: Present: CTAB. Absent: rales, respiratory distress, wheezes - Cardiovascular Cardiovascular exam: Present: RRR, +S1, +S2, systolic murmur - GI/Abdominal GI/Abdominal exam: Present: normal bowel sounds, soft, tenderness. Absent: guarding - Extremities Exam Extremities exam: Absent: pedal edema, tenderness - Neurological Exam Neurological exam: Present: alert, no focal deficits. Absent: facial droop, speech deficit - Psychiatric Psychiatric exam: Present: normal affect, normal mood Palliative Quality Palliative Quality: Screen for Code Status: Yes, Screen for Goals of Care: Yes, Screen for Pain: Yes, If Pain Regimen Started, Initiate Bowel Regimen: Yes, Screen for Nausea/Vomitting: Yes - Labs CBC & Chem 7: 02/25/17 04:00 02/25/17 04:00 Labs: Laboratory Results - last 24 hr 02/25/17 02/25/17 02/25/17 04:00 04:00 04:00 WBC 14.6 H RBC 3.29 L Hgb 9.8 L Hct 30.2 L MCV 91.8 MCH 29.8 MCHC 32.5 RDW 14.0 Plt Count 479 H MPV 9.8 Immature Gran % 0.6 Seg Neutrophils % 68.3 Lymphocytes % 19.6 Monocytes % 6.8 Eosinophils % 4.0 Basophils % 0.7 Neutrophils # 10.0 H Lymphocytes # 2.9 Monocytes # 1.0 Eosinophils # 0.6 Basophils # 0.1 Sodium 138 Potassium 4.6 H D Chloride 102 Carbon Dioxide 27 BUN 8 Creatinine 0.85 Est GFR ( Amer) > 60 Est GFR (Non-Af Amer) > 60 BUN/Creatinine Ratio 9 Glucose 90 Calculated Osmolality 284 Calcium 9.1 Magnesium 1.9 C-Reactive Protein 46 H - ABG Interpretation ABG results: PT/INR, D-dimer PT 17.6 Seconds (9.4-12.1) H 02/20/17 04:07 Consult Discharge Plan - Plan Referrals: Chery Mckinney CNP [Primary Care Provider] - Prescriptions: Ceftriaxone Na/Dextrose,Iso [Ceftriaxone 2 gm Piggyback] 2 gm IV Q24H 35 Days <Genaro Ortiz - Last Filed: 02/25/17 09:08> Date of Encounter: 02/25/17 - Time Spent With Patient Total time spent is greater than 50% in coordination of care (as documented) at patient's floor/unit and/or counseling patient: - Constitutional Vitals: Abnormal lab results WBC 14.6 K/mcL (4.3-11.1) H 02/25/17 04:00 RBC 3.29 M/mcL (3.82-4.97) L 02/25/17 04:00 Hgb 9.8 g/dL (11.5-15.4) L 02/25/17 04:00 Hct 30.2 % (35.3-44.9) L 02/25/17 04:00 Plt Count 479 K/mcL (140-400) H 02/25/17 04:00 Neutrophils # 10.0 K/mcL (1.6-8.9) H 02/25/17 04:00 Platelet Estimate Increased (Normal) H 02/18/17 03:20 Hypochromasia Present (Not Present) A 02/18/17 03:20 PT 17.6 Seconds (9.4-12.1) H 02/20/17 04:07 Potassium 4.6 mEq/L (3.5-4.5) H D 02/25/17 04:00 Iron 38 mcg/dL (50-170) L 02/24/17 04:00 Transferrin 96 mg/dL (180-382) L 02/24/17 04:00 Ferritin 630 ng/ml (5-204) H 02/24/17 04:00 Total Bilirubin 1.6 mg/dL (0.2-1.2) H 02/24/17 04:00 Direct Bilirubin 1.4 mg/dL (0.0-0.5) H 02/21/17 04:15 Alkaline Phosphatase 188 Units/L (38-126) H 02/24/17 04:00 C-Reactive Protein 46 mg/L (Less than 5) H 02/25/17 04:00 Albumin 1.8 g/dL (3.5-5.0) L 02/24/17 04:00 Globulin 4.7 g/dL (2.4-3.5) H 02/24/17 04:00 Albumin/Globulin Ratio 0.4 (1.1-2.2) L 02/24/17 04:00 Prealbumin 9.0 mg/dL (16.0-38.0) L 02/20/17 04:07 Vitamin B12 1251 pg/mL (213-816) H 02/24/17 04:00 Urine Clarity Slightly Cloudy (Clear) A 02/17/17 20:05 Ur Specific [place] >= 1.030 (1.010-1.025) H 02/17/17 20:05 Urine Protein 100 mg/dL (Neg-Trace) H 02/17/17 20:05 Urine Blood Moderate (Negative) H 02/17/17 20:05 Urine Bilirubin Small (Negative) H 02/17/17 20:05 Ur Leukocyte Esterase Small (Negative) H 02/17/17 20:05 Urine Microscopic WBC 3-5 per hpf (0-3) H 02/17/17 20:05 Urine Bacteria Many per hpf (None-Few) H 02/17/17 20:05 Ur Culture Indicated? YES (NO) A 02/17/17 20:05 - Attending Attestation I examined this patient and my medical decision-making was reviewed with the AERONAUTICAL ENGINEERING OFFICER/PA/Advanced Practice Nurse/Resident Physician. I agree with the documented findings, disposition and treatment plan as described except to the extent set forth below. - Labs CBC & Chem 7: 02/25/17 04:00 02/25/17 04:00 Labs: Laboratory Results - last 24 hr 02/25/17 02/25/17 02/25/17 04:00 04:00 04:00 WBC 14.6 H RBC 3.29 L Hgb 9.8 L Hct 30.2 L MCV 91.8 MCH 29.8 MCHC 32.5 RDW 14.0 Plt Count 479 H MPV 9.8 Immature Gran % 0.6 Seg Neutrophils % 68.3 Lymphocytes % 19.6 Monocytes % 6.8 Eosinophils % 4.0 Basophils % 0.7 Neutrophils # 10.0 H Lymphocytes # 2.9 Monocytes # 1.0 Eosinophils # 0.6 Basophils # 0.1 Sodium 138 Potassium 4.6 H D Chloride 102 Carbon Dioxide 27 BUN 8 Creatinine 0.85 Est GFR ( Amer) > 60 Est GFR (Non-Af Amer) > 60 BUN/Creatinine Ratio 9 Glucose 90 Calculated Osmolality 284 Calcium 9.1 Magnesium 1.9 C-Reactive Protein 46 H - ABG Interpretation ABG results: PT/INR, D-dimer PT 17.6 Seconds (9.4-12.1) H 02/20/17 04:07
[2017-02-25 12:49] VITALS: BP 105/77
[2017-02-25] MEDS: Sennosides/Docusate Sodium TABLET PO SCH ×2 (15:38→15:40)
--- NOTE | 2017-02-25 16:01 | Discharge Summary ---
<Kurt Pompa - Last Filed: 02/25/17 15:58> Date of Encounter: 02/25/17 Time of Encounter: 15:58 - Discharge Diagnosis (1) Pyogenic liver abscess Status: Acute (2) Leukocytosis Status: Acute Qualifiers: Leukocytosis type: unspecified Qualified Code(s): D72.829 - Elevated white blood cell count, unspecified (3) ISIDORO (acute kidney injury) Status: Acute (4) Hyperbilirubinemia Status: Chronic (5) Obstructive jaundice Status: Chronic (6) Breast cancer Status: Acute Qualifiers: Breast location: unspecified site of breast Patient sex: female Laterality: unspecified laterality Qualified Code(s): C50.919 - Malignant neoplasm of unspecified site of unspecified female breast (7) Cholangiocarcinoma Status: Suspected (8) Abdominal pain Status: Acute Qualifiers: Abdominal location: generalized Qualified Code(s): R10.84 - Generalized abdominal pain (9) Anemia Status: Chronic Qualifiers: Anemia type: unspecified type Qualified Code(s): D64.9 - Anemia, unspecified (10) Hypoalbuminemia Status: Acute (11) Thrombocytosis Status: Resolved (12) Crohns disease Status: Chronic Qualifiers: Gastrointestinal tract location: unspecified location Digestive disease complication type: without complication Qualified Code(s): K50.90 - Crohn's disease, unspecified, without complications (13) Neutrophilia Status: Acute (14) Metabolic acidosis Status: Resolved (15) Elevated alkaline phosphatase level Status: Acute (16) Malignant neoplasms of independent (primary) multiple sites Status: Acute (17) DVT prophylaxis Status: Acute (18) Constipation Status: Acute - Discharge Medications Home Medications: Ondansetron ODT [Zofran ODT] 4 mg SL Q6HR PRN #30 tab.rapdis 01/20/17 [Rx] Omeprazole [PriLOSEC] 20 mg PO BIDAC #30 cap 01/22/17 [Rx] Tamoxifen Citrate 20 mg PO DAILY 02/07/17 [History] Lidocaine/Prilocaine CREAM [Emla] 1 appl TP AD 02/18/17 [History] Naproxen [Naprosyn] 500 mg PO BID 02/18/17 [History] Pantoprazole Sodium 20 mg PO DAILY 02/18/17 [History] Prochlorperazine Maleate [Compazine] 10 mg PO Q6HR 02/18/17 [History] Acetaminophen [Tylenol] 650 mg PO Q6HR PRN #0 tablet 02/25/17 [Rx] Morphine Soln [Morphine Sulfate] 5 mg PO Q2H PRN #0 udc 02/25/17 [Rx] Morphine Soln [Morphine Sulfate] 10 mg PO Q2H PRN #0 udc 02/25/17 [Rx] Morphine Sulfate SR (12 HR) [MS Contin] 30 mg PO Q12HR tablet.er 02/25/17 [Rx] Naloxone [Narcan] 0.4 mg IVP Q2MIN PRN #0 inj 02/25/17 [Rx] Sennosides/Docusate Sodium [Senna Plus] 1 each PO BID tablet 02/25/17 [Rx] Allergies/Adverse Reactions: Allergies No Known Allergies Allergy (Verified 01/22/17 14:12) Procedures/tests Complete & Pending: Procedures Performed prior 72 hours Category Date Time Status CT abd pelvis w iv no oral [CT] Stat Cat Scan 02/25/17 09:43 Completed Date of admission: 02/17/17 21:27 Primary care physician: Chery Mckinney CNP Consults: 02/18/17 00:20 Consult to Nutrition [CONS] Routine Comment: 10# weight loss in 6 weeks Consulting Provider: NUTRITION Reason for Dietary Consult: PO Supplementation Consult to Cemetery Manager [CONS] Routine Reason for SW Consult: Potential need for ECF. Friend lives with patient to help out. 02/18/17 01:11 Consult to Gastroenterology [CONS] Routine Consulting Provider: [facility] Reason for Consult: Bilioma Call Completed: No 02/18/17 11:20 Consult to Interventional Radiology [CONS] Routine Consulting Provider: Radiology Interventional Cols Reason for Consult: Recent percutaneous drains placed. New fluid collection. Complex fluid collection versus biloma. Also had purulent draiage and high WBC. Abscess ? Please evaluate fluid collection for possible drainage if felt that this is an infectious fluid collection. Gallbladder is distended as well. Please evaluate fluid collection and drains. thank you for your input. Call Completed: Yes 02/18/17 16:01 Consult to Palliative Care [CONS] Routine Comment: breast/ cholangiocarcinoma/symptom control. Consulting Provider: [facility] 02/20/17 09:23 Consult to Invasive Line Access Team [CONS] Routine Reason for Consult: No IV access Line Type: EPIV Time Notified: 09:25 Call Completed: Yes Discharging clinician: Kurt Pompa Anticipated date of discharge: 02/25/17 - Patient Status Disposition: Transfer Other Condition: Good - Discharge Instructions Follow Up With: Chery Mckinney CNP [Primary Care Provider] - Hospital course: Ms. Cruz is a 46 year old female who I had the pleasure of taking care of this admission. She was admitted to [facility] on 2016. She does have a significant past medical history for Crohn's disease and was previously on Remicade. Additionally she was recently diagnosed with breast cancer of the left breast. She did have a needle biopsy on 01/10/2017 which did reveal grade 2 invasive ductal carcinoma with additional the CISS component (grade 2 solid pattern). Additionally she had a left axillary node biopsy that was also positive for carcinoma. Tumor is ER positive, WI negative , HER-2 positive by IHC. She did also develop obstructive jaundice with suspicion for cholangiocarcinoma. She would undergo a biopsy of the liver which did show ductal epithelium positive for adenocarcinoma. She would also have biliary drains placed on 02/05/2017. She was admitted on 02/17/2017 after a 5 day history of increasing right upper quadrant pain nausea vomiting. She was markedly dehydrated on admission. She would have an AK I that was treated with fluids and she had full recovery of her renal function. She would undergo a CT of the abdomen and pelvis which would reveal a complex fluid collection in the right superior portion of the liver. I would place her on Zosyn ( 3.375 G TID) empirically on 02/18/2017. She would undergo CT-guided drainage of the complex fluid collection in the right upper liver on 02/20/2017. We would send this fluid for culture. It did grow Klebsiella pneumoniae pansensitive. Additionally grew strep viridans which was resistant only to azithromycin and erythromycin. We will get this culture results on 02/23/2017. She was placed on Rocephin ( 2G BID) on that day. The patient did progress and improved significantly. She had a marked decline in her white blood cell count. On admission it was a size 26,000. Today it is 14,000. Her history of present illness did resolve. However we did repeat a CT of the abdomen and pelvis with contrast on 02/25/2017 to ensure complete drainage from the ALEC and liver abscess. However on that CT we did see a new collection of fluid adjacent or Where the ALEC drain had been draining. Additionally there was a new large fluid collection very suspicious for a new abscess in the posterior liver. I did discuss the case with our gastroenterologists as well as our interventional radiologist. We feel that the patient needs to be seen by an infectious disease specialist. Furthermore she may benefit from a multi-disciplinary team. She does see [facility]. [facility] at [facility] for her breast and cholangiocarcinoma. Would recommend having infectious disease see the patient and evaluate whether or not the tubing from the biliary drains needs to be exchanged. As this may cause issues with source control if left remaining in the liver. Currently the patient is stable. We will discharge her to the [facility] once a bed is available. I have discussed this with the transfer center and with the hospitalist. She has been accepted her for admission. We will send the patient with the culture data as well as a CD of all her imaging from this admission. If there are any questions regarding her stay here at [facility] please feel free to call me at [phone]. - Time Spent with Patient Total time spent providing and/or coordinating discharge services: Greater than 30 minutes (I spent approximatly 50 minutes discharging this patient and coordinating her care.) - Constitutional Vitals: Temp Pulse Resp BP Pulse Ox 97.4 F L 75 16 105/77 98 02/25/17 12:47 02/25/17 12:47 02/25/17 12:47 02/25/17 12:47 02/25/17 12:47 General appearance: Present: cachectic, mild distress, A&O X 3 Exam: Gen.: This is a well-developed well-nourished 46-year-old female who is alert and orientated to person place time and situation. She is lying in bed appears to be comfortable and in no acute distress at this time. HEENT: Head is normal cephalic atraumatic. Pupils are equally round and react to light and accommodation. Anicteric sclera. There is a normal external appearance of ears nose and eyes. Dentition is intact. The uvula tongue and trachea are all midline. Neck is supple without mass or thyromegaly. There is no cervical or submandibular lymphadenopathy palpable on exam. No supraclavicular lymphadenopathy. Heart: The heart has a regular rate and rhythm. There is a 2/6 systolic ejection murmur heard best over the tricuspid area. This is not a new murmur. No carotid bruits. Radial pulses are 2 out of 4 and synchronous. She has good capillary refill in both the upper and lower extremities bilaterally. Lungs: She has normal effort of breathing and converses easily in full sentences. Clear to auscultation bilaterally. Abdomen: The abdomen is nondistended, there are currently 3 drains. There are 2 biliary drains with Radha color fluid present in the collecting bags. There is also a Baljeet-Torres drain that has approximately 10 mL of serosanguineous fluid present. Bowel sounds are positive in all quadrants. Mild tenderness to palpation in the right upper quadrant. No guarding throughout the entirety of the exam. Musculoskeletal: She does have some mild diffuse muscle atrophy. However there is no gross deformity noted. Extremities: There is no clubbing, cyanosis or edema. Integument: No rashes or lesions noted. - VTE Documentation of Mechanical Device: Intermittent pneumatic compression device <Satya Leo - Last Filed: 02/26/17 07:27> Date of Encounter: 02/26/17 Time of Encounter: 16:00 - Discharge Diagnosis (1) Pyogenic liver abscess Priority: Primary Status: Acute (2) Cholangiocarcinoma Priority: Secondary Status: Suspected (3) Biliary stricture Priority: Secondary Status: Acute (4) Cancer associated pain Priority: Secondary Status: Acute (5) Metastatic breast cancer Priority: Secondary Status: Acute Procedures/tests Complete & Pending: Procedures Performed prior 72 hours Category Date Time Status CT abd pelvis w iv no oral [CT] Stat Cat Scan 02/25/17 09:43 Completed Date of admission: 02/17/17 21:27 Primary care physician: Chery Mckinney CNP Consults: 02/18/17 00:20 Consult to Nutrition [CONS] Routine Comment: 10# weight loss in 6 weeks Consulting Provider: NUTRITION Reason for Dietary Consult: PO Supplementation Consult to Cemetery Manager [CONS] Routine Reason for SW Consult: Potential need for ECF. Friend lives with patient to help out. 02/18/17 01:11 Consult to Gastroenterology [CONS] Routine Consulting Provider: [facility] Reason for Consult: Bilioma Call Completed: No 02/18/17 11:20 Consult to Interventional Radiology [CONS] Routine Consulting Provider: Radiology Interventional Cols Reason for Consult: Recent percutaneous drains placed. New fluid collection. Complex fluid collection versus biloma. Also had purulent draiage and high WBC. Abscess ? Please evaluate fluid collection for possible drainage if felt that this is an infectious fluid collection. Gallbladder is distended as well. Please evaluate fluid collection and drains. thank you for your input. Call Completed: Yes 02/18/17 16:01 Consult to Palliative Care [CONS] Routine Comment: breast/ cholangiocarcinoma/symptom control. Consulting Provider: [facility] 02/20/17 09:23 Consult to Invasive Line Access Team [CONS] Routine Reason for Consult: No IV access Line Type: EPIV Time Notified: 09:25 Call Completed: Yes - Patient Status Functional capacity at discharge: independent ambulation Overall status at discharge: patient is not back to baseline - Diet and Activity Diet: regular diet Hospital course: Ms. Cruz is a 46 year old female - Time Spent with Patient Total time spent providing and/or coordinating discharge services: - Constitutional Vitals: Temp Pulse Resp BP Pulse Ox 97.4 F L 75 16 105/77 98 02/25/17 12:47 02/25/17 12:47 02/25/17 12:47 02/25/17 12:47 02/25/17 12:47 - Attending Attestation I examined this patient on 02/25/2017 and my medical decision-making was reviewed with the Resident Physician, Dr. Pompa. I agree with the documented findings, disposition and treatment plan as described except to the extent set forth below. the patient is in no acute distress.d normoactive bowel sounds are audible. Abdomen is soft. Plan: The patient requires evaluation by ID which is currently not available in the hospital and therefore we will transfer her to [facility]. She is hemodynamically stable for transfer.
== END 2017-02-25 18:14 | disposition other institution (70) | DRG 441 ==
LOC: 3ANU 16:41 → EMEROO 16:41 → SUATTDRO 21:27 → 3ANU 21:36
PROVIDERS: ADMIT Internal Medicine; ATTEND Internal Medicine
PROC: IRDRAIN (2017-02-20 12:00)

== ENCOUNTER 2017-04-10 23:01 | Inpatient (IN) ==
--- NOTE | 2017-04-10 23:22 | Emergency Department Note ---
Disposition Clinical Impression: Fever of unknown origin, Immunocompromised patient Disposition: Admitted As Inpatient Condition: Fair General Adult HPI - General Chief complaint: ED Fever Stated complaint: fever Time Seen by Provider: 04/10/17 23:17 Source: patient Limitations: no limitations - History of Present Illness Pain Scale: 0 - Related Data Home Medications Medication Instructions Recorded Confirmed Tamoxifen Citrate 20 mg PO DAILY 02/07/17 02/18/17 Lidocaine/Prilocaine CREAM [Emla] 1 appl TP AD 02/18/17 02/18/17 Naproxen [Naprosyn] 500 mg PO BID 02/18/17 02/18/17 Pantoprazole Sodium 20 mg PO DAILY 02/18/17 02/18/17 Prochlorperazine Maleate 10 mg PO Q6HR 02/18/17 02/18/17 [Compazine] Previous Rx's Medication Instructions Recorded Ondansetron ODT [Zofran ODT] 4 mg SL Q6HR PRN #30 tab.rapdis 01/20/17 Omeprazole [PriLOSEC] 20 mg PO BIDAC #30 cap 01/22/17 Acetaminophen [Tylenol] 650 mg PO Q6HR PRN #0 tablet 02/25/17 Morphine Soln [Morphine Sulfate] 5 mg PO Q2H PRN #0 udc 02/25/17 Morphine Soln [Morphine Sulfate] 10 mg PO Q2H PRN #0 udc 02/25/17 Morphine Sulfate SR (12 HR) [MS 30 mg PO Q12HR tablet.er 02/25/17 Contin] Naloxone [Narcan] 0.4 mg IVP Q2MIN PRN #0 inj 02/25/17 Sennosides/Docusate Sodium [Senna 1 each PO BID tablet 02/25/17 Plus] Allergies Allergy/AdvReac Type Severity Reaction Status Date / Time No Known Allergies Allergy Verified 01/22/17 14:12 Past Medical History - Past Medical History Medical history: Reports: cancer, other Surgical history: Reports: Psychiatric history: Reports: no psych history - Social History Smoking Status: Never smoker Smokeless Tobacco Status: No Alcohol use: Reports: none Drug use: Reports: none Physical Exam - General Limitations: no limitations General appearance: alert, in no apparent distress Course Vital Signs Temperature 99.2 F 04/10/17 23:11 Pulse Rate 100 04/10/17 23:11 Respiratory Rate 18 06/14/17 23:11 Blood Pressure 114/77 04/10/17 23:11 O2 Sat by Pulse Oximetry 97 04/10/17 23:11 Temperature 98.6 F 04/11/17 04:27 Pulse Rate 79 04/11/17 04:27 Respiratory Rate 16 04/11/17 04:27 Blood Pressure 104/68 04/11/17 04:27 O2 Sat by Pulse Oximetry 97 04/11/17 04:27 Oxygen Delivery Oxygen Delivery Room Air Medical Decision Making - Lab Data Result diagrams: 04/10/17 23:50 04/10/17 23:50 Lab Results 04/10/17 04/10/17 04/11/17 Range/Units 23:50 23:50 00:43 WBC 16.0 H (4.3-11.1) K/mcL RBC 4.31 (3.82-4.97) M/mcL Hgb 12.0 (11.5-15.4) g/dL Hct 38.6 (35.3-44.9) % MCV 89.6 (83.0-100.0) fL MCH 27.8 L (28.0-33.3) pg MCHC 31.1 L (31.6-35.5) g/dL RDW 17.2 H (11.5-14.5) % Plt Count 262 (140-400) K/mcL MPV 9.6 (9.4-12.4) fL Immature Gran % 4.6 H (0-4) % Seg Neutrophils % 80.2 % Lymphocytes % 10.3 % Monocytes % 4.6 % Eosinophils % 0.0 % Basophils % 0.3 % Neutrophils # 12.8 H (1.6-8.9) K/mcL Lymphocytes # 1.6 (0.6-4.6) K/mcL Monocytes # 0.7 (0.0-1.3) K/mcL Eosinophils # 0.0 (0.0-0.6) K/mcL Basophils # 0.1 (0.0-0.2) K/mcL Sodium 132 L (136-145) mEq/L Potassium 3.4 L (3.5-4.5) mEq/L Chloride 106 (98-109) mEq/L Carbon Dioxide 16 L (19-29) mEq/L BUN 11 (7-20) mg/dL Creatinine 0.76 (0.57-1.11) mg/dL Est GFR ( Amer) > 60 (> 60) Est GFR (Non-Af Amer) > 60 (> 60) BUN/Creatinine Ratio 14 (6-26) Glucose 149 H (70-99) mg/dL Calculated Osmolality 276 L (280-300) Calcium 9.0 (8.6-10.8) mg/dL Total Bilirubin 0.7 (0.2-1.2) mg/dL AST 18 (5-34) Units/L ALT 42 (0-55) Units/L Alkaline Phosphatase 239 H (38-126) Units/L Serum Total Protein 6.9 (6.0-8.3) g/dL Albumin 2.3 L (3.5-5.0) g/dL Globulin 4.6 H (2.4-3.5) g/dL Albumin/Globulin Ratio 0.5 L (1.1-2.2) Lipase 52 (8-78) Units/L Urine Color Dark Yellow (Yellow) Urine Clarity Cloudy A (Clear) Urine pH 5.5 (5.0-8.0) pH Units Ur Specific [place] 1.025 (1.010-1.025) Urine Protein 30 H (Neg-Trace) mg/dL Urine Glucose (UA) Normal (Normal) mg/dL Urine Ketones Negative (Negative) mg/dL Urine Blood Negative (Negative) Urine Nitrite Negative (Negative) Urine Bilirubin Negative (Negative) Urine Urobilinogen Normal (Normal) mg/dL Ur Leukocyte Esterase Negative (Negative) Urine Microscopic RBC 0-3 (0-3) per hpf Urine Microscopic WBC 5-15 H (0-3) per hpf Ur Squamous Epith Cells Many H (None-Few) per lpf Urine Bacteria Few (None-Few) per hpf Hyaline Casts Few (None-Few) per lpf Urine Mucus Moderate H (Few) Urine Yeast Test Not Performed Attestation Statement - Attestation Attestation: I examined this patient and my medical decision-making was reviewed with the TELEGRAPH EQUIPMENT MAINTAINER/PA/Advanced Practice Nurse/Resident Physician. I agree with the documented findings, disposition and treatment plan as described except to the extent set forth below. Face to face time provided Patient with a known history of breast cancer and primary sclerosing cholangitis presents to the emergency department with a fever that started today after her percutaneous bile drain was changed by interventional radiology. She appears frail on exam. She is afebrile at triage. Plan of care and management discussed by me with the resident physician
[2017-04-10] MEDS ORDERED: 0.9 % Sodium Chloride 1,000 ML IVC ONE (23:35)
--- NOTE | 2017-04-10 23:38 | Emergency Department Note ---
Disposition Clinical Impression: Fever of unknown origin, Immunocompromised patient Disposition: Admitted As Inpatient Condition: Fair Referrals: Chery Mckinney CNP [Primary Care Provider] - Forms: ED Satisfaction Letter Fever HPI - General Chief Complaint: ED Fever Stated Complaint: fever Time Seen by Provider: 04/10/17 23:17 Source: patient Limitations: no limitations Nursing Notes Reviewed: Yes Vital Signs Reviewed: Yes - History of Present Illness HPI Narrative: Sharona is a 46-year-old female with a history of breast cancer who presents to the ED with the chief complaint of fever. Fever was measured at 102 and it started today. She is received 2 treatments of chemotherapy with the last one being 2 weeks ago. She has a known hepatic mass that may or may not be cancerous as well as primary sclerosing cholangitis. She has had a biliary drain tube for about 2 months and had it replaced today by our interventional radiology team. She went home and states the drain has been draining well but developed a fever without any abdominal pain. She reports a mild cough recently. She also reports a port that was placed in her right chest last week. She had a stent in her biliary tract but that was removed last week. She denies any urinary symptoms. She denies any vomiting or nausea. Denies any diarrhea or blood in stool. She has been eating or drinking normally. - Related Data Home Medications Medication Instructions Recorded Confirmed Tamoxifen Citrate 20 mg PO DAILY 02/07/17 02/18/17 Lidocaine/Prilocaine CREAM [Emla] 1 appl TP AD 02/18/17 02/18/17 Naproxen [Naprosyn] 500 mg PO BID 02/18/17 02/18/17 Pantoprazole Sodium 20 mg PO DAILY 02/18/17 02/18/17 Prochlorperazine Maleate 10 mg PO Q6HR 02/18/17 02/18/17 [Compazine] Previous Rx's Medication Instructions Recorded Ondansetron ODT [Zofran ODT] 4 mg SL Q6HR PRN #30 tab.rapdis 01/20/17 Omeprazole [PriLOSEC] 20 mg PO BIDAC #30 cap 01/22/17 Acetaminophen [Tylenol] 650 mg PO Q6HR PRN #0 tablet 02/25/17 Morphine Soln [Morphine Sulfate] 5 mg PO Q2H PRN #0 udc 02/25/17 Morphine Soln [Morphine Sulfate] 10 mg PO Q2H PRN #0 udc 02/25/17 Morphine Sulfate SR (12 HR) [MS 30 mg PO Q12HR tablet.er 02/25/17 Contin] Naloxone [Narcan] 0.4 mg IVP Q2MIN PRN #0 inj 02/25/17 Sennosides/Docusate Sodium [Senna 1 each PO BID tablet 02/25/17 Plus] Allergies Allergy/AdvReac Type Severity Reaction Status Date / Time No Known Allergies Allergy Verified 01/22/17 14:12 All systems ED: reviewed and negative except as stated. Constitutional: Reports: fever, chills Cardiovascular: Denies: chest pain Respiratory: Reports: cough. Denies: dyspnea Gastrointestinal: Denies: abdominal pain, nausea, vomiting, diarrhea Musculoskeletal: Denies: back pain, neck pain Neurological: Denies: headache Fever PMH - Past Medical History Medical history: Reports: cancer, other Surgical history: Reports: Psychiatric history: Reports: no psych history - Social History Smoking Status: Never smoker Alcohol use: Reports: none Drug use: Reports: none Physical Exam General: Cachectic, chronically ill appearing female resting comfortably in bed , awake and talkative Cardiovascular: Regular rate and rhythm. S1, S2. No murmurs, rubs or gallops. Respiratory: Breath sounds clear bilaterally. No wheezing, rales or rhonchi. No resp distress chest wall: There is a port in the right chest wall with a small amount of bruising on the skin. There are 2 surgical incisions without signs of infection Abdomen: Abdomen is soft without any guarding, rebound or rigidity. No palpable organomegaly. Normal bowel sounds. She has a transcutaneous drain in the right abdomen that has green fluid coming from the tube. Around the tube at the skin site there is a scant amount of green drainage. There is some mild erythema on the skin but no crepitus or significant findings. Eyes: Conjunctiva clear without scleral icterus HENT: No oral mucosal lesions. Moist mucous membranes Neuro: She is awake, talkative and appropriate. No motor sensory deficits Musculoskeletal: No joint tenderness or swelling Skin: No lesions. No diaphoresis. Normal turgor. Normal color Psych: Appropriate - General Limitations: no limitations General appearance: alert, in no apparent distress Course Course Narrative: Presents with fever at home that began today. History of breast cancer on chemotherapy, last chemotherapy 2 weeks ago. She had a biliary drain replaced yesterday at [facility]. This drain was placed due to a large liver mass that was causing obstruction. She denies any abdominal pain, nausea or vomiting. On exam no tenderness. Biliary fluid from the drain but no obvious infection. Labs reveal a leukocytosis at 16 however she chronically has a leukocytosis, no shift. Liver enzymes unremarkable including bilirubin however Alk Phos is elevated around 250 which is slightly above her baseline. She also has a history of primary sclerosing cholangitis and Crohn's disease. Chest x-ray shows no evidence of infection. Urinalysis shows no evidence of infection. Blood cultures pending. Another possible source is more in her right chest wall that was placed about a week ago. Patient was started on broad-spectrum antibiotics including vancomycin and Zosyn. Plan to keep in the hospital due to fever while immunocompromised while pending cultures. Fever of unknown source at this time. I discussed with the on-call hospitalist, Dr. Ayaz Houston as for admission, no further orders at this time Vital Signs Temperature 99.2 F 04/10/17 23:11 Pulse Rate 100 04/10/17 23:11 Respiratory Rate 18 04/10/17 23:11 Blood Pressure 114/77 04/10/17 23:11 O2 Sat by Pulse Oximetry 97 04/10/17 23:11 Temperature 98.6 F 04/11/17 01:23 Pulse Rate 93 04/11/17 01:23 Respiratory Rate 18 04/11/17 01:23 Blood Pressure 104/73 04/11/17 01:23 O2 Sat by Pulse Oximetry 98 04/11/17 01:23 Oxygen Delivery Oxygen Delivery Room Air Fever - Lab Data Result diagrams: 04/10/17 23:50 04/10/17 23:50 Lab Results 04/10/17 04/10/17 04/11/17 Range/Units 23:50 23:50 00:43 WBC 16.0 H (4.3-11.1) K/mcL RBC 4.31 (3.82-4.97) M/mcL Hgb 12.0 (11.5-15.4) g/dL Hct 38.6 (35.3-44.9) % MCV 89.6 (83.0-100.0) fL MCH 27.8 L (28.0-33.3) pg MCHC 31.1 L (31.6-35.5) g/dL RDW 17.2 H (11.5-14.5) % Plt Count 262 (140-400) K/mcL MPV 9.6 (9.4-12.4) fL Immature Gran % 4.6 H (0-4) % Seg Neutrophils % 80.2 % Lymphocytes % 10.3 % Monocytes % 4.6 % Eosinophils % 0.0 % Basophils % 0.3 % Neutrophils # 12.8 H (1.6-8.9) K/mcL Lymphocytes # 1.6 (0.6-4.6) K/mcL Monocytes # 0.7 (0.0-1.3) K/mcL Eosinophils # 0.0 (0.0-0.6) K/mcL Basophils # 0.1 (0.0-0.2) K/mcL Sodium 132 L (136-145) mEq/L Potassium 3.4 L (3.5-4.5) mEq/L Chloride 106 (98-109) mEq/L Carbon Dioxide 16 L (19-29) mEq/L BUN 11 (7-20) mg/dL Creatinine 0.76 (0.57-1.11) mg/dL Est GFR ( Amer) > 60 (> 60) Est GFR (Non-Af Amer) > 60 (> 60) BUN/Creatinine Ratio 14 (6-26) Glucose 149 H (70-99) mg/dL Calculated Osmolality 276 L (280-300) Calcium 9.0 (8.6-10.8) mg/dL Total Bilirubin 0.7 (0.2-1.2) mg/dL AST 18 (5-34) Units/L ALT 42 (0-55) Units/L Alkaline Phosphatase 239 H (38-126) Units/L Serum Total Protein 6.9 (6.0-8.3) g/dL Albumin 2.3 L (3.5-5.0) g/dL Globulin 4.6 H (2.4-3.5) g/dL Albumin/Globulin Ratio 0.5 L (1.1-2.2) Lipase 52 (8-78) Units/L Urine Color Dark Yellow (Yellow) Urine Clarity Cloudy A (Clear) Urine pH 5.5 (5.0-8.0) pH Units Ur Specific [place] 1.025 (1.010-1.025) Urine Protein 30 H (Neg-Trace) mg/dL Urine Glucose (UA) Normal (Normal) mg/dL Urine Ketones Negative (Negative) mg/dL Urine Blood Negative (Negative) Urine Nitrite Negative (Negative) Urine Bilirubin Negative (Negative) Urine Urobilinogen Normal (Normal) mg/dL Ur Leukocyte Esterase Negative (Negative) Urine Microscopic RBC 0-3 (0-3) per hpf Urine Microscopic WBC 5-15 H (0-3) per hpf Ur Squamous Epith Cells Many H (None-Few) per lpf Urine Bacteria Few (None-Few) per hpf Hyaline Casts Few (None-Few) per lpf Urine Mucus Moderate H (Few) Urine Yeast Test Not Performed
[2017-04-11 00:14] LABS: Basophils # 0.1 K/mcL (0.0-0.2); Basophils % 0.3 %; Hematocrit 38.6 % (35.3-44.9); Immature Granulocytes % 4.6 % (0-4); Lymphocytes # 1.6 K/mcL (0.6-4.6); Lymphocytes % 10.3 %; Mean Corpuscular HGB Conc 31.1 g/dL (31.6-35.5); Mean Corpuscular Hemoglobin 27.8 pg (28.0-33.3); Mean Corpuscular Volume 89.6 fL (83.0-100.0); Mean Platelet Volume 9.6 fL (9.4-12.4); Monocytes # 0.7 K/mcL (0.0-1.3); Monocytes % 4.6 %; Neutrophils # 12.8 K/mcL (1.6-8.9); Platelet Count 262 K/mcL (140-400); Red Blood Count 4.31 M/mcL (3.82-4.97); Red Cell Distribution Width 17.2 % (11.5-14.5); Segmented Neutrophils % 80.2 %
[2017-04-11 00:30] LABS: Alanine Aminotransferase 42 Units/L (0-55); Albumin 2.3 g/dL (3.5-5.0); Albumin/Globulin Ratio 0.5 (1.1-2.2); Alkaline Phosphatase 239 Units/L (38-126); Aspartate Amino Transferase 18 Units/L (5-34); BUN/Creatinine Ratio 14 (6-26); Bilirubin,Total 0.7 mg/dL (0.2-1.2); Blood Urea Nitrogen 11 mg/dL (7-20); Carbon Dioxide 16 mEq/L (19-29); Chloride 106 mEq/L (98-109); Globulin 4.6 g/dL (2.4-3.5); Glucose 149 mg/dL (70-99); Lipase 52 Units/L (8-78); Osmolality,Calculated 276 (280-300); Potassium 3.4 mEq/L (3.5-4.5); Sodium 132 mEq/L (136-145); Total Protein 6.9 g/dL (6.0-8.3); eGFR For African Americans > 60 (> 60); eGFR For Non-African Americans > 60 (> 60)
[2017-04-11] MEDS ORDERED: Piperacillin/Tazobactam 3.375 GM in D5% in Water (Mini-Bag+) 100 ML IVPB ONE (00:58)
[2017-04-11 01:03] LABS: Bilirubin,Urine Negative (Negative); Blood,Urine Negative (Negative); Clarity,Urine Cloudy (Clear); Color,Urine Dark Yellow (Yellow); Glucose,Urine (UA) Normal (Normal); Ketones,Urine Negative (Negative); Leukocyte Esterase,Urine Negative (Negative); Nitrite,Urine Negative (Negative); PH,Urine 5.5 pH Units (5.0-8.0); Protein,Urine 30 mg/dL (Neg-Trace); Specific Gravity,Urine 1.025 (1.010-1.025); Urobilinogen,Urine Normal (Normal)
[2017-04-11 01:06] LABS: Hyaline Casts,Urine Few per lpf (None-Few); RBC,Urine 0-3 per hpf (0-3); Squamous Epithelial Cell,Urine Many per lpf (None-Few)
[2017-04-11 01:20] LABS: Bacteria,Urine Few per hpf (None-Few); Mucus,Urine Moderate (Few)
[2017-04-11] MEDS ORDERED: Vancomycin 750 MG in D5% in Water 250 ML IVPB ONE (03:00)
--- NOTE | 2017-04-11 08:07 | Internal Med History&Physical ---
Date of Encounter: 04/11/17 Time of Encounter: 08:04 Assessment and Plan (1) Healthcare-associated pneumonia Current visit: Yes Status: Acute Chest x-ray is negative however she has a fever cough and right basilar crackles. I suspect pneumonia. I will obtain a CT of the chest to evaluate for this. We will follow-up blood cultures and try to obtain sputum culture if available. Due to history of metastatic cancer and liver abscesses as well as multiple possible sites and immunocompromised and debilitated state there multiple other possible sources of infection. I will consult infectious diseases for further evaluation. She is at high risk for morbidity mortality and complications due to metastatic cancer and treatment with IV vancomycin which requires blood level monitoring for toxicity and therapeutic affect. (2) Frailty Current visit: Yes Status: Acute PT and OT evaluation. She has a history of falls due to generalized weakness and tremulousness. (3) Crohns disease Current visit: No Status: Chronic We will monitor clinically. Qualifiers: Gastrointestinal tract location: unspecified location Digestive disease complication type: without complication Qualified Code(s): K50.90 - Crohn's disease, unspecified, without complications (4) Metastatic breast cancer Current visit: No Status: Acute Continue tamoxifen. She is due for her third round of chemotherapy in one week. We will consult oncology. (5) Biliary stricture Current visit: No Status: Acute Drain tube was replaced appears to be draining well. Monitor LFTs. (6) Primary sclerosing cholangitis Current visit: No Status: Acute Given history of liver abscess and recurrent fever in an immunocompromised state I will obtain a CT of the abdomen and pelvis to evaluate for any fluid collections. (7) DVT prophylaxis Current visit: No Status: Acute We will provide subcutaneous heparin for prophylaxis. (8) Severe protein-calorie malnutrition Current visit: Yes Status: Acute BMI less than 18 and albumin of 2.3 reflecting severe protein calorie malnutrition. Nutrition consult. We will provide supplemental nutrition. Internal Medicine - H&P: HPI Chief complaint: Fever Admitted From: Emergency Dept Plans for Post Hospital Care: Home History of present illness: Ms. Cruz is a 46 year old female with past medical history significant for breast cancer and sclerosing cholangitis, Crohn's disease and recently treated liver abscesses who presented to the hospital for evaluation of fever. Mrs. Cruz had 2 rounds of chemotherapy for breast cancer which she tolerated well. Up until yesterday she had 2 biliary drain tubes and yesterday one was removed and the other was exchanged. She noted sudden onset of chills and high- grade fever to 102 yesterday. Denies chest pain but she did have a nonproductive cough for the last 3 days. Denies dysuria hematuria frequency and urinary incontinence. She has chronic diarrhea secondary to her Crohn's disease and she does not report any changes. Workup done in the emergency department included a chest x-ray which showed no evidence of infiltrate and urinalysis which appeared bland. She was treated with IV fluids and broad- spectrum IV antibiotics and referred for admission. A 10 point review of systems was otherwise negative. Past Med Surg Social Fam HX - Past Medical History Medical history: cancer, other Psychiatric history: no psych history - Past Surgical History Surgical History: - Social History Smoking Status: Never smoker Smokeless Tobacco Status: No Alcohol use: none Drug use: none - Family History Mother History Unknown: Yes Adopted: [place]: Madie Cruz Family Member Ethnicity: Non- Living Status: Age at : 60 Cause of : COPD Hx Family Cardiac Disorders: No Hx Family Respiratory Disorders: Yes (COPD) Hx Family Cancer: Yes (Cervical) Hx Family GI Disorders: No Hx Family Genitourinary Disorders: No Hx Family Endocrine Disorder: No Hx Family Musculoskeletal Disorders: No Hx Family Neuromuscular Disorders: No Hx Family Neurologic Disorders: No Hx Family HEENT Disorders: No Hx Family Autoimmune Disorders: No Hx Family Reproductive Disorders: No Hx Family Psychosocial Disorders: No Hx Family Medical Disorders: No Father History Unknown: Yes Adopted: [place]: Nate Cruz Age: 78 Family Member Ethnicity: Non- Living Status: Still Living Hx Family Cardiac Disorders: Yes (Stroke) Hx Family Respiratory Disorders: No Hx Family Cancer: No Hx Family GI Disorders: Yes (Diverticulitis) Hx Family Genitourinary Disorders: No Hx Family Endocrine Disorder: No Hx Family Musculoskeletal Disorders: No Hx Family Neuromuscular Disorders: No Hx Family Neurologic Disorders: No Hx Family HEENT Disorders: No Hx Family Autoimmune Disorders: No Hx Family Reproductive Disorders: No Hx Family Psychosocial Disorders: No Hx Family Medical Disorders: No Internal Medicine - H&P: Meds Ondansetron ODT [Zofran ODT] 4 mg SL Q6HR PRN #30 tab.rapdis 01/20/17 [Rx] Omeprazole [PriLOSEC] 20 mg PO BIDAC #30 cap 01/22/17 [Rx] Tamoxifen Citrate 20 mg PO DAILY 02/07/17 [History] Lidocaine/Prilocaine CREAM [Emla] 1 appl TP AD 02/18/17 [History] Naproxen [Naprosyn] 500 mg PO BID 02/18/17 [History] Pantoprazole Sodium 20 mg PO DAILY 02/18/17 [History] Prochlorperazine Maleate [Compazine] 10 mg PO Q6HR 02/18/17 [History] Acetaminophen [Tylenol] 650 mg PO Q6HR PRN #0 tablet 02/25/17 [Rx] Morphine Soln [Morphine Sulfate] 5 mg PO Q2H PRN #0 udc 02/25/17 [Rx] Morphine Soln [Morphine Sulfate] 10 mg PO Q2H PRN #0 udc 02/25/17 [Rx] Morphine Sulfate SR (12 HR) [MS Contin] 30 mg PO Q12HR tablet.er 02/25/17 [Rx] Naloxone [Narcan] 0.4 mg IVP Q2MIN PRN #0 inj 02/25/17 [Rx] Sennosides/Docusate Sodium [Senna Plus] 1 each PO BID tablet 02/25/17 [Rx] Allergies No Known Allergies Allergy (Verified 01/22/17 14:12) All Systems PM: A 10-system review of systems was performed and is negative for pertinent findings except as documented above in the HPI. - Constitutional Vitals: Temp Pulse Resp BP Pulse Ox 97.5 F L 64 16 98/58 97 04/11/17 06:58 04/11/17 06:58 04/11/17 06:58 04/11/17 06:58 04/11/17 06:58 General appearance: Present: A&O X 3, no acute distress - Eye Eye exam: Present: PERRL, conjuntiva pink, sclera anicteric Pupils: Present: PERRL - Neck Neck exam general surgery: Present: supple, trachea midline. Absent: lymphadenopathy - Respiratory Respiratory exam: Present: rales (By basilar crackles). Absent: accessory muscle use, rhonchi, wheezes - Cardiovascular Cardiovascular exam: Present: RRR, +S1, +S2. Absent: diastolic murmur, gallop, rubs, systolic murmur - GI/Abdominal GI/Abdominal exam: Present: normal bowel sounds, soft, no peritoneal signs. Absent: distended, tenderness Additional comments: Biliary drain tube in place with clear drainage, insertion site is covered with dressing. - Extremities Exam Extremities exam: Present: warm, radial pulses palpable and symetrical. Absent : calf tenderness, cyanotic, pedal edema - Neurological Exam Neurological exam: Present: CN II-XII intact, oriented X3, no focal deficits. Absent: pronater drift, facial droop, speech deficit - Skin Skin exam: Present: abrasion (2 small abrasions on the right hu with no evidence of cellulitis), dry, intact Internal Med - H&P Results - Labs CBC & Chem 7: 04/10/17 23:50 04/10/17 23:50 - Impressions Chest x-ray from yesterday reviewed personally shows no infiltrates, no pleural effusions, normal heart size. Compared to the x-ray from March 09 there is a new right-sided port with a tip ending and the cavoatrial junction. There are 2 biliary drain tubes on the older x-ray one of which appears to have been removed in the new x-ray.
[2017-04-11] MEDS ORDERED: Ondansetron 4 MG/2 ML VIAL IVP PRN (08:33)
[2017-04-11] MEDS ORDERED: Naloxone 0.4 MG/ML INJ IVP PRN (08:33)
[2017-04-11] MEDS ORDERED: Acetaminophen 325 MG TABLET PO PRN (08:33)
[2017-04-11 09:12] LABS: Hematocrit 34.2 % (35.3-44.9); Hemoglobin 10.5 g/dL (11.5-15.4); Mean Corpuscular HGB Conc 30.7 g/dL (31.6-35.5); Mean Corpuscular Hemoglobin 28.2 pg (28.0-33.3); Mean Corpuscular Volume 91.9 fL (83.0-100.0); Mean Platelet Volume 9.9 fL (9.4-12.4); Platelet Count 226 K/mcL (140-400); Red Blood Count 3.72 M/mcL (3.82-4.97); Red Cell Distribution Width 17.3 % (11.5-14.5)
[2017-04-11 09:29] LABS: Alanine Aminotransferase 34 Units/L (0-55); Albumin/Globulin Ratio 0.5 (1.1-2.2); Alkaline Phosphatase 193 Units/L (38-126); Aspartate Amino Transferase 17 Units/L (5-34); BUN/Creatinine Ratio 10 (6-26); Bilirubin,Total 0.5 mg/dL (0.2-1.2); Blood Urea Nitrogen 7 mg/dL (7-20); Calcium 8.4 mg/dL (8.6-10.8); Carbon Dioxide 16 mEq/L (19-29); Chloride 111 mEq/L (98-109); Glucose 77 mg/dL (70-99); Osmolality,Calculated 273 (280-300); Potassium 3.6 mEq/L (3.5-4.5); Sodium 133 mEq/L (136-145); eGFR For African Americans > 60 (> 60); eGFR For Non-African Americans > 60 (> 60)
[2017-04-11 09:57] LABS: Lymphocytes # 2.5 K/mcL (0.6-4.6); Monocytes # 0.1 K/mcL (0.0-1.3); Neutrophils # 10.1 K/mcL (1.6-8.9); Toxic Granulation Present (Not Present)
[2017-04-11 09:58] LABS: Polychromasia 1+ (Not Present)
[2017-04-11 09:59] LABS: Reactive Lymphocytes Present (Not Present)
[2017-04-11 10:00] LABS: Dohle Bodies Present (Not Present)
[2017-04-11] MEDS: Piperacillin/Tazobactam 3.375 GM in D5% in Water (Mini-Bag+) 100 ML IVPB SCH ×2 (10:00→17:00)
[2017-04-11 10:01] LABS: Platelet Estimate Normal (Normal)
--- NOTE | 2017-04-11 11:48 | Infectious Disease Consult ---
Date of Encounter: 04/11/17 Time of Encounter: 11:47 Assessment and Plan (1) Sepsis Status: Acute Assessment and plan: The patient had two SIRS criteria on admission (tachycardia and leukocytosis. Source unclear. Potential sources include recently-placed a-port, although clinically it does not appear infected. Intra-abdominal source is of concern given the patient's history of liver abscess and recent IR procedure for drain placement. Pneumonia is also of concern given the patient's onset of cough and congestion. The patient also reports dental pain, which could be a source as well. Improved. The patient is less tachycardic. Her WBC is improved to 13, but she has bandemia today. Blood cultures drawn 04/10/17 in the ER are pending (peripheral stick). Alk phos mildly elevated, but LFTs otherwise normal. Abdominal exam benign. Urinalysis normal. CXR negative. Would normally request blood cultures be drawn from the a-port but the port has not been accessed since insertion and clinically it does not appear infected. Given the patient's immunocompromised state and multiple infectious sources, agree with CT of the chest, abdomen/pelvis. Additionally, consider dental x- rays to rule out abscess. Continue Vancomycin IV. Pharmacy to dose. Goal trough approximately 15. Continue Zosyn 3.375 grams IV Q8H. Duration of treatment depends on the clinical picture. Monitor renal function and for drug toxicity and dose-adjust antibiotics. Qualifiers: Sepsis type: sepsis due to unspecified organism Qualified Code(s): A41.9 - Sepsis, unspecified organism (2) Liver abscess Status: Acute Assessment and plan: CT scan of the abdomen and pelvis shows interval development of 5 fluid collections in the right hepatic lobe adjacent to the biliary drain representing bilomas or abscess. Given the patient's sepsis and history of abscess, high index of suspicion for liver abscess. Consult interventional radiology for aspiration and drain placement. Send fluid for cell count with differential, culture (aerobic and anaerobic), protein, LDH , and glucose. Continue IV antibiotics as above. Duration of treatment depends on the clinical picture. (3) Cavitary lesion of lung Status: Acute Assessment and plan: CT scan of the chest shows several bilateral irregular pulmonary nodules with possible early cavitation, raising the possibility of septic emboli vs. metastatic disease. Etiology unclear. Continue to evaluate with serial imaging. If worsening, consider pulmonary to evaluate. Continue antibiotics as above. (4) Breast cancer Status: Acute Assessment and plan: Stage IIB. Diagnosed in December 2016. Status post C2 of taxotere, herceptin, and carboplatin 9 days ago. Follows with the [facility] and [facility] at [facility]. Qualifiers: Breast location: unspecified site of breast Patient sex: female Laterality: unspecified laterality Qualified Code(s): C50.919 - Malignant neoplasm of unspecified site of unspecified female breast (5) Immunocompromised patient Status: Acute Assessment and plan: Secondary to breast cancer and chemotherapy. (6) Crohns disease Status: Chronic Assessment and plan: Not currently on treatment. No evidence to suggest flare at this time. Qualifiers: Gastrointestinal tract location: unspecified location Digestive disease complication type: without complication Qualified Code(s): K50.90 - Crohn's disease, unspecified, without complications (7) Primary sclerosing cholangitis Status: Chronic Assessment and plan: History of Crohn's. Follows with Dr. Rosario. Consult GI for further recommendations. Infectious Disease HPI - Data of Consult Patient: new to practice Consult date: 04/11/17 Requesting Physician: Vineet Villanueva Primary Care Provider: Chery Mckinney CNP - Consult Narrative Reason for consult: Sepsis History of present illness: Ms. Cruz is a 46 year old female with a past medical history of recently diagnosed stage IIB breast cancer currently on IV chemotherapy, sclerosing cholangitis, and Crohn's disease. The patient was admitted to the hospital April 10 for fever. We are consulted April 11 for further evaluation and treatment recommendations regarding sepsis. Patient's a 46-year-old female with past medical history as stated above. Over the course the past 3 months, the patient has had a complicated medical history involving multiple hospital admissions and diagnostic testing. The patient has difficulty remembering everything, so some information is obtained from both [facility] medical records. In summary, the patient was diagnosed with stage IIB breast cancer she found a palpable mass in her breast. Additionally, patient was diagnosed with sclerosing cholangitis. She had undergone a CT of the abdomen and pelvis due to jaundice and was noted to have intrahepatic duct dilatation. She underwent an ERCP and had a stricture dilated and stent placed. Bile duct brushings showed atypical cells, but this was inconclusive. She saw Dr. Huber at the [facility] who had concern that the patient's abnormal liver findings may be secondary to liver cancer, so he referred her to [facility] for further evaluation. In the mean time, the patient again developed jaundice and was transferred to [facility] where she had an MRI of the abdomen that showed findings concerning for choleangiocarcinoma. Biliary brushings showed a few atypical cells concerning for adenocarcinoma. The patient was then referred to [facility] for biopsy. During the procedure, a tumor was noted as well as multiple isolated biliary systems were noted and were drained percutaneously. The patient was seen back in the ED on 12/[address] of the abdomen and pelvis that showed a 2.6 x 4.6cm lesion for which she underwent CT-guided aspiration and 30ml of pus were aspirated and a drain was placed. Cultures grew K. pneumoniae and S. viridans. Repeat CT 5 days later showed a new abscess and the patient was transferred back to [facility] where she had a repeat biopsy that was negative for malignancy. She was discharged home with biliary drain and abscess drain on 4 weeks of PO Augmentin, but was switched to Cipro and Flagyl per Hem/ Onc. She developed a leak around one of the drain tubes and was re-referred back to [facility] for replacement. CT of the abdomen showed resolution of the abscess and the drain was removed. The biliary drain was replaced. Additionally , the patient had her biliary stent removed 04/02 and an a-port placed 04/05 at [facility]. The patient tells me it has not been accessed since insertion. Upon arrival to the ED, the patient reported fevers with subjective chills, but no rigors. She reports that she recently had some congestion with clear nasal drainage and a moist cough. She also reports some intermittent frontal headache. She denies neck pain/stiffness or dizziness. She denies facial pain, but she does complain of some left lower gum pain and states she had to have some bone shaved from her lower jaw within the past month. She denies chest pain or shortness of breath. She denies earache or sore throat. She denies nausea, vomiting, or constipation. She has chronic diarrhea secondary to her Crohn's, but states it appears to be at baseline. She denies abdominal pain and states the steroids she is taking make her appetite good. She denies any night sweats or weight loss. She does report some fatigue that she attributes to her cancer. She denies joint, extremity, or back pain. She denies any oral thrush. She states she fell a couple of days ago and has some scabbed lesions to the LLE , but denies any increased pain, redness, or drainage. The patient has received 2 cycles of chemo (taxotere, herceptin, carboplatin), with the last dose being about 9 days ago. The patient lives at home alone. She has two dogs in the house. 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 She denies any recent travel outside the [facility]. She reports social alcohol use, but denies tobacco or illicit drug use. CC: Vineet Villanueva Past Med Surg Social Fam HX - Past Medical History Attestation: Yes The following information was validated with the patient. Source: patient, old records reviewed, nursing notes reviewed Medical history: cancer (Breast cancer stage IIB), other (Sclerosing cholangitis , liver abscess 01/2017, Crohn's disease) Psychiatric history: no psych history - Past Surgical History Surgical History: - Social History Smoking Status: Never smoker Smokeless Tobacco Status: No Alcohol use: none Drug use: none - Family History Mother History Unknown: Yes Adopted[place]: [place] Family Member Ethnicity: Non- Living Status: Age at : 60 Cause of : COPD Hx Family Cardiac Disorders: No Hx Family Respiratory Disorders: Yes (COPD) Hx Family Cancer: Yes (Cervical) Hx Family GI Disorders: No Hx Family Genitourinary Disorders: No Hx Family Endocrine Disorder: No Hx Family Musculoskeletal Disorders: No Hx Family Neuromuscular Disorders: No Hx Family Neurologic Disorders: No Hx Family HEENT Disorders: No Hx Family Autoimmune Disorders: No Hx Family Reproductive Disorders: No Hx Family Psychosocial Disorders: No Hx Family Medical Disorders: No Father History Unknown: Yes Adopted: [place]: Nate Cruz Age: 78 Family Member Ethnicity: Non- Living Status: Still Living Hx Family Cardiac Disorders: Yes (Stroke) Hx Family Respiratory Disorders: No Hx Family Cancer: No Hx Family GI Disorders: Yes (Diverticulitis) Hx Family Genitourinary Disorders: No Hx Family Endocrine Disorder: No Hx Family Musculoskeletal Disorders: No Hx Family Neuromuscular Disorders: No Hx Family Neurologic Disorders: No Hx Family HEENT Disorders: No Hx Family Autoimmune Disorders: No Hx Family Reproductive Disorders: No Hx Family Psychosocial Disorders: No Hx Family Medical Disorders: No Infectious Disease-CN:Meds Ondansetron ODT [Zofran ODT] 4 mg SL Q6HR PRN #30 tab.rapdis 01/20/17 [Rx] Omeprazole [PriLOSEC] 20 mg PO BIDAC #30 cap 01/22/17 [Rx] Lidocaine/Prilocaine CREAM [Emla] 1 appl TP AD 02/18/17 [History] Naproxen [Naprosyn] 500 mg PO BID 02/18/17 [History] Pantoprazole Sodium 20 mg PO DAILY 02/18/17 [History] Prochlorperazine Maleate [Compazine] 10 mg PO Q6HR 02/18/17 [History] Acetaminophen [Tylenol] 650 mg PO Q6HR PRN #0 tablet 02/25/17 [Rx] Morphine Soln [Morphine Sulfate] 5 mg PO Q2H PRN #0 udc 02/25/17 [Rx] Morphine Soln [Morphine Sulfate] 10 mg PO Q2H PRN #0 udc 02/25/17 [Rx] Morphine Sulfate SR (12 HR) [MS Contin] 30 mg PO Q12HR tablet.er 02/25/17 [Rx] Dexamethasone [Decadron] 8 mg PO DAILY 04/11/17 [History] Sennosides/Docusate Sodium [Senna Plus] 1 tab PO BID 04/11/17 [History] Allergies No Known Allergies Allergy (Verified 01/22/17 14:12) All systems: reviewed and no additional remarkable complaints except as stated Exam - Constitutional Vitals: Temp Pulse Resp BP Pulse Ox 97.5 F L 67 17 93/56 99 04/11/17 10:59 04/11/17 10:59 04/11/17 10:59 04/11/17 10:59 04/11/17 10:59 General appearance: cooperative, no acute distress, thin - Head Head exam: Present: atraumatic, normal inspection, normocephalic - Eye Eye exam: Present: EOMI, normal appearance, PERRL Pupils: Present: normal accommodation - ENT ENT exam: Present: mucous membranes moist Additional comments: Tenderness noted with palpation of the left lower gum line and jaw. No fluctuance or abscess noted. No broken teeth noted. - Neck Neck exam: Present: normal inspection - Respiratory Respiratory exam: Present: CTAB. Absent: rales, respiratory distress, rhonchi, wheezes Additional comments: Moist cough noted. - Cardiovascular Cardiovascular exam: Present: RRR, +S1, +S2 - GI/Abdominal GI/Abdominal exam: Present: normal bowel sounds, soft. Absent: distended, tenderness Additional comments: Biliary drain tube noted to the RUQ with bile noted in the collection bag. - Extremities Exam Extremities exam: Absent: joint swelling, pedal edema, tenderness Additional comments: Scabbed lesions noted to the anterior aspect of the left lower extremity. No warmth, erythema, or drainage noted. - Back Exam Back exam: Present: normal inspection. Absent: paraspinal tenderness, vertebral tenderness - Neurological Exam Neurological exam: Present: alert, oriented X3, no focal deficits - Psychiatric Psychiatric exam: Present: normal affect, normal mood - Skin Skin exam: Present: dry, intact, normal color, warm - Additional findings Additional findings: A-port noted to the right upper chest with steri-strips intact. Ecchymosis noted. No warmth, erythema, or tenderness noted. Infectious Disease CN: Results - Labs CBC & Chem 7: 04/11/17 09:03 04/11/17 09:03 Consult Discharge Plan - Plan Referrals: Chery Mckinney CNP [Primary Care Provider] - 04/17/17 3:20 pm - Attending Attestation I examined this patient and my medical decision-making was reviewed with the RECORD CUTTER/PA/Advanced Practice Nurse/Resident Physician. I agree with the documented findings, disposition and treatment plan as described except to the extent set forth below. This is an addendum to original report dictated by Toma Grimaldo CNP. Please refer to Toma's note for full detail. This is a very complicated case of a 46-year-old woman who was diagnosed in the past with Crohn's disease with noncompliance has been on Remicade in the past stopped in August of last year and in December of this year patient was found to have stage IIB breast cancer treated with 2 cycles of chemotherapy also was noted to have fluid collection in the liver status post ERCP placement of stent and brushing of the biliary duct no noting atypical cells. 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 Patient' s abscess was drained and it drain was placed which was positive for Klebsiella and strep viridans. Patient was treated with Augmentin for 4 weeks as an outpatient discharge from [facility]. The Augmentin was then switched to Cipro and Flagyl. Patient was reevaluated for another fluid collection that was drained at [facility]. Patient also had a biliary duct leak on March 09 and was switched on April 10. Since about 2 days prior to admission patient was not feeling well and had a new a port placed. Patient was having a fever of 102 at home. Patient came in for evaluation. Since admission patient has been afebrile but has been tachycardic with leukocytosis and bandemia. Repeat imaging CT chest abdomen and pelvis were obtained and the CT chest shows some nodules with early cavitation possible. CT abdomen and pelvis showed multiple fluid collection in the liver concerning for abscesses versus bilomas. Patient also had a lesion on the left kidney I called radiology and spoke with them and they think this is just a cyst. Cultures were obtained 3 and patient was started on broad-spectrum including vancomycin and Zosyn. Currently patient seems to be stable and improved clinically. At this point IR needs to evaluate the patient on problem drain again. GI needs to be consulted for hepatology. Await cultures to finalize. Continue vancomycin and Zosyn. Ankle Meissen can be stopped once cultures finalize. We need to be very vigilant of the kidney because she's had history of kidney injury and dehydration back in January. Might need that he Marialuisa to evaluate her while in-house. Duration of treatment depends on the clinical picture Prognosis is guarded at best
[2017-04-11] MEDS ORDERED: Aminoglycoside Consult 1 EACH MC ONE (12:59)
[2017-04-11] MEDS: *HR* Heparin 5,000 UNIT/ML VIAL SQ SCH (16:58)
[2017-04-11] MEDS: Vancomycin 500 MG in D5% in Water 250 ML IVPB SCH (18:14)
--- NOTE | 2017-04-11 19:47 | Oncology Office Consult Note ---
HPI-History of Present Illness Follow Up Date: 04/11/17 Primary Care Provider: Chery Mckinney CNP Chief complaint: Fever, History of present illness: Sharona Brown is a year old female with a history of left breast cancer and concern regarding possible primary cholangiocarcinoma. She is currently receiving chemotherapy per Dr. José Luis Galdamez the [facility]. Per patient her last chemotherapy was given approximately 2 weeks ago. On 04/10/2017 she had a biliary drain tube changed. Following that she developed a fever of 02 at home. She was seen at the [place] emergency department and admitted with fever unknown origin and being immunocompromised. She is currently being treated with Zosyn and Banka myosin. She is afebrile. Her most recent CBC white count was 13,000, hemoglobin 10.5, hematocrit 34.2 and platelets 226,000. She had a CT scan today on 04/11/2017 that indicated interval development of 5 fluid collections in the right hepatic lobe adjacent to the internal/external biliary drain. The largest 2 collection for 21 mm and 17 mm in size findings could represent biloma's or abscesses. There was decrease in size of the subcutaneous capsular right hepatic lobe fluid collection from a prior exam. She is also being seen by infectious disease. Vitals and History - Height/Weight/Pain Height: 1.52 m - Pulse Oximetry O2 Sat by Pulse Oximetry: 98 - Consciousness/Orientation Level Of Consciousness: Awake, Alert, Appropriate, Follows Commands Patient Orientation: Person, Name, Date of - Past Medical History Past Medical History Notes: Breast cancer, uterine fibroid, anemia. - Surgical History Surgical History Notes: 1993 section, 1993 colonoscopy, February [address] Tadeo showed gastritis. Also, colonoscopy that indicated Crohn's disease. - Social History Smoking Status: Never smoker Smokeless Tobacco Status: No Alcohol use PMH: none Drug use: none Review Of Systems - Exam Provider Comments:: 12 point review of systems performed with patient who has also filled out a review of systems worksheet that is filed in the electronic record. Pertinent positives are listed below. All other systems are negative: Oncology - Medications Ondansetron ODT [Zofran ODT] 4 mg SL Q6HR PRN #30 tab.rapdis 01/20/17 [Rx] Omeprazole [PriLOSEC] 20 mg PO BIDAC #30 cap 01/22/17 [Rx] Lidocaine/Prilocaine CREAM [Emla] 1 appl TP AD 02/18/17 [History] Naproxen [Naprosyn] 500 mg PO BID 02/18/17 [History] Pantoprazole Sodium 20 mg PO DAILY 02/18/17 [History] Prochlorperazine Maleate [Compazine] 10 mg PO Q6HR 02/18/17 [History] Acetaminophen [Tylenol] 650 mg PO Q6HR PRN #0 tablet 02/25/17 [Rx] Morphine Soln [Morphine Sulfate] 5 mg PO Q2H PRN #0 udc 02/25/17 [Rx] Morphine Soln [Morphine Sulfate] 10 mg PO Q2H PRN #0 udc 02/25/17 [Rx] Morphine Sulfate SR (12 HR) [MS Contin] 30 mg PO Q12HR tablet.er 02/25/17 [Rx] Dexamethasone [Decadron] 8 mg PO DAILY 04/11/17 [History] Sennosides/Docusate Sodium [Senna Plus] 1 tab PO BID 04/11/17 [History] Allergies No Known Allergies Allergy (Verified 01/22/17 14:12) Oncology - Results - Labs Labs: Short CBC 04/11/17 Range/Units 09:03 WBC 13.0 H (4.3-11.1) K/mcL Hgb 10.5 L D (11.5-15.4) g/dL Hct 34.2 L (35.3-44.9) % Plt Count 226 (140-400) K/mcL Neutrophils # 10.1 H (1.6-8.9) K/mcL BMP 04/11/17 09:03 Sodium 133 L Potassium 3.6 Chloride 111 H Carbon Dioxide 16 L BUN 7 Creatinine 0.71 Glucose 77 Calcium 8.4 L Liver Function 04/11/17 Range/Units 09:03 Total Bilirubin 0.5 (0.2-1.2) mg/dL AST 17 (5-34) Units/L ALT 34 (0-55) Units/L Alkaline Phosphatase 193 H (38-126) Units/L Albumin 2.0 L (3.5-5.0) g/dL
--- NOTE | 2017-04-11 19:54 | Oncology Inp Consult Note ---
<Seema Somers E - Last Filed: 04/11/17 19:52> Date of Encounter: 04/11/17 Time of Encounter: 19:52 Assessment and Plan (1) Fever of unknown origin Status: Acute Assessment and plan: Agree with current plan of care. (2) Immunocompromised patient Status: Acute - Data of Consult Patient: known to practice within the last 3 years Requesting Physician: Vineet Villanueva Primary Care Provider: Chery Mckinney CNP - Consult Narrative Reason for consult: breast cnacer , probable cholangiocarcinoma History of present illness: Ms. Cruz is a 46 year old female with a history of left breast cancer and concern regarding possible primary cholangiocarcinoma. She is currently receiving chemotherapy per Dr. José Luis Galdamez the [facility]. Per patient her last chemotherapy was given approximately 2 weeks ago. On 04/10/2017 she had a biliary drain tube changed. Following that she developed a fever of 02 at home. She was seen at the [place] emergency department and admitted with fever unknown origin and being immunocompromised. She is currently being treated with Zosyn and Vancomycin. She is afebrile. Her most recent CBC white count was 13,000, hemoglobin 10.5, hematocrit 34.2 and platelets 226,000. She had a CT scan today on 04/11/2017 that indicated interval development of 5 fluid collections in the right hepatic lobe adjacent to the internal/external biliary drain. The largest 2 collection for 21 mm and 17 mm in size findings could represent biloma's or abscesses. There was decrease in size of the subcutaneous capsular right hepatic lobe fluid collection from a prior exam. She is also being seen by infectious disease. Cultures are pending. At this time she reports feeling very tired and sleepy being that she was up most of the night in the emergency room and being admitted. She denies pain at this time. She denies shortness of breath, lower bladder changes, abdominal pain, muscle joint and bone pain, dizziness, headaches, depression or other neurological symptoms. Past Med Surg Social Fam HX - Past Medical History Medical history: cancer (Breast cancer stage IIB), other (Sclerosing cholangitis , liver abscess 01/2017, Crohn's disease, uterine fibroid) Psychiatric history: no psych history - Past Surgical History Surgical History: , other (Colonoscopy and EGD in February [address] Gul, drain placement) - Social History Smoking Status: Never smoker Smokeless Tobacco Status: No Alcohol use: none Drug use: none - Family History Mother History Unknown: Yes Adopted: [place]: Madie Cruz Family Member Ethnicity: Non- Living Status: Age at : 60 Cause of : COPD Hx Family Cardiac Disorders: No Hx Family Respiratory Disorders: Yes (COPD) Hx Family Cancer: Yes (Cervical) Hx Family GI Disorders: No Hx Family Genitourinary Disorders: No Hx Family Endocrine Disorder: No Hx Family Musculoskeletal Disorders: No Hx Family Neuromuscular Disorders: No Hx Family Neurologic Disorders: No Hx Family HEENT Disorders: No Hx Family Autoimmune Disorders: No Hx Family Reproductive Disorders: No Hx Family Psychosocial Disorders: No Hx Family Medical Disorders: No Father History Unknown: Yes Adopted: [place]: Nate Cruz Age: 78 Family Member Ethnicity: Non- Living Status: Still Living Hx Family Cardiac Disorders: Yes (Stroke) Hx Family Respiratory Disorders: No Hx Family Cancer: No Hx Family GI Disorders: Yes (Diverticulitis) Hx Family Genitourinary Disorders: No Hx Family Endocrine Disorder: No Hx Family Musculoskeletal Disorders: No Hx Family Neuromuscular Disorders: No Hx Family Neurologic Disorders: No Hx Family HEENT Disorders: No Hx Family Autoimmune Disorders: No Hx Family Reproductive Disorders: No Hx Family Psychosocial Disorders: No Hx Family Medical Disorders: No Medications and Allergies Ondansetron ODT [Zofran ODT] 4 mg SL Q6HR PRN #30 tab.rapdis 01/20/17 [Rx] Omeprazole [PriLOSEC] 20 mg PO BIDAC #30 cap 01/22/17 [Rx] Lidocaine/Prilocaine CREAM [Emla] 1 appl TP AD 02/18/17 [History] Naproxen [Naprosyn] 500 mg PO BID 02/18/17 [History] Pantoprazole Sodium 20 mg PO DAILY 02/18/17 [History] Prochlorperazine Maleate [Compazine] 10 mg PO Q6HR 02/18/17 [History] Acetaminophen [Tylenol] 650 mg PO Q6HR PRN #0 tablet 02/25/17 [Rx] Morphine Soln [Morphine Sulfate] 5 mg PO Q2H PRN #0 udc 02/25/17 [Rx] Morphine Soln [Morphine Sulfate] 10 mg PO Q2H PRN #0 udc 02/25/17 [Rx] Morphine Sulfate SR (12 HR) [MS Contin] 30 mg PO Q12HR tablet.er 02/25/17 [Rx] Dexamethasone [Decadron] 8 mg PO DAILY 04/11/17 [History] Sennosides/Docusate Sodium [Senna Plus] 1 tab PO BID 04/11/17 [History] Allergies No Known Allergies Allergy (Verified 01/22/17 14:12) All systems: reviewed and no additional remarkable complaints except as stated Constitutional: Present: fatigue, weakness Cardiovascular: Present: as per HPI Respiratory: Present: as per HPI Musculoskeletal: Present: muscle weakness Oncology - Exam - Constitutional Vitals: Temp Pulse Resp BP Pulse Ox 98.5 F 90 14 102/74 97 04/11/17 19:41 04/11/17 19:41 04/11/17 19:41 04/11/17 19:41 04/11/17 19:41 General appearance: cooperative, no acute distress - Head Head exam: Present: normocephalic - ENT ENT exam: Present: mucous membranes moist - Respiratory Respiratory exam: Present: CTAB - Cardiovascular Cardiovascular exam: Present: RRR - GI/Abdominal GI/Abdominal exam: Present: normal bowel sounds, soft (Nontender) Additional comments: Drain in place. - Extremities Exam Extremities exam: Present: normal inspection (No edema) - Psychiatric Psychiatric exam: Present: normal affect - Skin Skin exam: Present: dry, intact Additional comments: Site in right upper chest without erythema Oncology - Results - Labs Labs: Short CBC 04/11/17 Range/Units 09:03 WBC 13.0 H (4.3-11.1) K/mcL Hgb 10.5 L D (11.5-15.4) g/dL Hct 34.2 L (35.3-44.9) % Plt Count 226 (140-400) K/mcL Neutrophils # 10.1 H (1.6-8.9) K/mcL BMP 04/11/17 09:03 Sodium 133 L Potassium 3.6 Chloride 111 H Carbon Dioxide 16 L BUN 7 Creatinine 0.71 Glucose 77 Calcium 8.4 L Liver Function 04/11/17 Range/Units 09:03 Total Bilirubin 0.5 (0.2-1.2) mg/dL AST 17 (5-34) Units/L ALT 34 (0-55) Units/L Alkaline Phosphatase 193 H (38-126) Units/L Albumin 2.0 L (3.5-5.0) g/dL Consult Discharge Plan - Plan Referrals: Chery Mckinney CNP [Primary Care Provider] - <Saman Rahman - Last Filed: 04/12/17 13:25> Date of Encounter: 04/12/17 - Data of Consult Requesting Physician: Vineet Villanueva MD Primary Care Provider: Chery Mckinney CNP - Consult Narrative History of present illness: Ms. 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 She is possibly s/p neulasta with leucocytosis. BC neg. s/p multiple drains i the past per prior imaging. She is tranferred to [facility] for continued managerment. I have reviewed H/P, A/P as above. Patient was not seen bedside by me as she is transferred this AM to [facility] Oncology - Exam - Constitutional Vitals: Temp Pulse Resp BP Pulse Ox 98.3 F 91 17 113/80 98 04/12/17 10:32 04/12/17 10:32 04/12/17 10:32 04/12/17 10:32 04/12/17 10:32 Oncology - Results - Labs Labs: Short CBC 04/12/17 Range/Units 06:22 WBC 17.7 H (4.3-11.1) K/mcL Hgb 13.5 D (11.5-15.4) g/dL Hct 43.8 (35.3-44.9) % Plt Count 396 D (140-400) K/mcL Neutrophils # 16.1 H (1.6-8.9) K/mcL BMP 04/12/17 06:22 Sodium 129 L Potassium 3.8 Chloride 110 H Carbon Dioxide 8 L* BUN 10 Creatinine 1.18 H D Glucose 273 H Calcium 9.6 Liver Function 04/12/17 Range/Units 06:22 Total Bilirubin 0.5 (0.2-1.2) mg/dL AST 20 (5-34) Units/L ALT 42 (0-55) Units/L Alkaline Phosphatase 318 H (38-126) Units/L Albumin 2.4 L (3.5-5.0) g/dL
[2017-04-11] MEDS: Sennosides/Docusate Sodium TABLET PO SCH (20:35)
[2017-04-12] MEDS: Piperacillin/Tazobactam 3.375 GM in D5% in Water (Mini-Bag+) 100 ML IVPB SCH ×2 (01:08→09:09)
[2017-04-12] MEDS ORDERED: Mag Hydrox/Al Hydrox/Simeth 30 ML UDC PO ONE (02:24)
[2017-04-12] MEDS: Vancomycin 500 MG in D5% in Water 250 ML IVPB SCH (05:30)
[2017-04-12] MEDS: *HR* Morphine Sulfate SR (12 HR) 30 MG TABLET.ER PO SCH ×2 (05:31→11:52)
[2017-04-12] MEDS: *HR* Heparin 5,000 UNIT/ML VIAL SQ SCH (05:31)
[2017-04-12 06:53] LABS: Hematocrit 43.8 % (35.3-44.9); Mean Corpuscular HGB Conc 30.8 g/dL (31.6-35.5); Mean Corpuscular Hemoglobin 28.4 pg (28.0-33.3); Mean Platelet Volume 10.2 fL (9.4-12.4); Platelet Count 396 K/mcL (140-400); Red Blood Count 4.76 M/mcL (3.82-4.97); Red Cell Distribution Width 17.2 % (11.5-14.5)
[2017-04-12 07:05] LABS: Hemoglobin 13.5 g/dL (11.5-15.4)
[2017-04-12 07:08] LABS: Alanine Aminotransferase 42 Units/L (0-55); Albumin 2.4 g/dL (3.5-5.0); Albumin/Globulin Ratio 0.4 (1.1-2.2); Alkaline Phosphatase 318 Units/L (38-126); Aspartate Amino Transferase 20 Units/L (5-34); BUN/Creatinine Ratio 8 (6-26); Bilirubin,Total 0.5 mg/dL (0.2-1.2); Blood Urea Nitrogen 10 mg/dL (7-20); Calcium 9.6 mg/dL (8.6-10.8); Chloride 110 mEq/L (98-109); Globulin 5.4 g/dL (2.4-3.5); Glucose 273 mg/dL (70-99); Magnesium 2.2 mg/dL (1.6-2.6); Osmolality,Calculated 277 (280-300); Phosphorous 4.7 mg/dL (2.3-4.7); Potassium 3.8 mEq/L (3.5-4.5); Sodium 129 mEq/L (136-145); eGFR For African Americans > 60 (> 60); eGFR For Non-African Americans 50 (> 60)
[2017-04-12 07:31] LABS: Lymphocytes # 1.2 K/mcL (0.6-4.6); Monocytes # 0.4 K/mcL (0.0-1.3); Neutrophils # 16.1 K/mcL (1.6-8.9); Platelet Estimate Normal (Normal)
[2017-04-12 07:45] LABS: Carbon Dioxide 8 mEq/L (19-29); Total Protein 7.8 g/dL (6.0-8.3)
[2017-04-12] MEDS ORDERED: 0.9 % Sodium Chloride 1,000 ML IVC SCH (09:00)
[2017-04-12] MEDS: Sennosides/Docusate Sodium TABLET PO SCH (09:11)
--- NOTE | 2017-04-12 10:29 | Infectious Disease Progress No ---
Date of Encounter: 04/12/17 Time of Encounter: 10:26 - Assessment and Plan (1) Sepsis Current Visit: Yes Status: Acute The patient had two SIRS criteria on admission (tachycardia and leukocytosis). Source likely multiple liver abscesses and possible septic emboli in the lungs. The patient also reports dental pain, which could be a source as well. Improved. The patient is less tachycardic. Her WBC is back up to 17 with bandemia. Blood cultures drawn 04/10/17 in the ER are NGTD (peripheral stick). Would normally request blood cultures be drawn from the a-port but the port has not been accessed since insertion and clinically it does not appear infected. . Qualifiers: Sepsis type: sepsis due to unspecified organism Qualified Code(s): A41.9 - Sepsis, unspecified organism (2) Liver abscess Current Visit: No Status: Acute CT scan of the abdomen and pelvis shows interval development of 5 fluid collections in the right hepatic lobe adjacent to the biliary drain representing bilomas or abscess. Given the patient's sepsis and history of abscess, high index of suspicion for liver abscess. Causative organism unclear. In reviewing the patient's CT results with her, she has requested to be transferred to [facility] where her oncologist is. I have relayed this information to the Dr. Villanueva with the hospitalist team. If patient not able to be transferred or there are no beds at [facility], recommend consulting interventional radiology for aspiration and drain placement. Send fluid for cell count with differential, culture (aerobic and anaerobic), protein , LDH, and glucose. Continue Vancomycin IV since the patient recently had a procedure that puts her at risk for MRSA exposure. Pharmacy to dose. Goal trough approximately 15. We will need to be diligent in dosing the patient as she has a history of ISIDORO and dehydration. Continue Zosyn 3.375 grams IV Q8H. Duration of treatment depends on the clinical picture. Monitor renal function and for drug toxicity and dose-adjust antibiotics. (3) Cavitary lesion of lung Current Visit: Yes Status: Acute CT scan of the chest shows several bilateral irregular pulmonary nodules with possible early cavitation, raising the possibility of septic emboli vs. metastatic disease. Etiology unclear, but likely septic emboli. Continue to evaluate with serial imaging. If worsening, consider pulmonary to evaluate. Continue antibiotics as above. (4) Breast cancer Current Visit: No Status: Acute Stage IIB. Diagnosed in December 2016. Status post C2 of taxotere, herceptin, and carboplatin 9 days ago. Follows with the [facility] and [facility] at [facility]. Qualifiers: Breast location: unspecified site of breast Patient sex: female Laterality: unspecified laterality Qualified Code(s): C50.919 - Malignant neoplasm of unspecified site of unspecified female breast (5) Immunocompromised patient Current Visit: Yes Status: Acute Secondary to breast cancer and chemotherapy. (6) Crohns disease Current Visit: No Status: Chronic Not currently on treatment. No evidence to suggest flare at this time. Qualifiers: Gastrointestinal tract location: unspecified location Digestive disease complication type: without complication Qualified Code(s): K50.90 - Crohn's disease, unspecified, without complications (7) Primary sclerosing cholangitis Current Visit: No Status: Chronic History of Crohn's. Follows with Dr. Rosario. Consult GI for further recommendations. - Subjective Interval history: Patient seen and examined. No acute events noted overnight. Patient lying in bed. She states she feels worse today and generally feels weak and ill. She denies any fevers or chills or rigors overnight. She denies any headache or neck pain. She denies any congestion, earache, or sore throat. She denies any chest pain or shortness of breath, but does report a moist nonproductive cough. She reports some intermittent nausea this morning, but no vomiting. She has been unable to her breakfast. She denies any pain at this time. She denies any urinary complaints. She denies any diarrhea or constipation. She denies pain anywhere extremities or back. She denies any new skin lesions or oral thrush. I reviewed the results first CAT scan with the patient and she has requested to be transferred up to where her oncologist is at the [facility]. I relayed this information to Dr. Villanueva the hospitalist team. Infect Dis PN-Objective Data - Labs CBC & Chem 7: 04/12/17 06:22 04/12/17 06:22 Labs: Laboratory Results - last 24 hr 04/11/17 04/12/17 04/12/17 11:27 06:22 06:22 WBC 17.7 H RBC 4.76 Hgb 13.5 D Hct 43.8 MCV 92.0 MCH 28.4 MCHC 30.8 L RDW 17.2 H Plt Count 396 D MPV 10.2 Seg Neutrophils % 83.0 Band Neutrophils % 8.0 H Lymphocytes % 7.0 Monocytes % 2.0 Neutrophils # 16.1 H Lymphocytes # 1.2 Monocytes # 0.4 Platelet Estimate Normal Sodium 129 L Potassium 3.8 Chloride 110 H Carbon Dioxide 8 L* BUN 10 Creatinine 1.18 H D Est GFR ( Amer) > 60 Est GFR (Non-Af Amer) 50 L BUN/Creatinine Ratio 8 Glucose 273 H POC Glucose 80 Calculated Osmolality 277 L Lactic Acid Calcium 9.6 Phosphorus 4.7 Magnesium 2.2 Total Bilirubin 0.5 AST 20 ALT 42 Alkaline Phosphatase 318 H Serum Total Protein 7.8 D Albumin 2.4 L Globulin 5.4 H Albumin/Globulin Ratio 0.4 L 04/12/17 09:43 WBC RBC Hgb Hct MCV MCH MCHC RDW Plt Count MPV Seg Neutrophils % Band Neutrophils % Lymphocytes % Monocytes % Neutrophils # Lymphocytes # Monocytes # Platelet Estimate Sodium Potassium Chloride Carbon Dioxide BUN Creatinine Est GFR ( Amer) Est GFR (Non-Af Amer) BUN/Creatinine Ratio Glucose POC Glucose Calculated Osmolality Lactic Acid 0.9 Calcium Phosphorus Magnesium Total Bilirubin AST ALT Alkaline Phosphatase Serum Total Protein Albumin Globulin Albumin/Globulin Ratio - Impressions Impressions Abdomen/Pelvis CT 04/11/17 11:00 IMPRESSION: Interval development of 5 fluid collections in the right hepatic lobe adjacent to the internal external biliary drain. The largest 2 collections measures 21 mm and 17 mm in size. Findings could represent bilomas or abscess. Decreased size of a subcapsular right hepatic lobe fluid collection from prior exam. D/ / 04/11/2017 13:25:57 Jeison Flores MD / chas Interpreting Provider: Jeison Flores MD Chest CT 04/11/17 11:00 IMPRESSION: There are several bilateral irregular pulmonary nodules, the largest in the left upper lobe measuring 11 mm. Possible early cavitation is evident, raising the possibility of septic emboli. Metastatic disease is an additional possibility. Short interval follow-up is recommended. There is otherwise no evidence of acute airspace disease or pleural effusion. Indeterminate small sclerotic lesions at the T4 and T9 levels. D/ / Kd Ritter MD / Kd Ritter MD Interpreting Provider: Kd Ritter MD Exam - Constitutional Vitals: Temp Pulse Resp BP Pulse Ox 97.3 F L 96 17 107/76 98 04/12/17 06:59 04/12/17 06:59 04/12/17 06:59 04/12/17 06:59 04/12/17 06:59 General appearance: cooperative, no acute distress, thin - Head Head exam: Present: atraumatic, normal inspection, normocephalic - Eye Eye exam: Present: EOMI, normal appearance, PERRL Pupils: Present: normal accommodation - ENT ENT exam: Present: mucous membranes moist - Neck Neck exam: Present: normal inspection - Respiratory Respiratory exam: Present: CTAB. Absent: rales, respiratory distress, rhonchi, wheezes - Cardiovascular Cardiovascular exam: Present: RRR, +S1, +S2 - GI/Abdominal GI/Abdominal exam: Present: normal bowel sounds, soft. Absent: distended, tenderness Additional comments: Biliary drain noted to the RUQ with bile notes in the collection bag. - Extremities Exam Extremities exam: Absent: joint swelling, pedal edema, tenderness Additional comments: Scabbed lesions noted to the anterior aspect of the BLE without drainage, warmth , erythema, or tenderness. - Neurological Exam Neurological exam: Present: alert, oriented X3, no focal deficits - Psychiatric Psychiatric exam: Present: normal affect, normal mood - Skin Skin exam: Present: dry, intact, normal color, warm - Additional findings Additional findings: A-port noted to the right upper chest without erythema, warmth, or drainage. Steri-strips intact with ecchymosis noted. Consult Discharge Plan - Plan Referrals: Chery Mckinney CNP [Primary Care Provider] - 04/17/17 3:20 pm
[2017-04-12 10:33] VITALS: BP 113/80
--- NOTE | 2017-04-12 12:53 | Oncology Inp Progress Note ---
Date of Encounter: 04/12/17 Time of Encounter: 12:00 (1) Breast cancer Current Visit: No Status: Acute Assessment and plan: Treatment on hold pending resolution of fever and infectious workup. Defer to primary oncologist. Qualifiers: Breast location: unspecified site of breast Patient sex: female Laterality: unspecified laterality Qualified Code(s): C50.919 - Malignant neoplasm of unspecified site of unspecified female breast (2) Leukocytosis Current Visit: No Status: Acute Assessment and plan: Afebrile and cultures negative to date. Continue antibiotics per ID. Likely G- CSF effect. Qualifiers: Leukocytosis type: unspecified Qualified Code(s): D72.829 - Elevated white blood cell count, unspecified (3) Primary sclerosing cholangitis Current Visit: No Status: Chronic Assessment and plan: With biloma vs. abscess. Further evaluation at [facility]. We will sign off please call with questions. Oncology: Subj Interval history: Has remained afebrile since admission. No chills. Decreased appetite. Minimal if any pain. Feeling well overall. Would like to transfer care to [facility]. - Constitutional Vitals: Vital Signs Temp Pulse Resp BP Pulse Ox 04/12/17 10:32 98.3 F 91 17 113/80 98 04/12/17 06:59 97.3 F L 96 17 107/76 98 04/12/17 04:48 97.7 F 122 14 108/87 97 04/11/17 23:20 98.9 F 99 16 104/74 96 04/11/17 19:41 98.5 F 90 14 102/74 97 04/11/17 14:54 97.5 F L 77 16 99/67 98 Intake and Output 04/12/17 04/12/17 04/12/17 00:59 08:59 16:59 Intake Total 710 / 710 340 / 340 0 / 0 Output Total 1225 / 1225 695 / 695 0 / 0 Balance -515 / -515 -355 / -355 0 / 0 Intake: IV Fluids 350 / 350 100 / 100 Zosyn 3.375 GM In 100 / 100 100 / 100 Dextrose 5% (Minibag+) 100 ML 100 ML @ 25 mls/hr IVPB Q8HR [facility] Rx#: [id number] Vancocin 500 MG In 250 / 250 Dextrose 5% 250 ML @ 167 mls/hr IVPB Q12H [facility] Rx#: [id number] Oral 360 / 360 240 / 240 0 / 0 Output: Urine 0 / 0 Emesis 200 / 200 Wound Drainage 1225 / 1225 495 / 495 0 / 0 Right Lateral Abdomen 1225 / 1225 495 / 495 0 / 0 Other: Meal Dinner Percent of Meal Consumed 5% # Voids 1 1 # Bowel Movements 1 General appearance: no acute distress, thin - Head Head exam: Present: atraumatic, normal inspection, normocephalic - Eye Eye exam: Present: conjuntiva pink, sclera anicteric - ENT ENT exam: Present: mucous membranes moist, normal exam, normal external ear exam - Neck Neck exam: Present: full ROM - Respiratory Respiratory exam: Present: CTAB - Cardiovascular Cardiovascular exam: Present: RRR - GI/Abdominal GI/Abdominal exam: Present: normal bowel sounds, soft, tenderness Additional comments: Minimal tenderness without rebound/guarding - Extremities Exam Extremities exam: Present: normal inspection - Neurological Exam Neurological exam: Present: alert, CN II-XII intact Oncology: Obj Data - Labs CBC & Chem 7: 04/12/17 06:22 04/12/17 06:22 Labs: Laboratory Results - last 24 hr 04/12/17 04/12/17 04/12/17 06:22 06:22 09:43 WBC 17.7 H RBC 4.76 Hgb 13.5 D Hct 43.8 MCV 92.0 MCH 28.4 MCHC 30.8 L RDW 17.2 H Plt Count 396 D MPV 10.2 Seg Neutrophils % 83.0 Band Neutrophils % 8.0 H Lymphocytes % 7.0 Monocytes % 2.0 Neutrophils # 16.1 H Lymphocytes # 1.2 Monocytes # 0.4 Platelet Estimate Normal Sodium 129 L Potassium 3.8 Chloride 110 H Carbon Dioxide 8 L* BUN 10 Creatinine 1.18 H D Est GFR ( Amer) > 60 Est GFR (Non-Af Amer) 50 L BUN/Creatinine Ratio 8 Glucose 273 H Calculated Osmolality 277 L Lactic Acid 0.9 Calcium 9.6 Phosphorus 4.7 Magnesium 2.2 Total Bilirubin 0.5 AST 20 ALT 42 Alkaline Phosphatase 318 H Serum Total Protein 7.8 D Albumin 2.4 L Globulin 5.4 H Albumin/Globulin Ratio 0.4 L - Impressions Impressions Abdomen/Pelvis CT 04/11/17 11:00 IMPRESSION: Interval development of 5 fluid collections in the right hepatic lobe adjacent to the internal external biliary drain. The largest 2 collections measures 21 mm and 17 mm in size. Findings could represent bilomas or abscess. Decreased size of a subcapsular right hepatic lobe fluid collection from prior exam. D/ / 04/11/2017 13:25:57 Jeison Flores MD / chas Interpreting Provider: Jeison Flores MD - Imaging and cardiology CT scan - abdomen Additional comments: Fluid collection concerning for abscess/biloma in liver. CT imaging with pulmonary nodules with early cavitation. Consult Discharge Plan - Plan Referrals: Chery Mckinney CNP [Primary Care Provider] -
--- NOTE | 2017-04-12 13:41 | Discharge Summary ---
Date of Encounter: 04/12/17 Time of Encounter: 13:35 - Discharge Diagnosis (1) SIRS (systemic inflammatory response syndrome) Priority: Primary Status: Acute (2) Breast cancer Priority: Secondary Status: Acute Qualifiers: Breast location: unspecified site of breast Patient sex: female Laterality: unspecified laterality Qualified Code(s): C50.919 - Malignant neoplasm of unspecified site of unspecified female breast (3) Crohns disease Priority: Secondary Status: Chronic Qualifiers: Gastrointestinal tract location: unspecified location Digestive disease complication type: without complication Qualified Code(s): K50.90 - Crohn's disease, unspecified, without complications (4) Metastatic breast cancer Priority: Secondary Status: Acute (5) Primary sclerosing cholangitis Priority: Secondary Status: Chronic (6) Abdominal pain Priority: Secondary Status: Acute Qualifiers: Abdominal location: generalized Qualified Code(s): R10.84 - Generalized abdominal pain (7) DVT prophylaxis Priority: Secondary Status: Acute (8) Abdominal pain Priority: Secondary Status: Acute Qualifiers: Abdominal location: right upper quadrant Qualified Code(s): R10.11 - Right upper quadrant pain (9) Liver abscess Priority: Primary Status: Acute (10) Pulmonary nodules/lesions, multiple Priority: Primary Status: Acute - Discharge Medications Home Medications: Ondansetron ODT [Zofran ODT] 4 mg SL Q6HR PRN #30 tab.rapdis 01/20/17 [Rx] Omeprazole [PriLOSEC] 20 mg PO BIDAC #30 cap 01/22/17 [Rx] Lidocaine/Prilocaine CREAM [Emla] 1 appl TP AD 02/18/17 [History] Naproxen [Naprosyn] 500 mg PO BID 02/18/17 [History] Pantoprazole Sodium 20 mg PO DAILY 02/18/17 [History] Prochlorperazine Maleate [Compazine] 10 mg PO Q6HR 02/18/17 [History] Acetaminophen [Tylenol] 650 mg PO Q6HR PRN #0 tablet 02/25/17 [Rx] Morphine Soln [Morphine Sulfate] 5 mg PO Q2H PRN #0 udc 02/25/17 [Rx] Dexamethasone [Decadron] 8 mg PO DAILY 04/11/17 [History] Sennosides/Docusate Sodium [Senna Plus] 1 tab PO BID 04/11/17 [History] Allergies/Adverse Reactions: Allergies No Known Allergies Allergy (Verified 01/22/17 14:12) Procedures/tests Complete & Pending: Procedures Performed prior 72 hours Category Date Time Status CT abd pelvis w iv and oral [CT] Stat Cat Scan 04/11/17 11:[address] chest w con [CT] Stat Cat Scan 04/11/17 11:00 Completed Date of admission: 04/11/17 08:33 Primary care physician: Chery Mckinney CNP Discharging clinician: Vineet Villanueva Anticipated date of discharge: 04/12/17 - Patient Status Disposition: Transfer Other Condition: Fair Functional capacity at discharge: independent ambulation Overall status at discharge: patient is not back to baseline - Discharge Instructions Follow Up With: Chery Mckinney CNP [Primary Care Provider] - - Diet and Activity Activity: as per physical therapy Diet: advance to your usual diet Interval History: Miss Margie rCuz is a 46-year-old female with past medical history significant for breast cancer diagnosed in December 2016, primary sclerosing cholangitis and Crohn's disease. Patient presented with a fever and abdominal pain and cough. Her CT chest showed bilateral pulmonary nodules with early signs of cavitation. Abdominal CT showed multiple new nodule in the right hepatic lobe and insular scapular area raising question for biloma versus abscess. Apparently she had couple of drains in her liver and recently one was readjusted and it is working. Infectious disease was consulted. Patient is started on vancomycin and Zosyn and infectious disease has recommended to drain the liver abscess. Oncology has also seen the patient. Patient is considered immune compromise as currently she is going through chemotherapy and treatment for her breast cancer which is on hold now. Initially she had fever and tachycardia white count with bandemia though her tachycardia has improved after giving some fluid. Her CO2 level is only 8 though lactic acid is normal now. We suspect she has Sirs. Issue and is requesting to be transferred to [facility] where she gets her regular care including her oncologist is also there. Her oncologist doctor Baca was approached who is agreed with the transfer there for [facility] transfer line has been informed and they are making arrangements. Hemodynamically She is a stable at this point and seems quite comfortable. Her abdominal examination as well as her chest examination is not too bad either. Hospital course: Ms. Cruz is a 46 year old female - Time Spent with Patient Total time spent providing and/or coordinating discharge services: Greater than 30 minutes - Constitutional Vitals: Temp Pulse Resp BP Pulse Ox 98.3 F 91 17 113/80 98 04/12/17 10:32 04/12/17 10:32 04/12/17 10:32 04/12/17 10:32 04/12/17 10:32 General appearance: Present: A&O X 3, no acute distress - Head Head exam: Present: atraumatic, normocephalic - Eye Eye exam: Present: PERRL, conjuntiva pink, sclera anicteric Pupils: Present: PERRL - Neck Neck exam general surgery: Present: supple, trachea midline. Absent: lymphadenopathy - Respiratory Respiratory exam: Present: CTAB. Absent: accessory muscle use, rales, rhonchi, wheezes - Cardiovascular Cardiovascular exam: Present: RRR, +S1, +S2. Absent: diastolic murmur, gallop, rubs, systolic murmur - GI/Abdominal GI/Abdominal exam: Present: normal bowel sounds, soft, no peritoneal signs. Absent: distended, tenderness - Extremities Exam Extremities exam: Present: warm, radial pulses palpable and symetrical. Absent : calf tenderness, cyanotic, pedal edema - Neurological Exam Neurological exam: Present: CN II-XII intact, oriented X3, no focal deficits. Absent: pronater drift, facial droop, speech deficit - Skin Skin exam: Present: dry, intact
--- NOTE | 2017-04-12 14:45 | Physician Discharge Referral ---
Home Health/Hosp Referral Info Transfer to: Home Health Attending Provider: bulmaro Provider in Charge Post Discharge: PCP - Diagnosis (1) SIRS (systemic inflammatory response syndrome) Status: Acute (2) Breast cancer Status: Acute (3) Crohns disease Status: Chronic (4) Metastatic breast cancer Status: Acute (5) Primary sclerosing cholangitis Status: Chronic (6) Abdominal pain Status: Acute (7) DVT prophylaxis Status: Acute (8) Abdominal pain Status: Acute (9) Liver abscess Status: Acute (10) Pulmonary nodules/lesions, multiple Status: Acute - Respiratory Orders Smoking Cessation: Smoking cessation has been advised. For more information, call the [place] Tobacco Quit Line at 0-559-ISKM-NOW. - Transfer Medications Home Medications: Ondansetron ODT [Zofran ODT] 4 mg SL Q6HR PRN #30 tab.rapdis 01/20/17 [Rx] Omeprazole [PriLOSEC] 20 mg PO BIDAC #30 cap 01/22/17 [Rx] Lidocaine/Prilocaine CREAM [Emla] 1 appl TP AD 02/18/17 [History] Naproxen [Naprosyn] 500 mg PO BID 02/18/17 [History] Pantoprazole Sodium 20 mg PO DAILY 02/18/17 [History] Prochlorperazine Maleate [Compazine] 10 mg PO Q6HR 02/18/17 [History] Acetaminophen [Tylenol] 650 mg PO Q6HR PRN #0 tablet 02/25/17 [Rx] Morphine Soln [Morphine Sulfate] 5 mg PO Q2H PRN #0 udc 02/25/17 [Rx] Dexamethasone [Decadron] 8 mg PO DAILY 04/11/17 [History] Sennosides/Docusate Sodium [Senna Plus] 1 tab PO BID 04/11/17 [History] Allergies/Adverse Reactions: Allergies No Known Allergies Allergy (Verified 01/22/17 14:12) Certification: Further, I certify that my clinical findings support that this patient is homebound (i.e. absences from home require considerable and taxing effort and are for medical reasons or catholic services or infrequently or short duration when for other reasons) because: Homebound Reason: Patient requires assistance of a person or device to safely leave home Attestation: My signature below is to certify that this patient is under my care and that I, or nurse practitioner, or a physician's graduate assistant athletic trainer working with me, has a face-to -face encounter with this patient.
== END 2017-04-12 13:00 | disposition other institution (70) | DRG 871 ==
LOC: 3ANU 23:01 → EMEROO 23:01 → 3ANU 04-11 04:07
PROVIDERS: ADMIT Internal Medicine; ATTEND Internal Medicine